=== PATIENT | male | born 1975 | race Caucasian/White ===

== ENCOUNTER 2022-04-08 10:03 | Outpatient (CLI) | payer MEDICARE, MEDICAID, SELFPAY ==
--- NOTE | 2022-04-08 10:15 | CRLHL7_ITS ---
For Patients: As a result of the Century Cures Act, medical imaging exams and procedure reports are released immediately into your electronic medical record. You may view this report before your referring provider. If you have questions, please contact your health care provider. INDICATION: Dysphagia TECHNIQUE: Modified barium swallow. Fluoroscopic time 1 minutes 5 seconds. COMPARISON: None FINDINGS/IMPRESSION: Anatomical structures are normal. Swallowing mechanism appears within normal limits. No episodes of penetration or aspiration. No significant findings. Prominent anterior osteophytes within the mid cervical spine noted without mass effect upon the oropharynx. Dictated by Mainor Fair MD @ 04/08/2022 11:12:41 AM (Electronically Signed)
--- OUTSIDE RECORDS SUMMARY | 2022-04-08 10:16 | XMS_ITS | Clinical Summary ---
:1975 Author Organization [facility] Address [address] [place] [address] Care Team Providers Name Role Phone Chris Fontenot [place] Primary Care Physician [phone] Encounter 04/16/20 - 04/16/20 [facility] [address] [place] [address] Encounter Diagnosis Neurogenic bladder (Discharge Diagnosis) - 04/16/20 Discharge Disposition: Home or Self Care Attending Physician: Hugo Pitts MD Admitting Physician: Hugo Pitts MD Referring Physician: Unknown Provider, MD Allergies, Adverse Reactions, Alerts No Known Allergies Discharge Medications bisacodyl (bisacodyl 10 mg rectal suppository) Status: Ordered Start Date: 12/30/18 1 Suppositories Per rectum every day as needed as need ed for constipation. carBAMazepine Status: Ordered Start Date: 12/30/18 Take 400mg orally in the am and 600mg orallly in the p m. diazePAM (diazePAM Intensol 5 mg/mL oral solution) Status: Ordered Start Date: 12/30/18 1 Milliliters Buccal Use Once as directe d to treat a specific condition as needed use as directed for increased seizure activity. divalproex sodium Status: Ordered Start Date: 12/30/18 1500mg orally in the am and 1,750 mg Orally in the pm. docosanol topical (Abreva 10% topical cream) Status: Ordered Start Date: 12/30/18 1 Application Topical 5 times per day as needed as nee ded for cold sores. lisinopril (lisinopril 20 mg oral tablet) Status: Ordered Start Date: 12/30/18 1 tabs Oral every day. metoprolol (metoprolol succinate 25 mg oral capsule, e xtended release) Status: Ordered Start Date: 12/30/18 1 Capsules Oral 2 times a day. multivitamin (multivitamin adult, oral tablet) Status: Ordered Start Date: 12/30/18 1 tabs Oral every day. sodium biphosphate-sodium phosphate (Fleet Enema (adul t)) Status: Ordered Start Date: 12/30/18 1 enema Per rectum once as needed as needed for consti pation. Problem List Condition Effective Dates Status Health Status Informant Neurogenic bladder(Confirmed) Active Hospital Discharge Diagnosis Neurogenic bladder (Discharge Diagnosis) - 04/16/20 (This Visit) Immunizations Given and Recorded Vaccine Date Status Refusal Reason influenza virus vaccine, inactivated 06/21/19 Recorded influenza virus vaccine, inactivated 06/06/18 Recorded influenza virus vaccine, inactivated 05/18/17 Recorded influenza virus vaccine, inactivated 06/10/16 Recorded influenza virus vaccine, inactivated 05/22/15 Recorded influenza virus vaccine, inactivated 05/16/14 Recorded influenza virus vaccine, inactivated 05/16/13 Recorded influenza virus vaccine, inactivated 05/26/12 Recorded influenza virus vaccine, inactivated 04/15/11 Recorded influenza virus vaccine, inactivated 04/23/10 Recorded influenza virus vaccine, inactivated 05/14/09 Recorded influenza virus vaccine, inactivated 05/31/04 Recorded hepatitis B adult vaccine 04/10/16 Recorded hepatitis B adult vaccine 11/18/15 Recorded hepatitis B adult vaccine 10/15/15 Recorded hepatitis B adult vaccine 10/11/15 Recorded tetanus/diphth/pertuss (Tdap) adult/adol 04/23/10 Recorde d pneumococcal 23-polyvalent vaccine 04/23/10 Recorded Vital Signs Most recent to oldest [Reference Range]: 1 Pain Present No actual or suspected pain (04/16/20 3:00 PM) Social History Social History Type Response Smoking Status Never smoker; Exposure to Se condhand Smoke: No entered on: 04/16/20 Sex
--- OUTSIDE RECORDS SUMMARY | 2022-04-08 10:16 | XMS_ITS | Clinical Summary ---
:1975 Author Organization [facility] Address [address] [place] [address] Care Team Providers Name Role Phone Chris Fontenot [place] Primary Care Physician [phone] Encounter 10/30/20 - 10/30/20 [facility] [address] [place] [id number] Encounter Diagnosis Neurogenic bladder (Discharge Diagnosis) - 10/30/20 Cerebral palsy, diplegic (Discharge Diagnosis) - 10/30/20 Urinary frequency (Discharge Diagnosis) - 10/30/20 Recurrent UTI (Discharge Diagnosis) - 10/30/20 Urinary urgency (Discharge Diagnosis) - 10/30/20 Constipation (Discharge Diagnosis) - 10/30/20 Discharge Disposition: Home or Self Care Attending Physician: Bashir Samuel MD Admitting Physician: Bashir Samuel MD Referring Physician: Hugo Pitts MD Allergies, Adverse Reactions, Alerts No Known [...] 1 Capsules Oral 2 times a day. mirabegron (mirabegron 25 mg oral tablet, extended rel ease) Status: Ordered Start Date: 10/30/20 1 tabs Oral every day. do not crush or chew. Refills: 1. Ordering provider: Eleni Rivas APRN CNP multivitamin (multivitamin adult, oral tablet) Status: Ordered Start Date: 12/30/18 1 tabs Oral every day. sodium biphosphate-sodium phosphate (Fleet Enema (adul t)) Status: Ordered Start Date: 12/30/18 1 enema Per rectum once as needed as needed for brenda gtz. sulfamethoxazole-trimethoprim (Bactrim DS 800 mg-160 m g oral tablet) Status: Ordered Start Date: 07/29/20 1 tabs Oral once. Take 1 tab 1-2 hours A [facility] Procedure.. Refills: 0. Ordering provider: Bea Zamora APRN CNP Problem List Condition Effective Dates Status Health Status Informant At high risk for falls(Confirmed)1 Active Cerebral palsy, diplegic(Confirmed) Active Hypertension(Confirmed) Active Urinary frequency(Confirmed) Active Neurogenic bladder(Confirmed) Active Recurrent UTI(Confirmed) Active Scoliosis(Confirmed) Active Seizure disorder(Confirmed) Active Urinary urgency(Confirmed) Active 1Added via Discern Expert [email or web address]_PROBLEM Rule. Hospital Discharge Diagnosis Cerebral palsy, diplegic (Discharge Diagnosis) - 10/30/20 Constipation (Discharge Diagnosis) - 10/30/20 Neurogenic bladder (Discharge Diagnosis) - 10/30/20 Recurrent UTI (Discharge Diagnosis) - 10/30/20 Urinary frequency (Discharge Diagnosis) - 10/30/20 Urinary urgency (Discharge Diagnosis) - 10/30/20 (This Visit) Immunizations Given and Recorded Vaccine Date Status Refusal Reason tetanus/diphth/pertuss (Tdap) adult/adol 06/06/20 Recorde d tetanus/diphth/pertuss (Tdap) adult/adol 04/23/10 Recorde d influenza virus vaccine, inactivated 05/29/20 Recorded influenza virus vaccine, inactivated 06/21/19 Recorded influenza [...] Recorded hepatitis B adult vaccine 10/11/15 Recorded pneumococcal 23-polyvalent vaccine 04/23/10 Recorded Vital Signs Most recent to oldest [Reference Range]: 1 Temperature Temporal Artery [36.5-38 Deg C] 36.8 Deg C (10/30/20 9:36 AM) Peripheral Pulse Rate [50-90 bpm] 105 bpm *HI* (10/30/20 9:36 AM) Blood Pressure [100-140/60-90 mmHg] 121/45 mmHg (10/30/20 9:36 AM) Pain Present No actual or suspected pain (10/30/20 9:54 AM) Social History Social History Type Response Smoking Status Never smoker; Exposure to Se condhand Smoke: No entered on: 10/30/20 Sex
--- OUTSIDE RECORDS SUMMARY | 2022-04-08 10:16 | XMS_ITS | Clinical Summary ---
:1975 Author Organization [facility] Address [address] [place] [address] Care Team Providers Name Role Phone Chris Fontenot Primary Care Physician [phone] Encounter 05/10/19 - 05/10/19 [facility] [address] [place] [address] Encounter Diagnosis Back pain (Discharge Diagnosis) - 05/10/19 Discharge Disposition: Home or Self Care Attending Physician: Unknown Provider, Admitting Physician: Unknown Provider, MD Allergies, Adverse Reactions, Alerts No Known Allergies Discharge Medications bisacodyl (bisacodyl 10 mg rectal suppository) 1 Suppositories Per rectum every day as needed as need ed for constipation. carBAMazepine Take 400mg orally in the am and 600mg orallly in the p m. diazePAM (diazePAM Intensol 5 mg/mL oral solution) 1 Milliliters Buccal Use Once as directe d to treat a specific condition as needed use as directed for increased seizure activity. divalproex sodium 1500mg orally in the am and 1,750 mg Orally in the pm. docosanol topical (Abreva 10% topical cream) 1 Application Topical 5 times per day as needed as nee ded for cold sores. lisinopril (lisinopril 20 mg oral tablet) 1 tabs Oral every day. metoprolol (metoprolol succinate 25 mg oral capsule, e xtended release) 1 Capsules Oral 2 times a day. mirabegron (Myrbetriq 50 mg oral tablet, extended rele ase) 1 tabs Oral every day. do not crush or chew. multivitamin (multivitamin adult, oral tablet) 1 tabs Oral every day. sodium biphosphate-sodium phosphate (Fleet Enema (adul t)) 1 enema Per rectum once as needed as needed for consti pation. Problem List Hospital Discharge Diagnosis Back pain (Discharge Diagnosis) - 05/10/19 (This Visit) Vital Signs Most recent to oldest [Reference Range]: 1 Pain Present Yes actual or suspected pain (05/10/19 9:36 AM) Social History Social History Type Response Smoking Status Never smoker; Exposure to Se condhand Smoke: No entered on: 12/30/18 Sex Functional Status 05/10/19 Home Equipment Rehab Manual wheelchair, Shower chair, Other: Shower chair is half-way's chair
--- OUTSIDE RECORDS SUMMARY | 2022-04-08 10:16 | XMS_ITS | Clinical Summary ---
:1975 Author Organization [facility] Address [address] [place] [id number] Care Team Providers Name Role Phone Chris Fontenot Primary Care Physician [phone] Encounter 09/17/20 - 09/17/[address] [address]- Discharge Disposition: Home or Self Care Attending Physician: Bea Zamora APRN CNP Admitting Physician: Bea Zamora APRN CNP Referring Physician: Bea Zamora APRN CNP Allergies, Adverse Reactions, Alerts No Known Allergies [...] Refills: 0. Ordering provider: Bea Zamora APRN TELE MARKETING EXECUTIVE Problem List Condition Effective Dates Status Health Status Informant Neurogenic bladder(Confirmed) Active Immunizations Given and Recorded Vaccine Date Status [...] 10/11/15 Recorded pneumococcal 23-polyvalent vaccine 04/23/10 Recorded Social History Social History Type Response Smoking Status Never smoker; Exposure to Se condhand Smoke: No entered on: 04/16/20 Sex Treatment Plan Future AppointmentsAppointment Date:10/30/2020 09:30:00 AM Scheduled Provider: Location:[facility] - Clinic Appointment Type:Urology - Cystoscopy Appointment Date:10/30/2020 10:00:00 AM Scheduled Provider: Location:[facility] - Clinic Appointment Type:Urology - Cystometrogram ([facility]) Appointment Date:10/30/2020 12:20:00 PM Scheduled Provider: Location:[facility] - Clinic Appointment Type:Height and Weight Appointment Date:10/30/2020 12:30:00 PM Scheduled Provider: Location:[facility] - OPS Appointment Type:Seating - Adjustment 3 (4 Hours)
--- OUTSIDE RECORDS SUMMARY | 2022-04-08 10:16 | XMS_ITS | Clinical Summary ---
:[address] [facility] Address [address] [place] [address] Care Team Providers Name Role Phone Chris Fontenot [place] Primary Care Physician [phone] Encounter 07/01/21 - 07/01/[address] [address] Encounter Diagnosis Cerebral palsy, diplegic (Discharge Diagnosis) - 07/01/21 Urinary frequency (Discharge Diagnosis) - 07/01/21 Neurogenic bladder (Discharge Diagnosis) - 07/01/21 Urinary urgency (Discharge Diagnosis) - 07/01/21 Discharge Disposition: Home or Self Care Attending Physician: Bea Zamora APRN DRILL PRESS TENDER Admitting Physician: Bea Zamora APRN DRILL PRESS TENDER Referring Physician: Bashir Samuel MD Allergies, Adverse Reactions, Alerts No Known [...] Oral 2 times a day. mirabegron (mirabegron 50 mg oral tablet, extended rel ease) [id number] Status: Ordered [address] [place] [phone] Start Date: 02/03/21 1 tabs Oral every day. do not crush or chew. Refills: 11. Ordering provider: Bea Zamora APRN CNP multivitamin (multivitamin adult, oral tablet) Status: Ordered Start Date: 12/30/18 1 tabs Oral every day. sodium biphosphate-sodium phosphate (Fleet Enema (adul t)) Status: Ordered Start Date: 12/30/18 1 enema Per rectum once as needed as needed for brenda gtz. sulfamethoxazole-trimethoprim (Bactrim DS 800 mg-160 m g oral tablet) [id number] Status: Ordered [address] [place] [address] [phone] Start Date: 07/29/20 1 tabs Oral once. [...] Diagnosis Cerebral palsy, diplegic (Discharge Diagnosis) - 07/01/21 Neurogenic bladder (Discharge Diagnosis) - 07/01/21 Urinary frequency (Discharge Diagnosis) - 07/01/21 Urinary urgency (Discharge Diagnosis) - 07/01/21 (This Visit) Immunizations Given and Recorded Vaccine [...]
--- OUTSIDE RECORDS SUMMARY | 2022-04-08 10:16 | XMS_ITS | Clinical Summary ---
:1975 Author Organization [facility] Address [address] [place] [address] Care Team Providers Name Role Phone Chris Fontenot Primary Care Physician [phone] Encounter 12/30/18 - 12/30/18 [facility] [address] [place] [address] Encounter Diagnosis Scoliosis (Discharge Diagnosis) - 12/30/18 Discharge Disposition: Home or Self Care Attending Physician: Maylin Medel MD Admitting Physician: Maylin Medel MD Referring Physician: Maylin Medel MD Allergies, Adverse Reactions, Alerts No Known [...] consti pation. Problem List Hospital Discharge Diagnosis Scoliosis (Discharge Diagnosis) - 12/30/18 (This Visit) Vital Signs Most recent to oldest [Reference Range]: 1 Temperature Temporal Artery [36.5-38 Deg C] 36.6 Deg C (12/30/18 10:33 AM) Peripheral Pulse Rate [50-90 bpm] 77 bpm (12/30/18 10:33 AM) Blood Pressure [100-140/60-90 mmHg] 115/73 mmHg (12/30/18 10:33 AM) Weight Dosing 66.2 kg (12/30/18 10:33 AM) Pain Present Yes actual or suspected pain (12/30/18 11:20 AM) Able to self report Yes (12/30/18 11:20 AM) able to use numeric rating scale No (12/30/18 11:20 AM) Social History Social History Type Response Smoking Status Never smoker; Exposure to Se condhand Smoke: No entered on: 12/30/18 Sex
--- OUTSIDE RECORDS SUMMARY | 2022-04-08 10:16 | XMS_ITS | Clinical Summary ---
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 Status: Ordered [address] [place] [phone] Start Date: 02/03/21 1 tabs Oral every [...] DS 800 mg-160 m g oral tablet) [facility] Status: Ordered [address] [place] [address] [phone] Start Date: 07/29/20 1 tabs Oral once. [...] Discern Expert ADD_HIGHRISKFALL_PROBLEM Rule. 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
--- OUTSIDE RECORDS SUMMARY | 2022-04-08 10:17 | XMS_ITS | Encounter Summary ---
:1975 Author Organization [facility] Address [address] [place] [address] Care Team Providers Name Role Phone Elsewhere, Pcp Primary Care Provider Unavailable Reason for Referral MRI/CAT/PET Scan (Routine) - Closed Specialty Diagnoses / Procedures Referred By Contact Refer red To Contact Radiology Diagnoses Epilepsy Seizure Not Intractable Without Status Epilepticus (HCC) Matteo Noe M.D. 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 [facility] Procedures MR Brain without IV Contrast HI MRI BRAIN WO CNTRST HC MRI BRAIN WO CNTRST [address] [place], [place] [id number] Referral ID Status Reason Start Date Expiration Date Visits Requ ested Visits Authorized [id number] Closed 12/04/2021 12/04/2022 1 1 Encounter Details Date Type Department Care Team Description 02/02/2022 Hospital Encounter Department of Matteo Noe, Epilepsy Seizure Not RadiologyGerald M.D. Intractable Without [place], in [place], [address] Status Epilepticus [place], [place] ([facility]) [address] [address] [place], [place] [phone] (Work) [phone] Social History Tobacco Use Types Packs/Day Years Used Date Smoking Tobacco: Never Smokeless Tobacco: Never Alcohol Habits Answer Date Recorded How often do you have a drink containing alcohol? Never 02/01/2022 How many drinks containing alcohol do you have on a typical Not asked day when you are drinking? How often do you have six or more drinks on one occasion? No t asked Comment: Not asked Social Isolation Answer Date Recorded In a typical week, how many times do you More than three kelsey es a week 02/01/2022 talk on the phone with family, friends, or neighbors? How often do you get together with friends More than three t imes a week 02/01/2022 or relatives? How often do you attend hoahaoism or 1 to 4 times per year 01/14 bahai services? Do you belong to any clubs or No 02/01/2022 organizations such as hoahaoism groups, unions, fraternal or athletic groups, or school groups? How often do you attend meetings of the Never 02/01/2022 clubs or organizations you belong to? Are you now , , , Never 02/01/2022 , never or living with a partner? Physical Activity Answer Date Recorded On average, how many days per week do you engage in moderate to 0 days 02/01/2022 strenuous exercise (like walking fast, running, jogging, dancing, swimming, biking, or other activities that cause a light or heavy sweat)? On average, how many minutes do you engage in exercise at th is 0 min 02/01/2022 level? Stress Answer Date Recorded Do you feel stress - tense, restless, nervous, or anxious, R ather much 02/01/2022 or unable to sleep at night because your mind is troubled all the time - these days? Financial Resource Strain Answer Date Recorded How hard is it for you to pay for the very basics like Not h deidra at all 02/01/2022 food, housing, medical care, and heating? Intimate Partner Violence Answer Date Recorded Within the last year, have you been afraid of your partner o r No 02/01/2022 ex-partner? Within the last year, have you been humiliated or emotionall y No 02/01/2022 abused in other ways by your partner or ex-partner? Within the last year, have you been kicked, hit, slapped, or No 02/01/2022 otherwise physically hurt by your partner or ex-partner? Within the last year, have you been raped or forced to have any No 02/01/2022 kind of sexual activity by your partner or ex-partner? Food Insecurity Answer Date Recorded Within the past 12 months, you worried that your food would Never true 02/01/2022 run out before you got money to buy more. Within the past 12 months, the food you bought just didn't N ever true 02/01/2022 last and you didn't have money to get more. Transportation Needs Answer Date Recorded In the past 12 months, has lack of transportation kept you f rom No 02/01/2022 medical appointments or from getting medications? In the past 12 months, has lack of transportation kept you f rom No 02/01/2022 meetings, work, or getting things needed for daily living? Housing Stability Answer Date Recorded In the last 12 months, was there a time when you were not ab le No 02/01/2022 to pay the mortgage or rent on time? In the last 12 months, how many places have you lived? 1 02/01/2022 In the last 12 months, was there a time when you did not hav e a No 02/01/[address] or slept in a retirement (including now)? Sex Assigned at Date Recorded Male 02/01/2022 6:47 PM CDT documented as of this encounter Medications at Time of Discharge Medication Sig Dispensed Refills Start Date End Date ascorbic acid, vitamin Take 1 tablet (1,000 180 tablet 3 02/02/2023 C, (Vitamin C) 1,000 mg mg total) by mouth 2 tablet (two) times a day. atenoloL (TENORMIN) 25 Take 25 mg by mouth 0 mg tablet daily. bisacodyL (DULCOLAX) 10 Insert into the 0 016 mg suppository rectum as needed. cholecalciferol, vitamin Take 5,000 Units by 0 D3, (VITAMIN D3 ORAL) mouth daily. diazePAM (VALIUM) 5 Give as directed for 0 2017 mg/mL concentrated prolonged seizure. solution divalproex (DEPAKOTE) 4 tablets p.o. each 0 02/14 500 mg EC tablet morning and 4 each evening. docosanoL (ABREVA) 10 % Apply topically as 0 09/17 cream needed. ibuprofen (ADVIL,MOTRIN) Take 400 mg by mouth 0 0 10/27/2018 200 mg tablet as needed. lisinopriL Take 1 tablet by 0 04/03/2021 (PRINIVIL,ZESTRIL) 20 mg mouth daily. tablet multivitamin with folic Take 1 tablet by 0 2020 acid (ONE DAILY mouth daily. ESSENTIAL) 400 mcg tablet nystatin (MYCOSTATIN) Apply topically as 0 2020 100,000 unit/gram cream needed. sodium Insert into the 0 phosphate,mono-dibasic rectum as needed. (FLEET ENEMA RECTAL) tiZANidine (ZANAFLEX) 2 Take 0.5-1 tablets 0 /0 11/2020 mg tablet by mouth as needed. triamcinolone (KENALOG) Apply topically to 0 03/16 0.1 % ointment affected area(s) 2 times daily. As needed. carBAMazepine Take 300 mg by mouth 0 03/11/2018 0 02/06/2022 (CARBATROL) 300 mg 12 hr 2 (two) times a day. capsule lacosamide (VIMPAT) 50 Take 1.5 tablets by 0 02/06/2022 mg tablet mouth 2 (two) times a day. After 1 week, increase to 2 tablets twice a day. documented as of this encounter Plan of Treatment Not on filedocumented as of this encounter Procedures Procedure Name Priority Date/Time Associated Comments Diagnosis MR BRAIN WITHOUT RAD - Routine 02/02/2022 4:23 Epilepsy Seizure Res ults for this IV CONTRAST (most inpatients PM CDT Not Intractable procedur e are in and all Without Status the results outpatients) Epilepticus (HCC) section. documented in this encounter Results MR Brain without IV Contrast (02/02/2022 4:23 PM CDT) Anatomical Region Laterality Modality Head, Brain, Neuroradiology RST LOS, Neuroradiology ARZ N/A Magnetic Resonance LOS, Neuroradiology FLA LOS Specimen (Source) Anatomical Collection Method Collection Time Re ceived Time Location / / Volume Laterality 02/03/2022 1:13 PM CDT Impressions 02/03/2022 1:36 PM CDT Patient motion degrades images. Due to technical difficulties NeuroQuant analysis could not be performed. Moderate-marked diffus e loss of cerebral white matter with patchy confluent areas of abnormal T2 signal and a few areas of encephalomalacia. Associated thinning corpus callosum and irregularity lateral gao both lateral ventricles. Findings probably due to an old remote global insult and subsequent periventricular le ukomalacia. Presumed ossification anterior falx. Mild polypoid mucosal thickening left maxilla ry sinus. Abnormal T2 signal left paramedian maxillary tooth region which may be due to inflammation- infection. Degenerative changes visualized cervical spine. Remainder negative. Narrative 02/03/2022 1:36 PM CDT EXAM: MR BRAIN WITHOUT IV CONTRAST COMPARISON: None. Procedure Note Wali Jaeger M.D. - 02/03/2022Fo rmatting of this note might be different from the original. EXAM: MR BRAIN WITHOUT IV CONTRAST COMPARISON: None. IMPRESSION: Patient motion degrades images. Due to t echnical difficulties NeuroQuant analysis could not be performed. Moderate-marked diffus e loss of cerebral white matter with patchy confluent areas of abnormal T2 signal and a few areas of encephalomalacia. Associated thinning corpus callosum and irregularity lateral gao both lateral ventricles. Findings probably due to an old remote global insult and subsequent periventricular le ukomalacia. Presumed ossification anterior falx. Mild polypoid mucosal thickening left maxilla ry sinus. Abnormal T2 signal left paramedian maxillary tooth region which may be due to inflammation- infection. Degenerative changes visualized cervical spine. Remainder negative. 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
--- OUTSIDE RECORDS SUMMARY | 2022-04-08 10:17 | XMS_ITS | Encounter Summary ---
:1975 Author Organization [facility] Address [address] [place] [address] Care Team Providers Name Role Phone Elsewhere, Pcp Primary Care Provider Unavailable Reason for Visit Reason Comments Local DDS calling with question So Encounter Details Date Type Department Care Team Description 04/01/2022 Clinical Communication Department of Matteo Noe Loca l DDS calling Neurology in M.D. with question (So) [place], [facility] [address] [place], [place] [address] [facility] [address] [place], [place] [phone] (Work) [phone] Social History Tobacco Use Types Packs/Day Years [...] or relatives? How often do you attend buddhist or 1 to 4 times per year 01/14 druze services? Do you belong to any clubs or No 02/01/2022 organizations such as buddhist groups, unions, fraternal or athletic groups, or [...] place to sleep or slept in a penitentiary (including now)? Sex Assigned at Date Recorded Male 02/01/2022 6:47 PM CDT documented as of this encounter Miscellaneous Notes Telephone Encounter - Scott Raygoza R.N. - 04/03/2022 1:52 PM CDT Attempted to call Dr. Mayen' office back. Unable to reach staff so message was left for them to callus back. I found recommendations from Dr. Noe regarding dental follow up for his note on 02/02/22 where he stated the following: I counseled Kirsty that the MRI of the brain showed changes associated with Andres's cerebral palsy,and no acute lesions to explain his increase in seizure frequency. However, there was an incidental finding to suggest tooth infection at the left upper maxillary region. She should bring Andres to see his dentist. This information can be relayed to Dr. Mayen or her staff when called back. Telephone Encounter - Velvet Gates Fantasma - 04/01/2022 2:27 PM CDT Chief Complaint Finding on MRI and follow up at dental off Reason for Call: Dr. Mayen is calling as she was told by patient that he needed following up his dental issue found on MRI. X-rays were not done at local dental office. Provider is wondering what she is to be looking at. Person calling / Relationship: Rossana Mayen DDS, from [facility] Valid [employer] - sending a release over to us. [employer] prior to releasing information. , extension 1 for dental. Caller was made aware of the two- to four-business day call turnaround time. 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
--- OUTSIDE RECORDS SUMMARY | 2022-04-08 10:17 | XMS_ITS | Clinical Summary ---
:1975 Author Organization [facility] Address [address] [place] [address] Care Team Providers Name Role Phone FontenotChris negrete Primary Care Physician [phone] Encounter 05/21/20 - 10/29/20 [facility] [address] [place] [id number] Encounter Diagnosis Spastic diplegia (Discharge Diagnosis) - 05/22/20 Unspecified lack of coordination (Final) - Muscle weakness (generalized) (Final) - Spastic diplegic cerebral palsy (Final) - Discharge Disposition: Home or Self Care Attending Physician: Maylin Medel MD Admitting Physician: Maylin Medel MD Allergies, Adverse Reactions, [...] as needed as needed for consti pation. sulfamethoxazole-trimethoprim (Bactrim DS 800 mg-160 m g oral tablet) Status: Ordered Start Date: 07/29/20 1 tabs Oral once. Take 1 tab 1-2 hours A [facility] Procedure.. Refills: 0. Ordering provider: Bea Zamora APRN AIR TRAFFIC CONTROLLER Problem List Condition Effective Dates Status Health Status Informant Neurogenic bladder(Confirmed) Active Hospital Discharge Diagnosis Spastic diplegia (Discharge Diagnosis) - 05/22/20 (This Visit) Immunizations Given and Recorded Vaccine [...] Recorded Vital Signs Most recent to oldest 1 2 3 [Reference Range]: Height/Length 163 cm Estimated (05/22/20 10:21 AM) Weight Estimated 68 kg (05/22/20 10:21 AM) Pain Present Patient was not seen No actual or suspected pain No actual or suspected pain (10/29/20 4:04 PM) (06/04/20 4:14 PM) (05/21/20 3: 36 PM) Primary Pain Other: Lack of movement, poo r positioning, decreased use of stander Aggravating Factors (05/21/20 3:36 PM) Primary Pain Exercise, Alleviating Factors Repositioning 1 (05/21/20 3:36 PM) Primary Pain Onset Gradual (05/21/20 3:36 PM) Primary Pain Quality Chronic (05/21/20 3:36 PM) 1Result Comment: use of stander Social History Social History Type Response Smoking Status Never smoker; Exposure to Se condhand Smoke: No entered on: 04/16/20 Sex Treatment Plan Future AppointmentsAppointment Date:10/30/2020 09:30:00 AM Scheduled Provider: Location:[facility] - Clinic Appointment Type:Urology - Cystoscopy Appointment Date:10/30/2020 10:00:00 AM Scheduled Provider: Location:[facility] Appointment Type:Urology - Cystometrogram ([facility]) Appointment Date:10/30/2020 12:20:00 PM Scheduled Provider: Location:[facility] - [facility] Appointment Type:Height and Weight Appointment Date:10/30/2020 12:30:00 PM Scheduled Provider: Location:[facility] Appointment Type:Seating - Adjustment 3 (4 Hours)
--- OUTSIDE RECORDS SUMMARY | 2022-04-08 10:17 | XMS_ITS | Clinical Summary ---
:1975 Author Organization [facility] Address [address] [place] [address] Care Team Providers Name Role Phone Chris Fontenot Primary Care Physician [phone] Encounter 10/29/20 - 10/29/20 [facility] [address] [place] [address] Discharge Disposition: Home or Self Care Attending [...] Refills: 0. Ordering provider: Bea Zamora APRN PRODUCTION ASSOCIATE Problem List Condition Effective Dates Status Health [...] Future AppointmentsAppointment Date:10/30/2020 09:30:00 AM Scheduled Provider: Location:[facility] - Clinic Appointment Type:Urology - Cystoscopy Appointment Date:10/30/2020 10:00:00 AM Scheduled Provider: Location:[facility] - [facility] Appointment Type:Urology - Cystometrogram ([facility]) Appointment Date:10/30/2020 12:20:00 PM Scheduled Provider: Location:[facility] - Clinic Appointment Type:Height and Weight Appointment Date:10/30/2020 12:30:00 PM Scheduled Provider: Location:[facility] - [facility] Appointment Type:Seating - Adjustment 3 (4 Hours)
--- OUTSIDE RECORDS SUMMARY | 2022-04-08 10:17 | XMS_ITS | Clinical Summary ---
:1975 Author Organization [facility] Address [address] [place] [address] Care Team Providers Name Role Phone Elsewhere, Pcp Primary Care Provider Unavailable Source Comments Patient records contain information from all sites at [facility]. For routine questions regarding patient records, call [phone] during business hours, M-F 8:00 AM - 5:00 PM Central Time. Record requests for emergency care only can be directed to [phone] at any time.[facility] Allergies Active Allergy Reactions Severity Noted Date Comments Gabapentin Other (see comments) 03/20/2021 Tolterodine Rash Low 05/22/2014 Medications Medication Sig Dispensed Refills Start Date End Date Status divalproex 4 tablets p.o. 0 02/14/2021 Act kandice (DEPAKOTE) 500 mg EC each morning and tablet 4 each evening. diazePAM (VALIUM) 5 Give as directed 0 07/05/2018 Active mg/mL concentrated for prolonged solution seizure. atenoloL (TENORMIN) Take 25 mg by 0 Active 25 mg tablet mouth daily. lisinopriL Take 1 tablet by 0 04/03/2021 A ctive (PRINIVIL,ZESTRIL) mouth daily. 20 mg tablet multivitamin with Take 1 tablet by 0 12/11/2020 Active folic acid (ONE mouth daily. DAILY ESSENTIAL) 400 mcg tablet cholecalciferol, Take 5,000 Units 0 Active vitamin D3, (VITAMIN by mouth daily. D3 ORAL) tiZANidine Take 0.5-1 0 03/19/2021 Active (ZANAFLEX) 2 mg tablets by mouth tablet as needed. triamcinolone Apply topically 0 04/03/2021 Active (KENALOG) 0.1 % to affected ointment area(s) 2 times daily. As needed. sodium Insert into the 0 Acti ve phosphate,mono-dibas rectum as ic (FLEET ENEMA needed. RECTAL) bisacodyL (DULCOLAX) Insert into the 0 02/23/2016 Active 10 mg suppository rectum as needed. docosanoL (ABREVA) Apply topically 0 10/11/2015 Active 10 % cream as needed. ibuprofen Take 400 mg by 0 10/27/2018 Acti ve (ADVIL,MOTRIN) 200 mouth as needed. mg tablet nystatin Apply topically 0 03/18/2021 Act kandice (MYCOSTATIN) 100,000 as needed. unit/gram cream ascorbic acid, Take 1 tablet 180 tablet 3 02/02/2022 3 Active vitamin C, (Vitamin (1,000 mg total) C) 1,000 mg tablet by mouth 2 (two) times a day. carBAMazepine Take 1 capsule 180 capsule 3 02/06/2022 Active (CARBATROL) 300 mg (300 mg total) 12 hr by mouth 2 (two) capsuleIndications: times a day. 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 Optimal management of neurogenic bladde r is essential to reducing frequency of UTI. Patient should be on scheduled voiding, and intermittent catheterization as prescribed by Urology to maximize bladder emptying and reduce risk of UTI. Infection Urinary Tract Recurrent 10/08/2020 Last Assessment & Plan: Formatting of is note might be different from the original. Patient appears to have different organ isms with each infection, with intervening periods with negative urine cultures. Fortunately, these organisms have been reasonably susceptible overall. Conservati ve measures we could attempt include kwasi dder acidification, and methenamine hippurate. Patient has good renal function, and most recent urine pH was 6.0. He would thus be in the group most likely to justine efit from urine acidification trial. Rec ommend 1 g vitamin C p.o. b.i.d., and rechecking UA with any breakthrough episodes. If breakthrough episodes continue at the current rate, and the patient's bladd er pH gets below 5.5, we could do a tria l of methenamine hippurate. We can also work to optimize neurogenic bladder management as described below. 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 We do a to be careful about our antimic robial selection in the setting of the patient's known seizure disorder. Specifically, when at all possible, we should be avoiding quinolone antibiotics. Quinolon es lower the seizure threshold, and may contribute to some of the worsening seen. Carbapenems may also do so, though given the organism seen today, there was only 1 case for that would of potentially been a serious option. 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 Seizure onset 1 yo. Severe DD with quadr iparesis. Severe agitation makes procedures challenging. VPA has helped but levels above 100 needed. Carbamazepine less helpful. Previous treatment with phenobarb ital, phenytoin and carbamazepine with l evetiracetam was less successful. Seizure free between 11/2012-07/2015 while on Carbatrol and Depakote. He had a seizure in 07/2015, another seizure in 11/2016 an d a third seizure on 12/25/2016 and came to our attention. Hypertension Essential Primary 09/27/2007 Encounters Date Type Specialty Care Team Description 04/01/2022 Clinical Communication Neurology Matteo Noe M.D. Lo cal DDS calling with question (So) 02/17/2022 Orders Only Neurology Matteo Noe M.D. Localization Related Focal Partial S ymptomatic Epilepsy And Ep ileptic Syndromes With Simple Partial Seizure s Intractable Wit hout Status Epilepti cus ([facility]) (Primary Dx) 02/03/2022 Clinical Communication Neurology Matteo Noe M.D. 02/03/2022 Orders Only Neurology Matteo Noe M.D. 02/02/2022 Hospital Encounter Radiology Matteo Noe M.D. Epilep sy Seizure Not Intractable Wit hout Status Epilepti cus ([facility]) 02/02/2022 Hospital Encounter Neurology Matteo Noe M.D. Epilep sy Seizure Not Intractable Wit hout Status Epilepti cus ([facility]) 02/02/2022 Office Visit Neurology Matteo Noe M.D. Localization Related Focal Partial S ymptomatic Epilepsy And Ep ileptic Syndromes With Simple Partial Seizure s Intractable Wit hout Status Epilepti cus ([facility]) from Last 3 Months Immunizations Name Administration Dates Next Due H1N1 All Forms 06/20/2009 HepB Adult 04/10/2016, 11/18/2015, 10/15/2015, 10/11/2015 Influenza (IM) Preservative Free 04/23/2010 Influenza TIV (IM) 05/22/2015, 04/15/2011, 04/23/2010, 05/14/2009, 05/16/2007, 05/31/2004 Influenza, Injectable, Mdck, 06/27/2021, 06/06/2018 Preservative Free, Quadrivalent Influenza, Injectable, Mdck, 06/06/2018 Quadrivalent Influenza, Injectable, Quadrivalent 05/29/2020, 05/18/2017, 05/22/2015 Influenza, Seasonal, Injectable 05/26/2012, 04/15/2011, 04/17, 05/31/2004 Influenza, Unspecified 06/10/2016, 05/16/2014, 05/16/2013, 05/26/2012, 05/14/2009, 05/31/2004 PPSV23 04/23/2010 SARS-COV-2 (COVID-19) - MODERNA 10/09/2020 Tdap 06/06/2020, 04/23/2010 influenza vaccine quad 06/21/2019 (FLUZONE/FLUARIX) (6 months and older)(PF) Social History Tobacco Use Types Packs/Day Years [...] or relatives? How often do you attend buddhism or 1 to 4 times per year 01/14 buddhism services? Do you belong to any clubs or No 02/01/2022 organizations such as buddhism groups, unions, fraternal or athletic groups, or [...] place to sleep or slept in a prison (including now)? Sex Assigned at Date Recorded Male 02/01/2022 6:47 PM CDT Last Filed Vital Signs Vital Sign Reading Time Taken Comments Blood Pressure - - Pulse - - Temperature 36.2 ??C (97.2 ??F) 11/17/2021 2:36 PM CDT Respiratory Rate - - Oxygen Saturation - - Inhaled Oxygen Concentration - - Weight - - Height - - Body Mass Index - - Plan of Treatment Health Maintenance Due Date Last Done Comments CT Colonography 1975 Cologuard 1975 Colonoscopy 1975 Colorectal Cancer Screening 1975 FIT 1975 HIV Screening 1975 Hepatitis C Screening 1975 Office Visit for Blood 1974 Pressure Check / Re-check Depression Screening 08/16/2021 (Annual PHQ-2) Influenza Vaccine (#1) 2022 06/27/2021, 05/29/2020, 05/29/2020, Additional history exists Creatinine Level 09/29/2022 09/29/2021, 03/27/2021, 03/15/2020 Potassium Level 09/29/2022 09/29/2021, 03/27/2021, 03/15/2020 Sodium Level 09/29/2022 09/29/2021, 03/27/2021, 03/15/2020 Fasting Glucose for 09/29/2024 09/29/2021, 03/27/2021, Diabetes Screening 03/15/2020 Fasting Lipid Panel 03/15/2025 03/15/2020, 10/27/2018 DTaP,Tdap,and Td Vaccines 06/06/2030 06/06/2020, 04/23/2010 (3 - Td or Tdap) Pneumococcal vaccine (0-64 Aged Out 04/23/2010 No lo nger eligible years) based on patient 's age to complete this topic Hepatitis B Vaccines Completed 04/10/2016, 11/18/2015, 10/15/2015, Additional history exists COVID-19 Vaccine Completed 08/28/2021, 10/09/2020, 09/16/2020 Procedures Procedure Name Priority Date/Time Associated Comments Diagnosis MR BRAIN WITHOUT RAD - Routine 02/02/2022 4:23 Epilepsy Seizure Res ults for this IV CONTRAST (most inpatients PM CDT Not Intractable procedur e are in and all Without Status the results outpatients) Epilepticus (HCC) section. EEG ROUTINE - Routine 02/02/2022 10:38 Epilepsy Seizure Result s for this AWAKE AND SLEEP AM CDT Not Intractable procedure are in Without Status the results Epilepticus (HCC) section. from Last 3 Months Results MR Brain without IV Contrast (02/02/2022 [...] changes visualized cervical spine. Remainder negative. Matteo Noe M.D. IMG MRI PROCEDURES EEG routine - awake and sleep (02/02/2022 10:38 AM CDT) Specimen (Source) Anatomical Location Collection Method / Collectio n Time Received Time / Laterality Volume Narrative MMODAL - 02/02/2022 1:16 PM CDT Clinical Interpretation: The short-term video EEG shows a moderate degree of diffuse nonspecific slow wave abnorma lities. ??No potentially epileptogenic activity was present durin g the awake recording. Sleep was not recorded. Classification: SPECIAL STUDY - Short-te video EEG. Dysrhythmia grade 2 generalized. Sleep - unsuccessful. . EKG channel. Report: The short-term video EEG recordi ng during wakefulness contains 8 Hz alpha activity over the posterior hea d regions.. ??There is generalized theta slowing in the 4-7 Hertz range, oc curring intermittently, somewhat more prominent at the central head regio n than other locations. No abnormal activity occurred during ??p hotic stimulation. Hyperventilation was omitted due to COVID-19 precautions. During the recording, the patient did n ot fall asleep. The EKG channel was unremarkable. Matteo Noe M.D. NEUROLOGY ORDERABLES Performing Organization Address City/State/ZIP Code Phon e Number MMODAL MMODAL NA from Last 3 Months Insurance Payer Benefit Plan Subscriber ID Effective Phone Address Typ e / Group Dates MEDICARE MEDICARE A [id number] 1995-Prese [address] [place] [address] [facility] MEDICAID [id number] 2005-Prese [phone] DEPT OF [place] d[place] MED[place] [id number] [employer] [address] [address] [place] [address] Care Teams Air Deodorizer Servicer Relationship Specialty Start Date End Date Elsewhere, Pcp PCP - General Internal Medicine 11/14/21
--- OUTSIDE RECORDS SUMMARY | 2022-04-08 10:17 | XMS_ITS | Clinical Summary ---
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 do not crush or chew. multivitamin (multivitamin adult, oral tablet) Status: Ordered Start Date: 12/30/18 1 tabs Oral every day. sodium biphosphate-sodium phosphate (Fleet Enema (adul t)) Status: Ordered Start Date: 12/30/18 1 enema Per rectum once as needed as needed for consti pation. 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
--- OUTSIDE RECORDS SUMMARY | 2022-04-08 10:17 | XMS_ITS | Clinical Summary ---
:1975 Author Organization [facility] [place] [address] Care Team Providers Name Role Phone Chris Fontenot MD Primary Care Provider [phone] Allergies Active Allergy Reactions Severity Noted Date Comments Ciprofloxacin Other - Describe In 11/28/2021 Avoid d ue to increased Comment Field risk of seizur e. Tolterodine Rash 05/22/2014 Gabapentin *Unknown 03/20/2021 Medications Medication Sig Dispensed Refills Start End Status Date Date miscellaneous As directed. 1 Units 2 09/14/19 Act [facility] [employer] KAM LIFT CROSS 14 misc OVER [id number] LARGE SMT. Lifetime use. Diagnosis: 343.9. miscellaneous As directed. 1 Units 0 10/08/19 Act [facility] Terrasil cream 14 misc to groin / gluteal rash as needed twice daily until clear. medication order Wheelchair 1 Each 0 10/17/19 Ac tive composerIndicatio seatbelt 14 ns: Cerebral palsy (HC) diazepam (VALIUM) Take 1 tablet by 0 11/08/19 Active 5 mg tablet mouth every 6 14 hours if needed. guaFENesin SR Take 1 tablet by 20 tablet 0 05/22/20 Active (MUCINEX 12 HOUR) mouth every 12 14 1,200 mg tp12 hours if needed for Expectoration (congestion). sodium phosphates One per rectum 5 Enema 5 10/10/19 Active (FLEETS) enema as needed if no 15 BM in 1 to 2 days, or at patient / family discretion, can be interchanged with Bisacodyl Suppository. docosanol 10 % Apply topically 2 g 3 10/11/19 Active (ABREVA) 10 % to affected 16 creamIndications: area(s) 5 times Recurrent cold daily. sores Wheel Wheelchair: 1 Device 0 06/19/20 Active ChairIndications: customized with 16 Cerebral palsy, leg and head unspecified type rests. Length of (HC) need: 99 months Shower For home use. 1 Device 0 01/20/20 Active ChairIndications: shower chair 17 Cerebral palsy, with legs and unspecified type feet that can (HC) swing out ibuprofen (ADVIL; Take 1 tablet by 270 tablet 3 10/28/19 Active MOTRIN) 200 mg mouth 3 times 19 tabletIndications daily with : Mechanical back meals. pain medication order Emergen-C 60 Tab 3 09/06/19 Act [facility] composerIndicatio Gummies Plus 20 ns: Upper with Vitamin D. respiratory tract As needed per infection, package unspecified type labelling. carBAMazepine Take 2 capsules 0 03/15/20 Active (CARBATROL) 300 by mouth 2 times 20 mg daily. Extended-Release capsuleIndication s: Seizure disorder (HC) miscellaneous As directed. 1 Units 0 05/28/20 Act [facility] [employer] Sling for kam 20 miscIndications: Wheelchair bound polyethylene Take 17 g by 1 jar 3 06/17/20 Acti ve glycoL (MIRALAX) mouth once 20 17 gram/dose daily. With 8 powderIndications ounces of : Chronic beverage of constipation choice. medication order Kam lift sling 1 unit 0 06/21/20 Active composerIndicatio 20 ns: Cerebral palsy, unspecified type (HC) divalproex 4 tablets p.o. 0 02/15/20 Acti ve (Depakote) 500 mg each morning and 21 Delayed-Release 4 each evening. tabletIndications : Seizure disorder (HC) nystatin To groin rash 60 g 0 03/18/20 Active (MYCOSTATIN) twice daily for 21 creamIndications: 14 days. Rash metoprolol TAKE ONE TABLET 62 Tablet 12 04/03/20 Act [facility] tartrate BY MOUTH TWICE A 21 (LOPRESSOR) 25 mg DAY tabletIndications : Essential hypertension lisinopriL TAKE ONE TABLET 31 Tablet 12 04/03/20 Act [facility] (PRINIVIL; BY MOUTH DAILY 21 ZESTRIL) 20 mg tabletIndications : HTN (hypertension) triamcinolone Apply topically 45 g 1 04/03/20 Active (ARISTOCORT) 0.1 to affected 21 % area(s) 2 times ointmentIndicatio daily. As ns: Rash needed. clotrimazole Apply topically 45 g 1 04/03/20 A ctive (LOTRIMIN) 1 % to affected 21 creamIndications: area(s) 2 times Rash daily. As needed. Per-Fit USE 3 TO 4 PER 288 Each 3 04/17/20 Activ e UnderwearIndicati DAY FOR 21 ons: Other INCONTIENCE urinary incontinence Pseudoephedrine-I TAKE 1 TO 2 30 Tablet 2 08/15/20 Active buprofen TABLETS BY MOUTH 21 (Ibuprofen THREE TIMES Cold-Sinus,with DAILY NEEDED PSE,) 30-200 mg FOR UPPER tabIndications: RESPIRATORY Upper respiratory INFECTION tract infection, RELATED NASAL unspecified type CONGESTION. bisacodyL INSERT 1 12 Suppository 2 08/30/19 Activ e (DULCOLAX) 10 mg SUPPOSITORY 22 suppositoryIndica RECTALLY IF NO tions: Other BM IN 1-2 DAYS constipation OR AT PATIENT/FAMILY DISCRETION CAN BE INTERCHANGED WITH ENEMAS tiZANidine 1/2 to one tab 30 Tablet 3 09/16/19 Acti ve (ZANAFLEX) 2 mg oral three times 22 tabletIndications daily as needed. : Muscle cramps lacosamide Take 1 Tablet 0 09/30/19 Activ e (Vimpat) 50 mg (50 mg) by mouth 22 tab 2 times daily. tabletIndications : Seizure (HC) medication order FOR HOME USE 400 NO_MATCH 2 10/16/19 Active composerIndicatio (LARGE) 22 ns: Cerebral palsy (HC) multivitamin with Take 1 Tablet by 90 Tablet 1 03/05/20 Active folic acid 0.4 mg mouth once 22 (Tab-A-Doroteo)Indic daily. ations: Nutrition disorder medication order Large disposable 600 NO_MATCH 12 03/17/20 Active composerIndicatio gloves for as 22 ns: Cerebral needed use at palsy (HC) home. medication order FOR HOME USE 200 NO_MATCH 4 01/17/20 Discontinued composerIndicatio (LARGE) 22 022 (R eorder ns: Cerebral (E-canc el not palsy (HC) sent)) Active Problems Problem Noted Date Chronic incomplete quadriplegia 09/30/2021 Neurogenic bladder 09/16/2021 Wheelchair bound 03/15/2020 Gross hematuria 07/15/2016 Cerebral palsy 10/16/2013 Seizure disorder 07/10/2009 Unspecified essential hypertension 09/27/2007 Resolved Problems Problem Noted Date Resolved Date Infantile cerebral palsy, unspecified 11/12/2006 Other forms of epilepsy and recurrent seizures with 11/13/19 07 03/15/2020 intractable epilepsy Encounters Date Type Specialty Care Team Description 03/30/2022 Orders Only [facility] 03/17/2022 Telephone Chris Fontenot Medication Management MD Ximena 03/13/2022 Medical Messaging Chris Fontenot referr adair Bueno MD 03/03/2022 Refill Chris Fontenot Refill Requ memo Bueno MD (Tab-a-doroteo) 02/23/2022 Orders Only [facility] 02/23/2022 Telephone Chris Fontenot MD 02/04/2022 Telephone Chris Fontenot Follow Up ( appointment MD Ximena summary) 01/29/2022 Orders Only [facility] 01/29/2022 Travel 01/14/2022 Refill Chris Fontenot Refill Requ memo Beuno MD 01/12/2022 Orders Only Scanner <No scans attac hed> 01/12/2022 Orders Only Scanner <No scans attac hed> 01/06/2022 Telephone Chris Fontenot MD from Last 3 Months Immunizations Name Administration Dates Next Due COVID-19 vaccine (Moderna 10/09/2020, 09/16/2020, 09/11/2020 100mcg/0.5mL) PF, MDV COVID-19 vaccine ([employer] 08/28/2021 30mcg/0.3mL) PF, MDV Hepatitis B (Adult) 04/10/2016, 11/18/2015, 10/11/2015 Influenza A (H1N1), Inactivated 06/20/2009 Influenza Virus, Unspecified 06/10/2016, 05/16/2014, 013, 05/26/2012 Influenza, IIV3 (Age >=3 years) 05/22/2015, 04/15/2011, 03/2010, 05/14/2009, 05/16/2007, 05/31/2004 Influenza, IIV4 06/21/2019 Influenza, IIV4 (=>6mos) MDV 05/29/2020, 05/18/2017 Influenza,CCIIV4 PRESERV FREE 06/27/2021, 06/06/2018 Pneumococcal Poly,23-Valent 04/23/2010 (Pneumovax) Tdap 06/06/2020, 04/23/2010 Family History Medical History Relation Name Comments Lung cancer Father Heart attack Mother Abnormal EKG No Family History Cancer-colon No Family History Cancer-prostate No Family History Diabetes No Family History Relation Name Status Comments Father Mother Social History Tobacco Use Types Packs/Day Years Used Date Never Smoker Smokeless Tobacco: Never Used Tobacco Cessation: Counseling Given: Yes Alcohol Use Standard Drinks/Week Comments No 0 (1 standard drink = 0.6 oz pure alcoho l) Sex Assigned at Date Recorded Not on file Obstetrics History Last Filed Vital Signs Vital Sign Reading Time Taken Comments Blood Pressure 116/73 09/30/2021 11:20 AM VOICE COACH Pulse 82 09/30/2021 11:20 AM VOICE COACH Temperature 36.6 ??C (97.9 ??F) 09/29/2021 3:38 PM VOICE COACH Respiratory Rate - - Oxygen Saturation 99% 09/30/2021 11:20 AM VOICE COACH Inhaled Oxygen Concentration - - Weight 49.9 kg (110 lb) 10/11/2015 4:28 PM VOICE COACH Height 157.5 cm (5' 2) 10/10/2014 2:43 PM VOICE COACH Body Mass Index 20.12 10/10/2014 2:43 PM VOICE COACH Plan of Treatment Health Maintenance Due Date Last Done Comments Hepatitis C screening for age 0209/24/1992 18-79 Colonoscopy through age 75 2019 Influenza for age 9-49 04/16/2022 06/27/2021, 05/29/2020, 06/21/2019, Additional history exists Lipids for age 45-75 03/15/2025 03/15/2020, 10/27/2018, 10/20/2017, Additional history exists Tetanus booster 06/06/2030 06/06/2020, 04/23/2010 Tdap Completed 06/06/2020, 04/23/2010 COVID-19 vaccine series Completed 08/28/2021, 10/09/2020, 09/16/2020, Additional history exists Procedures Procedure Name Priority Date/Time Associated Diagnosis Comme nts URINALYSIS MICROSCOPIC Routine 03/30/2022 6:45 Recurrent UTI R esults for this AM CDT procedure are i n the results section. URINE CULTURE Routine 03/30/2022 6:45 Recurrent UTI Results fo r this AM CDT procedure are i n the results section. UA W/ SEDIMENT EXAM Routine 03/30/2022 6:45 Recurrent UTI Resu lts for this REFLEXED PER CRITERIA AM CDT proced ure are in the results section. URINALYSIS MICROSCOPIC Routine 02/23/2022 9:30 Urinary tract R esults for this AM CDT infection symptoms procedure are in the results section. URINE CULTURE Routine 02/23/2022 9:30 Urinary tract Results fo r this AM CDT infection symptoms procedure are in the results section. UA W/ SEDIMENT EXAM Routine 02/23/2022 9:30 Urinary tract Resu lts for this REFLEXED PER CRITERIA AM CDT infection symptoms procedure are in the results section. URINALYSIS MICROSCOPIC Routine 01/29/2022 9:40 UTI (urinary tr act Results for this AM CDT infection), procedure are i n uncomplicated the results section. URINE CULTURE Routine 01/29/2022 9:40 Recurrent UTI Results fo r this AM CDT procedure are i n the results section. UA W/ SEDIMENT EXAM Routine 01/29/2022 9:40 Recurrent UTI Resu lts for this REFLEXED PER CRITERIA AM CDT proced ure are in the results section. SCAN-CT INTERPRETATION 01/12/2022 12:00 AM CDT SCAN-RADIOLOGY REPORT 01/12/2022 12:00 Re sults for this AM CDT procedure are i n the results section. from Last 3 Months Results URINALYSIS MICROSCOPIC (03/30/2022 6:45 AM CDT)Only the most recent of3 results within the time period is included. Analysis [facility]formed At [facility] Time Signature RBC 0-2 0-2, None 03/30/2022 [facility] Seen /HPF 10:22 AM CDT [facility] WBC 0-2 0-2, 3-5, 03/30/2022 [facility] None Seen 10:22 AM CDT [place] /HPF CLINIC BACTERIA Few None Seen, 03/30/2022 [facility] Rare, Few 10:22 AM CDT [place] Bacteria/H CLINIC PF EPITHELIAL Few None Seen, 03/30/2022 [facility] CELLS Few 10:22 AM CDT [place] Epi/HPF CLINIC Mucus Present 03/30/2022 [facility] 10:22 AM CDT [facility] Specimen Anatomical Collection Method Collection Time Receive d Time (Source) Location / / Volume Laterality Urine URINE SPECIMEN / Non-Blood / 03/30/2022 6:45 AM 03/30 9:54 Unknown Unknown CDT AM CDT Chris Fontenot MD URINE Performing Organization Address City/State/ZIP Code Phon e Number [facility] [address] [place] [address] URINE CULTURE (03/30/2022 6:45 AM CDT)Only the most recent of3 resultswithin the time period is included. [facility] Method Time Signature CULTURE <10,000 CFU/mL 03/31/2022 [facility] multiple 1:33 PM CDT [facility] Specimen Anatomical Collection Method Collection Time Receive d Time (Source) Location / / Volume Laterality Urine URINE SPECIMEN / Non-Blood / 03/30/2022 6:45 AM 03/30 9:54 Unknown Unknown CDT AM CDT Chris Fontenot MD MICROBIOLOGY Performing Organization Address City/State/ZIP Code Phon e Number [facility] [address] [place], [place] [address] [address] LABORATORY-CENTRAL 2000 LABORATORY (ABNORMAL) UA W/ SEDIMENT EXAM REFLEXED PER CRITERIA (03/30/2022 6:45 AM CDT) Only the most recent of3 resultswithin the time period is included. [facility] [employer] Method Time Signature COLOR Yellow Yellow Color 03/30/2022 [facility] 10:[address] [facility] CLINIC CLARITY Slightly Clear 03/30/2022 [facility] Cloudy (A) Clarity 10:[address] [facility] CLINIC SPECIFIC 1.025 1.010, 03/30/2022 [facility] GRAVITY,URINE 1.015, 10:22 AM [place] 1.020, 1.025 CDT CLINIC PH,URINE 6.0 6.0, 7.0, 03/30/2022 [facility] 8.0, 5.5, 10:22 AM [place] 6.5, 7.5, CDT CLINIC 8.5 UROBILINOGEN, Normal Normal EU/dl 03/30/2022 [facility] H QUALITATIVE 10:22 AM [facility] PROTEIN, Negative Negative 03/30/2022 [facility] URINE mg/dL 10:22 AM [facility] GLUCOSE, Negative Negative 03/30/2022 [facility] URINE mg/dL 10:22 AM [facility] KETONES,URINE Trace (A) Negative 03/30/2022 [facility] mg/dL 10:22 AM [facility] BILIRUBIN,URI Negative Negative 03/30/2022 [facility] NE 10:22 AM [facility] OCCULT Negative Negative 03/30/2022 [facility] BLOOD,URINE 10:22 AM [facility] NITRITE Negative Negative 03/30/2022 [facility] 10:22 AM [facility] LEUKOCYTE Negative Negative 03/30/2022 [facility] ESTERASE 10:22 AM [facility] Specimen Anatomical Collection Method Collection Time Receive d Time (Source) Location / / Volume Laterality Urine URINE SPECIMEN / Non-Blood / 03/30/2022 6:45 AM 03/30 9:54 Unknown Unknown CDT AM CDT Chris Fontenot MD URINE Performing Organization Address City/State/ZIP Code Phon e Number [facility] [address] [place] [address] SCAN-RADIOLOGY REPORT (01/12/2022 12:00 AM CDT) Narrative This result has an attachment that is no t available. Scanner OTHER SCAN-CT INTERPRETATION (01/12/2022 12:00 AM CDT) Narrative This result has an attachment that is no t available. Scanner OTHER from Last 3 Months Insurance Payer Benefit Plan / Subscriber ID Effective Dates Phone Addre ss Type Group MEDICARE - PB MEDICARE PB [id number] 2010-Presen ATT N: CLAIMS USE ONLY ONLY t [address] [facility] [place] [address] MEDICAID [place] MEDICAID [id number] 2005-Present [address] [address] [place] [address] Care Teams Miner Helper Relationship Specialty Start Date End Date Chris Fontenot MD PCP - General 12/15/05 [address] [place] [address]
--- OUTSIDE RECORDS SUMMARY | 2022-04-08 10:17 | XMS_ITS | Encounter Summary ---
:1975 Author Organization [facility] Address [address] [place] [address] Care Team Providers Name Role Phone Elsewhere, Pcp Primary Care Provider Unavailable Encounter Details Date Type Department Care Team Description 02/03/2022 Clinical Communication Department of Neurology Matteo Guy M.D. in [facility] [address] [facility] [address] [place] [id number] [phone] Social History Tobacco Use Types Packs/Day Years [...] or relatives? How often do you attend hinduism or 1 to 4 times per year 01/14 yazidi services? Do you belong to any clubs or No 02/01/2022 organizations such as hinduism groups, unions, fraternal or athletic groups, or [...] this encounter Miscellaneous Notes Telephone Encounter - Matteo Noe M.D. - 02/03/2022 4:09 PM CDT Andres Gayle Dr[address]s sister Kirsty today asked me why our med list indicates that you authorized ascorbic acid kevin 1000 mg twice a day, when she understood you to say 500 mg twice a day. I would appreciate it if you could kindly clarify to Kirsty. Matteo documented in this encounter Plan of Treatment Not on filedocumented as of this encounter Visit Diagnoses Not on filedocumented in this encounter Care Teams Sales Effectiveness Manager Relationship Specialty Start Date End Date Elsewhere, Pcp PCP - General Internal Medicine 11/14/21 documented as of this encounter
--- OUTSIDE RECORDS SUMMARY | 2022-04-08 10:17 | XMS_ITS | Clinical Summary ---
:1975 Author Organization [facility] Address [address] [place] [id number] Care Team Providers Name Role Phone FontenotChris negrete Primary Care Physician [phone] Encounter 02/03/22 - 02/03/[address] [address] Encounter Diagnosis Cerebral palsy, diplegic (Discharge Diagnosis) - 02/03/22 Discharge Disposition: Home or Self Care Attending Physician: Unknown ProviderMD Admitting Physician: Unknown Provider, Referring Physician: Unknown Provider, MD Allergies, Adverse [...] 50 mg oral tablet, extended rel ease) [facility] Status: Ordered [address] [place] [id number] Start Date: 02/03/21 1 tabs Oral every [...] DS 800 mg-160 m g oral tablet) [facility] Status: Ordered [address] [place] [id number] Start Date: 07/29/20 1 tabs Oral once. [...] Diagnosis Cerebral palsy, diplegic (Discharge Diagnosis) - 02/03/22 (This Visit) Immunizations Given and Recorded Vaccine [...] condhand Smoke: No entered on: 10/30/20 Sex Care Team PersonnelName: Chris Fontenot MD Address: [address] [address]
--- OUTSIDE RECORDS SUMMARY | 2022-04-08 10:17 | XMS_ITS | Encounter Summary ---
:1975 Author Organization [facility] Address [address] [place] [address] Care Team Providers Name Role Phone Elsewhere, Pcp Primary Care Provider Unavailable Encounter Details Date Type Department Care Team Description 02/03/2022 Orders Only Department of Neurology in Luz Noe M.D. [place], [place] [address] [facility] [address] [place] [phone] (Wo rk) Social History Tobacco Use Types Packs/Day Years [...] or relatives? How often do you attend mosque or 1 to 4 times per year 01/14 christian services? Do you belong to any clubs or No 02/01/2022 organizations such as mosque groups, unions, fraternal or athletic groups, or [...] place to sleep or slept in a usp (including now)? Sex Assigned at Date Recorded Male 02/01/2022 6:47 PM CDT documented as of this encounter Plan of Treatment Not on filedocumented as of this encounter Visit Diagnoses Not on filedocumented in this encounter Care Teams Generator Worker Relationship Specialty Start Date End Date Elsewhere, Pcp PCP - General Internal Medicine 11/14/21 documented as of this encounter
--- OUTSIDE RECORDS SUMMARY | 2022-04-08 10:17 | XMS_ITS | Encounter Summary ---
:1975 Author Organization [facility] Address [address] [place] [address] Care Team Providers Name Role Phone Elsewhere, Pcp Primary Care Provider Unavailable Reason for Referral Outpatient (Routine) - Closed Specialty Diagnoses / Procedures Referred By Contact Refer red To Contact Diagnoses Epilepsy Seizure Not Intractable Without Status Epilepticus (HCC) Matteo Noe M.D. [facility] Procedures EEG routine - awake and sleep [address] [place], [place] [address] Referral ID Status Reason Start Date Expiration Date Visits Requ ested Visits Authorized [id number] Closed 12/04/2021 12/04/2022 1 1 RI/CAT/PET Scan (Routine) - Closed Specialty Diagnoses / Procedures Referred By Contact Refer red To Contact Radiology Diagnoses Epilepsy Seizure Not Intractable Without Status Epilepticus (HCC) Matteo Noe M.D. [facility] Procedures MR Brain without IV Contrast [place] MRI BRAIN WO CNTRST HC MRI BRAIN WO CNTRST [address] [place], [place] [address] Referral ID Status Reason Start Date Expiration Date Visits Requ ested Visits Authorized [id number] Closed 12/04/2021 12/04/2022 1 1 Encounter Details Date Type Department Care Team Description 12/04/2021 Orders Only Department of Neurology Ismael Noe M.D. 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 How often do you attend evangelical or 1 to 4 times per year 01/14 baptism services? Do you belong to any clubs or No 02/01/2022 organizations such as evangelical groups, unions, fraternal or athletic groups, or [...] place to sleep or slept in a long-term (including now)? Sex Assigned at Date Recorded Male 02/01/2022 6:47 PM CDT documented as of this encounter Plan of Treatment Not on filedocumented as of this encounter Results MR Brain without IV Contrast (02/02/2022 4:23 PM CDT) Anatomical Region Laterality Modality Head, Brain, Neuroradiology RST LOS, Neuroradiology SANDRA N/A Magnetic Resonance LOS, Neuroradiology FLA [facility] Specimen (Source) Anatomical Collection Method Collection Time [...] cervical spine. Remainder negative. Matteo Noe M.D. [facility] PROCEDURES EEG routine - awake and [...] not recorded. Classification: SPECIAL STUDY - Short-te rm video EEG. Dysrhythmia grade 2 generalized. Sleep [...] Code Phon e Number MMODAL MMODAL NA documented in this encounter Visit Diagnoses Diagnosis Epilepsy Seizure Not Intractable Without Status Epilepticus (HCC) - Primary Epilepsy Seizure Not Intractable Without Status Epilepticus (HCC) Epilepsy Seizure Not Intractable Without Status Epilepticus (HCC) documented in this encounter Care Teams Lacquer Machine Feeder Relationship Specialty Start Date End Date Elsewhere, Pcp PCP - General Internal Medicine 11/14/21 documented as of this encounter
--- OUTSIDE RECORDS SUMMARY | 2022-04-08 10:17 | XMS_ITS | Encounter Summary ---
:1975 Author Organization [facility] Address [address] [place] [address] Care Team Providers Name Role Phone Elsewhere, Pcp Primary Care Provider Unavailable Reason for Referral Outpatient (Routine) - Closed Specialty Diagnoses / Procedures Referred By Contact Refer red To Contact Diagnoses Epilepsy Seizure Not Intractable Without Status Epilepticus (HCC) Matteo Noe M.D. [facility] Procedures EEG routine - awake and sleep [address] [place] [address] Referral ID Status Reason Start Date Expiration Date Visits Requ ested Visits Authorized [id number] Closed 12/04/2021 12/04/2022 1 1 Reason for Visit Outpatient (Routine) - Closed Specialty Diagnoses / Procedures Referred By Contact Refer red To Contact Diagnoses Epilepsy Seizure Not Intractable Without Status Epilepticus (HCC) Matteo Noe M.D. [facility] Procedures EEG routine - awake and sleep [address] [place] [address] Referral ID Status Reason Start Date Expiration Date Visits Requ ested Visits Authorized [id number] Closed 12/04/2021 12/04/2022 1 1 Encounter Details Date Type Department Care Team Description 02/02/2022 Hospital Encounter Department of Matteo Noe Epilepsy Seizure Not Neurology in M.D. Intractable Without [place], [place] [address] [facility] Status Epilepticus [address] [place], [place] (HCC) [place] [phone] Social History Tobacco Use Types Packs/Day Years [...] or relatives? How often do you attend jew or 1 to 4 times per year 01/14 buddhism services? Do you belong to any clubs or No 02/01/2022 organizations such as jew groups, unions, fraternal or athletic groups, or [...] place to sleep or slept in a fdc (including now)? Sex Assigned at Date Recorded [...] bisacodyL (DULCOLAX) 10 Insert into the 0 07/2 016 mg suppository rectum as needed. cholecalciferol, [...] encounter Procedures Procedure Name Priority Date/Time Associated Diagnosis Comme nts EEG ROUTINE - AWAKE Routine 02/02/2022 10:38 AM Epilepsy Seizu re Not Results for this AND SLEEP CDT Intractable Without procedur e are in Status Epilepticus the resul ts (HCC) section. documented in this encounter Results EEG routine - awake and sleep (02/02/2022 [...] (HCC) documented in this encounter Care Teams Churn Tender Relationship Specialty Start Date End Date Elsewhere, Pcp PCP - General Internal Medicine 11/14/21 documented as of this encounter
--- OUTSIDE RECORDS SUMMARY | 2022-04-08 10:17 | XMS_ITS | Encounter Summary ---
:1975 Author Organization [facility] Address [address] [place] [address] Care Team Providers Name Role Phone Chris Fontenot Primary Care Provider [facility], [facility] Unavailable [phone] Encounter Details Date Type Department Care Team Description 05/19/2021 Travel Social History Tobacco Use Types Packs/Day Years Used Date Smoking Tobacco: Never Cigarettes Smokeless Tobacco: Never Sex Assigned at Date Recorded Not on file COVID-19 Exposure Response Date Recorded In the last month, have you been in contact with No / Unsure 05/19/2021 8:59 AM CDT someone who was confirmed or suspected to have Coronavirus / COVID-19? documented as of this encounter Plan of Treatment Not on filedocumented as of this encounter Visit Diagnoses Not on filedocumented in this encounter Care Teams Pharmaceutical Development Technician Relationship Specialty Start Date End Date Chris Fontenot PCP - General Family Medicine 03/25/21 [address] [place] [address] [facility] PCP - Primary Care Clinic 1 [place] [address] [place] [address] documented as of this encounter
--- OUTSIDE RECORDS SUMMARY | 2022-04-08 10:17 | XMS_ITS | Encounter Summary ---
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 [facility] [address] [place] [phone] Referral ID Status Reason Start Date Expiration Date Visits Requ ested Visits Authorized [id number] Closed 12/04/2021 12/04/2022 1 1 Scheduling Instructions Please schedule the RVL on Nov, at 11:30 a.m.. The MRI and EEG that I just ordered should be done before the v isit. The MRI must be done before December 11, but the EEG can be done that m orning of December 11. Encounter Details Date Type Department Care Team Description 12/04/2021 Orders Only Department of Matteo Noe M.D. Localization Related Neurology in [address] [place] [address] Focal Partial [place], [place] Symptomatic Epilepsy And [address] [place] [phone] Epileptic Syndromes With [place], [place] [phone] Simple Partial Seizures [id number] (Work) Intractable Without [phone] Status Epilepti cus (HCC) (Fax) (Primary Dx) Social History Tobacco Use Types Packs/Day Years [...] or relatives? How often do you attend nondenominational or 1 to 4 times per year 01/14 samaritan services? Do you belong to any clubs or No 02/01/2022 organizations such as nondenominational groups, unions, fraternal or athletic groups, or [...] as of this encounter Plan of Treatment Scheduled Referrals Name Type Priority Associated Diagnoses [facility] Neurology office Outpatient Referral Routine Localization Rela brandan Expected: visit (clinic) Focal Partial 12/11/2021, Symptomatic Epilepsy Expires : And Epileptic 03/05/2023 Syndromes With Simple Partial Seizures Intractable Without Status Epilepticus (HCC) documented as of this encounter Visit Diagnoses Diagnosis Localization Related Focal Partial Sympt omatic Epilepsy And Epileptic Syndromes With Simple Partial Seizures Intractable With out Status Epilepticus (HCC) - Primary documented in this encounter Care Teams Solar Project Coordination Specialist Relationship Specialty Start Date End Date Elsewhere, Pcp PCP - General Internal Medicine 11/14/21 documented as of this encounter
--- OUTSIDE RECORDS SUMMARY | 2022-04-08 10:17 | XMS_ITS | Encounter Summary ---
:1975 Author Organization [facility] Address [address] [place] [address] Care Team Providers Name Role Phone Elsewhere, Pcp Primary Care Provider Unavailable Reason for Visit Reason Comments Vitamin C prescription discrepancy Encounter Details Date Type Department Care Team Description 12/24/2021 Clinical Communication Section of Ming Seals in Infectious Diseases Holly Coon, ines machuca in [facility].P.. discrepancy [place] [address] [facility] [address] [place] [phone] Social History Tobacco Use Types Packs/Day Years [...] 1 to 4 times per year 01/14 jainism services? Do you belong to any clubs [...] place to sleep or slept in a [place] [facility] (including now)? Sex Assigned at Date Recorded Male 02/01/2022 6:47 PM CDT documented as of this encounter Miscellaneous Notes Telephone Encounter - Ming Seals M.D., M.P.H. - 12/24/2021 10:46 AM CDT Geoffrey, Replied via portal. Telephone Encounter - Alexandra Martin - 12/24/2021 10:26 AM CDT Dorothy Teague, nurse from the [facility] the patient, is calling regarding the vitamin C prescription. The patient was prescribed 500 mg PO QD. However, the notes outline high dose vitamin C of 1 g PO BID. Please let Dorothy know which dose is correct and update the prescription if needed. Thanks, documented in this encounter Plan of Treatment Not on filedocumented as of this encounter Visit Diagnoses Not on filedocumented in this encounter Care Teams Green Feed Attendant Relationship Specialty Start Date End Date Elsewhere, Pcp PCP - General Internal Medicine 11/14/21 documented as of this encounter
--- OUTSIDE RECORDS SUMMARY | 2022-04-08 10:17 | XMS_ITS | Encounter Summary ---
:1975 Author Organization [facility] Address [address] [place] [address] Care Team Providers Name Role Phone Chris Fontenot Primary Care Provider [facility], [facility] Unavailable [phone] Encounter Details Date Type Department Care Team Description 01/06/2022 Travel Social History Tobacco Use Types Packs/Day Years Used Date Smoking Tobacco: Never Cigarettes Smokeless Tobacco: Never Sex Assigned at Date Recorded Not on file COVID-19 Exposure Response Date Recorded In the last 10 days, have you been in contact with No / Unsu re 01/06/2022 4:00 PM CDT someone who was confirmed or suspected to have Coronavirus/COVID-19? documented as of this encounter Plan of Treatment Not on filedocumented as of this encounter Visit Diagnoses Not on filedocumented in this encounter Care Teams Vegetable Vendor Relationship Specialty Start Date End Date Chris Fontenot PCP - General Family Medicine 03/25/21 [address] [place] [address] [facility] PCP - Primary Care Clinic 1 [place] [address] [place] [address] documented as of this encounter
--- OUTSIDE RECORDS SUMMARY | 2022-04-08 10:17 | XMS_ITS | Encounter Summary ---
:[address] [facility] Address [address] [place] [address] Care Team Providers Name Role Phone Chris Fontenot [place] Primary Care Provider [facility] Unavailable [phone] Reason for Visit Reason Comments Follow up Encounter Details Date Type Department Care Team Description 05/19/2021 Office Visit [facility] of Ramirez Oliveira Other generalized Neurology - Joshua Vega MD epilepsy, not [facility] [address] [facility] [address] table, without [address] status epilepticus [address] ([facility]) (Primary Dx) [address] [place], [place] [address] [address] [place], [place] [phone] (Work) [phone] Social History Tobacco Use Types Packs/Day Years Used Date Smoking Tobacco: Never Cigarettes Smokeless Tobacco: Never Tobacco Cessation: Counseling Given: No Sex Assigned at Date Recorded Not on file COVID-19 Exposure Response Date Recorded In the last month, have you been in contact with No / Unsure 05/19/2021 8:59 AM CDT someone who was confirmed or suspected to have Coronavirus / COVID-19? documented as of this encounter Last Filed Vital Signs Vital Sign Reading Time Taken Comments Blood Pressure - - Pulse - - Temperature - - Respiratory Rate 14 05/19/2021 2:49 PM CDT Oxygen Saturation - - Inhaled Oxygen Concentration - - Weight 49.9 kg (110 lb) 05/19/2021 2:49 PM CDT Height 157.5 cm (5' 2) 05/19/2021 2:49 PM CDT Body Mass Index 20.12 05/19/2021 2:49 PM CDT documented in this encounter Progress Notes Ramirez Oliveira MD - 05/19/2021 2:30 PM CDT Neurology Clinic Note [facility] [05/20/2021] HPI: Adnres Muniz is a 45 y.o. male who follow up today for his epilepsy, previously characterize as generalized, in the setting of cerebral palsy, developmental delay, and spastic quadriparesis. His baseline seizure frequency previously has been ~twice yearly, though more recently he has had irregular break-through seizures, often times occurring in the setting of an underlying UTI. I last saw Mr. Muniz in clinic February 12, 2021. He returns today with his guardian. His interval medical history is notable for two seizures on the night of March 25, 2021, shortly after discharge from the [facility] for UTI/sepsis. HE was taking oral antibiotics at the time of the seizure. His previous seizure was 01/22/2021, also in the evening. Two days prior to his admission to the hospital his U/A showed >100 WBC/hpf. His Depakote was increased after his last appointment to 500 mg iv p.o. q.a.m. and iv p.o. qHS. His Carbatrol dose has remained unchanged. He is slowly recovering from his recent sepsis, and reports difficulty with memory, likely multifactorial. Depakote level on admission to the hospital was adequate for him (114 ??g/ml) but his carbamazepine level was not drawn. He has a history of coronavirus infection in in July 2020, not requiring hospitalization, and without clear sequelae.Prior blood testing [August 2019] showed WBC 9,600, H/H 14/41, and platelets 266,000. Na+ was 139 mmol/L, K+ 4.5 mmol/L, with Cr 0.6 mg/dL, and BUN 14 mg/dL. Carbamazepine level was 8.0 ??g/mL. AST was 26, ALT 16, and bilirubin 0.2 mg/dL. Depakote level 06/28/2020 was 114, and carbamazepine level was11.3 ??g/mL. His interval medical history is otherwise unremarkable. Review of family and social history is unchanged. A complete review of symptoms was performed including vascular, infectious, cardiovascular, pulmonary, gastrointestinal, endocrinological, hematologic, dermatologic, musculoskeletal, and neurological. All were normal except as above. PAST MEDICAL HISTORY: ALLERGIES: Tolterodine Tobacco: Social History Tobacco Use Smoking Status Never Smoker Smokeless Tobacco Never Used Alcohol: Social History Substance and Sexual Activity Alcohol Use Not on file MEDICATIONS: Current Outpatient Medications: Medication Sig ??? atenolol (TENORMIN) 25 mg oral tablet Take 25 mg by mouth Daily. ??? bisacodyl (BISCOLAX) 10 mg Rectal Supp suppository Unwrap and insert rectally. ??? carBAMazepine (CARBATROL) 100 mg oral CM12 TAKE ONE CAPSULE BY MOUTH IN THE MORNING (ALONG WITH (300MG) CAPSULE) ??? cephalexin (KEFLEX) 500 mg oral capsule Take 500 mg by mouth. ??? ciprofloxacin HCl (CIPRO) 500 mg oral tablet TAKE 1 TABLET (500 MG) BY MOUTH 2 TIMES DAILY FOR 7DAYS. ??? clotrimazole 1% (LOTRIMIN) 1 % Top cream cream Apply to skin. ??? diazePAM INTENSOL 5 mg/mL oral solution (concentrate) Place 1 ml ( 5mg ) between cheek and gum for any GTC > 2 minutes or for 2 GTCs in 24 hours ??? divalproex (DEPAKOTE) 500 mg oral delayed released tablet 4 tablets p.o. each morning and 4 eachevening. ??? docosanol (ABREVA) 10 % Top cream cream Apply to skin. ??? Guaifenesin 1,200 mg oral Ta12 Take 1,200 mg by mouth. ??? ibuprofen (ADVIL;MOTRIN) 200 mg oral tablet Take 200 mg by mouth. ??? lisinopriL (PRINIVIL) 20 mg oral tablet Take 20 mg by mouth Daily. ??? metoprolol tartrate (LOPRESSOR) 25 mg oral tablet Take 1 tablet by mouth Twice a Day. ??? multivitamin (TAB-A-MICHEL) 400 mcg oral Tab Take 1 tablet by mouth once daily. ??? MYRBETRIQ 50 mg oral extended release tablet 24 HR TAKE ONE TABLET BY MOUTH DAILY. (DO NOT CRUSHOR CHEW) ??? nitrofurantoin mono-macro (MACROBID) 100 mg oral capsule TAKE ONE CAPSULE BY MOUTH 2 TIMES DAILYFOR 7 DAYS ??? nystatin (MYCOSTATIN) 100,000 unit/g Top cream topical cream To groin rash twice daily for 14 days. ??? polyethylene glycol (MIRALAX) 17 gram oral packet Take 17 g by mouth. ??? PROBIOTIC BLEND 2 billion cell-50 mg oral Cap TAKE ONE CAPSULE BY MOUTH THREE TIMES DAILY WITH MEALS ??? Sodium Phosphates (FLEET PEDIATRIC) 9.5-3.5 gram/59 mL Rectal enema One per rectum as needed if no BM in 1 to 2 days, or at patient / family discretion, can be interchanged with Bisacodyl Suppository. ??? tiZANidine (ZANAFLEX) 2 mg oral tablet Take 2 mg by mouth. ??? triamcinolone acetonide (KENALOG) 0.1 % Top ointment Apply to skin. ??? VIMPAT 50 mg oral tablet TAKE ONE TABLET BY MOUTH TWICE A DAY FOR 30 DAYS MEDICAL HISTORY: Past Medical History: Diagnosis Date ??? Cerebral palsy (HCC) ??? Cognitive developmental delay ??? Epilepsy (HCC) ??? Hypertension ??? Memory changes ??? Recurrent UTI ??? Scoliosis ??? Vision loss SURGICAL HISTORY: Past Surgical History: Procedure Laterality Date ??? RHIZOTOMY FAMILY HISTORY: Family History Problem Relation Name Age of Onset ??? Heart Disease Other ??? High Cholesterol Other ??? High Blood Pressure Other ??? Migraines Other ??? Breast Cancer Other ??? Lung Cancer Other ??? Brain/APPE[employer] REVIEW[employer]ET[employer]AN Cancer Other Both parents are . His father had cancer, and his mother had hypertension and breast cancer.The patient has six brothers and three sisters. He has no children. SOCIAL HISTORY: Social History Tobacco Use ??? Smoking status: Never Smoker ??? Smokeless tobacco: Never Used Substance Use Topics ??? Alcohol use: Not on file ??? Drug use: Never He is single, and lives in a retirement. GENERAL EXAMINATION: Andres Muniz is a middle-aged, well-developed, well-nourished man, 5' 2 and roughly 145 pounds, stable. He is in his wheel chair. His blood pressure is 128/78, and his peripheral pulses are intact at 90 and regular. His skin examination is unremarkable. His conjunctivae are normal. Nail examination shows no clubbing or cyanosis. His respiratory examination is unremarkable, with rate of 10-12, unlabored. He is afebrile. Neurological Examination Mental Status: He is awake, alert, and pleasantly interactive. His speech is spontaneous and largelyfluent, though he communicates with short, simple sentences. He has no clear aphasia. He occasionally loses his train of thought when asking a question. His short term memory is suspect. Mood is normal. He does not appear depressed today. Station and Gait: He is in his wheel chair. Skull and Spine: His head is atraumatic. His C-spine is non-tender to palpation. He has no cervical sensory level. Cranial Nerves: His visual ruiz appear reduced bilaterally, and with cover/uncover testing, he appears to have lower visual acuity in his left eye. HE has left esotropia. He has roving eye movements,suppressed with fixation, chronic and stable. His pupils are poorly reactive to light. His face is sy mmetric at rest and with movement. He has no ptosis. His tongue is midline. Shoulder shrug is symmetric. Hearing is intact. Motor: Muscle bulk is reduced generally. Tone is increased in his legs more than his arms. Electrical Estimator strength is intact bilaterally. He has no clear proximal arm weakness. Sensory: Sensation is intact and apparently symmetric in his arms and legs. Coordination: He has no resting tremor. TEST RESULTS 03/18/2021 RBC 0-2, None Seen /HPF 0-2 WBC 0-2, 3-5, None Seen /HPF >100??Abnormal?? BACTERIA ? None Seen, Rare, Few Bacteria/HPF Many??Abnormal?? EPITHELIAL CELLS ? None Seen, Few Epi/HPF Few Mucus ?? Present WHITE CELL CLUMPS (none) Present??Abnormal?? 03/20/2021 VALPROIC ACID,TOTAL 50.0 - 100.0 ug/mL 114.5??High?? 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 No [employer] imaging has been available for review, and it is likely that he has not undergone prior imaging. However, he would require sedation for the imaging, and I am reluctant to recommend sedation at this time. I continue to defer [employer] imaging. His most recent breakthrough seizure occurred in the setting of notable infection and treatment witha cephalosporin, both of which would reduce his seizure threshold. I am not inclined to alter his seizure medications at this time. Refill scripts were provided today. He does not require additional surveillance blood testing today. He does not require Depakote or Carbatrol levels, but given his recently increased fatigue, daytime drowsiness, and difficulties with attention/memory, I recommend he undergo repeat U/A with micro as soon as possible to make certain his UTI is not recurring. I recommend he continue monthly monitoring by U/A to make certain UTI's are identified before he develops sepsis. He will follow-up with me in three to four months, or as needed. Ramirez Oliveira M.D., Ph.D. [facility] 05/20/2021 documented in this encounter Plan of Treatment Not on filedocumented as of this encounter Visit Diagnoses Diagnosis Other generalized epilepsy, not intracta ble, without status epilepticus (HCC) - Primary documented in this encounter Care Teams Physical Therapy Nurse Relationship Specialty Start Date End Date Chris Fontenot PCP - General Family Medicine 03/25/21 [address] [place] [address] [facility] PCP - Primary Care Clinic 1 [place] [address] [place] [address] documented as of this encounter
--- OUTSIDE RECORDS SUMMARY | 2022-04-08 10:17 | XMS_ITS | Encounter Summary ---
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 [facility] [address] [place] [phone] Referral ID Status Reason Start Date Expiration Date Visits V isits Requested Authorized [id number] Authorized 02/23/2022 02/23/2023 1 1 Scheduling Instructions Please schedule either F2F visit on ay , at 3:30 pm. Thanks. Encounter Details Date Type Department Care Team Description 02/17/2022 Orders Only Department of Matteo Noe M.D. Localization Related Neurology in [address] [facility] Focal Partial [place], [place] Symptomatic Epilepsy And [address] [place] [phone] Epileptic Syndromes With [place], [place] [phone] Simple Partial Seizures [address] (Work) Intractable Without [phone] Status Epilepti cus (HCC) (Fax) (Primary Dx) [...] 1 to 4 times per year 01/14 taoism services? Do you belong to any clubs [...] place to sleep or slept in a skilled nursing (including now)? Sex Assigned at Date Recorded Male 02/01/2022 6:47 PM CDT documented as of this encounter Plan of Treatment Scheduled Referrals Name Type Priority Associated Diagnoses Order S [facility] Neurology office Outpatient Referral Routine Localization Rela brandan Expected: visit (clinic) Focal Partial 05/11/2022, Symptomatic Epilepsy Expires : And Epileptic 05/20/2023 Syndromes With Simple Partial Seizures Intractable Without Status Epilepticus (HCC) documented as of this encounter Visit Diagnoses Diagnosis Localization Related Focal Partial Sympt omatic Epilepsy And Epileptic Syndromes With Simple Partial Seizures Intractable With out Status Epilepticus (HCC) - Primary documented in this encounter Care Teams Oracle Brm Developer Relationship Specialty Start Date End Date Elsewhere, Pcp PCP - General Internal Medicine 11/14/21 documented as of this encounter
--- OUTSIDE RECORDS SUMMARY | 2022-04-08 10:17 | XMS_ITS | Clinical Summary ---
:1975 Author Organization [facility] Address [address] [place] [address] Care Team Providers Name Role Phone Chris Fontenot Primary Care Physician [phone] Encounter 12/30/18 - 05/10/19 [facility] [address] [place] [address] Encounter Diagnosis Cerebral palsy, quadriplegic (Discharge Diagnosis) - 01/03/19 Other cerebral palsy (Final) - Discharge Disposition: Other Non-PPS Fac Attending Physician: Maylin Medel MD Admitting Physician: [...] consti pation. Problem List Hospital Discharge Diagnosis Cerebral palsy, quadriplegic (Discharge Diagnosis) - 01/03/19 (This Visit) Vital Signs Most recent to oldest 1 2 3 [Reference Range]: Pain Present No actual or suspected pain No actual or suspect ed pain No actual or suspected pain (05/10/19 8:00 AM) (03/15/19 1:00 PM) (12/30/18 1:4 3 PM) Social History Social History Type Response Smoking Status Never smoker; Exposure to Se condhand Smoke: No entered on: 12/30/18 Sex
--- OUTSIDE RECORDS SUMMARY | 2022-04-08 10:17 | XMS_ITS | Encounter Summary ---
:1975 Author Organization [facility] Address [address] [place] [address] Care Team Providers Name Role Phone Chris Fontenot [place] Primary Care Provider [facility] Unavailable [phone] Reason for Visit Reason Comments Follow up Encounter Details Date Type Department Care Team Description 01/06/2022 Office Visit [facility] Oliveira Other generalized epilepsy, not intractable, without status epilepticus (HCC) (Primary Dx); Neurology - Joshua Vega MD Diplegic infantile cerebral palsy (HCC); [address] [place] [id number] [place], [place] [phone] (Work) [phone] Social History Tobacco Use Types Packs/Day Years Used Date Smoking Tobacco: Never Cigarettes Smokeless Tobacco: Never Sex Assigned at Date Recorded Not on file COVID-19 Exposure Response Date Recorded In the last 10 days, have you been in contact with No / Unsu re 01/06/2022 4:00 PM CDT someone who was confirmed or suspected to have Coronavirus/COVID-19? documented as of this encounter Last Filed Vital Signs Vital Sign Reading Time Taken Comments Blood Pressure - - Pulse - - Temperature - - Respiratory Rate 14 01/06/2022 4:03 PM CDT Oxygen Saturation - - Inhaled Oxygen Concentration - - Weight 65.8 kg (145 lb) 01/06/2022 4:03 PM CDT Height 157.5 cm (5' 2) 01/06/2022 4:03 PM CDT Body Mass Index 26.52 01/06/2022 4:03 PM CDT documented in this encounter Progress Notes Ramirez Oliveira MD - 01/06/2022 4:00 PM CDT Neurology Clinic Note [facility] [01/06/2022] HPI: Andres Muniz is a 45 y.o. gentleman who follow up today for his epilepsy, previously characterize as generalized, in the setting of cerebral palsy, developmental delay, and spastic quadriparesis. His baseline seizure frequency previously has been ~twice yearly, though more recently he has had irregular break-through seizures, often times occurring in the setting of a recurring UTI. I last saw in clinic May 20, 2021. He returns today with his guardian. His interval medical history isnotable for his last seizure occurring October 14, 2021. He is presently prescribed antibiotics for another UTI. Fortunately, he has not suffered a breakthrough seizure. He is also now taking Vitamin C kylee daily basis to see if that reduces his tendency for recurrent UTI's. He continues Depakote 500 mg iv p.o. q.a.m. and iv p.o. qHS. He also takes Carbatrol 300 mg ii po bid, and Vimpat 50 mg bid. He reports no side effects from the medications. He has a history of coronavirus infection in in July 2020, not requiring hospitalization, and without clear sequelae. Recent blood testing showed Na+ 138 mmol/L, K+ 4.6 mmol/L, with Cr 0.67 mg/dL, and BUN 10 mg/dL. He reports no chewing or swallowing difficulties, and denies shortness of breath. His interval medical history is otherwise unremarkable. Review of family and social history is unchanged. A complete review of symptoms was performed including vascular, infectious, cardiovascular, pulmonary, gastrointestinal, endocrinological, hematologic, dermatologic, musculoskeletal, and neurological. All were normal except as above. PAST MEDICAL HISTORY: ALLERGIES: Ciprofloxacin, Gabapentin, and Tolterodine Tobacco: Social History Tobacco Use Smoking Status Never Smoker Smokeless Tobacco Never Used Alcohol: Social History Substance and Sexual Activity Alcohol Use None MEDICATIONS: Current Outpatient Medications: Medication Sig ??? acetaminophen (TYLENOL) 500 mg oral tablet Every 6 Hours as needed ??? Ascorbic Acid 500 mg oral CpSR Take 500 mg by mouth Daily. ??? atenolol (TENORMIN) 25 mg oral tablet Take 25 mg by mouth Daily. ??? baclofen (LIORESAL) 5 mg oral Tab Three Times A Day ??? bisacodyl (BISCOLAX) 10 mg Rectal Supp suppository Unwrap and insert rectally. ??? bismuth subsalicylate (PEPTO-BISMOL) 262 mg/15 mL oral Susp (conc: 262mg/15mL) oral suspension As Needed ??? carBAMazepine (CARBATROL) 100 mg oral CM12 TAKE ONE CAPSULE BY MOUTH IN THE MORNING (ALONG WITH (300MG) CAPSULE) ??? carBAMazepine (CARBATROL) 300 mg oral CM12 Take 2 capsules (600 mg) by mouth twice a day for 90 days. ??? cephalexin (KEFLEX) 500 mg oral capsule Take 500 mg by mouth. ??? ciprofloxacin HCl (CIPRO) 500 mg oral tablet TAKE 1 TABLET (500 MG) BY MOUTH 2 TIMES DAILY FOR 7DAYS. ??? clotrimazole 1% (LOTRIMIN) 1 % Top cream cream Apply to skin. ? ? DIAZEPAM INTENSOL 5 mg/mL oral solution (concentrate) PLACE 1ML BETWEEN CHEEK AND GUM FOR GTC > 2 MINUTES OR FOR 2 GTC IN 24 HOURS. ??? divalproex (DEPAKOTE ER) 500 mg oral 24-hour extended-release tablet Take 4 tablets (2,000 mg) by mouth twice a day for 90 days. ??? divalproex (DEPAKOTE) 500 mg oral delayed [...] MOUTH THREE TIMES DAILY WITH MEALS ??? Pseudoephedrine-Ibuprofen 30-200 mg oral Tab TAKE 1 TO 2 TABLETS BY MOUTH THREE TIMES DAILY NEEDED FOR UPPER RESPIRATORY INFECTION RELATED NASAL CONGESTION. ??? Sodium Phosphates (FLEET PEDIATRIC) 9.5-3.5 gram/59 [...] skin. ??? VIMPAT 50 mg oral tablet Take 50 mg by mouth Twice a Day. ??? VITAMIN D3 125 mcg (5,000 unit) oral tablet TAKE ONE TABLET BY MOUTH EVERY DAY MEDICAL HISTORY: Past Medical History: Diagnosis Date [...] Cancer Other ??? Lung Cancer Other ??? Brain/SURVEYOR'S ASSISTANT Cancer Other Both parents are . His father had cancer, and his mother had hypertension and breast cancer.The patient has six brothers and three sisters. He has no children. SOCIAL HISTORY: Social History Socioeconomic History ??? Marital status: Single Spouse name: Not on file ??? Number of children: Not on file ??? Years of education: Not on file ??? Highest education level: Not on file Occupational History ??? Not on file Tobacco Use ??? Smoking status: Never Smoker ??? Smokeless tobacco: Never Used Substance and Sexual Activity ??? Alcohol use: Not on file ??? Drug use: Never ??? Sexual activity: Not on file Other Topics Concern ??? Not on file Social History Narrative ??? Not on file Social Determinants of Health Financial Resource Strain: Not on file Food Insecurity: Not on file Transportation Needs: Not on file Physical Activity: Not on file Stress: Not on file Social Connections: Not on file Intimate Partner Violence: Not on file Housing Stability: Not on file He is single, and lives in a prison. GENERAL EXAMINATION: Andres Muniz is a middle-aged, well-developed, well-nourished man, 5' 2 and 120 pounds. He is in hiswheel chair. His blood pressure is 116/73, and his peripheral pulses are intact at 82 and regular. His skin examination is unremarkable. [...] in his legs more than his arms. Engineering Design Supervisor strength is intact bilaterally. He has no clear proximal arm weakness. Sensory: Sensation is intact and apparently symmetric in his arms and legs. Coordination: He has no action or resting tremor. TEST RESULTS 01/05/2022 RBC 0-2, None Seen /HPF 6-10??Abnormal?? WBC 0-2, 3-5, None Seen /HPF 11-25??Abnormal?? BACTERIA ? None Seen, Rare, Few Bacteria/HPF Moderate??Abnormal?? EPITHELIAL CELLS ? None Seen, Few Epi/HPF Moderate??Abnormal?? Mucus Present WHITE CELL CLUMPS (none) Present??Abnormal?? 03/20/2021 VALPROIC ACID,TOTAL 50.0 - 100.0 ug/mL 114.5??High?? 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 No SURVEYOR'S ASSISTANT imaging has been available for review, and it is likely that he has not undergone prior imaging. However, he would require sedation for the imaging, and I remain reluctant to recommend sedation at this time. I continue to defer SURVEYOR'S ASSISTANT imaging. His most recent breakthrough seizure occurred in the setting of notable infection and treatment witha cephalosporin, both of which would reduce his seizure threshold. I am not inclined to alter his seizure medications at this time, as his epilepsy is well controlled on the present dose of medication. Preventing further UTI's is the principal means to eliminating his breakthrough seizures. He does not require additional surveillance blood testing today. I recommend he remain on his present seizure medications, dosing unchanged. I recommend he continue evaluation to eliminate his recurring UTI's. Vitamin C may provided some benefit. I encouraged him to follow up with his urologist for continued evaluation/recommendations. I recommend routine U/A testing to identify UTI's for treatment prior to the development of seizures. He will follow-up with me in three to four months, or as needed. Ramirez Oliveira M.D., Ph.D. [facility] 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
--- OUTSIDE RECORDS SUMMARY | 2022-04-08 10:17 | XMS_ITS | Clinical Summary ---
:1975 Author Organization [facility] Address [address] [place] [address] Care Team Providers Name Role Phone Chris Fontenot Primary Care Provider [facility] Unavailable [phone] Allergies Active Allergy Reactions Severity Noted Date Comments Ciprofloxacin Other 11/28/2021 Avoid due to i ncreased risk of seizure. Gabapentin Unknown 03/20/2021 Other reaction( s): Other (see comments) Tolterodine Rash Low 05/22/2014 Medications Medication Sig Dispensed Refills Start Date End Date Status atenolol (TENORMIN) Take 25 mg by 0 Active 25 mg oral tablet mouth Daily. bisacodyl (BISCOLAX) Unwrap and insert 0 02/23/2016 Active 10 mg Rectal Supp rectally. suppository carBAMazepine TAKE ONE CAPSULE 0 03/11/2018 Active (CARBATROL) 100 mg BY MOUTH IN THE oral CM12 MORNING (ALONG WITH (300MG) CAPSULE) cephalexin (KEFLEX) Take 500 mg by 0 03/27/2021 Active 500 mg oral capsule mouth. ciprofloxacin HCl TAKE 1 TABLET (500 0 04/18/2021 Active (CIPRO) 500 mg oral MG) BY MOUTH 2 tablet TIMES DAILY FOR 7 DAYS. clotrimazole 1% Apply to skin. 0 04/03/2021 Active (LOTRIMIN) 1 % Top cream cream docosanol (ABREVA) Apply to skin. 0 10/11/2015 Active 10 % Top cream cream Guaifenesin 1,200 mg Take 1,200 mg by 0 05/22/2014 Active oral Ta12 mouth. ibuprofen Take 200 mg by 0 10/27/2018 Acti ve (ADVIL;MOTRIN) 200 mouth. mg oral tablet PROBIOTIC BLEND 2 TAKE ONE CAPSULE 0 03/24/2021 Active billion cell-50 mg BY MOUTH THREE oral Cap TIMES DAILY WITH MEALS lisinopriL Take 20 mg by 0 Activ e (PRINIVIL) 20 mg mouth Daily. oral tablet metoprolol tartrate Take 1 tablet by 0 04/03/2021 Active (LOPRESSOR) 25 mg mouth Twice a Day. oral tablet multivitamin Take 1 tablet by 0 12/11/2020 Active (TAB-A-MICHEL) 400 mcg mouth once daily. oral Tab nitrofurantoin TAKE ONE CAPSULE 0 04/18/2021 Active mono-macro BY MOUTH 2 TIMES (MACROBID) 100 mg DAILY FOR 7 DAYS oral capsule nystatin To groin rash 0 03/18/2021 Activ e (MYCOSTATIN) 100,000 twice daily for 14 unit/g Top cream days. topical cream polyethylene glycol Take 17 g by 0 06/17/2020 Active (MIRALAX) 17 gram mouth. oral packet Sodium Phosphates One per rectum as 0 10/10/2014 Active (FLEET PEDIATRIC) needed if no BM in 9.5-3.5 gram/59 mL 1 to 2 days, or at Rectal enema patient / family discretion, can be interchanged with Bisacodyl Suppository. tiZANidine Take 2 mg by 0 03/19/2021 Activ e (ZANAFLEX) 2 mg oral mouth. tablet triamcinolone Apply to skin. 0 04/03/2021 Active acetonide (KENALOG) 0.1 % Top ointment VITAMIN D3 125 mcg TAKE ONE TABLET BY 100 tablet 2 10/28/2021 Active (5,000 unit) oral MOUTH EVERY DAY tablet DIAZEPAM INTENSOL [address] 1ML BETWEEN 30 mL 5 12/15/2021 Active mg/mL oral solution CHEEK AND GUM FOR (concentrate) GTC > 2 MINUTES OR FOR 2 GTC IN 24 HOURS. acetaminophen Every 6 Hours as 0 Active (TYLENOL) 500 mg needed oral tablet Ascorbic Acid 500 mg Take 500 mg by 0 12/04/2021 Active oral CpSR mouth Daily. 3 baclofen (LIORESAL) Three Times A Day 0 07/01/2021 Active 5 mg oral Tab bismuth As Needed 0 Active subsalicylate (PEPTO-BISMOL) 262 mg/15 mL oral Susp (conc: 262mg/15mL) oral suspension Pseudoephedrine-Ibup TAKE 1 TO 2 0 08/15/2021 Active rofen 30-200 mg oral TABLETS BY MOUTH Tab THREE TIMES DAILY NEEDED FOR UPPER RESPIRATORY INFECTION RELATED NASAL CONGESTION. VIMPAT 50 mg oral Take 50 mg by 0 12/24/2021 Active tablet mouth Twice a Day. divalproex (DEPAKOTE TAKE 8 TABLETS BY 496 tablet 3 03/02/2022 Active ER) 250 mg oral MOUTH TWICE A DAY 24-hour extended-release tablet carBAMazepine Take 2 capsules 360 capsule 1 12/30/2021 02 (CARBATROL) 300 mg (600 mg) by mouth 2 oral CM12 twice a day for 90 days. Active Problems Problem Noted Date Adverse reaction to drug 01/06/2022 At high risk for falls 01/06/2022 Overview: Added via Discern Expert ADD_HIGHRISKFAL L_PROBLEM Rule. Bladder spasm 01/06/2022 Cystitis 01/06/2022 Dehydration, mild 01/06/2022 Diplegic infantile cerebral palsy 01/06/2022 Increased frequency of urination 01/06/2022 Leukocytosis 01/06/2022 Mental status alteration 01/06/2022 Muscle spasm 01/06/2022 Chronic incomplete quadriplegia 01/06/2022 Somnolence 01/06/2022 Tinea 01/06/2022 Urinary urgency 01/06/2022 Weakness 01/06/2022 Neurogenic bladder 09/16/2021 Overview: Last Assessment & Plan: Formatting of this note might be differe nt from the original. Optimal management of neurogenic bladde r is essential to reducing frequency of UTI. Patient should be on scheduled voiding, and intermittent catheterization as prescribed by Urology to maximize bladder emptying and reduce risk of UTI. Urinary tract infection, site not specified 10/08/2020 Recurrent urinary tract infection 10/08/2020 Overview: Last Assessment & Plan: Formatting of this note might be differe nt from the original. Patient appears to have [...] optimize neurogenic bladder management as described below. Wheelchair bound 03/15/2020 Epilepsy, unspecified, not intractable, without status epilepticus 10/26/2018 Scoliosis, unspecified 10/26/2018 Developmental disorder of scholastic skills, unspecifi ed 10/26/2018 Cerebral palsy, unspecified 10/26/2018 Unspecified visual loss 10/26/2018 Reduced visual acuity 10/26/2018 Gross hematuria 07/15/2016 Idiopathic generalized epilepsy 04/27/2013 Overview: Formatting of this note might be differe nt from the original. Formatting of this note might be differe [...] on 12/25/2016 and came to our attention. Essential hypertension 09/27/2007 Encounters Date Type Specialty Care Team Description 01/06/2022 Office Visit Neurology Ramirez Oliveira MD Other generalized epilepsy, not intractable, without status epilepticus (HCC) (Primary Dx); Diplegic infant ile cerebral palsy (HCC); Wheelchair boun d 01/06/2022 Travel from Last 3 Months Immunizations Name Administration Dates Next Due H1N1 Influenza 06/20/2009 Hepatitis B, Adult 04/10/2016, 11/18/2015, 10/15/2015, 10/11/2015 Influenza 05/29/2020, 05/18/2017, 05/22/2015 Influenza PF 06/21/2019, 04/23/2010 MODERNA 12+YR (ENVIRONMENTAL MONITORING TECHNICIAN) SARS-COV-2 10/09/2020, 09/16/2020 VACCINATION PFIZER 12+ YRS SARS-COV-2 VACCINATION 08/28/2021 Pneumococcal 23-Belkis (Pneumovax) 04/23/2010 Tdap >7 yrs 06/06/2020, 04/23/2010 Family History Medical History Relation Comments Brain/CONTROL VALVE MECHANIC Cancer Other Breast Cancer Other Heart Disease Other High Blood Pressure Other High Cholesterol Other Lung Cancer Other Migraines Other Relation Status Comments Other Social History Tobacco Use Types Packs/Day Years Used Date Smoking Tobacco: Never Cigarettes Smokeless Tobacco: Never Tobacco Cessation: Counseling Given: No Sex Assigned at Date Recorded Not on file Last Filed Vital Signs Vital Sign Reading Time Taken Comments Blood Pressure - - Pulse - - Temperature - - Respiratory Rate 14 01/06/2022 4:03 PM CDT Oxygen Saturation - - Inhaled Oxygen Concentration - - Weight 65.8 kg (145 lb) 01/06/2022 4:03 PM CDT Height 157.5 cm (5' 2) 01/06/2022 4:03 PM CDT Body Mass Index 26.52 01/06/2022 4:03 PM CDT Plan of Treatment Health Maintenance Due Date Last Done Comments Colonoscopy 1975 Diabetes Screening 1975 Hepatitis C Screening 1975 Lipid Screening 1975 Medicare Wellness Visit 1975 Influenza Vaccine (#1) 2022 05/29/2020, 06/21/2019, 05/18/2017, Additional history exists Adult Tetanus Booster 06/06/2030 06/06/2020, 04/23/2010 Pneumococcal <65 Aged Out 04/23/2010 No longer eligi ble based on patient's age to complete this to pic COVID-19 Vaccine Completed 08/28/2021, 10/09/2020, 09/16/2020 Insurance Payer Benefit Plan / Subscriber ID Effective Dates Phone Addre ss Type Group MEDICARE MEDICARE PART A & [id number] 2021-Present [address] [place] [address] MEDICAID MEDICAID [id number] 2005-Present [address] [address] [place] [address] (Home) [place] [address] Care Teams Freight Conductor Relationship Specialty Start Date End Date Chris Fontenot PCP - General Family Medicine 03/25/21 [address] [place] [address] [facility] PCP - Primary Care Clinic [address] [place] [id number]
--- OUTSIDE RECORDS SUMMARY | 2022-04-08 10:17 | XMS_ITS | Encounter Summary ---
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 [place] [address] [place] [phone] Referral ID Status Reason Start Date Expiration Date Visits Requ ested Visits Authorized [id number] Closed 12/04/2021 12/04/2022 1 1 Encounter Details Date Type Department Care Team Description 02/02/2022 Office Visit Department of Matteo Noe M.D. Localization Related Neurology in [address] [place] [address] Focal Partial [place], [place] Symptomatic Epilepsy [address] [place] [phone] And Epileptic Syndromes [place], [place] [phone] With Simple Pa rtial [phone] (Work) Seizures Intractable [phone] Without Status (Fax) Epilepticus (HC C) Social History Tobacco Use Types Packs/Day Years [...] or relatives? How often do you attend baptist or 1 to 4 times per year 01/14 nondenominational services? Do you belong to any clubs or No 02/01/2022 organizations such as baptist groups, unions, fraternal or athletic groups, or [...] place to sleep or slept in a halfway (including now)? Sex Assigned at Date Recorded Male 02/01/2022 6:47 PM CDT documented as of this encounter Progress Notes Matteo Noe M.D. - 02/02/2022 8:30 AM CDT Purpose of visit: Follow-up for uncontrolled epilepsy History of the present illness: Andres came here today with his sister Kirsty and his brother Liss. Stefan had a seizure in December. That was his 1st seizure since August. The staff found him slumped in his wheelchair. By the time Kirsty arrived at the home, Andres still had not cognitively recovered from his postictal state. Apparently, there was no tongue biting. Generalized seizure was still suspected. That particular event was associated Again with urinary tract infection, and also pneumonia. He then received a 5 day course of antibiotics. My examination is limited, but Stefan's behavior and observation of his neurological status remained the same. He was in a wheelchair. He was initially quite cheerful and engaging. However, after mentionof the EEG and MRI of the brain scheduled for today, he became upset and shouted. His sister Kirsty and his brother Liss was able to help calm him down. Otherwise, Andres has been exceedingly pleasant,without any unpleasant behavior towards anyone. I noted Dystonic posturing of both hands, with flexion at the wrist still noted. He was in a wheelchair. No nystagmus. He has spastic apractic speech, but no ataxic type of dysarthria. Plan: I counseled Stefan that both EEG and MRI of the brain are not painful. He will try his best to undergothe procedure. We will await the results of the 2 tests, before deciding on further increasing the lacosamide and reducing the Carbatrol. Again, his seizures have been associated with bladder infection as a provokingfactor in half of the time. IMPRESSION: #1 Pharmacoresistant epilepsy, in association with cerebral palsy #2 Cerebral palsy with cognitive impairment and spastic quadriparesis #3 History of recurrent urinary tract infection #4 History of anxiety and depression Margin code 25 minutes Addendum: Telephone conversation with Kirsty, February 03, 2022 I counseled Kirsty that the MRI of the brain showed changes associated with Andres's cerebral palsy, and no acute lesions to explain his increase in seizure frequency. However, there was an incidental finding to suggest tooth infection at the left upper maxillary region. She should bring Andres to see his dentist. I counseled Carlos to increase the lacosamide (Vimpat), and reduce the Carbatrol. Please see the medication list below. Current Outpatient Medications: ??? ascorbic acid, vitamin C, (Vitamin C) 1,000 mg tablet, Take 1 tablet (1,000 mg total) by mouth 2(two) times a day., Disp: 180 tablet, Rfl: 3 ??? atenoloL (TENORMIN) 25 mg tablet, Take 25 mg by mouth daily., Disp: , Rfl: ??? bisacodyL (DULCOLAX) 10 mg suppository, Insert into the rectum as needed., Disp: , Rfl: ??? carBAMazepine (CARBATROL) 300 mg 12 hr capsule, Take 300 mg by mouth 2 (two) times a day. , Disp: , Rfl: ??? cholecalciferol, vitamin D3, (VITAMIN D3 ORAL), Take 5,000 Units by mouth daily., Disp: , Rfl: ??? diazePAM (VALIUM) 5 mg/mL concentrated solution, Give as directed for prolonged seizure., Disp: , Rfl: ??? divalproex (DEPAKOTE) 500 mg EC tablet, 4 tablets p.o. each morning and 4 each evening., Disp: ,Rfl: ??? docosanoL (ABREVA) 10 % cream, Apply topically as needed., Disp: , Rfl: ??? ibuprofen (ADVIL,MOTRIN) 200 mg tablet, Take 400 mg by mouth as needed., Disp: , Rfl: ??? lacosamide (VIMPAT) 50 mg tablet, Take 1.5 tablets by mouth 2 (two) times a day. After 1 week, increase to 2 tablets twice a day. , Disp: , Rfl: ??? lisinopriL (PRINIVIL,ZESTRIL) 20 mg tablet, Take 1 tablet by mouth daily., Disp: , Rfl: ??? multivitamin with folic acid (ONE DAILY ESSENTIAL) 400 mcg tablet, Take 1 tablet by mouth daily., Disp: , Rfl: ??? nystatin (MYCOSTATIN) 100,000 unit/gram cream, Apply topically as needed., Disp: , Rfl: ??? sodium phosphate,mono-dibasic (FLEET ENEMA RECTAL), Insert into the rectum as needed., Disp: , Rfl: ??? tiZANidine (ZANAFLEX) 2 mg tablet, Take 0.5-1 tablets by mouth as needed., Disp: , Rfl: ??? triamcinolone (KENALOG) 0.1 % ointment, Apply topically to affected area(s) 2 times daily. As needed., Disp: , Rfl: documented in this encounter Plan of Treatment Not on filedocumented as of this encounter Visit Diagnoses Diagnosis Localization Related Focal Partial Sympt omatic Epilepsy And Epileptic Syndromes With Simple Partial Seizures Intractable With out Status Epilepticus (HCC) documented in this encounter Care Teams Escrow Assistant Relationship Specialty Start Date End Date Elsewhere, Pcp PCP - General Internal Medicine 11/14/21 documented as of this encounter
--- OUTSIDE RECORDS SUMMARY | 2022-04-08 10:17 | XMS_ITS | Encounter Summary ---
:1975 Author Organization [facility] Address [address] [place] [address] Care Team Providers Name Role Phone Elsewhere, Pcp Primary Care Provider Unavailable Encounter Details Date Type Department Care Team Description 12/22/2021 Abstract [facility] Provider, Historical Social History Tobacco Use Types Packs/Day Years [...] or relatives? How often do you attend shinto or 1 to 4 times per year 01/14 moravian services? Do you belong to any clubs or No 02/01/2022 organizations such as shinto groups, unions, fraternal or athletic groups, or [...] place to sleep or slept in a group home (including now)? Sex Assigned at Date Recorded Male 02/01/2022 6:47 PM CDT documented as of this encounter Plan of Treatment Not on filedocumented as of this encounter Visit Diagnoses Not on filedocumented in this encounter Care Teams Medical Sociologist Relationship Specialty Start Date End Date Elsewhere, Pcp PCP - General Internal Medicine 11/14/21 documented as of this encounter
--- OUTSIDE RECORDS SUMMARY | 2022-04-08 10:18 | XMS_ITS | Clinical Summary ---
:1975 Author Organization [facility] Address [address] [place] [address] Care Team Providers Name Role Phone Chris Fontenot Primary Care Provider Allergies Active Allergy Reactions Severity Noted Date Comments Tolterodine Rash Low 05/22/2014 Medications Medication Sig Dispensed Refills Start Date End Date Status atenolol (TENORMIN) Take 25 mg by 0 Active 25 MG tablet mouth daily lisinopril Take 20 mg by 0 Activ e (PRINIVIL,ZESTRIL) 20 mouth daily MG tablet Cholecalciferol Take by mouth 0 Active (VITAMIN D PO) daily Multiple Take by mouth 0 Active Vitamins-Minerals daily (MULTIVITAMIN PO) Mirabegron (MYRBETRIQ Take 50 mg by 0 Active PO) mouth daily bisacodyl (DULCOLAX) Place 10 mg 0 Active 10 MG suppository rectally as needed for constipation Sodium Phosphates Place rectally as 0 Active (FLEET ENEMA RE) needed carBAMazepine TAKE ONE CAPSULE 93 capsule 03/11/2018 Active (CARBATROL) 300 MG 12 BY MOUTH EVERY hr MORNING AND TAKE capsuleIndications: TWO CAPSULES IN Generalized THE EVENING (3 convulsive epilepsy CARDS 1 CAP PER with intractable HOLE) epilepsy (H) carBAMazepine TAKE ONE CAPSULE 31 capsule 03/11/2018 Active (CARBATROL) 100 MG 12 BY MOUTH IN THE hr MORNING (ALONG capsuleIndications: WITH (300MG) Generalized CAPSULE) convulsive epilepsy with intractable epilepsy (H) divalproex sodium Take 3 tab po bid 186 tablet 03/11/2018 Active extended-release (DEPAKOTE ER) 500 MG 24 hr tabletIndications: 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) divalproex sodium TAKE ONE TABLET BY 31 tablet 11 03/11/2018 Active extended-release MOUTH AT BEDTIME (DEPAKOTE ER) 250 MG 24 hr tabletIndications: Seizure disorder (H), 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) diazepam (DIAZEPAM Place 1 ml ( 5mg ) 30 mL 2 07/05/2018 Active INTENSOL) 5 MG/ML between cheek and (HIGH CONC) gum for any GTC > solutionIndications: 2 minutes or for 2 Seizure disorder (H) GTCs in 24 hours Active Problems Problem Noted Date Gross hematuria 07/15/2016 Cerebral palsy 10/16/2013 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 Severe DD with [...] on 12/25/2016 and came to our attention. Seizure disorder 07/10/2009 Essential hypertension 09/27/2007 Other forms of epilepsy and recurrent seizures with in tractable epilepsy 11/12/2006 Social History Tobacco Use Types Packs/Day Years Used Date Never Smoker Smokeless Tobacco: Never Used Alcohol Use Standard Drinks/Week Comments No 0 (1 standard drink = 0.6 oz pure alcoho l) Sex Assigned at Date Recorded Not on file Last Filed Vital Signs Vital Sign Reading Time Taken Comments Blood Pressure 125/76 03/11/2018 1:54 PM CDT Pulse 89 03/11/2018 1:54 PM CDT Temperature 36.6 ??C (97.9 ??F) 03/11/2018 1:54 PM CDT Respiratory Rate 18 03/11/2018 1:54 PM CDT Oxygen Saturation 100% 03/11/2018 1:54 PM CDT Inhaled Oxygen - - Concentration Weight 92.9 kg (204 lb 11.2 03/11/2018 1:54 PM W/ WC- U NSURE ABOUT oz) CDT CHAIR WEIGHT, WI LL CHECK ON BRANDEN Height - - Body Mass Index - - Plan of Treatment Health Maintenance Due Date Last Done Comments ADVANCE CARE PLANNING 1975 ANNUAL REVIEW OF HM ORDERS 1974 CT COLONOGRAPHY 1974 FIT-DNA (Cologuard) 1975 FIT 1975 FLEX SIG 1975 COVID-19 Vaccine (#1) 03/24/1975 COLONOSCOPY 1984 COLORECTAL CANCER SCREENING 1984 HIV SCREENING 1989 HEPATITIS C SCREENING 1992 MEDICARE ANNUAL WELLNESS 1992 VISIT DTAP/TDAP/TD IMMUNIZATION 1999 (1 - Tdap) LIPID 2009 PHQ-2 (once per calendar 08/16/2021 year) INFLUENZA VACCINE (#1) 2022 06/10/2016, 05/22/2015, 05/16/2014, Additional history exists Pneumococcal Vaccine: Aged Out 04/23/2010 No longer eligible Pediatrics (0 to 5 Years) based on patient's age and At-Risk Patients (6 to to co mplete this topic 64 Years) HEPATITIS B IMMUNIZATION Aged Out 04/10/2016, 11/18/2015, No longer eligible 10/15/2015, Additional based on patient's age history exists to complete this topic IPV IMMUNIZATION Aged Out No longer eligi ble based on patient 's age to complete this topic MENINGITIS IMMUNIZATION Aged Out No longe r eligible based on patient 's age to complete this topic Insurance Payer Benefit Plan / Subscriber ID Effective Phone Address T ype Group Dates MEDICARE MEDICARE [id number] 1995-Prese [phone] ATTN [place] Medicare nt [address] [place] [address] [place] [id number] 2013-Prese [phone] [address] Medicaid nt 00 [place] [address] FlavioAndres Other Other 1975 [address] [place] [facility] (Home) [address] [place] [address] Care Teams Business Development Intern Relationship Specialty Start Date End Date Chris Fontenot PCP - General 03/09/13
--- OUTSIDE RECORDS SUMMARY | 2022-04-08 10:18 | XMS_ITS | Encounter Summary ---
:1975 Author Organization [facility] Address [address] [place] [address] Care Team Providers Name Role Phone Unavailable Primary Care Provider Unavailable Reason for Visit Reason Comments COVID Nurse Line Encounter Details Date Type Department Care Team Description 03/12/2020 Clinical Communication Department of Kavitha Ponce Nurse Line Urology in [facility], [facility][note 3] [address] [place], [place] [address] [place] [id number] [place], [place] [phone] (Work) [phone] Social History Tobacco Use Types Packs/Day Years Used Date Smoking Tobacco: Never Assessed Alcohol Habits Answer Date Recorded How often [...] or relatives? How often do you attend yazidi or 1 to 4 times per year 01/14 latter day services? Do you belong to any clubs or No 02/01/2022 organizations such as yazidi groups, unions, fraternal or athletic groups, or [...] this encounter Miscellaneous Notes Telephone Encounter - Summer Francois - 03/12/2020 12:40 PM CDT ([facility] and [facility] locations only: If the patient is not having symptoms and is requesting COVID-19 Nasal Swab testing only, use the process listed in the COVID-19 Patient Requesting COVID PCR Test OTG COVID-19 [place] Patient Requesting COVID PCR Test). In the past 30 days have you had a swab for COVID that tested positive? NO Route reply to: [facility] SCHEDULING Scheduling Contact Number: [phone] documented in this encounter Plan of Treatment Not on filedocumented as of this encounter Visit Diagnoses Not on filedocumented in this encounter
--- OUTSIDE RECORDS SUMMARY | 2022-04-08 10:18 | XMS_ITS | Encounter Summary ---
:1975 Author Organization [facility] Address [address] [place] [address] Care Team Providers Name Role Phone Chris Fontenot Primary Care Provider Jasiel Hester RN Unavailable Reason for Visit Reason Comments Seizures UMP RETURN, SEIZURES- RECENT SEIZURE Encounter Details Date Type Department Care Team Description 03/11/2018 Office Visit [facility] Neurology Boyd Alfaro Generalized convulsive epile psy with intractable epilepsy; [facility] [facility] MD Joshua Seizure disorder (H) [address] [place] [phone] [place], [place] [phone] (Wo rk) Social History Tobacco Use Types Packs/Day Years Used Date Never Smoker Smokeless Tobacco: Never Used Alcohol Use Standard Drinks/Week Comments No 0 (1 standard drink = 0.6 oz pure alcoho l) Sex Assigned at Date Recorded Not on file documented as of this encounter Last Filed [...] - - Body Mass Index - - documented in this encounter Progress Notes Boyd Alfaro MD - 03/11/2018 2:15 PM CDT UMP/MINCEP Epilepsy Care Progress Note Patient: Andres Muniz : 1975 Age: [age] year old Today's Office Visit: 03/11/2018 Epilepsy Data: Seizure Record Current Visit Date: 03/11/18 Previous Visit Date: 01/27/17 Months since last visit: 13.4 Seizure Type 1: Tonic-clonic seizures Description of Sz Type 1: conmvulsions # of Type 1 Seizure since last visit: 1 Freq. Type 1 / Month: 0.07 History of Present Illness: One convulsive seizure since last seen occurred in July. He received diazepam intensol and was sent to ER and then sent home. Denies obvious seizure precipitants. Taking medications as directed. No fevers, diarrhea, vomiting. No new medications. No significant sleep deprivation, alcohol use, street drug use. No new significant stressors Sister reports that usual seizure frequency is two times per year. Most seizures are convulsions. Current Outpatient Prescriptions Medication Sig Dispense Refill ??? atenolol (TENORMIN) 25 MG tablet Take 25 mg by mouth daily ??? carBAMazepine (CARBATROL) 100 MG 12 hr capsule TAKE ONE CAPSULE BY MOUTH IN THE MORNING (ALONG WITH (300MG) CAPSULE) 31 capsule 0 ??? carBAMazepine (CARBATROL) 300 MG 12 hr capsule TAKE ONE CAPSULE BY MOUTH EVERY MORNING AND TAKE TWO CAPSULES IN THE EVENING (3 CARDS 1 CAP PER HOLE) 93 capsule 0 ??? diazepam (DIAZEPAM INTENSOL) 5 MG/ML (HIGH CONC) solution Place 1 ml ( 5mg ) between cheek and gum for any GTC > 2 minutes or for 2 GTCs in 24 hours 30 mL 2 ??? divalproex sodium extended-release (DEPAKOTE ER) 250 MG 24 hr tablet TAKE ONE TABLET BY MOUTH ATBEDTIME 31 tablet 0 ??? divalproex sodium extended-release (DEPAKOTE ER) 500 MG 24 hr tablet Take 3 tab po bid 186 tablet 1 ??? lisinopril (PRINIVIL,ZESTRIL) 20 MG tablet Take 20 mg by mouth daily ??? Multiple Vitamins-Minerals (MULTIVITAMIN PO) Take by mouth daily ??? bisacodyl (DULCOLAX) [address] 10 mg rectally as needed for constipation ??? Cholecalciferol (VITAMIN D PO) Take by mouth daily ??? Mirabegron (MYRBETRIQ PO) Take 50 mg by mouth daily ??? Sodium Phosphates (FLEET ENEMA RE) Place rectally as needed Medication Notes: Carbamazepine (100,200) 300-0-400 VPA (250,500) [id number] AED Medication Compliance: compliant all of the time Using a pill box: .Medications are administered to patient. Review of Systems: Denies headaches. Denies loss of vision. Denies double vision. Denies dysphagia. Denies cough, wheezing, hemoptysis. Denies chest pain, leg swelling. Denies significant weight change, abdominal pain, nausea, vomiting, change in bowel habits, blood per rectum. Denies dysuria, hematuria, flank pain, or kidney stones. Have you experienced a traumatic fall since your last visit: NO Are these falls related to your seizures: Not Applicable Other Issues: No other health troubles. Behavior about the same. Is patient safe to drive: No Exam: BP 125/76 Pulse 89 Temp 97.9 ??F (36.6 ??C) (Oral) Resp 18 Wt 92.9 kg (204 lb 11.2 oz) SpO2 100% Wt Readings from Last 5 Encounters: 03/11/18 92.9 kg (204 lb 11.2 oz) Above weight with wheelchair. Usually runs 125 to 150 #. Legs appear shorter than appropriate for size of torso and arms. Short neck. He is alert and quite attentive. Will often interject and disagree with sister's statements. Fluent sentences with reasonably normal grammatical structure, but simple content. Follows simple commands. Repeats well. Identifiessome common objects, but not others. Repeatedly rolls eyes up. He has alternating esotropia. Visual acuity is probably reduced in the left eye. He can identify most common objects with his right eye, but cannot do so with his left eye. Smile is symmetrical. Facial sensation is equal. Jaw jerk is normal. Persistent apraxia of tongue movement; he cannot stick out his tongue to command and cannot move to ngue back and forth to command but there is no dysarthria. There is increased tone in upper extremities. Proximal strength is full. There may be some distal weakness. There is clumsiness to rapid fine movements bilaterally. Profound weakness in the legs. The patient does not move spontaneously. No reflexes can be obtained. Stimulation, however, does induce a little movement and complaints from the patient. [id number] is done well. Tone is actually relatively loose in the legs. ? IMPRESSION: 1. Generalized tonic-clonic seizures. 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 Refractory to levetiracetam. Refractory to both carbamazepine and divalproex. Divalproex has been maximized; however, this medication appears to have been helpful because discontinuation has worsened seizures. Had a single convulsion over the last year that was not provoked. Sister however believes that this is baseline; maybe even better than baseline. 2. Cerebral palsy with quadriparesis, much more profound in legs than in arms, probable spastic dysphagia and developmental delay. 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 We do not have imaging; not clear that he would cooperate for this and not clearthat it is medically necessary at this point. ? DISCUSSION: Again, extensive discussion with sister as to whether to change anticonvulsant medications or not. We discussed the various treatment options. We discussed other treatment options. Anticonvulsant medication tang, substituting zonisamide, oxcarbazepine or lacosamide for carbamazepine appears to be the best approach. Zonisamide may perhaps be the most effective intervention in this situation. We discussed risks and benefits. Sister did not feel that we should proceed at this point. We again briefly discussed risks of continuing seizures including small risk of SUDEP. ?? PLAN: 1. Continue current AEDs. 2. Call if worse seizures or if seizures occurring more than twice per year. 3. Future AED options include zonisamide, oxcarbazepine and lacosamide. 4. He has not had neurimaging. Would probably require conscious sedation for MRI and I do not think benefit exceeds risk at this point and sister agrees. CT scan could perhaps be done. 5. RTC 6 months. ? BOYD ALFARO MD documented in this encounter Nursing Notes Emiliano Teague LPN - 03/11/2018 2:15 PM CDT Chief Complaint Patient presents with ??? Seizures UMP RETURN, SEIZURES- RECENT SEIZURE Emiliano Teague EMT documented in this encounter Plan of Treatment Not on filedocumented as of this encounter Visit Diagnoses Diagnosis Generalized convulsive epilepsy with int ractable epilepsy Seizure disorder (H) Unspecified epilepsy without mention of intractable epilepsy documented in this encounter Care Teams Worm Picker Relationship Specialty Start Date End Date Chris Fontenot PCP - General 03/09/13 Jasiel Hester, RN Registered Nurse Neurology 12/23/17 08/26/18 documented as of this encounter
--- OUTSIDE RECORDS SUMMARY | 2022-04-08 10:18 | XMS_ITS | Encounter Summary ---
:1975 Author Organization [facility] Address [address] [place] [address] Care Team Providers Name Role Phone Chris Fontenot Primary Care Provider Encounter Details Date Type Department Care Team Description 11/12/2017 Orders Only [facility] Neurology Rodolfo Erickson, Generalized convulsive [facility] epilepsy with 3rd [place] [address] Social History Tobacco Use Types Packs/Day Years Used Date Never Smoker Sex Assigned at Date Recorded Not on file documented as of this encounter Plan of Treatment Not on filedocumented as of this encounter Visit Diagnoses Diagnosis Generalized convulsive epilepsy with int ractable epilepsy documented in this encounter Care Teams English As A Second Language Instructor Relationship Specialty Start Date End Date Chris Fontenot PCP - General 03/09/13 documented as of this encounter
--- OUTSIDE RECORDS SUMMARY | 2022-04-08 10:18 | XMS_ITS | Encounter Summary ---
:1975 Author Organization [facility] Address [address] [place] [address] Care Team Providers Name Role Phone Unavailable Primary Care Provider Unavailable Reason for Visit Reason Comments review records Encounter Details Date Type Department Care Team Description 09/22/2021 Clinical Communication Section of Providershelbie records Infectious Diseases Unknown in [place], [place] [address] [place] [address] Social History Tobacco Use Types Packs/Day Years [...] or relatives? How often do you attend congregation or 1 to 4 times per year 01/14 anabaptism services? Do you belong to any clubs or No 02/01/2022 organizations such as congregation groups, unions, fraternal or athletic groups, or [...] place to sleep or slept in a fpc (including now)? Sex Assigned at Date Recorded Male 02/01/2022 6:47 PM CDT documented as of this encounter Miscellaneous Notes Telephone Encounter - Tierra Goff - 2021 1:43 PM CST LVM for pt to call and manuel 2/9 crg LITY ATTENDANT Telephone Encounter - Kim Candelaria - 2021 7:53 AM CST Andres Muniz 1975 Who filled out form: Kirsty Lewis - sister/guardian Who requested evaluation: Other provider Reason evaluation was requested: Frequent UTIs, ER visits with elevated WBC, neurologist thinks UTIsare triggers to seizures Goals: 1) Seizure control 2) Decrease UTIs 3) Determine if connection between UTIs and Seizure 4) What is leading to recent episodes altered mental status, lethargy, dehydration and infections Symptoms/Concerns: 1) grand mal seizures every 2 months now 2) frequent UTIS 3) significant illnesses (sepsis requiring hospitalization in past year) and ER visits 4) 5) MOST IMPORTANT: Symptom/Concern #1: 1) grand mal seizures every 2 months now Duration: More than 6 months Previous Eval: Yes Outcome: neurologist believes may be related to infections, UTIS 2) frequent UTIS Duration: More than 6 months Previous Eval: Yes Outcome: normal bladder function, bladder spasms, no conclusion for UTIs 3) significant illnesses (sepsis requiring hospitalization in past year) and ER visits Duration: More than 6 months Previous Eval: Yes Outcome: unclear 4) Duration: Previous Eval: Outcome: 5) Duration: Previous Eval: Outcome: Antibiotics? Yes Penicillin Allergy? No Number of medications currently taking? 6 Requested specialists: Urology, Neurology Bothered by the following problems in last 2 weeks: (Scale: Not at all, Several Days, More than half the days, Nearly every day) Feeling nervous, anxious, or on edge: Nearly every day Not being able to stop or control worrying : Nearly every day Little interest or pleasure in doing things : More than half the days Feeling down, depressed, or hopeless: Several days OVERALL HEALTH: (Scale: Excellent, Very good, Good, Fair, Poor) Fair RADIOLOGY QUESTIONS: Iodine contrast reaction? Unsure Gadolinium contrast reaction? Unsure Dialysis? No Urine or no urine output past 48 hours? No Implanted medical devices or pumps? No Implanted device? Organ transplant? No Bone marrow/stem cell transplant? No HIV/AIDS? No Diabetic? No TB? No Bone/joint infection referral? No REFERRED FOR URINARY TRACT INFECTION: Yes Genitournary system surgery? No Types and dates: Passed air in urine? No Urinary system stones? No Diagnosis date/describe treatment: Urinary catheter? No Blood in urine? Yes Constipation? Yes Cystoscopy? Yes [facility] and [facility]? Yes Where and when: 11[facility]03 - [facility] SEX ASSIGNED AT : Male FEMALE: Current menstrual cycles? When did they stop: Sexual intercourse pain? Systemic hormone replacement therapy? Estrogen/estradiol use? How long: Chronic pelvis pain? MALE: Prostate cancer? No Treatment: Prostate enlargement/BPH? No Treatment: Prostate infection/prostatitis? No Treatment: REFERRED FOR UNEXPLAINED FEVERS: No First occurence? How often? Progressed since onset? Maximum temperature recorded? How temperature was taken: Treatments attempted? Specialists evaluated? SCHEDULING QUESTIONS: List dates NOT available below: Dates to avoid scheduling: Cannot get to [facility] earlier than 11:00 due to toileting needs PHONE: [phone] Kirsty AGREE? I have read the Medical Emergency directions as noted above., I have read the Infectious Diseases Consultation Model of Care as noted above and agree to the process outlined. LITY ATTENDANT documented in this encounter Plan of Treatment Not on filedocumented as of this encounter Visit Diagnoses Not on filedocumented in this encounter
--- OUTSIDE RECORDS SUMMARY | 2022-04-08 10:18 | XMS_ITS | Encounter Summary ---
:1975 Author Organization [facility] Address [address] [place] [address] Care Team Providers Name Role Phone Chris Fontenot Primary Care Provider Jasiel Hester RN Unavailable Reason for Visit Reason Comments Medication Refill Encounter Details Date Type Department Care Team Description 03/07/2018 Refill [facility] Neurology Boyd Green Medication Refill [facility] [facility] MD Joshua [address]rd Floor [address] [place] [phone] [facility] [address] [address] (Wo rk) Social History Tobacco Use Types Packs/Day Years Used Date Never Smoker Sex Assigned at Date Recorded Not on file documented as of this encounter Plan of Treatment Not on filedocumented as of this encounter Visit Diagnoses Diagnosis Generalized convulsive epilepsy with int ractable epilepsy Seizure disorder (H) Unspecified epilepsy without mention of intractable epilepsy documented in this encounter Care Teams Service Line Bus Cleaner Relationship Specialty Start Date End Date Chris Fontenot PCP - General 03/09/13 Jasiel Hester, RN Registered Nurse Neurology 12/23/17 08/26/18 documented as of this encounter
--- OUTSIDE RECORDS SUMMARY | 2022-04-08 10:18 | XMS_ITS | Encounter Summary ---
:1975 Author Organization [facility] Address [address] [place] [address] Care Team Providers Name Role Phone Elsewhere, Pcp Primary Care Provider Unavailable Reason for Visit Reason Comments So/W8 Encounter Details Date Type Department Care Team Description 12/04/2021 Clinical Communication Department of Neurology Matteo Guy M.D. So/W8 in [facility] [address] [place] [phone] Social History Tobacco Use Types Packs/Day Years [...] many times do you More than three eklsey es a week 02/01/2022 talk on the phone with family, friends, or neighbors? How often do you get together with friends More than three t imes a week 02/01/2022 or relatives? How often do you attend protestant or 1 to 4 times per year 01/14 oriental orthodox services? Do you belong to any clubs or No 02/01/2022 organizations such as protestant groups, unions, fraternal or athletic groups, or [...] place to sleep or slept in a correction (including now)? Sex Assigned at Date Recorded Male 02/01/2022 6:47 PM CDT documented as of this encounter Plan of Treatment Not on filedocumented as of this encounter Visit Diagnoses Not on filedocumented in this encounter Care Teams Sewer Pipe Sorter Relationship Specialty Start Date End Date Elsewhere, Pcp PCP - General Internal Medicine 11/14/21 documented as of this encounter
--- OUTSIDE RECORDS SUMMARY | 2022-04-08 10:18 | XMS_ITS | Encounter Summary ---
:1975 Author Organization [facility] Address [address] [place] [address] Care Team Providers Name Role Phone Chris Fontenot Primary Care Provider Jasiel Hester RN Unavailable Reason for Visit Reason Onset Date Comments Call Back 12/23/2017 Questions about medi cation and labs Encounter Details Date Type Department Care Team Description 12/23/2017 [facility] Neurology Boyd Green Call Back (Questions 909 [facility] MD Joshua about medication and 3rd Floor [address] labs) [facility] [address] [address] [place], [place] [phone] (Wo rk) Social History Tobacco Use Types Packs/Day Years Used Date Never Smoker Sex Assigned at Date Recorded Not on file documented as of this encounter Miscellaneous Notes Telephone Encounter - Jasiel Hester, RN - 12/23/2017 1:40 PM CDT Returned call to Patient's sister left voice message indicating refills would be sent up appointmenttime as rescheduled. Requested a call back. Telephone Encounter - Carlotta Booker - 12/23/2017 10:03 AM CDT [facility] Call Center Phone Message May a detailed message be left on voicemail: yes Reason for Call: Other: Pt's sister would like to speak to someone about pt's prescriptions for divalproex sodium extended-release (DEPAKOTE ER) and carBAMazepine (CARBATROL). She rescheduled pt's appointment to 03/11 but is concerned the pt will run out before his appointment. Also wanted to discuss sheldon joshi. Stated that usually Dr Green orders labs for the pt to complete before the appointment. Pleasecall back at [phone]. 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
--- OUTSIDE RECORDS SUMMARY | 2022-04-08 10:18 | XMS_ITS | Encounter Summary ---
:1975 Author Organization [place] Address [address] [place] [address]. [place] [address] Care Team Providers Name Role Phone Chris Fontenot Primary Care Provider Jasiel Hester RN Unavailable Reason for Visit Reason Onset Date Comments Pt. Information/instruction 03/25/2018 Info for Sammi Green and Dre Encounter Details Date Type Department Care Team Description 03/25/2018 [facility] Neurology Boyd Green Pt. 909 [facility] MD Joshua Information/instructio 3rd Floor [address] [facility] n (Info for [facility] [address]) [address] [place], [place] [phone] (Wo rk) Social History Tobacco Use Types Packs/Day Years Used Date Never Smoker Smokeless Tobacco: Never Used Alcohol Use Standard Drinks/Week Comments No 0 (1 standard drink = 0.6 oz pure alcoho l) Sex Assigned at Date Recorded Not on file documented as of this encounter Miscellaneous Notes Telephone Encounter - Margarita Carr - 03/25/2018 8:[address] [facility] Call Center Phone Message May a detailed message be left on voicemail: yes Reason for Call: Other: Pts caregiver Emili calling. Pt had back to back seizures last night but were pretty mild in comparison to those he had in the past. She administered diazepam and he came out OK and seems to be doing fine this morning. She is wondering if Drs. Green and/or Dre would like to get his med levels tested and, if so, those orders would need to go to [facility]. Emili was unable to provide fax. Please call back with any questions. Action Taken: Message routed to: [facility] NEUROLOGY documented in this encounter Plan of Treatment Not on filedocumented as of this encounter Visit Diagnoses Not on filedocumented in this encounter Care Teams Television Production Clerk Relationship Specialty Start Date End Date Chris Fontenot PCP - General 03/09/13 Jasiel Hester, RN Registered Nurse Neurology 12/23/17 08/26/18 documented as of this encounter
--- OUTSIDE RECORDS SUMMARY | 2022-04-08 10:18 | XMS_ITS | Encounter Summary ---
:1975 Author Organization [facility] Address [address] [place] [address] Care Team Providers Name Role Phone Unavailable Primary Care Provider Unavailable Reason for Visit Reason Comments Pre-visit Testing Orders Encounter Details Date Type Department Care Team Description 03/12/2020 Clinical Communication Department of Kavitha Ponce e-visit Testing Urology in [facility]. Orders [place], [facility] [address] [place], [place] [address] [facility] [address] [place], [place] [phone] (Work) [phone] Social History Tobacco Use Types Packs/Day Years [...] or relatives? How often do you attend pentecostalism or 1 to 4 times per year 01/14 shinto services? Do you belong to any clubs or No 02/01/2022 organizations such as pentecostalism groups, unions, fraternal or athletic groups, or [...] Notes Telephone Encounter - Summer Francois - 03/13/2020 2:04 PM CDT Attempted to call the sister in regards to scheduled appts. Vm was full. So if they call back pleaselet them know about appts. Thanks! documented in this encounter Plan of Treatment Not on filedocumented as of this encounter Visit Diagnoses Diagnosis Frequency Urinary - Primary documented in this encounter
--- OUTSIDE RECORDS SUMMARY | 2022-04-08 10:18 | XMS_ITS | Encounter Summary ---
:1975 Author Organization [place] Address [address] [place] [address]. [place] [address] Care Team Providers Name Role Phone Chris Fontenot Primary Care Provider Reason for Visit Reason Onset Date Comments Pt. Information/instruction 11/12/2017 Encounter Details Date Type Department Care Team Description 11/12/2017 Telephone [facility] Neurology M[place], Pt. [address] [facility] [address] [place] CLEMENCIA Abdi Information/instruction 3rd Floor [phone] [place], [place] (Work) [phone] Social History Tobacco Use Types Packs/Day Years Used Date Never Smoker Sex Assigned at Date Recorded Not on file documented as of this encounter Miscellaneous Notes Telephone Encounter - Trinidad Barker RN - 11/12/2017 12:38 PM CDT Pt's sister calling about her brother getting his prescription before it runs out. Dr. Erickson sent inrenewed prescription yesterday, it was sent to [facility] in [place] and was shown that itwas received at 3:24pm on 11/11/2017. Called pt's sister and left message that prescription had been sent. documented in this encounter Plan of Treatment Not on filedocumented as of this encounter Visit Diagnoses Not on filedocumented in this encounter Care Teams Return To Vendor Relationship Specialty Start Date End Date Chris Fontenot PCP - General 03/09/13 documented as of this encounter
--- OUTSIDE RECORDS SUMMARY | 2022-04-08 10:18 | XMS_ITS | Encounter Summary ---
:1975 Author Organization [facility] Address [address] [place] [address] Care Team Providers Name Role Phone Elsewhere, Pcp Primary Care Provider Unavailable Encounter Details Date Type Department Care Team Description 12/04/2021 Clinical Communication Section of Infectious Verenice Seals, Diseases in [place], [place], M.P .H. [place] [address] [facility] [address] [place] [address] [phone] Social History Tobacco Use Types Packs/Day Years [...] or relatives? How often do you attend pentecostal or 1 to 4 times per year 01/14 advent services? Do you belong to any clubs or No 02/01/2022 organizations such as pentecostal groups, unions, fraternal or athletic groups, or [...] Encounter - Ming Seals M.D., M.P.H. - 12/04/2021 3:16 PM CDT Done Telephone Encounter - Patti Swanson - 12/04/2021 2:58 PM CDT Kirsty, patient's sister, called this afternoon requesting that the vitamin C be prescribed and sentto the [facility] in [place], [place]. The patient's custodial will not provide the medication to Stefan without a prescription for the medication. Thanks. documented in this encounter Plan of Treatment Not on filedocumented as of this encounter Visit Diagnoses Not on filedocumented in this encounter Care Teams Seo Specialist Relationship Specialty Start Date End Date Elsewhere, Pcp PCP - General Internal Medicine 11/14/21 documented as of this encounter
--- OUTSIDE RECORDS SUMMARY | 2022-04-08 10:18 | XMS_ITS | Encounter Summary ---
:1975 Author Organization [facility] Address [address] [place] [address] Care Team Providers Name Role Phone Elsewhere, Pcp Primary Care Provider Unavailable Reason for Visit Appointment Request (Routine) - Closed Specialty Diagnoses / Procedures Referred By Contact Refer red To Contact Neurology Diagnoses Epilepsy Seizure Not Intractable Without Status Epilepticus (HCC) Chris Fontenot M.D. [address] [place] [address] Referral ID Status Reason Start Date Expiration Date Visits Requ ested Visits Authorized [id number] Closed 09/18/2021 09/18/2022 1 1 Encounter Details Date Type Department Care Team Description 11/17/2021 Comprehensive Visit Department of Matteo Noe Localiz ation Related Neurology in M.D. Focal Partial [place], [place] [address] [facility] Symptomatic Epilepsy [address] [place], [place] [address] Syndromes With Simple [id number] Partial Seizures Intractable Without [phone] Status Epilepti cus (Fax) (HCC) (Primary Dx) Social History Tobacco Use Types [...] or relatives? How often do you attend methodist or 1 to 4 times per year 01/14 scientologist services? Do you belong to any clubs or No 02/01/2022 organizations such as methodist groups, unions, fraternal or athletic groups, or [...] place to sleep or slept in a intermediate (including now)? Sex Assigned at Date Recorded Male 02/01/2022 6:47 PM CDT documented as of this encounter Last Filed Vital Signs Vital Sign Reading Time Taken Comments Blood Pressure - - Pulse - - Temperature 36.2 ??C (97.2 ??F) 11/17/2021 2:36 PM CDT Respiratory Rate - - Oxygen Saturation - - Inhaled Oxygen Concentration - - Weight - - Height - - Body Mass Index - - documented in this encounter Progress Notes Matteo Noe M.D. - 11/17/2021 3:00 PM CDT REFERRAL SOURCE: Self-referred. CHIEF COMPLAINT/REASON FOR VISIT Exacerbation of seizure control. ASSESSMENT / PLAN I personally reviewed Andres's very extensive history. Much of it is available in our electronic medical records, so I could review his previous epilepsy care that had been rendered in the [facility]. I also personally supervised his evaluation and neurological examination by Dr. Amy Cortés, whose note is dated today. After conducting the above, I counseled Andres and his sister, Kirsty, about the followin. Andres's seizure control used to be better. 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 Despite the pharmacoresistant epilepsy, his seizures were less frequent, and in fact he had a period of 1-1/2-year remission between 2012 and 2014. That had occurred onthe regimen of carbamazepine and valproate, which he is still taking. He used to have 1 or 2 seizures per year, or some years none at all. However, beginning in 2018 he had 4 in that year, and 5 seizures probably in 2019, 6 seizures in 2020, and so far he has had 1 in this year. His seizures could have some focal symptom onset, because Kirsty reports having observed some panic appearance, but otherwise, they appear to be generalized in terms of the shaking and stiffening. I explained that persons with symptomatic epilepsy, evidence of brain injury and abnormal neurological examination are more predisposed to have pharmacoresistant epilepsy, shorter remissions if they should occur, and also breakthrough seizures interrupting the remissions. Nonetheless, there is a chance for resumption of remission. Therefore, the fact that his seizures have become more frequent is notdefinitely due to aging. 2. It seems that urinary tract infections are a main cause of his seizure control exacerbation. It is true that urinary tract infections can increase seizure breakthroughs, especially if with fever or if antibiotics with epileptogenic potential are used. According to Kirsty, only half of Andres's seizure episodes are associated with urinary tract infections. 3. In order to investigate why his seizures have become more frequent, we need to do MRI under anesthesia, and also EEG. These were proposed to him in 2017 by his epileptologist at that time, Dr. Boyd Green, but Kirsty had deemed that Andres would not be able to tolerate the procedure, at that time. However, Kirsty and Andres will make a decision and let us know if they would like to proceed withthese 2 tests. 4. Depending on the MRI and EEG findings, we may suggest further increase in the lacosamide (Vimpat)dose, which was started in October of 2020. Because Andres is already experiencing some sedation, it will be necessary to gradually reduce the carbamazepine. We will see if his EEG shows a predominance ofgeneralized discharges to suggest a component of generalized epilepsy, which could benefit from a combination of valproate and lacosamide, or valproate and lamotrigine. In the past he had tried levetiracetam (Keppra), but it did not help with the seizure control. He has an appointment to see his urologist. IMPRESSION: #1 Pharmacoresistant epilepsy, in association with cerebral palsy #2 Cerebral palsy with cognitive impairment and spastic quadriparesis #3 History of recurrent urinary tract infection #4 History of anxiety and depression #5 Remote history of recurrent aspiration pneumonia documented in this encounter Consult Notes Amy Cortés M.D., Ph.D. - 11/17/2021 3:00 PM CDT SUBJECTIVE CHIEF COMPLAINT / REASON FOR VISIT Andres Muniz is a 46 y.o. male who presents for evaluation of generalized seizures in setting of cerebral palsy. Chief question is whether pyuria in the urine should be treated, as well as cause of increased seizure frequency. HISTORY OF PRESENT ILLNESS Mr. Andres Muniz is a pleasant 46yo male with medical co-morbidities significant for cerebral palsy (with subsequent cognitive deficits, developmental delay, neurogenic bladder, now wheelchair bound), HTN, recurrent UTIs, presenting for evaluation of worsening generalized seizures. His seizures were previously under adequate control with a regimen of Carbamezapine and valproic acid, with average 1 seizure a year. There was a prolonged remission of >1.5 years in 2012 and 2013 where he did not have any seizures. However, starting about 2018, his seizure frequencies increased to3 seizures in 2019, 5 in 2019, 6 in 2020, and one so far this year in Aug. In response to this increase in seizure frequency, their home neurologist have recommended screening for UTIs in attempt to treat the UTIs early to prevent seizures. He was previously screened q4mo in 2019, then screened monthly starting from 2019. The sister tells me that in 2020, he had seizures in Aug, Oct, November, January, Mar, and May. Looking back at the records, only 3 of those events (Aug, November, Mar) were possibly related to an UTI. In Mar, he was hospitalized for urosepsis for 4 days, but did not have a seizureduring hospitalization. He did then have a seizure 1-2 weeks after the hospitalization. He initiatedlacosamide 50mg BID in October 2020, but has not noticed reduction in seizure frequency. His medications are currently carbamezepine 600mg BID, valproic acid 2000mg BID, lacosamide 50mg BID(since October 2020). He was previously trialed on levetiracetam, which was not helpful. His seizures started from . There seemed to be a incident where the patient's mom required some transfusions but was not given it. There may also been reports of Rh incompatibility. Thisis mom's 10th with prior 9 healthy siblings without neurologic complications. Seizure semiology is described as follows: patient can feel a seizure coming on, although cannot describe what he feels. His sister notes an alarmed and panicked look on his face. He then goes into a generalized shaking and stiffening. At the 2 minute prisca, he is given rescue diazepam and his seizuresstop. He has required diazepam at every seizure and has never required a second dose of diazepam. The re is associated post-ictal confusion. The seizures always occur in the evenings, but never during sleep. Sister notes stress (as when their mom passed) as a trigger for seizures. He has previously had neuroimaging and EEG analysis, but these are not for about 7-10 yrs ago. We donot have either to review, and the sister does not remember results of either studies. Epilepsy Type: Generalized Epilepsy Syndrome: No defined syndrome Etiology: Structural Current Seizure Control: Seizures every 1-6 months Seizure Description: Generalized shaking and stiffening Risk factors: CP Prior medications: levetiracetam Current medications: Carbamazepine, Lacosamide and Valproic Acid Description of side effects: some sedation, drooling, agitated, Other treatments: none Co-morbidities: chronic constipation, recurrent UTIs, HTN, anxiety/depression Social history: - Tobacco: never - EtOH: never - Drugs: never - lives in retirement Family history: no hx of seizures/neuro disorders The following portions of the patient's history were reviewed and updated as appropriate: allergies,current medications, family history, medical history, social history, surgical history and problem list. REVIEW OF SYSTEMS: REVIEW OF SYSTEMS OBJECTIVE PHYSICAL EXAM Neurologic: Mental status: Alert and oriented to self, place ([place] [facility] with prompting), time (said Spring, did not know year or month). Speech: Clear. Cranial nerves: PERRL sluggishly, left esotropia, visual ruiz unable to test due to cooperation. facial movements full and symmetric, sensation intact to light touch in the V1-V3 distributions, hearing intact to voice, tongue protrudes in midline, there is equal elevation of the soft palate, shoulder shrug is appropriate in strength. Motor: Bilateral upper and lower extremity strength evaluated including: (R, L) deltoids (0,-2) (limited by left shoulder bursitis), biceps (-1,-1), triceps (-1,-1), iliopsoas (-3.5,-3.5), knee flexion(-3,-3), knee extension (-2,-2). Tone is spastic in bilateral upper and lower extremities. Lower worse than uppers Sensory: Sensation is intact to light touch Reflexes: biceps (+2,+2), triceps (+1, +1), brachioradialis (+2,+2), patellar (mute bilaterally) Coordination: deferred Gait: wheelchair bound ASSESSMENT / PLAN #1 cerebral palsy #generalized epilepsy due to #1 #neurogenic bladder due to #1 #developmental delay due to #1 Mr. Andres Muniz is a pleasant 46 year old male with cerebral palsy and lifelong epilepsy seen for increased seizure frequency in the last 3 years. He is evaluated with the help of his sister and guardian, Kirsty. His seizures were under good control previously with 1 to 2 seizures a year for a long time with carbamazepine and valproic acid. He even had a period of 1.5 years in 2012 and 2013 in which he was completely seizure-free. However, starting around 2019, the seizures increase in frequency. In 2020 he had 6 seizures total. His home neurologist have noted and associations between UTIs in seizure frequency, however, I see that only 3 of seizures in 202 have a possible connection with a UTI. One of the visit questions was how to treat this UTI a relation to the seizures. UTIs should not cause seizures brother possibly lowe ring seizure threshold. Additionally not all the seizures are associated with a UTI. We recommend treatment of UTIs as recommended by the Urology and Infectious Disease teams. Kristy also asks about the cause of the increase in seizure frequency. We counseled her that this isnot unexpected in cerebral palsy patients. In patient with known brain damage, with an abnormal neurologic exam, there is tendency for breakthrough seizures, shorter a remission from seizures, and sometimes no remission at all. There is not a clear association with aging. There is still a possibility that he could go into remission again. In the meantime, the diagnostics to look into the increase in seizure frequency would include a brain MRI and a routine EEG. Kirsty and the patient will discuss whether they would like to proceed with these diagnostics for further information. With EEG, which could also changes anti seizure medications in hopes of better seizure control. We would recommend uptitration of the lacosamide in hopes of weaning off the carbamazepine. However an EEG would be important information prior to changing antiseizure medications. Kirsty will contact Dr. Noe via the portal whenher and her brother have had a chance to discuss about what they wish to do. Plan: - Treatment of UTIs per infectious disease and urology teams - MRI brain to rule out other causes of seizures and to evaluate extend of brain damage. - EEG to better characterize seizures (generalized spikes vs more focal findings) - After the EEG, consideration of up titrating lacosamide and weaning off of carbamazepine - Possible video follow-up with Dr. 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
--- OUTSIDE RECORDS SUMMARY | 2022-04-08 10:18 | XMS_ITS | Encounter Summary ---
:1975 Author Organization [place] Address [address] [place] [address] Care Team Providers Name Role Phone Chris Fontenot Primary Care Provider Jasiel Hester RN Unavailable Reason for Visit Reason Onset Date Comments Refill Request 06/28/2018 diazepam (DIAZEPAM I NTENSOL) 5 MG/ML (HIGH CONC) solution Encounter Details Date Type Department Care Team Description 06/28/2018 [facility] Neurology Boyd Green Refill Request 909 [facility] MD Joshua (diazepam (DIAZEPAM 3rd Floor [address] [facility] INTENSOL) 5 MG/ML [place], [place] [address] (HIGH CONC) solution) [id number] [place], [place] [phone] [address] (Wo rk) Social History Tobacco Use Types Packs/Day Years Used Date Never Smoker Smokeless Tobacco: Never Used Alcohol Use Standard Drinks/Week Comments No 0 (1 standard drink = 0.6 oz pure alcoho l) Sex Assigned at Date Recorded Not on file documented as of this encounter Miscellaneous Notes Telephone Encounter - Carroll, Bashir Byers - 06/28/2018 12:09 PM CST [facility] Phone Message May a detailed message be left on voicemail: no Reason for Call: Medication Refill Request Has the patient contacted the pharmacy for the refill? Yes Name of medication being requested: diazepam (DIAZEPAM INTENSOL) 5 MG/ML (HIGH CONC) solution Provider who prescribed the medication: Dr. Green Pharmacy: [facility] Date medication is needed: Joey, Pt is out Action Taken: Message routed to: [facility] NEUROLOGY ADULT [facility] TBAND PERFORATOR documented in this encounter Plan of Treatment Not on filedocumented as of this encounter Visit Diagnoses Diagnosis Seizure disorder (H) Unspecified epilepsy without mention of intractable epilepsy documented in this encounter Care Teams Board Mill Supervisor Relationship Specialty Start Date End Date Chris Fontenot PCP - General 03/09/13 Jasiel Hester, RN Registered Nurse Neurology 12/23/17 08/26/18 documented as of this encounter
--- OUTSIDE RECORDS SUMMARY | 2022-04-08 10:18 | XMS_ITS | Encounter Summary ---
:1975 Author Organization [place] Address [address] [place] [address] Care Team Providers Name Role Phone Chris Fontenot Primary Care Provider Reason for Visit Reason Onset Date Comments Refill Request 11/23/2017 Encounter Details Date Type Department Care Team Description 11/23/2017 Telephone [facility] Epilepsy Care Erin Guerrero RN Refill Request [address], [address] [place], [place] [phone] Social History Tobacco Use Types Packs/Day Years Used Date Never Smoker Sex Assigned at Date Recorded Not on file documented as of this encounter Miscellaneous Notes Addendum Note - Erin Guerrero RN - 11/23/2017 10:39 AM CDT Addended by: ERIN GUERRERO on: 11/23/2017 10:39 AM Modules accepted: Orders documented in this encounter Plan of Treatment Not on filedocumented as of this encounter Visit Diagnoses Diagnosis 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
--- OUTSIDE RECORDS SUMMARY | 2022-04-08 10:18 | XMS_ITS | Encounter Summary ---
:1975 Author Organization [place] Address [address] [place] [address]. [place] [address] Care Team Providers Name Role Phone Chris Fontenot Primary Care Provider Reason for Visit Reason Onset Date Comments other 02/14/2019 Encounter Details Date Type Department Care Team Description 02/14/2019 Telephone [facility] Neurology Rodolfo Erickson MD other [address] [place] [address] [phone] Social History Tobacco Use Types Packs/Day Years Used Date Never Smoker Smokeless Tobacco: Never Used Alcohol Use Standard Drinks/Week Comments No 0 (1 standard drink = 0.6 oz pure alcoho l) Sex Assigned at Date Recorded Not on file documented as of this encounter Miscellaneous Notes Telephone Encounter - Edison Tavares CMA - 02/14/2019 1:02 PM CDT Received call from Emili. She would like to thank Dr. Erickson for all his care. Patient will be switching care to a new neurologist. documented in this encounter Plan of Treatment Not on filedocumented as of this encounter Visit Diagnoses Not on filedocumented in this encounter Care Teams Cashier Credit Relationship Specialty Start Date End Date Chris Fontenot PCP - General 03/09/13 documented as of this encounter
--- OUTSIDE RECORDS SUMMARY | 2022-04-08 10:18 | XMS_ITS | Encounter Summary ---
:1975 Author Organization [facility] Address [address] [place] [address] Care Team Providers Name Role Phone Elsewhere, Pcp Primary Care Provider Unavailable Reason for Visit Appointment Request (Routine) - Closed Specialty Diagnoses / Procedures Referred By Contact Refer red To Contact Infectious Diseases Diagnoses Infection Urinary Tract Recurrent Dysfunction Bladder Neck Chris Fontenot M.D. [address] [place] [address] Referral ID Status Reason Start Date Expiration Date Visits Requ ested Visits Authorized [id number] Closed 09/18/2021 09/18/2022 1 Encounter Details Date Type Department Care Team Description 11/18/2021 Virtual Visit Section of Infectious Ming Seals, In fection Urinary Tract Recurrent (Primary Dx); Diseases in Holly Castillo, M.P .H. Epilepsy Seizure Not Intractable Without Status Epilepticus (HCC); [place] [address] [facility] Neurogenic Bladder [address] [place] [phone] Social History Tobacco Use Types Packs/Day Years [...] 1 to 4 times per year 01/14 orthodox services? Do you belong to any [...] PM CDT documented as of this encounter Consult Notes Ming Seals M.D., M.P.H. - 11/18/2021 8:00 AM CDT Consult conducted via real-time audio technology by Kieran Seals M.D., M.P.H. in [facility] to the patient in Patient's Home I remotely evaluated the patient, participating in the mcpherson portions of the service. I reviewed the note of Segun Gonzalez, B.Ch. dated 11/18/21. I agree with the documented findings and plan. Kieran Seals M.D., M.P.H. Infectious Diseases Outpatient Consultation Service-Consult Note SUBJECTIVE REASON FOR CONSULT We are asked by Chris Fontenot M.D. to see Mr. Muniz to give further recommendations for evaluation and management of UTI. HISTORY OF PRESENT ILLNESS Mr. Muniz is a 46-year-old male with significant medical comorbidities including cerebral palsy withseizures was recently evaluated by Neurology for same. This has been occurring in the context of recurrent UTIs, and there was some concern that this may be related to the increasing seizure activity. Neurology reassured that UTIs should not cause seizure activity, though this would need to stone evaluation and treatment. Last summer, he underwent evaluation with local urology for recurrent UTIs. This included complex computerized CMG and EMG of the ureteral sphincter, as well as cystoscopy. All the studies were unremarkable. Patient does have bladder sensation, and voids regularly. Last recommendations by local urology or to treatments urinary specific symptoms develop if confirmed by positive urine culture, with consideration potential botulinum toxin injections into the bladder to assist with relaxation. REVIEW OF HISTORY: The following portions of the patient's history were reviewed: allergies, family history, social history, problem list, current medications, medical history and surgical history OBJECTIVE DIAGNOSTICS I have reviewed diagnostics. Studies of note include: Recent positive cultures in the past 18 months. Note several negative intervening 09-26-2021: Proteus mirabilis- nitrofurantoin resistant 09-15-2021: Proteus mirabilis- nitrofurantoin resistant 06-03-2021: Enterococcus faecalis, sales susceptible 04-17-2021: Pseudomonas aeruginosa, sales susceptible 03-18-2021: E. Coli, sales susceptible 01-09-2021: E faecalis, <100K, susceptibilities not performed 09-03-2020: Aerococcus spp, susceptibilities not performed Urine pH 6.0 in October. Most recent creatinine 0.67 mg/dL ASSESSMENT / PLAN #1 Infection Urinary Tract Recurrent #2 Epilepsy Seizure Not Intractable Without Status Epilepticus (HCC) #3 Neurogenic Bladder Neurogenic Bladder Optimal management of neurogenic bladder is essential to reducing frequency of UTI. Patient should be on scheduled voiding, and intermittent catheterization as prescribed by Urology to maximize bladder emptying and reduce risk of UTI. Infection Urinary Tract Recurrent Patient appears to have different organisms with each infection, with intervening periods with negative urine cultures. Fortunately, these organisms have been reasonably susceptible overall. Conservative measures we could attempt include bladder acidification, and methenamine hippurate. Patient has good renal function, and most recent urine pH was 6.0. He would thus be in the group most likely to benefit from urine acidification trial. Recommend 1 g vitamin C p.o. b.i.d., and rechecking UA with anybreakthrough episodes. If breakthrough episodes continue at the current rate, and the patient's bladder pH gets below 5.5, we could do a trial of methenamine hippurate. We can also work to optimize neurogenic bladder management as described below. Epilepsy Seizure Not Intractable Without Status Epilepticus (HCC) We do a to be careful about our antimicrobial selection in the setting of the patient's known seizure disorder. Specifically, when at all possible, we should be avoiding quinolone antibiotics. Quinolones lower the seizure threshold, and may contribute to some of the worsening seen. Carbapenems may also do so, though given the organism seen today, there was only 1 case for that would of potentially been a serious option. I personally spent 45 minutes in care of the patient today. Time includes both non face to face and face to face patient care. Thank you for the consult. Kieran Seals M.D., M.P.H. Miriam Monte M.B., B.. - 11/18/2021 8:00 AM CDT Images from the original note were not included. SUBJECTIVE Referring Provider: Chris Fontenot M.D. REASON FOR CONSULT Patient is a 46 y.o. male being seen by Infectious Diseases for recurrent UTIs. HISTORY OF PRESENT ILLNESS Stefan Muniz is a 46 year old male evaluated by phone today with th assistance of his guardian Kirsty. He has a history of UTIs going back year and years in the setting of Cerebral Palsy, Quadriplegia,and neurogenic bladder. His symptoms of UTI typically include either increased urinary frequency or anuria. He does not develop fevers during these episodes. He was hospitalized in March 2021 for urosepsis. He has had other hospitalizations for dehydration but the relation to UTI is unspecified. Upon review of his outside records, he has grown multiple organisms including E.Coli, E. Fecalis, Pseudomonas, and proteus mirabilis. He has has been experiencing seizures about every other month. His neurologist was concerned that recurrent urinary infections may be related to his seizures and recommended monthly UA/ urine culture to catch them early. The neurologist recommended starting antibiotics for any UA with a positive whiteblood cell count, and continuing if the culture was positive. Kirsty estimated in the last year he has completed 4-6 courses of antibiotics in the last year. Antibiotic therapy has not reduced the frequency of his seizures. In the past, he has tried cranberry supplements to reduce frequency of UTI. Improving hydration has seemed to help in the past. A urologist recommended bladder botox injections due to impaired relaxation of his bladder, but the patient deferred as he did not think he could tolerate the procedure. REVIEW OF SYSTEMS Pertinent items are noted in HPI; all other review of systems was negative. OBJECTIVE There were no vitals filed for this visit. PHYSICAL EXAMINATION Not completed as this was a phone visit. DIAGNOSTICS ASSESSMENT / PLAN 1. Infection Urinary Tract Recurrent 2. Epilepsy Seizure Not Intractable Without Status Epilepticus (HCC) 3. Neurogenic Bladder Stefan Muniz is a 46 year old male evaluated by phone today with th assistance of his guardian Kirsty.He has had recurrent UTIs, some requiring hospitalization, for many years in the setting of a neurogenic bladder. His neurologist suggested that Andres's seizure frequency may be related to his UTIs and has been checking his UA. Urine culture on a monthly basis to treat early on. Despite this, his seizure frequencyhas remained unchanged. UTIs themself do not typically cause seizures. Certain antibiotics used to treat them, such as the flouroquinolones, certainly do lower the seizure threshold. We recommend keeping this in mind when selecting an antimicrobial agent in the future. Additionally, we recommend only obtaining a UA/ culture when Mr. Muniz has new symptoms, and not doing them routinely in order to prevent unnecessary antibiotic exposure in likelihood of resistant organisms in the future. Urine cultures to date have grown several bacteria, which is more suggestive of infection and not colonization. In order to make the bladder a less suitable environment for bacteria, we recommend initiation of high dose vitamin C, 1g BID to reduce the pH in the urine to < 5.5. If he continues to have breakthrough infections, the next step would be to add Hiprex, keeping in mind it only works if the pH of the urine is already <5.5. We also recommend ensuring adequate hydration. Down the road, should recurrent UTIs continue to be a problem, he could reconsider bladder botox injections and if that is the case we will facilitate urology referral. This case was staffed with [employer] Dr. Seals who is in agreement with the above recommendations. Please see his note dated today for additional details. documented in this encounter Miscellaneous Notes Assessment & Plan Note - Ming Seals M.D., M.P.H. - 11/18/2021 7:30 AM CDT Associated Problem(s): Epilepsy Seizure Not Intractable Without Status Epilepticus (HCC) We do a to be careful about our antimicrobial selection in the setting of the patient's known seizure disorder. Specifically, when at all possible, we should be avoiding quinolone antibiotics. Quinolones lower the seizure threshold, and may contribute to some of the worsening seen. Carbapenems may also do so, though given the organism seen today, there was only 1 case for that would of potentially been a serious option. Assessment & Plan Note - Ming Seals M.D., M.P.H. - 11/18/2021 7:27 AM CDT Associated Problem(s): Infection Urinary Tract Recurrent Patient appears to have different organisms with each infection, with intervening periods with negative urine cultures. Fortunately, these organisms have been reasonably susceptible overall. Conservative measures we could attempt include bladder acidification, and methenamine hippurate. Patient has good renal function, and most recent urine pH was 6.0. He would thus be in the group most likely to benefit from urine acidification trial. Recommend 1 g vitamin C p.o. b.i.d., and rechecking UA with anybreakthrough episodes. If breakthrough episodes continue at the current rate, and the patient's bladder pH gets below 5.5, we could do a trial of methenamine hippurate. We can also work to optimize neurogenic bladder management as described below. Assessment & Plan Note - Ming Seals M.D., M.P.H. - 11/18/2021 7:27 AM CDT Associated Problem(s): Neurogenic Bladder Optimal management of neurogenic bladder is essential to reducing frequency of UTI. Patient should be on scheduled voiding, and intermittent catheterization as prescribed by Urology to maximize bladder emptying and reduce risk of UTI. documented in this encounter Plan of Treatment Not on filedocumented as of this encounter Visit Diagnoses Diagnosis Infection Urinary Tract Recurrent - Prim yolie Epilepsy Seizure Not Intractable Without Status Epilepticus (HCC) Neurogenic Bladder documented in this encounter Care Teams Engine Head Repairer Relationship Specialty Start Date End Date Elsewhere, Pcp PCP - General Internal Medicine 11/14/21 documented as of this encounter
--- OUTSIDE RECORDS SUMMARY | 2022-04-08 10:18 | XMS_ITS | Encounter Summary ---
:1975 Author Organization [place] Address [address] [place] [address]. [place] [address] Care Team Providers Name Role Phone Chris Fontenot Primary Care Provider Jasiel Hester RN Unavailable Reason for Visit Reason Onset Date Comments Refill Request 01/13/2018 correction DVP quant ity Encounter Details Date Type Department Care Team Description 01/13/2018 [facility] Neurology Jasiel Hester, RN Refill Request [address] [place] [address] (correction DVP 3rd Floor (Work) quantity) [place], [place] [phone] (Fax) [phone] Social History Tobacco Use Types Packs/Day Years Used Date Never Smoker Sex Assigned at Date Recorded Not on file documented as of this encounter Plan of Treatment Not on filedocumented as of this encounter Visit Diagnoses Diagnosis 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
--- OUTSIDE RECORDS SUMMARY | 2022-04-08 10:18 | XMS_ITS | Encounter Summary ---
:1975 Author Organization [place] Address [address] [place] [address] Care Team Providers Name Role Phone Chris Fontenot Primary Care Provider Reason for Visit Reason Comments Medication Refill Encounter Details Date Type Department Care Team Description 04/10/2019 Refill [facility] Neurology Boyd Green Medication Refill 909 [facility] MD Joshua 3rd Floor [address] [place] [phone] [facility] [phone] [facility] N [address] (Wo rk) Social History Tobacco Use Types Packs/Day Years Used Date Never Smoker Smokeless Tobacco: Never Used Alcohol Use Standard Drinks/Week Comments No 0 (1 standard drink = 0.6 oz pure alcoho l) Sex Assigned at Date Recorded Not on file documented as of this encounter Miscellaneous Notes Telephone Encounter - Mainor Smith RN - 04/12/2019 9:16 AM CDT Did not follow at 6 months ( recommended follow up), and cancelled most recent appointment. Has not been seen over one year. Should contact treating provider documented in this encounter Plan of Treatment Not on filedocumented as of this encounter Visit Diagnoses Diagnosis Seizure disorder (H) Unspecified epilepsy without mention of intractable epilepsy documented in this encounter Care Teams Event Sales Representative Relationship Specialty Start Date End Date Chris Fontenot PCP - General 03/09/13 documented as of this encounter
--- OUTSIDE RECORDS SUMMARY | 2022-04-08 10:18 | XMS_ITS | Encounter Summary ---
:1975 Author Organization [facility] Address [address] [place] [address] Care Team Providers Name Role Phone Elsewhere, Pcp Primary Care Provider Unavailable Reason for Visit Reason Comments Pre-visit Intake Encounter Details Date Type Department Care Team Description 11/14/2021 Clinical Communication Visit Review in Pr e-visit Intake [place], [place] [address] [place], [place] [phone] Social History Tobacco Use Types Packs/Day Years [...] place to sleep or slept in a snf (including now)? Sex Assigned at Date Recorded Male 02/01/2022 6:47 PM CDT documented as of this encounter Plan of Treatment Not on filedocumented as of this encounter Visit Diagnoses Not on filedocumented in this encounter Care Teams Silk Opener Relationship Specialty Start Date End Date Elsewhere, Pcp PCP - General Internal Medicine 11/14/21 documented as of this encounter
--- OUTSIDE RECORDS SUMMARY | 2022-04-08 10:19 | XMS_ITS | Encounter Summary ---
:1975 Author Organization [place] Address [address] [place] [address] Care Team Providers Name Role Phone Chris Fontenot Primary Care Provider Encounter Details Date Type Department Care Team Description 10/21/2017 Orders Only P NEUROSPECIALTIES Rodolfo Erickson, Seizure disorder (H) [address], MD [address] [place] [address] Social History Tobacco Use Types Packs/Day Years Used Date Never Smoker Sex Assigned at Date Recorded Not on file documented as of this encounter Plan of Treatment Not on filedocumented as of this encounter Visit Diagnoses Diagnosis Seizure disorder (H) Unspecified epilepsy without mention of intractable epilepsy documented in this encounter Care Teams Java User Interface Developer Relationship Specialty Start Date End Date Chris Fontenot PCP - General 03/09/13 documented as of this encounter
--- OUTSIDE RECORDS SUMMARY | 2022-04-08 10:19 | XMS_ITS | Encounter Summary ---
:1975 Author Organization [place] Address [address] [place] [address] Care Team Providers Name Role Phone Chris Fontenot Primary Care Provider Reason for Visit Reason Onset Date Comments Refill Request 04/12/2017 Encounter Details Date Type Department Care Team Description 04/12/2017 Refill [facility] Neurology Saba Moya, RN Refill Request [address] [place] [address] [place] [address] [place] [phone] Social History Tobacco Use Types Packs/Day Years Used Date Never Smoker Sex Assigned at Date Recorded Not on file documented as of this encounter Plan of Treatment Not on filedocumented as of this encounter Visit Diagnoses Diagnosis 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
--- OUTSIDE RECORDS SUMMARY | 2022-04-08 10:19 | XMS_ITS | Encounter Summary ---
:1975 Author Organization [place] Address [address] [place] [address] Care Team Providers Name Role Phone Chris Fontenot Primary Care Provider Reason for Visit Reason Onset Date Comments Refill Request 05/13/2017 Encounter Details Date Type Department Care Team Description 05/13/2017 Refill [facility] Neurology Kavitha Barton RN Refill Request [address] [place] [address] [place] [address] [place] [phone] Social History Tobacco Use Types Packs/Day Years Used Date Never Smoker Sex Assigned at Date Recorded Not on file documented as of this encounter Plan of Treatment Not on filedocumented as of this encounter Visit Diagnoses Diagnosis 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
--- OUTSIDE RECORDS SUMMARY | 2022-04-08 10:19 | XMS_ITS | Encounter Summary ---
:1975 Author Organization [place] Address [address] [place] [address] Care Team Providers Name Role Phone Chris Fontenot Primary Care Provider Encounter Details Date Type Department Care Team Description 02/12/2017 [facility] Boyd Green [phone] [facility] [address] [place], [place] [phone] [place] [address] (Wo rk) Social History Tobacco Use Types Packs/Day Years Used Date Never Smoker Sex Assigned at Date Recorded Not on file documented as of this encounter Plan of Treatment Not on filedocumented as of this encounter Visit Diagnoses Not on filedocumented in this encounter Care Teams Printed Circuit Boards Router Relationship Specialty Start Date End Date Chris Fontenot PCP - General 03/09/13 documented as of this encounter
--- OUTSIDE RECORDS SUMMARY | 2022-04-08 10:19 | XMS_ITS | Encounter Summary ---
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) Rodolfo Erickson MD Procedures Carbamazepine total [address] [address] Referral ID Status Reason Start Date Expiration Date Visits Requ ested Visits Authorized [id number] Closed 12/28/2016 12/28/2017 1 1 - Closed Specialty Diagnoses / Procedures Referred By Contact Refer red To Contact Diagnoses 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) Rodolfo Erickson MD Procedures Valproic acid [address] [address] Referral ID Status Reason Start Date Expiration Date Visits Requ ested Visits Authorized [id number] Closed 12/28/2016 12/28/2017 1 1 - Closed Specialty Diagnoses / Procedures Referred By Contact Refer red To Contact Diagnoses 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) Rodolfo Erickson MD Procedures Comprehensive metabolic panel [address] [address] Referral ID Status Reason Start Date Expiration Date Visits Requ ested Visits Authorized [id number] Closed 01/02/2017 01/02/2018 1 1 - Closed Specialty Diagnoses / Procedures Referred By Contact Refer red To Contact Diagnoses 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) Rodolfo Erickson MD Procedures CBC with platelets [address] [place] [address] Referral ID Status Reason Start Date Expiration Date Visits Requ ested Visits Authorized [id number] Closed 01/02/2017 01/02/2018 1 1 Encounter Details Date Type Department Care Team Description 12/28/2016 Orders Only [facility] Rodolfo Erickson Generaliz ed convulsive [facility] epile[facility] y with [facility] Neurology intractabl e epilepsy Clinic (H) (Primary Dx) [address] [place] [address], [address] [place] [address] Social History Tobacco Use Types Packs/Day Years Used Date Never Smoker Sex Assigned at Date Recorded Not on file documented as of this encounter Plan of Treatment Not on filedocumented as of this encounter Procedures Procedure Name Priority Date/Time Associated Diagnosis Comme nts VALPROIC ACID Routine 12/29/2016 Generalized convulsive Resu lts for this epilepsy with procedure are in the intractable epilepsy (H) res ults section. CARBAMAZEPINE TOTAL Routine 12/29/2016 Generalized convulsiv e Results for this epilepsy with procedure are in the intractable epilepsy (H) res ults section. documented in this encounter Results Carbamazepine total (12/29/2016) Analysis Performed At Patho logist Time Signature Carbamazepine 8.5 mg/L Total Specimen (Source) Anatomical Location Collection Method / Collectio n Time Received Time / Laterality Volume Blood specimen 12/29/2016 (specimen) Narrative This result has an attachment that is no t available. Rodolfo Erickson MD LAB - BLOOD ORDERABLES Valproic acid (12/29/2016) athologist Signature Valproic Acid 88.3 Total Specimen (Source) Anatomical Location Collection Method / Collectio n Time Received Time / Laterality Volume Blood specimen 12/29/2016 (specimen) Narrative This result has an attachment that is no t available. Rodolfo Erickson MD LAB - BLOOD ORDERABLES Comprehensive metabolic panel (12/29/2016) P athologist Signature Sodium 140 mmol/L Potassium 4.0 mmol/L Chloride 102 mmol/L Carbon Dioxide 28 mmol/L Anion Gap 10 mmol/L Glucose 86 70 - 99 mg/dL Urea Nitrogen 8 mg/dL Creatinine 0.64 mg/dL Calcium 9.5 mg/dL Protein Total 7.2 g/dL Albumin 4.3 g/dL Bilirubin Total 0.2 mg/dL Alkaline 45 U/L Phosphatase AST 15 U/L ALT 11 U/L GFR Estimate ml/min/1.7 3m2 GFR Estimate If ml/min/1.7 Black 3m2 Specimen (Source) Anatomical Location Collection Method / Collectio n Time Received Time / Laterality Volume Blood specimen 12/29/2016 (specimen) Narrative This result has an attachment that is no t available. Rodolfo Erickson MD LAB - BLOOD ORDERABLES CBC with platelets (12/29/2016) P athologist Signature WBC 4.6 10^9/L RBC Count 4.51 10^12/L Hemoglobin 13.8 13.3 - 17.7 g/dL Hematocrit 41.4 % MCV 92 fl MCH 30.6 pg MCHC 33.3 g/dL RDW 12.8 % Platelet Count 218 10^9/L Specimen (Source) Anatomical Location Collection Method / Collectio n Time Received Time / Laterality Volume Blood specimen 12/29/2016 (specimen) Narrative This result has an attachment that is no t available. Rodolfo Erickson MD LAB - BLOOD ORDERABLES documented in this encounter Visit Diagnoses Diagnosis Generalized convulsive epilepsy with int ractable epilepsy (H) - Primary Generalized convulsive epilepsy with int ractable epilepsy documented in this encounter Care Teams Branch Employment Coordinator Relationship Specialty Start Date End Date Chris Fontenot PCP - General 03/09/13 documented as of this encounter
--- OUTSIDE RECORDS SUMMARY | 2022-04-08 10:19 | XMS_ITS | Encounter Summary ---
:1975 Author Organization [place] Address [address] [place] [address]. [place] [address] Care Team Providers Name Role Phone Chris Fontenot Primary Care Provider Encounter Details Date Type Department Care Team Description 11/16/2016 Orders Only [facility] Rodolfo Erickson, Generalized convulsive [address] [facility] epilepsy with [place], [place] intractable epilepsy [address] (H) (Primary Dx) [phone] Social History Tobacco Use Types Packs/Day Years Used Date Never Smoker Sex Assigned at Date Recorded Not on file documented as of this encounter Plan of Treatment Not on filedocumented as of this encounter Visit Diagnoses Diagnosis Generalized convulsive epilepsy with int ractable epilepsy (H) - Primary Generalized convulsive epilepsy with int ractable epilepsy documented in this encounter Care Teams Ecosystem Ecology Professor Relationship Specialty Start Date End Date Chris Fontenot PCP - General 03/09/13 documented as of this encounter
--- OUTSIDE RECORDS SUMMARY | 2022-04-08 10:19 | XMS_ITS | Encounter Summary ---
:1975 Author Organization [place] Address [address] [place] [address] Care Team Providers Name Role Phone Chris Fontenot Primary Care Provider Reason for Visit Reason Onset Date Comments Refill Request 03/11/2017 Encounter Details Date Type Department Care Team Description 03/11/2017 Refill [facility] Neurology Kavitha Barton RN Refill Request [address] [place] [address] [place] [address] [place] [phone] Social History Tobacco Use Types Packs/Day Years Used Date Never Smoker Sex Assigned at Date Recorded Not on file documented as of this encounter Plan of Treatment Not on filedocumented as of this encounter Visit Diagnoses Diagnosis Generalized convulsive epilepsy with int ractable epilepsy documented in this encounter Care Teams Teasel Setter Relationship Specialty Start Date End Date Chris Fontenot PCP - General 03/09/13 documented as of this encounter
--- OUTSIDE RECORDS SUMMARY | 2022-04-08 10:19 | XMS_ITS | Encounter Summary ---
:1975 Author Organization [place] Address [address] [place] [address] Care Team Providers Name Role Phone Chris Fontenot Primary Care Provider Encounter Details Date Type Department Care Team Description 12/31/[address] [facility] Rodolfo Erickson MD Physicians [facility] Neurology Clinic [address] [place] [address], [address] [place] [address] Social History Tobacco Use Types Packs/Day Years Used Date Never Smoker Sex Assigned at Date Recorded Not on file documented as of this encounter Miscellaneous Notes Telephone Encounter - Rodolfo Erickson MD - 12/31/2016 11:57 AM CDT Discussed lab results with Emili. Carbamazepine 8.5, Valproic acid 88.3. CBC and CMP OK. Will continue current anticonvulsant Rx pending evaluation by Dr Russell documented in this encounter Plan of Treatment Not on filedocumented as of this encounter Visit Diagnoses Not on filedocumented in this encounter Care Teams Data Analysis Manager Relationship Specialty Start Date End Date Chris Fontenot PCP - General 03/09/13 documented as of this encounter
--- OUTSIDE RECORDS SUMMARY | 2022-04-08 10:19 | XMS_ITS | Encounter Summary ---
:1975 Author Organization [place] Address [address] [place] [address] Care Team Providers Name Role Phone Chris Fontenot Primary Care Provider Encounter Details Date Type Department Care Team Description 12/28/2016 Telephone [facility] Rodolfo Erickson MD Physicians [facility] Neurology Clinic [address] [place] [address], [address] [place] [address] 64 Social History Tobacco Use Types Packs/Day Years Used Date Never Smoker Sex Assigned at Date Recorded Not on file documented as of this encounter Miscellaneous Notes Telephone Encounter - Rodolfo Erickson MD - 12/28/2016 11:35 AM CDT Spoke to Emili. Andres had a GM seizure this weekend. He has been upset as his father on12/15. Will check drug levels, CBC, CMP. He has an appointment with Dr Aceves in January. documented in this encounter Plan of Treatment Not on filedocumented as of this encounter Visit Diagnoses Not on filedocumented in this encounter Care Teams Deburrer Relationship Specialty Start Date End Date Chris Fontenot PCP - General 03/09/13 documented as of this encounter
--- OUTSIDE RECORDS SUMMARY | 2022-04-08 10:19 | XMS_ITS | Encounter Summary ---
:1975 Author Organization [place] Address [address] [place] [address] Care Team Providers Name Role Phone Chris Fontenot Primary Care Provider Encounter Details Date Type Department Care Team Description 11/24/2016 Telephone [facility] Rodolfo Erickson MD Physicians [facility] Neurology Clinic [address] [facility], [address] [place] [address] 65 Social History Tobacco Use Types Packs/Day Years Used Date Never Smoker Sex Assigned at Date Recorded Not on file documented as of this encounter Miscellaneous Notes Telephone Encounter - Rodolfo Erickson MD - 11/24/2016 12:18 PM CDT Spoke to Emili. Andres had a 3 minute seizure yesterday. Will increase Depakote back to 1500 mg/1750mg. Dose recently had been lowered to 1500 bid due to level 131 but he seems to tolerate this level.Also urged Andres be reevaluated by an Epilepsy expert re his current Rx. Put in a referral to Dr Green documented in this encounter Plan of Treatment Not on filedocumented as of this encounter Visit Diagnoses Not on filedocumented in this encounter Care Teams Edge Grinder Machine Relationship Specialty Start Date End Date Chris Fontenot PCP - General 03/09/13 documented as of this encounter
--- OUTSIDE RECORDS SUMMARY | 2022-04-08 10:19 | XMS_ITS | Encounter Summary ---
:1975 Author Organization [place] Address [address] [place] [address] Care Team Providers Name Role Phone Chris Fontenot Primary Care Provider Reason for Referral Consultation - Closed Specialty Diagnoses / Procedures Referred By Contact Refer red To Contact Diagnoses Seizure disorder (H) Rodolfo Erickson MD [address] [place] [address] 60 [place] [address] Referral ID Status Reason Start Date Expiration Date Visits Requ ested Visits Authorized [id number] Closed 12/15/2016 12/15/2017 1 1 Encounter Details Date Type Department Care Team Description 11/24/2016 Orders Only [facility] Rodolfo Erickson, Seizure d isorder (H) [facility] (Primar y Dx) [facility] Neurology Clinic [address] [place] [address], [address] [place] [address] Social History Tobacco Use Types Packs/Day Years Used Date Never Smoker Sex Assigned at Date Recorded Not on file documented as of this encounter Plan of Treatment Scheduled Referrals Name Type Priority Associated Diagnoses Order S chedule Neurology Referral Referral Routine Seizure disorder (H) E xpected: 12/15/2016, Expires: 2017 documented as of this encounter Visit Diagnoses Diagnosis Seizure disorder (H) - Primary Unspecified epilepsy without mention of intractable epilepsy documented in this encounter Care Teams Noc Analyst Relationship Specialty Start Date End Date Chris Fontenot PCP - General 03/09/13 documented as of this encounter
--- OUTSIDE RECORDS SUMMARY | 2022-04-08 10:19 | XMS_ITS | Encounter Summary ---
:1975 Author Organization [place] Address [address] [place] [address]. [place] [address] Care Team Providers Name Role Phone Fontenot, Chris Gaviota Primary Care Provider Reason for Visit Reason Onset Date Comments Refill Request 08/19/2017 CARBATROL 300 MG 12 hr capsule Encounter Details Date Type Department Care Team Description 08/19/2017 Telephone [facility] Epilepsy [facility] Jasiel Hester, RN Refill Request [address], (CAR BATROL 300 MG 12 hr [address] (Work) capsule) [place], [place] [phone] [address] (Fax) [phone] Social History Tobacco Use Types Packs/Day Years Used Date Never Smoker Sex Assigned at Date Recorded Not on file documented as of this encounter Miscellaneous Notes Telephone Encounter - Jasiel Hester, RN - 08/19/2017 1:28 PM CST Nurse received In-Basket message as follows: Subject: Peter/Rx Authorization Needed ? Per call from Alek Lundyalliance director of [facility] re: a refill authorization for Rx carBAMazepine (CARBATROL) 300 MG 12 hr capsule PT is completely out and needs authorization sent to the pharmacy on record PETROS. ??Please call Bob status update at [phone] or [phone]. Patient has follow up appointment 09/17/[address] Green; will refill will enough to get to next appointment. MAN documented in this encounter Plan of Treatment Not on filedocumented as of this encounter Visit Diagnoses Diagnosis Generalized convulsive epilepsy with int ractable epilepsy (H) Generalized convulsive epilepsy with int ractable epilepsy documented in this encounter Care Teams Primer Assembler Relationship Specialty Start Date End Date Chris Fontenot PCP - General 03/09/13 documented as of this encounter
--- OUTSIDE RECORDS SUMMARY | 2022-04-08 10:19 | XMS_ITS | Encounter Summary ---
:1975 Author Organization [place] Address [address] [place] [address] Care Team Providers Name Role Phone Chris Fontenot Primary Care Provider Reason for Visit Reason Onset Date Comments Refill Request 10/21/2017 Encounter Details Date Type Department Care Team Description 10/21/2017 Telephone [facility] Janae Weinberg, [facility] Refill Request [address], [facility] [address] [place], [place] [address] [address] [place] [address] (Wo rk) Social History Tobacco Use Types Packs/Day Years Used Date Never Smoker Sex Assigned at Date Recorded Not on file documented as of this encounter Plan of Treatment Not on filedocumented as of this encounter Visit Diagnoses Diagnosis Seizure disorder (H) Unspecified epilepsy without mention of intractable epilepsy documented in this encounter Care Teams Cafeteria Clerk Relationship Specialty Start Date End Date Chris Fontenot PCP - General 03/09/13 documented as of this encounter
--- OUTSIDE RECORDS SUMMARY | 2022-04-08 10:19 | XMS_ITS | Encounter Summary ---
:1975 Author Organization [place] Address [address] [place] [address]. [place] [address] Care Team Providers Name Role Phone Chris Fontenot Gaviota Primary Care Provider Encounter Details Date Type Department Care Team Description 09/22/2017 Virtual Visit [facility] Boyd Green Generalized [address] Jose Lewis MD convulsive epilepsy [place], [address] [facility] with intractable [place], [place] [address] epilepsy (H) [address] [place], [place] [phone] [address] Social History Tobacco Use Types Packs/Day Years Used Date Never Smoker Sex Assigned at Date Recorded Not on file documented as of this encounter Progress Notes Boyd Green MD - 09/22/2017 4:45 PM CST Called twice between 430 PM and 5 PM. [phone]. No response. Left message both times. I called Andres's custodial to confirm that this number corresponded to the number they had for Emili. They confirmed number was correct. We had called last week and left message as well. Encouraged sister to call to set up another time if she would like us to connect. Boyd Green STED LIVING MANAGER documented in this encounter Plan of Treatment Not on filedocumented as of this encounter Visit Diagnoses Diagnosis Generalized convulsive epilepsy with int ractable epilepsy (H) Generalized convulsive epilepsy with int ractable epilepsy documented in this encounter Care Teams Clipper And Turner Relationship Specialty Start Date End Date Chris Fontenot PCP - General 03/09/13 documented as of this encounter
--- OUTSIDE RECORDS SUMMARY | 2022-04-08 10:19 | XMS_ITS | Encounter Summary ---
:1975 Author Organization [place] Address [address] [place] [address] Care Team Providers Name Role Phone Chris Fontenot Primary Care Provider Reason for Visit Reason Onset Date Comments Refill Request 09/11/2016 Encounter Details Date Type Department Care Team Description 09/11/2016 Refill [place] [facility] Rodolfo Erickson MD Refill Request Physicians [facility] Neurology Clinic [address] [place] [address], [address] [place] [address] Social History Tobacco Use Types Packs/Day Years Used Date Never Smoker Sex Assigned at Date Recorded Not on file documented as of this encounter Plan of Treatment Not on filedocumented as of this encounter Visit Diagnoses Diagnosis Seizure disorder (H) - Primary Unspecified epilepsy without mention of intractable epilepsy documented in this encounter Care Teams Shrimp Trawler Relationship Specialty Start Date End Date Chris Fontenot PCP - General 03/09/13 documented as of this encounter
--- OUTSIDE RECORDS SUMMARY | 2022-04-08 10:19 | XMS_ITS | Encounter Summary ---
:1975 Author Organization [place] Address [address] [place] [address] Care Team Providers Name Role Phone Chris Fontenot Primary Care Provider Reason for Visit Reason Comments Medication Refill Encounter Details Date Type Department Care Team Description 09/07/2017 Refill [facility] Neurology Boyd Green Medication Refill [facility] [facility] MD Joshua 3rd Floor [address] [place] [phone] [facility] [phone] [facility] [id number] (Wo rk) Social History Tobacco Use Types Packs/Day Years Used Date Never Smoker Sex Assigned at Date Recorded Not on file documented as of this encounter Plan of Treatment Not on filedocumented as of this encounter Visit Diagnoses Diagnosis Generalized convulsive epilepsy with int ractable epilepsy (H) Generalized convulsive epilepsy with int ractable epilepsy documented in this encounter Care Teams Belt Polisher Relationship Specialty Start Date End Date Chris Fontenot PCP - General 03/09/13 documented as of this encounter
--- OUTSIDE RECORDS SUMMARY | 2022-04-08 10:19 | XMS_ITS | Encounter Summary ---
:1975 Author Organization [facility] Address [address] [place] [address] Care Team Providers Name Role Phone Corie Chris Gaviota Primary Care Provider Reason for Referral - Closed Specialty Diagnoses / Procedures Referred By Contact Refer red To Contact Diagnoses Generalized convulsive seizures (H) Boyd Alfaro, Procedures AST [address] [address] Referral ID Status Reason Start Date Expiration Date Visits Requ ested Visits Authorized [id number] Closed 01/27/2017 01/27/2018 1 1 - Closed Specialty Diagnoses / Procedures Referred By Contact Refer red To Contact Diagnoses Generalized convulsive seizures (H) Boyd Alfaro, Procedures Sodium [address] [address] Referral ID Status Reason Start Date Expiration Date Visits Requ ested Visits Authorized [id number] Closed 01/27/2017 01/27/2018 1 1 - Closed Specialty Diagnoses / Procedures Referred By Contact Refer red To Contact Diagnoses Generalized convulsive seizures (H) Boyd Alfaro, Procedures Carbamazepine total [address] [address] Referral ID Status Reason Start Date Expiration Date Visits Requ ested Visits Authorized [id number] Closed 01/27/2017 01/27/2018 1 1 - Closed Specialty Diagnoses / Procedures Referred By Contact Refer red To Contact Diagnoses Generalized convulsive seizures (H) Boyd Alfaro, Procedures Valproic acid 5775 [facility] 200 [place], [place] [address] Referral ID Status Reason Start Date Expiration Date Visits Requ ested Visits Authorized [id number] Closed 01/27/2017 01/27/2018 1 1 Encounter Details Date Type Department Care Team Description 01/27/2017 Office Visit [facility] Boyd Alfaro General ed [place] [facility] MD Joshua convulsive seizures [facility] Neurology [address] [place] [address] (H) ( Primary Dx) Clinic [address] [address] [place], [place] [phone] (Wo rk) [address] [phone] Social History Tobacco Use Types Packs/Day Years Used Date Never Smoker Sex Assigned at Date Recorded Not on file documented as of this encounter Progress Notes Boyd Alfaro MD - 01/27/2017 4:52 PM CDT HISTORY: A 41 year old with cerebral palsy and recent increase in his seizures. He presents now for advice on further management. History provided by a sister, Emili, who accompanied the patient and the patient's guardian. Additional history available from [facility] records, including Dr. Erickson's notes. He is 41-year-old, ambidextrous male. Both physical and cognitive developmental delay was apparent since early , and a diagnosis of cerebral palsy was made. Sister does not know details regarding mother's with Pamella or the possibility of any complications. Seizures started at age 1-2. Seizures initially may have been associated with fevers; sister is not sure. Typically, he would experience convulsive several seizures per year. Sister is not aware of other seizure types, including tonic seizures, atonic seizures, myoclonic seizures or atypical absence or other seizure types. He had a good run of seizure control between 11/2012-07/2015 while on Carbatrol and Depakote. He had a seizure in 07/2015, another seizure in 11/2016 and a third seizure on 12/25/2016. The last seizure may have been related to a reduction in Depakote because the level was high. Following the seizure,the Depakote was increased back to previous dose. However, most recent Depakote level was lower thanusual. SEIZURE TYPE: generalized tonic-clonic seizures. Seizures are described as follows. There is no clear warning. He is described as being unresponsive and jerking violently. Duration more than 2 minutes.Postictally, he is tired for several hours. Sister is not sure about tongue bite or urinary incontinence. Seizures may occur in clusters of 2 or even 3 seizures, but this has not happened recently. Convulsive seizures are treated with Diastat. The last 2 seizures may have been related to father's terminal illness; father in 12/2016. RISK FACTORS FOR EPILEPSY: Cerebral palsy, etiology unclear, as above. Sister denies awareness of brain infection, significant head trauma, brain tumors, street drug or alcohol use. He reportedly had an EEG done at [facility] in 2011. We do not have those results. He apparently gets agitated when EEG electrodes are being placed, and so doing this procedure is challenging. CURRENT ANTICONVULSIVE MEDICATIONS: 1. Divalproex (500 mg, 250 mg) 1500 mg in the morning, 1750 mg in the evening for a total of 3250 mgper day. 2. Carbatrol (300 mg) 600 mg b.i.d. Most recent levels 12/2016: Valproic acid level 88.3, carbamazepine 8.5. Levels in 11/2016: Valproicacid 131, carbamazepine 9.1. On 07/15/2016, carbamazepine 9.7, valproic acid 103. SGOT and ALT have been normal. Sodium 140-141 over the last 2 years. Sister reports previous treatment with phenobarbital, phenytoin and carbamazepine with levetiracetam. With carbamazepine and levetiracetam, seizures clearly worsened, and valproic acid was reinitiated. He may have previously been treated with topiramate. Sister denies treatment with other anticonvulsive medications and specifically denied recollectionof treatment with gabapentin, pregabalin, lamotrigine, zonisamide, Felbatol, lacosamide, Fycompa, brivaracetam, oxcarbazepine. ALLERGIES: No known medical allergies. PAST MEDICAL HISTORY: 1. Spastic quadriparesis, since lab asst. 2. Multiple aspiration pneumonias, last 2003. 3. Frequent UTIs. 4. Recent spells of dizziness, vomiting and dehydration. 5. Mild hypertension treated with lisinopril and atenolol. 6. No known medical allergies. FAMILY HISTORY: No family history of seizures, developmental delay, neurological problems. PSYCHOSOCIAL HISTORY: Born and raised in [place]. He is the youngest of 9 siblings. Sister Eugenes his guardian. Sister is a clinical social work supervisor. He lives in a half-way. He is able to communicate basic needs, feed himself with fork and spoon. He needs help with showering. Intermittently incontinent, but can often use a urinal. Day work program. Family is very involved, and he is quite involved in different activities. Sister reports occasional episodes of significant irritability, oppositionality, yelling and tantrums. There is no directed physical violence. He has not had to work with a behavior therapist. REVIEW OF SYSTEMS: Occasional dysphagia, which has been associated with aspiration pneumonias. 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 Currently no dyspnea. No complaints of chest pain. Moderate constipation, infrequent diarrhea. No complaints of abdominal pain. No kidney stones. No falls or fractur es. He can bear weight, but cannot ambulate independently. PHYSICAL EXAMINATION: Heart rate 88, regular rate and rhythm. Legs appear shorter than appropriate for size of torso and arms. Short neck. He is alert and quite attentive. Will often interject and disagree with sister's statements. Fluent sentences with reasonably normal grammatical structure, but simple content. Follows simple commands. Repeats well. Identifies some common objects, but not others. Repeatedly rolls eyes up. He has alternating esotropia. Visual acuity is probably reduced in the left eye. He can identify most common objects with his right eye, but cannot do so with his left eye. He has difficulty counting fingers in either eye, but it is not clear that he can count normally. When I attempt to examine pupils, he forcibly closes eyes. Smile is symmetrical. Facial sensation is equal. Jaw jerk is normal. He probably has some apraxia of the tongue movement. He cannot stick out his tongue. There is increased tone in upper extremities. Proximal strength is full. There may be some distalweakness. There is clumsiness to rapid fine movements bilaterally. Profound weakness in the legs. The patient does not move spontaneously. No reflexes can be obtained. Stimulation, however, does inducea little movement and complaints from the patient. Qeynvr-spilyd-idoc is done well. Tone is actuallyrelatively loose in the legs. IMPRESSION: 1. Generalized tonic-clonic seizures. 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 Refractory to levetiracetam. Refractory to both carbamazepine and divalproex. Divalproex has been maximized; however, this medication appears to have been helpful because discontinuation has worsened seizures. 2. Cerebral palsy with quadriparesis, much more profound in legs than in arms, probable spastic dysphagia and developmental delay. DISCUSSION: Extensive discussion with sister as to whether to change anticonvulsant medications or not. His recent 2 seizures, while more frequent than in the previous 2 years, are not unusual for his previous epilepsy course. Furthermore, his father's terminal illness and may have been a precipi tant. It is possible that seizures will return to previous level of control and that further intervention is not needed. We discussed other treatment options. Anticonvulsant medication tang, substituting zonisamide, oxcarbazepine or lacosamide for carbamazepine appears to be the best approach. Zonisamide may perhaps be the most effective intervention in this situation. We discussed the risks and benefits of this medications in preliminary fashion. We spent some time trying to sort through whether toproceed with this at this point or not. We finally decided on the following plan. PLAN: 1. Repeat anticonvulsant levels today. Our goal should be to keep the valproic acid level above 100.If level continues at 80, would increase divalproex by another 250 mg and repeat anticonvulsant blood level in a week. We will have our nurses call in a week after the blood test to follow up and adjust according to this plan. 2. Sister has agreed that if there are any further convulsions, we should move to replace carbamazepine with one of the above medications. We would be happy to put this into effect as needed. 3. We discussed the risks of convulsions and the possibility of sudden frankly and supportively. 4. We will try to obtain results of EEG done in [facility] in 2011 to see if this gives us any clue as to the epilepsy syndrome. Sister believes that a brief EEG may be possible, but does not believe that video EEG monitoring will be tolerated by the patient. She is not certain that neuroimaging would be p ossible, certainly not MRI. Some discussion as two whether conscious sedation for MRI was worth the risks and we ultimately decided that it was not. 5. Nurses will follow up blood levels and adjust as needed. At this point, we do not have a followupappointment. However, if he has any seizures, we asked sister to call to make a followup appointmentwith myself or with Dr. Erickson to substitute another anticonvulsant medication for the oxcarbazepine. BOYD ALFARO MD MT: gemma Name: PAMELLA ANDERSON MRN: [id number] Account: [id number] : 1975 Service Date: 01/27/2017 Document: [id number] documented in this encounter Plan of Treatment Not on filedocumented as of this encounter Procedures Procedure Name Priority Date/Time Associated Diagnosis Comme nts VALPROIC ACID Routine 02/04/2017 8:40 AM Generalized Results for this CDT convulsive seizures procedur e are in (H) the results section. CARBAMAZEPINE TOTAL Routine 02/04/2017 8:40 AM Generalized Re sults for this CDT convulsive seizures procedur e are in (H) the results section. AST Routine 02/04/2017 8:40 AM Generalized Results f or this CDT convulsive seizures procedur e are in (H) the results section. SODIUM Routine 02/04/2017 8:40 AM Generalized Results f or this CDT convulsive seizures procedur e are in (H) the results section. documented in this encounter Results AST (02/04/2017 8:40 AM CDT) athologist Signature AST 15 2 - 40 IU/L Specimen (Source) Anatomical Collection Method Collection Time Re ceived Time Location / / Volume Laterality Blood specimen 02/04/2017 8:40 AM (specimen) CDT Charisse Colvin - 02/04/2017 1:42 P M CDT [facility] [address] [place] [address] Boyd Alfaro MD LAB - BLOOD ORDERABLES Sodium (02/04/2017 8:40 AM CDT) athologist Signature Sodium 141 135 - 145 mmol/L Specimen (Source) Anatomical Collection Method Collection Time Re ceived Time Location / / Volume Laterality Blood specimen 02/04/2017 8:40 AM (specimen) CDT Charisse Colvin M - 02/04/2017 1:42 P M CDT [facility] [address] [place] [address] Boyd Alfaro MD LAB - BLOOD ORDERABLES Carbamazepine total (02/04/2017 8:40 AM CDT) Analysis Performed At Patho logist Time Signature Carbamazepine 9.4 4.0 - 10.0 Total ug/mL Specimen (Source) Anatomical Collection Method Collection Time Re ceived Time Location / / Volume Laterality Blood specimen 02/04/2017 8:40 AM (specimen) CDT Charisse Colvin - 02/04/2017 1:42 P M CDT [facility] [address] [place] [address] Boyd Alfaro MD LAB - BLOOD ORDERABLES (ABNORMAL) Valproic acid (02/04/2017 8:40 AM CDT) Analysis Performed At Patho logist Time Signature Valproic Acid 117.0 (A) 50.0 - Total 100.0 ug/mL Specimen (Source) Anatomical Collection Method Collection Time Re ceived Time Location / / Volume Laterality Blood specimen 02/04/2017 8:40 AM (specimen) CDT Charisse Colvin - 02/04/2017 1:42 P M CDT [facility] [address] [place] [address] Boyd Alfaro MD LAB - BLOOD ORDERABLES documented in this encounter Visit Diagnoses Diagnosis Generalized convulsive seizures (H) - Pr imary Generalized convulsive epilepsy without mention of intractable epilepsy documented in this encounter Care Teams Educational Fundraising Director Relationship Specialty Start Date End Date Chris Fontenot PCP - General 03/09/13 documented as of this encounter
--- OUTSIDE RECORDS SUMMARY | 2022-04-08 10:19 | XMS_ITS | Encounter Summary ---
:1975 Author Organization [facility] Address [address] [place] [address] Care Team Providers Name Role Phone Chris Fontenot Primary Care Provider Reason for Visit Reason Onset Date Comments Refill Request 09/20/2017 Encounter Details Date Type Department Care Team Description 09/20/2017 Telephone [facility] Epilepsy Care Janae Weinberg, [facility] Refill Request [address], [facility] [address], [place] [phone] [address] [place], [place] [id number] (Wo rk) Social History Tobacco Use Types Packs/Day Years Used Date Never Smoker Sex Assigned at Date Recorded Not on file documented as of this encounter Miscellaneous Notes Telephone Encounter - Janae Weinberg [facility] - 09/20/2017 9:31 AM CST ----- Message from Rosalba Pederson MA sent at 09/20/2017 8:39 AM DOCTOR PODIATR[facility] MEDICINE ----- Regarding: Refill PETROS Contact: Patient needs a refill on carBAMazepine (CARBATROL) 300 MG 12 hr capsule, takingTake one capsule by mouth every morning and take two capsules by mouth at night . Needs 30 days supply with refills. Pharmacy: [id number] - [place], [place] - [address] [facility] date: 09/22/2017 Phone Encounter Camryn from Pharmacy states that the Pt is completely out and was supposed to have an appt. 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
--- OUTSIDE RECORDS SUMMARY | 2022-04-08 10:19 | XMS_ITS | Encounter Summary ---
:1975 Author Organization [facility] Address [address] [place] [address] Care Team Providers Name Role Phone Chris Fontenot Primary Care Provider Encounter Details Date Type Department Care Team Description 11/11/2017 Orders Only [facility] Rodolfo Erickson, Gener alized convulsive Neurology [facility] GREENE epile psy with [place] intractable epilepsy [address] [place] [address] N ([place]) [place] [address] Social History Tobacco Use Types Packs/Day Years Used Date Never Smoker Sex Assigned at Date Recorded Not on file documented as of this encounter Plan of Treatment Not on filedocumented as of this encounter Visit Diagnoses Diagnosis 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
--- OUTSIDE RECORDS SUMMARY | 2022-04-08 10:19 | XMS_ITS | Encounter Summary ---
:1975 Author Organization [facility] Address [address] [place] [address] Care Team Providers Name Role Phone Crhis Fontenot Primary Care Provider Encounter Details Date Type Department Care Team Description 11/24/2016 Telephone [facility] Rodolfo Erickson MD Physicians [facility] Neurology Clinic [address] [place] [address], [address] [place] [address] Social History Tobacco Use Types Packs/Day Years Used Date Never Smoker Sex Assigned at Date Recorded Not on file documented as of this encounter Miscellaneous Notes Telephone Encounter - Rodolfo Erickson MD - 11/24/2016 12:15 PM CDT Spoke to Emili. Andres had a seizure yesterday. Will resume the additional 250 mg Depakote at hs (recently stopped due to documented in this encounter Plan of Treatment Not on filedocumented as of this encounter Visit Diagnoses Not on filedocumented in this encounter Care Teams Mine Promotor Relationship Specialty Start Date End Date Chris Fontenot PCP - General 03/09/13 documented as of this encounter
--- OUTSIDE RECORDS SUMMARY | 2022-04-08 10:19 | XMS_ITS | Encounter Summary ---
:1975 Author Organization [facility] Address [address] [place] [address] Care Team Providers Name Role Phone Chris Fontenot Primary Care Provider Reason for Visit Reason Onset Date Comments Refill Request 04/12/2017 Encounter Details Date Type Department Care Team Description 04/12/2017 Refill [facility] Neurology Saba Moya, RN Refill Request [address] [place] [address] [place] [address] [place] [phone] Social History Tobacco Use Types Packs/Day Years Used Date Never Smoker Sex Assigned at Date Recorded Not on file documented as of this encounter Plan of Treatment Not on filedocumented as of this encounter Visit Diagnoses Diagnosis 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
--- OUTSIDE RECORDS SUMMARY | 2022-04-08 10:19 | XMS_ITS | Encounter Summary ---
:1975 Author Organization [facility] Address [address] [place] [address] Care Team Providers Name Role Phone Fontenot, Chris Gaviota Primary Care Provider Encounter Details Date Type Department Care Team Description 01/12/2017 Orders Only [facility] Quentin Soto convulsive Physicians [facility] SURESH Wolff epilepsy with Neurology Clinic intractable epilepsy [address] [facility], () [address] [place] [address] Social History Tobacco Use Types Packs/Day Years Used Date Never Smoker Sex Assigned at Date Recorded Not on file documented as of this encounter Plan of Treatment Not on filedocumented as of this encounter Procedures Procedure Name Priority Date/Time Associated Diagnosis Comme nts COMPREHENSIVE METABOLIC Routine 12/29/2016 Generalized convu lsive Results for this PANEL epilepsy with procedure are in intractable epilepsy the res ults (H) section. CBC WITH PLATELETS Routine 12/29/2016 Generalized convulsive Results for this epilepsy with procedure are in intractable epilepsy the res ults (H) section. documented in this encounter Results Comprehensive metabolic panel (12/29/2016) P athologist Signature [...] epilepsy documented in this encounter Care Teams Bingo Usher Relationship Specialty Start Date End Date Chris Fontenot PCP - General 03/09/13 documented as of this encounter
--- OUTSIDE RECORDS SUMMARY | 2022-04-08 10:19 | XMS_ITS | Encounter Summary ---
:1975 Author Organization [facility] Address [address] [place] [address]. [place] [address] Care Team Providers Name Role Phone Chris Fontenot Primary Care Provider Encounter Details Date Type Department Care Team Description 09/30/[address] [facility] Epilepsy Care Boyd Green Generalized [address] MD convulsive epilepsy [place], [address] [facility] with intractable [place], [place] [address] epilepsy (H) (Primary [id number] [place], [place] Dx) [phone] [address] Social History Tobacco Use Types Packs/Day Years Used Date Never Smoker Sex Assigned at Date Recorded Not on file documented as of this encounter Progress Notes Boyd Green MD - 09/30/2017 3:30 PM CST Mom reports a third convulsion sometime in July. Last seen in January. His levels at tht time were high therapeutic. Thus three seizures in span of about 8 months which is a definite increase. Otherwise seems to be doing OK. I think we should consider changing to a different AED. Asked mom to make appointment to see me so that we can discuss alternatives and perscribe change as appropriate. In the meantime will try to get [facility] paper chart and sort out what old EEG showed. 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
--- OUTSIDE RECORDS SUMMARY | 2022-04-08 10:19 | XMS_ITS | Encounter Summary ---
:1975 Author Organization [place] Address [address] [place] [address]. [place] [address] Care Team Providers Name Role Phone Chris Fontenot Gaviota Primary Care Provider Reason for Visit Reason Comments Medication Refill Carbamazepine 100 and 300 mg tabs Encounter Details Date Type Department Care Team Description 10/05/2017 Refill [facility] [place] Medication Refill 5775 Joshua Arvizu MD (Carbamazepine [address] [place] 300 mg tabs) [place], [place] [phone] [place], [place] [phone] (Wo rk) Social History Tobacco Use Types Packs/Day Years Used Date Never Smoker Sex Assigned at Date Recorded Not on file documented as of this encounter Miscellaneous Notes Telephone Encounter - Jasiel Hester, CLEMENCIA - 10/07/2017 12:39 PM CST Nurse received refill request for: Carbamazepine 100 mg and 300 mg ( In-basket ) Last re-ordered: 09/20/17 ( 300 mg ); 03/11/17 ( 100 mg ) Last refill: 09/07/17 ( 100 mg ) Last appointment: 09/30/17 - Virtual Visit Next appointment: N/A From last clinic notes: I think we should consider changing to a different AED. Asked mom to make appointment to see me so that we can discuss alternatives and perscribe change as appropriate. In the meantime will try to get [facility] paper chart and sort out what old EEG showed. ?? No appointment set. One month supplies sent with note that must have f-u appointment. 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
--- OUTSIDE RECORDS SUMMARY | 2022-04-08 10:20 | XMS_ITS | Encounter Summary ---
:1975 Author Organization [place] Address [address] [place] [address] Care Team Providers Name Role Phone Chris Fontenot Primary Care Provider Encounter Details Date Type Department Care Team Description 08/02/2014 Telephone [facility] Rodolfo Erickson MD Physicians [facility] Neurology Clinic [address] [place] [address], [address] [place] [address] Social History Tobacco Use Types Packs/Day Years Used Date Never Assessed Sex Assigned at Date Recorded Not on file documented as of this encounter Miscellaneous Notes Telephone Encounter - Rodolfo Erickson MD - 08/02/2014 9:07 AM CST Repeat CBC WNL now. Called and left message for Emili. 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
--- OUTSIDE RECORDS SUMMARY | 2022-04-08 10:20 | XMS_ITS | Encounter Summary ---
:1975 Author Organization [place] Address [address] [place] [address] Care Team Providers Name Role Phone Chris Fontenot Primary Care Provider Reason for Visit Reason Onset Date Comments Refill Request 12/10/2015 Encounter Details Date Type Department Care Team Description 12/10/2015 Refill [facility] Rodolfo Erickson MD Refill Request Physicians [facility] Neurology Clinic [address] [place] [address], [address] [place] [address] Social History Tobacco Use Types Packs/Day Years Used Date Never Assessed Sex Assigned at Date Recorded Not on file documented as of this encounter Miscellaneous Notes Telephone Encounter - Devin Saldaña LPN - 12/10/2015 6:52 AM CDT Refill request received from pharmacy. Guest Services Coordinator entered into [place] and routed to MD to sign. Last visit08/06/15. Next visit note scheduled at this time. 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
--- OUTSIDE RECORDS SUMMARY | 2022-04-08 10:20 | XMS_ITS | Encounter Summary ---
:1975 Author Organization [place] Address [address] [place] [address] Care Team Providers Name Role Phone Chris Fontenot Primary Care Provider Encounter Details Date Type Department Care Team Description 07/19/2014 Telephone [facility] Rodolfo Erickson MD Physicians [facility] Neurology Clinic [address] [facility], [address] [place] [address] 65 Social History Tobacco Use Types Packs/Day Years Used Date Never Assessed Sex Assigned at Date Recorded Not on file documented as of this encounter Miscellaneous Notes Telephone Encounter - Rodolfo Erickson MD - 07/19/2014 11:11 AM CST Received labs from [place]. Low WBC (3900) with relative lymphocytosis, Plats 108K. LFTS OK. Valproic acid level 102.8. Carbam 10. Spoke to Emili. Recent URI. Suspect heme abnl related to viral syndrome. Will recheck CBC in 2 weeks. 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
--- OUTSIDE RECORDS SUMMARY | 2022-04-08 10:20 | XMS_ITS | Encounter Summary ---
:1975 Author Organization [place] Address [address] [place] [address] Care Team Providers Name Role Phone Chris Fontenot Gaviota Primary Care Provider Reason for Referral - Closed Specialty Diagnoses / Procedures Referred By Contact Refer red To Contact Diagnoses 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) Rodolfo Erickson MD Procedures Carbamazepine total [address] [address] Referral ID Status Reason Start Date Expiration Date Visits Requ ested Visits Authorized [id number] Closed 07/14/2016 07/14/2017 1 1 RVISOR FINAL - Closed Specialty Diagnoses / Procedures Referred By Contact Refer red To Contact Diagnoses 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) Rodolfo Erickson MD Procedures Valproic acid [address] [address] Referral ID Status Reason Start Date Expiration Date Visits Requ ested Visits Authorized [id number] Closed 07/14/2016 07/14/2017 1 1 RVISOR FINAL - Closed Specialty Diagnoses / Procedures Referred By Contact Refer red To Contact Diagnoses 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) Rodolfo Erickson MD Procedures Comprehensive metabolic panel [address] [address] Referral ID Status Reason Start Date Expiration Date Visits Requ ested Visits Authorized [id number] Closed 07/19/2016 07/19/2017 1 1 RVISOR FINAL - Closed Specialty Diagnoses / Procedures Referred By Contact Refer red To Contact Diagnoses 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) Rodolfo Erickson MD Procedures CBC with platelets [address] [place] [address] Referral ID Status Reason Start Date Expiration Date Visits Requ ested Visits Authorized [id number] Closed 07/19/2016 07/19/2017 1 1 RVISOR FINAL Encounter Details Date Type Department Care Team Description 07/14/2016 Orders Only [facility] Rodolfo Erickson Generaliz ed convulsive [place] [facility] with [facility] Neurology intractabl e epilepsy Clinic (H) (Primary Dx) [address] [place] [address], [address] [place] [address] Social History Tobacco Use Types Packs/Day Years Used Date Never Smoker Sex Assigned at Date Recorded Not on file documented as of this encounter Plan of Treatment Not on filedocumented as of this encounter Procedures Procedure Name Priority Date/Time Associated Diagnosis Comme nts VALPROIC ACID Routine 07/15/2016 Generalized convulsive Resu lts for this epilepsy with procedure are in the intractable epilepsy (H) res ults section. CARBAMAZEPINE TOTAL Routine 07/15/2016 Generalized convulsiv e Results for this epilepsy with procedure are in the intractable epilepsy (H) res ults section. documented in this encounter Results Carbamazepine total (07/15/2016) Analysis Performed At [facility] Signature Carbamazepine 9.7 4 - 10 Total mg/L Specimen (Source) Anatomical Location Collection Method / Collectio n Time Received Time / Laterality Volume Blood specimen 07/15/2016 (specimen) Narrative This result has an attachment that is no t available. Rodolfo Erickson MD LAB - BLOOD ORDERABLES (ABNORMAL) Valproic acid (07/15/2016) Analysis Performed At [facility] Signature Valproic Acid 103.7 (A) 50 - 100 Total Specimen (Source) Anatomical Location Collection Method / Collectio n Time Received Time / Laterality Volume Blood specimen 07/15/2016 (specimen) Narrative This result has an attachment that is no t available. Rodolfo Erickson MD LAB - BLOOD ORDERABLES (ABNORMAL) Comprehensive metabolic panel (07/15/2016) [facility] Method Time Signature Sodium 141 135 - 145 mmol/L Potassium 4 3.5 - 5 mmol/L Chloride 103 98 - 110 mmol/L CO2, TOTAL 27 21 - 31 mmol/L Anion Gap 11 5 - 18 mmol/L Glucose 105 (A) 65 - 100 mg/dL Urea Nitrogen 10 8 - 25 mg/dL Creatinine 0.62 (A) 0.72 - 1.25 mg/dL Calcium 9.6 8.5 - 10.5 mg/dL Protein Total 6.8 6 - 8 g/dL Albumin 4.3 3.5 - 5.2 g/dL Bilirubin Total 0.2 0.2 - 1.2 mg/dL Alkaline 42 (A) 50 - 136 Phosphatase U/L AST 14 2 - 40 U/L ALT U/L Specimen (Source) Anatomical Location Collection Method / Collectio n Time Received Time / Laterality Volume Blood specimen 07/15/2016 (specimen) Narrative This result has an attachment that is no t available. Rodolfo Erickson MD LAB - BLOOD ORDERABLES (ABNORMAL) CBC with platelets (07/15/2016) P athologist Signature WBC 4.1 (A) 4.5 - 11 10^9/L RBC Count 4.52 4.3 - 5.9 10^12/L Hemoglobin 14 13.5 - 17.5 g/dL Hematocrit 41.2 37 - 53 % MCV 91 80 - 100 fl MCH 31 26 - 34 pg MCHC 34 32 - 36 g/dL RDW 12.5 11.5 - 15.5 % Platelet Count 200 140 - 440 10^9/L Specimen (Source) Anatomical Location Collection Method / Collectio n Time Received Time / Laterality Volume Blood specimen 07/15/2016 (specimen) Narrative This result has an attachment that is no t available. 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
--- OUTSIDE RECORDS SUMMARY | 2022-04-08 10:20 | XMS_ITS | Encounter Summary ---
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) Rodolfo Erickson MD Procedures Valproic acid [address] [place] [address] Referral ID Status Reason Start Date Expiration Date Visits Requ ested Visits Authorized [id number] Closed 09/27/2014 03/26/2015 1 1 PRODUCTION SUPERVISOR Encounter Details Date Type Department Care Team Description 09/27/2014 Orders Only [facility] Rodolfo Erickson Generaliz ed convulsive [place] [facility] epile[facility] y with [facility] Neurology intractabl e epilepsy Clinic (H) (Primary Dx) [address] [place] [address] [address] [place] [address] Social History Tobacco Use Types Packs/Day Years Used Date Never Assessed Sex Assigned at Date Recorded Not on file documented as of this encounter Plan of Treatment Scheduled Orders Name Type Priority Associated Diagnoses Order S chedule CARBAMAZEPINE, TOTAL Lab Routine Generalized Convulsi ve Ordered: 09/27/2014 Epilepsy With Intractable Epilepsy (H) documented as of this encounter Visit Diagnoses Diagnosis 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
--- OUTSIDE RECORDS SUMMARY | 2022-04-08 10:20 | XMS_ITS | Encounter Summary ---
:1975 Author Organization [place] Address [address] [place] [address] Care Team Providers Name Role Phone Chris Fontenot Primary Care Provider Reason for Visit Reason Onset Date Comments Refill Request 12/18/2014 Diazepam Encounter Details Date Type Department Care Team Description 12/18/2014 Refill [facility] Rodolfo Erickson, Refill Request Physicians [facility] (D[facility]am ) Neurology Clinic [address] [place] [address], [address] [address] Social History Tobacco Use Types Packs/Day Years Used Date Never Assessed Sex Assigned at Date Recorded Not on file documented as of this encounter Plan of Treatment Not on filedocumented as of this encounter Visit Diagnoses Diagnosis Unspecified epilepsy without mention of intractable epilepsy - Primary documented in this encounter Care Teams Stock Speculator Relationship Specialty Start Date End Date Chris Fontenot PCP - General 03/09/13 documented as of this encounter
--- OUTSIDE RECORDS SUMMARY | 2022-04-08 10:20 | XMS_ITS | Encounter Summary ---
:1975 Author Organization [place] Address [address] [place] [address] Care Team Providers Name Role Phone Chris Fontenot Primary Care Provider Encounter Details Date Type Department Care Team Description 10/16/2014 Telephone [facility] Rodolfo Erickson MD Physicians [facility] Neurology Clinic [address] [place] [address], [address] [place] [address] Social History Tobacco Use Types Packs/Day Years Used Date Never Assessed Sex Assigned at Date Recorded Not on file documented as of this encounter Miscellaneous Notes Telephone Encounter - Rodolfo Erickson MD - 10/16/2014 7:28 AM CST Called and left message for Emili Campos's recent labs. CBC and CMP OK. Tegretol level 9.5. Valproic acid level 110. He has follow up on 11/23/14 documented in this encounter Plan of Treatment Not on filedocumented as of this encounter Visit Diagnoses Not on filedocumented in this encounter Care Teams Turf Keeper Relationship Specialty Start Date End Date Chris Fontenot PCP - General 03/09/13 documented as of this encounter
--- OUTSIDE RECORDS SUMMARY | 2022-04-08 10:20 | XMS_ITS | Encounter Summary ---
:1975 Author Organization [place] Address [address] [place] [address] Care Team Providers Name Role Phone Chris Fontenot Primary Care Provider Encounter Details Date Type Department Care Team Description 08/01/2015 [facility]phone [facility] Rod[facility]fo Erickson MD Physicians [facility] [address] [facility], [address] [place] [address] 65 Social History Tobacco Use Types Packs/Day Years Used Date Never Assessed Sex Assigned at Date Recorded Not on file documented as of this encounter Miscellaneous Notes Telephone Encounter - Rodolfo Erickson MD - 08/01/2015 4:38 PM CST Labs OK. Not toxic on anticonvulsants: Valproic 93.8, Carbamazepine 7.5. Epoxide 2.8 (0.4-4). WBC 4200. LFTs OK. Relayed results to Nikkie at [facility] and left message for sister Emili. AVEMENT COUNSELOR documented in this encounter Plan of Treatment Not on filedocumented as of this encounter Visit Diagnoses Not on filedocumented in this encounter Care Teams Weaver Needle Loom Relationship Specialty Start Date End Date Chris Fontenot PCP - General 03/09/13 documented as of this encounter
--- OUTSIDE RECORDS SUMMARY | 2022-04-08 10:20 | XMS_ITS | Encounter Summary ---
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) (Primary Dx); Outreach MD Generalized convulsive epile psy with intractable epilepsy [address] [place] [phone] Social History Tobacco Use Types Packs/Day Years Used Date Never Smoker Sex Assigned at Date Recorded Not on file documented as of this encounter Last Filed Vital Signs Vital Sign Reading Time Taken Comments Blood Pressure 104/70 03/03/2016 11:44 AM CDT Pulse 80 03/03/2016 11:44 AM CDT Temperature - - Respiratory Rate - - Oxygen Saturation - - Inhaled Oxygen Concentration - - Weight - - Height - - Body Mass Index - - documented in this encounter Progress Notes Rodolfo Erickson MD - 03/03/2016 12:08 PM CDT March 03, 2016 Chris Fontenot MD [facility] [place] [facility] [address] [place] [address] RE: Pamella Anderson : 1975 Dear Wiley: I saw Pamella Anderson back. He is accompanied by his sister, Emili Pride. Pamella did have a breakthrough seizure in 07/2015. This was the first seizure he had had in 2 years. Emili did contact me. At that time I increased his Carbatrol dose by 100 mg and kept him on the sameDepakote dose. He has had no further seizures and has tolerated the dosage increase well. He did have a valproic acid level checked yesterday and it was 121. I again note that Pamella has tended to run high valproic acid levels and attempts to reduce his Depakote dose in the past resulted in breakthrough seizures. Currently, he is taking Depakote ER 1500 mg in the morning and 1750 mg at night. His Carbatrol dose is 400 mg in the morning and 600 mg at night. He also has diazepam intensol 5 mg per mL to be used for any breakthrough seizures. Examination reveals he is alert and cooperative. He has the chronic ocular motility disorder. His speech is slightly indistinct. He has some athetosis in his arms but moves his arms well. He has severebilateral lower extremity weakness. IMPRESSION: Seizure disorder. PLAN: I am continuing him on his current anticonvulsants. I have given Emili an order to have a carbamazepine level checked as well as a CBC and hepatic profile. I will communicate those results to Emili when I receive them. We will continue to see Pamella at least once a year. ADDENDUM 03/10/16 : Carbamazepine level 7.9. CBC and Hepatic profile not done. Will reorder. Discussed with Emili 03/12/16: CBC and LFTs OK. Repeat carbamazepine level 9.6. Left message for Emili 11/16/16; Labs reviewed with Emili. Depakote level 131.5. Will reduce dose to 1500 mg bid ([id number] mg at hs). Carbamazepine level 9.1 Continue current dose 400 am, 600 pm. 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
--- OUTSIDE RECORDS SUMMARY | 2022-04-08 10:20 | XMS_ITS | Encounter Summary ---
:1975 Author Organization [place] Address [address] [place] [address] Care Team Providers Name Role Phone Chris Fontenot Primary Care Provider Reason for Referral - Closed Specialty Diagnoses / Procedures Referred By Contact Refer red To Contact Diagnoses 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) Rodolfo Erickson MD Procedures Hepatic panel [address] [address] Referral ID Status Reason Start Date Expiration Date Visits Requ ested Visits Authorized [id number] Closed 03/15/2016 03/15/2017 1 1 - Closed Specialty Diagnoses / Procedures Referred By Contact Refer red To Contact Diagnoses 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) Rodolfo Erickson MD Procedures CBC with platelets differential [address] [place] [address] Referral ID Status Reason Start Date Expiration Date Visits Requ ested Visits Authorized [id number] Closed 03/15/2016 03/15/2017 1 1 Encounter Details Date Type Department Care Team Description 03/10/2016 [facility] Only [facility] Rodolfo Erickson Generaliz ed convulsive [place] [facility] with [facility] Neurology intractabl e epilepsy Clinic (H) (Primary Dx) [address] [place] [address], [address] [place] [address] Social History Tobacco Use Types Packs/Day Years Used Date Never Smoker Sex Assigned at Date Recorded Not on file documented as of this encounter Plan of Treatment Not on filedocumented as of this encounter Results Hepatic panel (03/10/2016) P athologist Signature Protein Total 6.9 g/dL Albumin 4.3 g/dL Bilirubin Total 0.1 mg/dL Alkaline 47 U/L Phosphatase AST 16 U/L ALT 11 U/L Bilirubin Direct <0.1 mg/dL Specimen (Source) Anatomical Location Collection Method / Collectio n Time Received Time / Laterality Volume Blood specimen 03/10/2016 (specimen) Narrative This result has an attachment that is no t available. Rodolfo Erickson MD LAB - BLOOD ORDERABLES CBC with platelets differential (03/10/2016) P athologist Signature WBC 5.3 10^9/L RBC Count 4.39 10^12/L Hemoglobin 13.7 13.3 - 17.7 g/dL Hematocrit 39.8 % MCV 91 fl MCH 31.2 pg MCHC 34.4 g/dL RDW 12.3 % Platelet Count 186 150 - 450 10^9/L % Neutrophils % % Lymphocytes % % Monocytes % % Eosinophils % % Basophils % Specimen (Source) Anatomical Location Collection Method / Collectio n Time Received Time / Laterality Volume Blood specimen 03/10/2016 (specimen) Narrative This result has an attachment that is no t available. 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
--- OUTSIDE RECORDS SUMMARY | 2022-04-08 10:20 | XMS_ITS | Encounter Summary ---
:1975 Author Organization [place] Address [address] [place] [address] Care Team Providers Name Role Phone Chris Fontenot Gaviota Primary Care Provider Reason for Referral - Closed Specialty Diagnoses / Procedures Referred By Contact Refer red To Contact Diagnoses 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) Rodolfo Erickson MD Procedures Carbamazepine total [address] [address] Referral ID Status Reason Start Date Expiration Date Visits Requ ested Visits Authorized [id number] Closed 07/18/2015 07/17/2016 1 1 FALLER - Closed Specialty Diagnoses / Procedures Referred By Contact Refer red To Contact Diagnoses 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) Rodolfo Erickson MD Procedures Valproic acid [address] [address] Referral ID Status Reason Start Date Expiration Date Visits Requ ested Visits Authorized [id number] Closed 07/18/2015 07/17/2016 1 1 FALLER Reason for Visit Reason Onset Date Comments Clinic Care Coordination - Initial 07/18/2015 Encounter Details Date Type Department Care Team Description 07/18/2015 Telephone [facility] Kezia Argueta RN Clinic Care Coordination Physicians [facility] [phone] - Initial Neurology Clinic (Work) [address] [facility], [facility] [address] [place] [address] Social History Tobacco Use Types Packs/Day Years Used Date Never Assessed Sex Assigned at Date Recorded Not on file documented as of this encounter Miscellaneous Notes Telephone Encounter - Kezia Argueta RN - 07/18/2015 4:32 PM CST Spoke with Nikkie (Music Pastor) at [facility] regarding patients behavior. Nikkie stated that patient is experiencing an increase in agitation and mood swings; she would like to have carbamazepine and valproic blood levels checked, but needs lab order. Call routed to Dr. Erickson. Discussed with Nikkie. Not confused or tremulous. Will Check CBC, Hepatic panel and drug levels. 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
--- OUTSIDE RECORDS SUMMARY | 2022-04-08 10:20 | XMS_ITS | Encounter Summary ---
:1975 Author Organization [place] Address [address] [place] [address] Care Team Providers Name Role Phone Chris Fontenot Primary Care Provider Encounter Details Date Type Department Care Team Description 08/06/2015 Telephone [facility] Rodolfo Erickson MD Physicians [facility] Neurology Clinic [address] [facility], [address] [place] [address] 65 Social History Tobacco Use Types Packs/Day Years Used Date Never Assessed Sex Assigned at Date Recorded Not on file documented as of this encounter Miscellaneous Notes Telephone Encounter - Rodolfo Erickson MD - 08/06/2015 3:22 PM CST Emili called. Andres had single seizure yesterday. First seizure in 2 years. Given Diazepam Intensol. Reviewed recent drug levels: Valproate 93.8, Carbamazepine 7.5. Will increase Carbatrol by 100 mg. Emili will alert the fdc. OF SCHOOL HOURS CARE WORKER documented in this encounter Plan of Treatment Not on filedocumented as of this encounter Visit Diagnoses Not on filedocumented in this encounter Care Teams Home Lighting Adviser Relationship Specialty Start Date End Date Chris Fontenot PCP - General 03/09/13 documented as of this encounter
--- OUTSIDE RECORDS SUMMARY | 2022-04-08 10:20 | XMS_ITS | Encounter Summary ---
:1975 Author Organization [place] Address [address] [facility] [place] [address] Care Team Providers Name Role Phone Chris Fontenot Primary Care Provider Encounter Details Date Type Department Care Team Description 01/08/2015 Medical Correspondence [facility] [place], FREDERICK HARR[place], Health Info Mgmt Non-Provider SE[facility]URE [place] [facility], 01/08/[address] [place] [phone] Social History Tobacco Use Types Packs/Day Years Used Date Never Assessed Sex Assigned at Date Recorded Not on file documented as of this encounter Plan of Treatment Not on filedocumented as of this encounter Visit Diagnoses Not on filedocumented in this encounter Care Teams Brewery Worker Relationship Specialty Start Date End Date Chris Fontenot PCP - General 03/09/13 documented as of this encounter
--- OUTSIDE RECORDS SUMMARY | 2022-04-08 10:20 | XMS_ITS | Encounter Summary ---
:1975 Author Organization [place] Address [address] [place] [address] Care Team Providers Name Role Phone Fontenot, Hcris Gaviota Primary Care Provider Encounter Details Date Type Department Care Team Description 04/07/2016 Orders Only [facility] Katya Levi neralized convulsive Physicians [facility] epilepsy with Neurology Clinic intractable epilepsy (H) [address] [facility], [address] [place] [address] Social History Tobacco Use Types Packs/Day Years Used Date Never Smoker Sex Assigned at Date Recorded Not on file documented as of this encounter Plan of Treatment Not on filedocumented as of this encounter Procedures Procedure Name Priority Date/Time Associated Diagnosis Comme nts CBC WITH PLATELETS & Routine 03/10/2016 Generalized convulsi ve Results for this DIFFERENTIAL epilepsy with procedure are in the intractable epilepsy results section. (H) HEPATIC FUNCTION PANEL Routine 03/10/2016 Generalized convul sive Results for this epilepsy with procedure are in the intractable epilepsy results section. (H) documented in this encounter Results Hepatic panel (03/10/2016) P [...] BLOOD ORDERABLES CBC with platelets differential (03/10/2016) athologist Signature WBC 5.3 10^9/L RBC Count [...] epilepsy documented in this encounter Care Teams Permit Specialist Relationship Specialty Start Date End Date Chris Fontenot PCP - General 03/09/13 documented as of this encounter
--- OUTSIDE RECORDS SUMMARY | 2022-04-08 10:20 | XMS_ITS | Encounter Summary ---
:1975 Author Organization [place] Address [address] [place] [address] Care Team Providers Name Role Phone Fontenot, Chris Gaviota Primary Care Provider Reason for Visit Reason Onset Date Comments Prior Auth - Medication 08/20/2015 diazepam 5mg/ml - APPROVED Encounter Details Date Type Department Care Team Description 08/20/2015 Telephone Neurology Clinic Jay Arce LPN Prior Auth - Medication Lauryn (diazep am 5mg/ml - Building APPROVED) 1st Floor, Clinic [address] [place] [phone] Social History Tobacco Use Types Packs/Day Years Used Date Never Assessed Sex Assigned at Date Recorded Not on file documented as of this encounter Miscellaneous Notes Telephone Encounter - Mary Saavedra - 08/26/2015 2:17 PM CST Images from the original note were not included. Prior Authorization Approval Authorization Effective Date: 05/25/2015 Authorization Expiration Date: 08/22/2018 Medication: diazepam 5mg/ml - APPROVED Approved Dose/Quantity: DAILY Reference #: Insurance Company: [email or web address] Expected CoPay: UNAVAILABLE CoPay Card Available: Foundation Assistance Needed: Which Pharmacy is filling the prescription (Not needed for infusion/clinic administered): [id number] - [place], [place] - [address] [place] [address] PHARMACY AND PATIENT NOTIFIED ECTIONS COUNSELOR Telephone Encounter - Emiliano Hightower - 08/23/2015 9:59 AM CST The patient's insurance company called asking for additional information, specifically a clarification of the patient's diagnosis and the patient's age. This was relayed to the insurance company. ECTIONS COUNSELOR Telephone Encounter - Mary Saavedra - 08/23/2015 9:26 AM CST Images from the original note were not included. PA Initiation Medication: diazepam 5mg/ml Insurance Company: [id number] [facility] Filling the Rx: [id number] - [place], [place] - [address] [facility] Filling Pharmacy Filling Pharmacy Fax: Start Date: 08/23/2015 ECTIONS COUNSELOR Telephone Encounter - Jay Arce LPN - 08/20/2015 10:28 AM CST Prior Authorization Retail Medication Request Medication/Dose: diazepam 5mg/ml Diagnosis and ICD code: seizure disorder G40.909 New/Renewal/Insurance Change PA: renewal Previously Tried and Failed Therapies: NA Insurance ID (if provided): [id number] Insurance Phone (if provided): [phone] Any additional info from fax request: Annual renewal, fyi If you received a fax notification from an outside Pharmacy: Pharmacy Name: [facility] [place], [place] Pharmacy #: [phone] Pharmacy ECTIONS COUNSELOR documented in this encounter Plan of Treatment Not on filedocumented as of this encounter Visit Diagnoses Not on filedocumented in this encounter Care Teams Weight Loss Sales Consultant Relationship Specialty Start Date End Date Chris Fontenot PCP - General 03/09/13 documented as of this encounter
--- OUTSIDE RECORDS SUMMARY | 2022-04-08 10:20 | XMS_ITS | Encounter Summary ---
:1975 Author Organization [place] Address [address] [place] [address] Care Team Providers Name Role Phone Chris Fontenot Primary Care Provider Encounter Details Date Type Department Care Team Description 08/06/2015 [facility] convulsive [place] [facility] epileps y with [facility] Neurology intractabl e epilepsy Clinic (Primary Dx) [address] [facility], [address] [place] [address] Social History Tobacco Use Types Packs/Day Years Used Date Never Assessed Sex Assigned at Date Recorded Not on file documented as of this encounter Plan of Treatment Not on filedocumented as of this encounter Visit Diagnoses Diagnosis 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
--- OUTSIDE RECORDS SUMMARY | 2022-04-08 10:20 | XMS_ITS | Encounter Summary ---
:1975 Author Organization [place] Address [address] [place] [address] Care Team Providers Name Role Phone FontenotChris negrete Primary Care Provider Encounter Details Date Type Department Care Team Description 07/21/2016 Orders Only [facility] EarlyDevin Gen eralized convulsive Physicians [facility] epilepsy with Neurology Clinic intractable epilepsy [address] [facility], () [address] [place] [address] Social History Tobacco Use Types Packs/Day Years Used Date Never Smoker Sex Assigned at Date Recorded Not on file documented as of this encounter Plan of Treatment Not on filedocumented as of this encounter Procedures Procedure Name Priority Date/Time Associated Diagnosis Comme nts COMPREHENSIVE METABOLIC Routine 07/15/2016 Generalized convu lsive Results for this PANEL epilepsy with procedure are in intractable epilepsy the res ults (H) section. CBC WITH PLATELETS Routine 07/15/2016 Generalized convulsive Results for this epilepsy with procedure are in intractable epilepsy the res ults (H) section. documented in this encounter Results (ABNORMAL) CBC with platelets (07/15/2016) P athologist [...] BLOOD ORDERABLES (ABNORMAL) Comprehensive metabolic panel (07/15/2016) [facility] gist Method Time Signature Sodium 141 135 - [...] epilepsy documented in this encounter Care Teams Cook Vacuum Kettle Relationship Specialty Start Date End Date Chris Fontenot PCP - General 03/09/13 documented as of this encounter
--- OUTSIDE RECORDS SUMMARY | 2022-04-08 10:20 | XMS_ITS | Encounter Summary ---
:1975 Author Organization [place] Address [address] [place] [address] Care Team Providers Name Role Phone Chris Fontenot Primary Care Provider Reason for Visit Reason Comments RECHECK Routine follow up Encounter Details Date Type Department Care Team Description 12/06/2014 Office Visit Rodolfo Jasso, Unspecifi ed epilepsy without mention of intractable epilepsy (Primary Dx); [facility] Unspeci fied epilepsy with intractable epilepsy; [facility] Neurology Generalize d convulsive epilepsy with intractable epilepsy (H) Clinic [address] [facility], [address] [place] [address] Social History Tobacco Use Types Packs/Day Years Used Date Never Assessed Sex Assigned at Date Recorded Not on file documented as of this encounter Last Filed Vital Signs Vital Sign Reading Time Taken Comments Blood Pressure 124/80 12/06/2014 11:26 AM CDT Pulse 88 12/06/2014 11:26 AM CDT Temperature - - Respiratory Rate - - Oxygen Saturation - - Inhaled Oxygen Concentration - - Weight - - Height - - Body Mass Index - - documented in this encounter Progress Notes Rodolfo Erickson MD - 12/06/2014 12:00 PM CDT December 06, 2014 Chris Fontenot M.D. [address] [address] RE:Pamella Anderson :1975 Dear Wiley: I saw Pamella Anderson back. This is his yearly followup for his seizure disorder. He is accompanied by Emili Joshua, who is his guardian and sister. Pamella has had an excellent year. He has had no seizures. He is a bit upset today because his roommate, Royal, . He did have laboratory work prior to this admission. His comprehensive metabolic profile was essentially normal with normal liver functions. CBC and platelet count were normal. His valproic acid level was 110. This is outside the therapeutic range, but I should note that Ani tended to run slightly high valproic acid levels and attempts to lower his dose have resulted inbreakthrough seizures. His carbamazepine level was 9.5 which is therapeutic. Examination reveals his heart rate is 88. Blood pressure is 124/80. He is alert and cooperative. He is in good spirits. 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 He has bilateral lower extremity weakness and is in a wheelchair. IMPRESSION: Stable seizure disorder. PLAN: He will continue with his current anticonvulsant treatment which was reviewed today. Specifically, he takes Depakote ER 1500 mg twice a day plus an additional 250 mg with his second dose, Carbatrol 300 mg in the morning and 600 mg at night. I also refilled Diazepam Intensol 5 mg per mL. The directions are for 1 mL to be placed between his cheek and gum for any generalized tonic-clonic seizure lasting 2 minutes or for 2 seizures in 24 hours. I did fill out his seizure plan form today. I am going to continue to see him yearly. 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
--- OUTSIDE RECORDS SUMMARY | 2022-04-08 10:20 | XMS_ITS | Encounter Summary ---
:1975 Author Organization [place] Address [address] [place] [address] Care Team Providers Name Role Phone Chris Fontenot Primary Care Provider Encounter Details Date Type Department Care Team Description 08/13/2015 [facility] d isolenora (H) [place] [facility] (Primar y Dx) [facility] Neurology Clinic [address] [place] [address], [address] [place] [address] Social History Tobacco Use Types Packs/Day Years Used Date Never Assessed Sex Assigned at Date Recorded Not on file documented as of this encounter Plan of Treatment Not on filedocumented as of this encounter Visit Diagnoses Diagnosis Seizure disorder (H) - Primary Unspecified epilepsy without mention of intractable epilepsy documented in this encounter Care Teams Automatic Drilling Machine Operator Relationship Specialty Start Date End Date Chris Fontenot PCP - General 03/09/13 documented as of this encounter
--- OUTSIDE RECORDS SUMMARY | 2022-04-08 10:20 | XMS_ITS | Encounter Summary ---
:1975 Author Organization [place] Address [address] [place] [address] Care Team Providers Name Role Phone Chris Fontenot Primary Care Provider Encounter Details Date Type Department Care Team Description 07/16/2016 Telephone [facility] Rodolfo Erickson MD Physicians [facility] Neurology Clinic [address] [facility], [address] [place] [address] 65 Social History Tobacco Use Types Packs/Day Years Used Date Never Smoker Sex Assigned at Date Recorded Not on file documented as of this encounter Miscellaneous Notes Telephone Encounter - Rodolfo Erickson MD - 07/16/2016 2:18 PM CST Spoke to Emili. Patient has been having behavioral outbursts. Not lethargic. Checked labs. CMP is essentially normal. CBC with mild leukopenia (4100) - similar in past. Carbamazepine (9.6) and Valproicacid (103) levels OK. [place] MEDIA JOB TITLES documented in this encounter Plan of Treatment Not on filedocumented as of this encounter Visit Diagnoses Not on filedocumented in this encounter Care Teams Dry Cell Battery Assembler Relationship Specialty Start Date End Date Chris Fontenot PCP - General 03/09/13 documented as of this encounter
--- OUTSIDE RECORDS SUMMARY | 2022-04-08 10:21 | XMS_ITS | Encounter Summary ---
:1975 Author Organization [place] Address [address] [place] [address] Care Team Providers Name Role Phone Chris Fontenot Primary Care Provider Reason for Visit Reason Onset Date Comments Clinic Care Coordination - Follow-up 09/28/2013 Encounter Details Date Type Department Care Team Description 09/28/2013 Telephone [facility] Karly Tavares RN Clinic Care Coordination Physicians [facility] [phone] - Follow- up Neurology Clinic ([facility]) [address] [place] [address], [address] [place] [address] Social History Tobacco Use Types Packs/Day Years Used Date Never Assessed Sex Assigned at Date Recorded Not on file documented as of this encounter Miscellaneous Notes Telephone Encounter - Marietta Tavares RN - 09/28/2013 10:19 AM CST Emili, sister, called stating pt will be moving to a care center next month. She has received the seizure care plan/protocol but she is requesting an order for rescue medication for his file when he has a seizure. Order for diazepam 5mg/ml solution, place 1 ml between cheek and gum for any GTC >5 minutes or for 2 GTCs in 24 hours, faxed to Emili at [phone]. Marietta Tavares RN TAIN VENDING MECHANIC documented in this encounter Plan of Treatment Not on filedocumented as of this encounter Visit Diagnoses Not on filedocumented in this encounter Care Teams Animal Trainer Relationship Specialty Start Date End Date Chris Fontenot PCP - General 03/09/13 documented as of this encounter
--- OUTSIDE RECORDS SUMMARY | 2022-04-08 10:21 | XMS_ITS | Encounter Summary ---
:1975 Author Organization [place] Address [address] [place] [address] Care Team Providers Name Role Phone Chris Fontenot Primary Care Provider Reason for Visit Reason Onset Date Comments Refill Request 07/04/2013 carbatrol Encounter Details Date Type Department Care Team Description 07/04/2013 Refill [facility] Rodolfo Erickson, Refill Request Physicians [facility] ([facility]io [facility]ul) Neurology Clinic [address] [place] [address], [address] [place] [address] Social History Tobacco Use Types Packs/Day Years Used Date Never Assessed Sex Assigned at Date Recorded Not on file documented as of this encounter Plan of Treatment Not on filedocumented as of this encounter Visit Diagnoses Diagnosis 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
--- OUTSIDE RECORDS SUMMARY | 2022-04-08 10:21 | XMS_ITS | Encounter Summary ---
:1975 Author Organization [place] Address [address] [place] [address] Care Team Providers Name Role Phone Chris Fontenot Primary Care Provider Reason for Visit Reason Onset Date Comments Refill Request 05/03/2014 diazepam Encounter Details Date Type Department Care Team Description 05/03/2014 Refill [facility] Rodolfo Erickson, Refill Request Physicians [facility] (diazepam ) Neurology Clinic [address] [place] [phone] Social History Tobacco Use Types Packs/Day Years Used Date Never Assessed Sex Assigned at Date Recorded Not on file documented as of this encounter Miscellaneous Notes Telephone Encounter - Jay Arce LPN - 05/04/2014 11:58 AM CDT Nematology Teacher called this Rx refill in to appropriate pharmacy upon approval from Dr. Erickson. Jay Arce LPN documented in this encounter Plan of Treatment Not on filedocumented as of this encounter Visit Diagnoses Diagnosis Seizures (H) - Primary Other convulsions documented in this encounter Care Teams Internet Merchant Relationship Specialty Start Date End Date Chris Fontenot PCP - General 03/09/13 documented as of this encounter
--- OUTSIDE RECORDS SUMMARY | 2022-04-08 10:21 | XMS_ITS | Encounter Summary ---
:1975 Author Organization [place] Address [address] [place] [address] Care Team Providers Name Role Phone Chris Fontenot Primary Care Provider Reason for Visit Reason Onset Date Comments Refill Request 07/10/2014 Divalproex Encounter Details Date Type Department Care Team Description 07/10/2014 Refill [facility] 1st Floor, Clinic [address] [place] [phone] Social History Tobacco Use Types Packs/Day Years Used Date Never Assessed Sex Assigned at Date Recorded Not on file documented as of this encounter Miscellaneous Notes Telephone Encounter - Bob Sy RN - 07/10/2014 1:54 PM CST Last seen 10/26/13 ETING AUTOMATION MANAGER documented in this encounter Plan of Treatment Not on filedocumented as of this encounter Visit Diagnoses Diagnosis Unspecified epilepsy with intractable ep ilepsy documented in this encounter Care Teams Corporate Travel Coordinator Relationship Specialty Start Date End Date Chris Fontenot PCP - General 03/09/13 documented as of this encounter
--- OUTSIDE RECORDS SUMMARY | 2022-04-08 10:21 | XMS_ITS | Encounter Summary ---
:1975 Author Organization [place] Address [address] [place] [address] Care Team Providers Name Role Phone Chris Fontenot Primary Care Provider Reason for Visit Reason Onset Date Comments Refill Request 09/11/2013 divalproex Encounter Details Date Type Department Care Team Description 09/11/2013 Refill [facility] Rodolfo Erickson, Refill Request Physicians [facility] ([facility] ex[facility] [address] [place] [address], [address] [place] [address] Social History Tobacco Use Types Packs/Day Years Used Date Never Assessed Sex Assigned at Date Recorded Not on file documented as of this encounter Plan of Treatment Not on filedocumented as of this encounter Visit Diagnoses Diagnosis Unspecified epilepsy with intractable ep ilepsy - Primary Seizures (H) Other convulsions documented in this encounter Care Teams Repairer Welding Systems And Equipment Relationship Specialty Start Date End Date Chris Fontenot PCP - General 03/09/13 documented as of this encounter
--- OUTSIDE RECORDS SUMMARY | 2022-04-08 10:21 | XMS_ITS | Encounter Summary ---
:1975 Author Organization [place] Address [address] [place] [address]. [place] [address] Care Team Providers Name Role Phone Chris Fontenot Primary Care Provider Encounter Details Date Type Department Care Team Description 07/19/2013 Telephone [facility] Rodolfo Erickson MD [place] [phone] Social History Tobacco Use Types Packs/Day Years Used Date Never Assessed Sex Assigned at Date Recorded Not on file documented as of this encounter Miscellaneous Notes Telephone Encounter - Rodolfo Erickson MD - 07/19/2013 5:07 PM CST Spoke to Emili. Patient somewhat lethargic today. New Rx of carbamazepine since yesterday. She willobserve a day or so but if no better he will need anticonvulsant levels checked as well as CBC, CMP. LETTERER documented in this encounter Plan of Treatment Not on filedocumented as of this encounter Visit Diagnoses Not on filedocumented in this encounter Care Teams Manager Credit Risk Relationship Specialty Start Date End Date Chris Fontenot PCP - General 03/09/13 documented as of this encounter
--- OUTSIDE RECORDS SUMMARY | 2022-04-08 10:21 | XMS_ITS | Encounter Summary ---
:1975 Author Organization [place] Address [address] [place] [address] Care Team Providers Name Role Phone Chris Fontenot Primary Care Provider Encounter Details Date Type Department Care Team Description 08/10/2013 Telephone [facility] Janae Wienberg, [facility] [address] [place], [facility] [address] [place], [place] [phone] [place], [place] [phone] (Wo rk) Social History Tobacco Use Types Packs/Day Years Used Date Never Assessed Sex Assigned at Date Recorded Not on file documented as of this encounter Plan of Treatment Not on filedocumented as of this encounter Visit Diagnoses Diagnosis Unspecified epilepsy with intractable ep ilepsy - Primary documented in this encounter Care Teams Lap Cutter Truer Operator Relationship Specialty Start Date End Date Chris Fontenot PCP - General 03/09/13 documented as of this encounter
--- OUTSIDE RECORDS SUMMARY | 2022-04-08 10:21 | XMS_ITS | Encounter Summary ---
:1975 Author Organization [place] Address [address] [place] [address] Care Team Providers Name Role Phone Chris Fontenot Primary Care Provider Encounter Details Date Type Department Care Team Description 05/16/2013 Abstract [facility] Sis Chan, [address] [place] [address] [place], [place] [phone] [place], [place] [address] (Wo rk) Social History Tobacco Use Types Packs/Day Years Used Date Never Assessed Sex Assigned at Date Recorded Not on file documented as of this encounter Plan of Treatment Not on filedocumented as of this encounter Visit Diagnoses Not on filedocumented in this encounter Care Teams Furnace Converter Relationship Specialty Start Date End Date Chris Fontenot PCP - General 03/09/13 documented as of this encounter
--- OUTSIDE RECORDS SUMMARY | 2022-04-08 10:21 | XMS_ITS | Encounter Summary ---
:1975 Author Organization [place] Address [address] [place] [address] Care Team Providers Name Role Phone Unavailable Primary Care Provider Unavailable Reason for Visit Reason Onset Date Comments Refill Request 12/14/2012 Encounter Details Date Type Department Care Team Description 12/14/2012 Refill [facility] Janae Weinberg, [facility] Refill Request [address], [facility] [address] [facility] [address] [place], [place] [phone] [place], [place] [address] (Wo rk) Social History Tobacco Use Types Packs/Day Years Used Date Never Assessed Sex Assigned at Date Recorded Not on file documented as of this encounter Plan of Treatment Not on filedocumented as of this encounter Visit Diagnoses Diagnosis Unspecified epilepsy without mention of intractable epilepsy - Primary documented in this encounter
--- OUTSIDE RECORDS SUMMARY | 2022-04-08 10:21 | XMS_ITS | Encounter Summary ---
:1975 Author Organization [place] Address [address] [place] [address]. [place] [address] Care Team Providers Name Role Phone Unavailable Primary Care Provider Unavailable Reason for Visit Reason Onset Date Comments Results 12/15/2012 Encounter Details Date Type Department Care Team Description 12/15/2012 Telephone [facility] Sis Chan, Results [address] MD [address] [place], [place] [address] [place] [address] [phone] (Wo rk) Social History Tobacco Use Types Packs/Day Years Used Date Never Assessed Sex Assigned at Date Recorded Not on file documented as of this encounter Miscellaneous Notes Telephone Encounter - Oriana Hameed RN - 12/19/2012 2:53 PM CDT No return call received from caller. Oriana Hameed RN Telephone Encounter - Oriana Hameed RN - 12/15/2012 10:22 AM CDT Attempted to reach caller. Left message to return call. Telephone Encounter - Oriana Hameed RN - 12/15/2012 7:48 AM CDT Message left on nurse follow up line on 12/14/12 at 4:39pm: Would like results of levels. documented in this encounter Plan of Treatment Not on filedocumented as of this encounter Visit Diagnoses Not on filedocumented in this encounter
--- OUTSIDE RECORDS SUMMARY | 2022-04-08 10:21 | XMS_ITS | Encounter Summary ---
:1975 Author Organization [place] Address [address] [place] [address]. [place] [address] Care Team Providers Name Role Phone Chris Fontenot Primary Care Provider Encounter Details Date Type Department Care Team Description 04/27/2013 Office Visit [facility] Rodolfo Ford Generali zed convulsive Neurology Outreach epilepsy with [address] [facility] intractable epilepsy [place], [place] (H) (Primary Dx) [phone] Social History Tobacco Use Types Packs/Day Years Used Date Never Assessed Sex Assigned at Date Recorded Not on file documented as of this encounter Progress Notes Rodolfo Ford MD - 04/27/2013 4:12 PM CDT April 27, 2013 Chris Fontenot MD [address] [address] RE: PAMELLA ANDERSON : 1975 Dear Wiley: I saw Pamella Anderson back. He is accompanied by his sister Sidra, I also spoke to his sister, Emili, over the phone. He is transferring his care back to tx. [facility]. Some adjustments in his medications were made. He was taken off Keppra as it was not controlling his seizures and placed back on Depakote. He continues on extended release carbamazepine (Carbatrol) and the dose is unchanged. Emili tells me he still has a couple seizures a year. His last seizure was on 11/26 and at that point his Depakote dose was increased. He has not had any seizures since that time. [facility]2012. Mention was made of blood work being done, but I cannot find any record of that. His last Depakote level was 68.4 but that was on 11/14 before the dosageadjustment was made. His current medications are Carbatrol (extended release carbamazepine) 300 mg 1 in the morning and 2at night (900 mg a day), Depakote ER 500 mg 3 in the morning and 3 at night plus an additional 250 mg Depakote at night for a total dose of 3250 a day. Other medications are atenolol, lisinopril and vitamin D. In addition, he has a rescue medication ordered that I refilled today. This is Diazepam Intensol 5 mg/mL solution. One mL (5 mg) is put between the cheek and gum for any generalized tonic-clonic seizure lasting more than 5 minutes or for 2 generalized tonic-clonic seizures in 24 hours. An additional prescriptions was provided so they will have it at hand at his work shop ([employer]). Pamella pretty much looks the same as he has always looked. He is alert. He, at times, got a bit frustrated with his sister, but was cooperative with me. He has ocular motility deficit. He moves his armswell. He has bilateral lower extremity weakness and is in a wheelchair. IMPRESSION: Chronic seizure disorder. PLAN: I am not making any changes in his medications today. I am going to be checking a baseline CBC, liver profile, carbamazepine level and valproic acid level. I will communicate the results of those to Emili when available. I have asked that he follow up with me in 6 months. Sincerely, Rodolfo Ford MD ADDENDUM: CBC and LFTs OK. Carbamazepine level 11.9. Valproic acid level 123.5. Will not reduce dose. Discussed with Emili on 05/01/13. 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
--- OUTSIDE RECORDS SUMMARY | 2022-04-08 10:21 | XMS_ITS | Encounter Summary ---
:1975 Author Organization [place] Address [address] [place] [address] Care Team Providers Name Role Phone Chris Fontenot Primary Care Provider Encounter Details Date Type Department Care Team Description 10/25/[address] [facility] Rodolfo Erickson, Mica alized convulsive Neurology [facility] epile psy with [place] intractable epilepsy [id number] [place] [address] N (H) (Primary Dx) [place] [address] Social History Tobacco Use Types Packs/Day Years Used Date Never Assessed Sex Assigned at Date Recorded Not on file documented as of this encounter Miscellaneous Notes Addendum Note - Sarah Russell - 10/25/2013 5:57 PM CDT Addended by: SARAH RUSSELL on: 10/25/2013 05:57 PM Modules accepted: Orders documented in this encounter Plan of Treatment Not on filedocumented as of this encounter Visit Diagnoses Diagnosis 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
--- OUTSIDE RECORDS SUMMARY | 2022-04-08 10:21 | XMS_ITS | Encounter Summary ---
:1975 Author Organization [place] Address [address] [place] [address] Care Team Providers Name Role Phone Chris Fontenot Primary Care Provider Reason for Visit Reason Onset Date Comments Refill Request 10/30/2013 jud Encounter Details Date Type Department Care Team Description 10/30/2013 Refill [facility] Rodolfo Erickson, Refill Request Physicians [facility] (jud [facility] [address] [place] [address], [address] [place] [address] Social History Tobacco Use Types Packs/Day Years Used Date Never Assessed Sex Assigned at Date Recorded Not on file documented as of this encounter Plan of Treatment Not on filedocumented as of this encounter Visit Diagnoses Diagnosis Unspecified epilepsy with intractable ep ilepsy - Primary documented in this encounter Care Teams Adult Basic Education Instructor Relationship Specialty Start Date End Date Chris Fontenot PCP - General 03/09/13 documented as of this encounter
--- OUTSIDE RECORDS SUMMARY | 2022-04-08 10:21 | XMS_ITS | Encounter Summary ---
:1975 Author Organization [place] Address [address] [place] [address] Care Team Providers Name Role Phone Chris Fontenot Primary Care Provider Reason for Visit Reason Onset Date Comments Refill Request 04/09/2014 carbamazepine Encounter Details Date Type Department Care Team Description 04/09/2014 Refill [facility] Rodolfo Erickson, Refill Request Physicians [facility] ([facility] Neurology Clinic [address] [place] [address], [address] [place] [address] Social History Tobacco Use Types Packs/Day Years Used Date Never Assessed Sex Assigned at Date Recorded Not on file documented as of this encounter Plan of Treatment Not on filedocumented as of this encounter Visit Diagnoses Diagnosis 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
--- OUTSIDE RECORDS SUMMARY | 2022-04-08 10:21 | XMS_ITS | Encounter Summary ---
:1975 Author Organization [place] Address [address] [place] [address] Care Team Providers Name Role Phone Chris Fontenot Primary Care Provider Encounter Details Date Type Department Care Team Description 10/26/[address] 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
--- OUTSIDE RECORDS SUMMARY | 2022-04-08 10:21 | XMS_ITS | Encounter Summary ---
:1975 Author Organization [place] Address [address] [place] [address] Care Team Providers Name Role Phone Chris Fontenot Primary Care Provider Encounter Details Date Type Department Care Team Description 09/12/2013 Orders Only [facility] Rodolfo Erickson, Unspecified epilepsy [facility] with intractable [place], [place] epilepsy (Pr imary Dx) [phone] Social History Tobacco Use Types Packs/Day Years Used Date Never Assessed Sex Assigned at Date Recorded Not on file documented as of this encounter Plan of Treatment Not on filedocumented as of this encounter Visit Diagnoses Diagnosis Unspecified epilepsy with intractable ep ilepsy - Primary documented in this encounter Care Teams Manager Product Support Relationship Specialty Start Date End Date Chris Fontenot PCP - General 03/09/13 documented as of this encounter
--- OUTSIDE RECORDS SUMMARY | 2022-04-08 10:21 | XMS_ITS | Encounter Summary ---
:1975 Author Organization [place] Address [address] [place] [address] Care Team Providers Name Role Phone Chris Fontenot Primary Care Provider Reason for Visit Reason Onset Date Comments Refill Request 08/10/2013 divalproex Encounter Details Date Type Department Care Team Description 08/10/2013 Refill [facility] Rodolfo Erickson, Refill Request Physicians [facility] (divalpro ex[facility] [address] [place] [address], [address] [place] [address] Social History Tobacco Use Types Packs/Day Years Used Date Never Assessed Sex Assigned at Date Recorded Not on file documented as of this encounter Plan of Treatment Not on filedocumented as of this encounter Visit Diagnoses Diagnosis Seizures (H) - Primary Other convulsions documented in this encounter Care Teams Professional Model Relationship Specialty Start Date End Date Chris Fontenot PCP - General 03/09/13 documented as of this encounter
--- OUTSIDE RECORDS SUMMARY | 2022-04-08 10:21 | XMS_ITS | Encounter Summary ---
:1975 Author Organization [place] Address [address] [place] [address] Care Team Providers Name Role Phone Chris Fontenot Primary Care Provider Encounter Details Date Type Department Care Team Description 07/28/2013 Telephone [facility] Rodolfo Erickson MD Physicians [facility] [address] [facility], [address] [place] [address] 65 Social History Tobacco Use Types Packs/Day Years Used Date Never Assessed Sex Assigned at Date Recorded Not on file documented as of this encounter Miscellaneous Notes Telephone Encounter - Rodolfo Erickson MD - 07/28/2013 1:05 PM CST Spoke to Emili. Stefan had another episode of weakness, pallor and dizzy. When BP checked was OK. Notlike his typical sz. Sounds more like hypotension. She took Andres to clinic and had blood work done. Asked Emili to get results sent to me. RUMENT MAINTENANCE SUPERVISOR documented in this encounter Plan of Treatment Not on filedocumented as of this encounter Visit Diagnoses Not on filedocumented in this encounter Care Teams Balance Recesser Relationship Specialty Start Date End Date Chris Fontenot PCP - General 03/09/13 documented as of this encounter
--- OUTSIDE RECORDS SUMMARY | 2022-04-08 10:21 | XMS_ITS | Encounter Summary ---
:1975 Author Organization [place] Address [address] [place] [address] Care Team Providers Name Role Phone Chris Fontenot Primary Care Provider Encounter Details Date Type Department Care Team Description 10/27/2013 Orders Only [facility] Rodolfo Erickson, Gener alized convulsive Neurology Clinic [facility] epile psy with [place] intractable epilepsy [address] [place] [address] N (H) [place] [address] Social History Tobacco Use Types Packs/Day Years Used Date Never Assessed Sex Assigned at Date Recorded Not on file documented as of this encounter Plan of Treatment Not on filedocumented as of this encounter Visit Diagnoses Diagnosis 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
--- OUTSIDE RECORDS SUMMARY | 2022-04-08 10:21 | XMS_ITS | Encounter Summary ---
:1975 Author Organization [place] Address [address] [place] [address]. [place] [address] Care Team Providers Name Role Phone Chris Fontenot Primary Care Provider Encounter Details Date Type Department Care Team Description 10/26/2013 Office Visit [facility] Rodolfo Erickson Generali zed convulsive Neurology Outreach epilepsy with [address] [facility] intractable epilepsy [place], [place] (H) (Primary Dx) [phone] Social History Tobacco Use Types Packs/Day Years Used Date Never Assessed Sex Assigned at Date Recorded Not on file documented as of this encounter Progress Notes Rodolfo Erickson MD - 10/26/2013 3:47 PM CDT October 26, 2013 Chris Fontenot MD [facility] [address] [place] [address] RE: Pamella Anderson : [address] Fontenot: I saw Pamella Anderson back. He is accompanied by his sister and guardian, Emili. He is also accompaniedtoday by Ming from the [employer]. Several things have happened since I last saw him. In 07/2013 he was hospitalized with dehydration. He probably also had an infectious illness at that time. He was lethargic and had an elevated white count. He was treated with antibiotics. Emili tells me his ammonia level was 39. He recovered from that. In August he also developed a fever related to aspiration pneumonia. He choked on a potato chip. He has recovered from both of these incidents. He is now residing in the [facility] and this seems very comfortable in his new living situation. There has been no reported seizures. He continues on a combination of carbamazepine and valproic acid. Laboratory work done yesterday included a normal CBC and platelet count. A comprehensive metabolic profile was essentially normal. He had a marginally elevated AST of 44 (2-40). Other liver functions were normal. Valproic acid level was 98.7. Carbamazepine level 7.9. CURRENT MEDICATIONS: 1. Depakote ER 1500 mg twice a day plus an additional 250 mg at night. 2. Carbamazepine (Carbatrol) 300 mg in the morning and 600 mg at night. 3. Atenolol. 4. Prinivil. 5. Vitamin D. Emili is concern that his memory is not as sharp as it once was. She has noted this over the last couple of months. Examination today reveals he is alert and cooperative. Heart rate 88. Blood pressure 140/80. [facility]. He remembered my name. He recalled 3/3 objects after some distraction. He is aware of his current living situation. His neurologic examination otherwise appears stable. He has an ocular motility deficit. He moves hisupper extremities well. He does have some athetosis. There is no tremor or asterixis appreciated. Hehas bilateral lower extremity weakness which is chronic. IMPRESSION 1. Stable seizure disorder. PLAN: No change in his anticonvulsants will be made. At this juncture I would recommend just to continue to monitor the memory issues Emili was concerned about and she was comfortable with this. I would like to see Pamella back at least once a year. I did advise them that I will no longer becoming to [place], but at this juncture Emili is comfortable having Pamella come to [place] for followup visits. Emili knows she can contact me if he has any concerns prior to his followup. 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
--- OUTSIDE RECORDS SUMMARY | 2022-04-08 10:21 | XMS_ITS | Encounter Summary ---
:1975 Author Organization [facility] Address [address] [place] [address]. [place] [address] Care Team Providers Name Role Phone Chris Fontenot Primary Care Provider Encounter Details Date Type Department Care Team Description 08/07/2013 Telephone Neurology Clinic Rodolfo Erickson MD [facility] 1st Floor, Clinic [address] [place] [address] [phone] Social History Tobacco Use Types Packs/Day Years Used Date Never Assessed Sex Assigned at Date Recorded Not on file documented as of this encounter Miscellaneous Notes Telephone Encounter - Rodolfo Erickson MD - 08/07/2013 12:32 PM CST Spoke to Noreen. Campos now in [facility]. Spoke to Dr Simmons who is caring for him. Initialconcern is sepsis but not clear. Intermittant N/V hypothermia and confusion. He is dehydrated. Getting fluids Carbamazepine level 15 (was 10 on 07/27) To be recheked. Valproic acid level pending. Ammonia to be done. Ultimately he may need to be reseen by Dr Kim regarding anticonvulsant regimen. TH TEACHER documented in this encounter Plan of Treatment Not on filedocumented as of this encounter Visit Diagnoses Not on filedocumented in this encounter Care Teams Ferry Engineer Relationship Specialty Start Date End Date Chris Fontenot PCP - General 03/09/13 documented as of this encounter
== END 2022-04-08 10:04 | disposition home or self-care (01) ==
LOC: RAD 10:15
PROVIDERS: PCP Family Medicine; Visit Provider Family Medicine
DX: R13.10 Dysphagia, unspecified (principal)
CPT/HCPCS: 74230; 92611

== ENCOUNTER 2024-09-10 18:55 | Emergency (ER) | payer MEDICARE, MEDICAID, SELFPAY ==
--- OUTSIDE RECORDS SUMMARY | 2024-09-10 18:57 | XMS_ITS ---
Author Organization [facility] Address [address] [place] [address] Care Team Providers Care Manufacture Specialist Name Role Phone Unavailable Unavailable Unavailable Surgery Details Not on file Complications Check Surgery Details section. Procedure Estimated Blood Loss Check Surgery Details section. Procedure Findings Check Surgery Details section. Procedure Specimens Taken Check Surgery Details section.
--- OUTSIDE RECORDS SUMMARY | 2024-09-10 18:57 | XMS_ITS | Clinical Summary ---
Author Organization [facility] Address [address] [place] [address] Care Team Providers Care Ex Chef Name Role Phone Elsewhere, Pcp Primary Care Provider Unavailabl e Source Comments Patient records contain information from all sites at [facility]. For routine questions regarding patient records, call [phone] during business hours, M-F 8:00 AM - 5:00 PM Central Time. Record requests for emergency care only can be directed to [phone] at any time.[facility] Allergies Active Allergy Reactions Criticality Noted Date Comments Gabapentin Other (see comments) 03/20/2021 Tolterodine Rash Low 05/22/2014 Medications * This document contains information received from the source organization and may not represent a complete record from that organization. atenoloL (TENORMIN) 25 mg tablet Take 25 mg by mouth daily. Active lisinopriL (PRINIVIL,ZESTRI L) 20 mg tablet Take 1 tablet by mouth daily. Active multivitamin with folic acid (ONE DAILY ESSENTIAL) 400 mcg tablet Take 1 tablet by mouth daily. Active cholecalciferol, vitamin D3, (VITAMIN D3 ORAL) Take 5,000 Units by mouth daily. Active tiZANidine (ZANAFLEX) 2 mg tablet Take 0.5-1 tablets by mouth as needed. Active triamcinolone (KENALOG) 0.1 % ointment Apply topically to affected area(s) 2 times daily. As needed. Active sodium phosphate,mono-d ibasic (FLEET ENEMA RECTAL) Insert into the rectum as needed. Active bisacodyL (DULCOLAX) 10 mg suppository Insert into the rectum as needed. Active docosanoL (ABREVA) 10 % cream Apply topically as needed. Active ibuprofen (ADVIL,MOTRIN) 200 mg tablet Take 400 mg by mouth as needed. Active nystatin (MYCOSTATIN) 100,000 unit/gram cream Apply topically as needed. Active acetaminophen (TYLENOL) 500 mg tablet Take 500 mg by mouth every 6 (six) hours as needed for pain. Active clotrimazole (LOTRIMIN) 1 % cream Apply 1 application topically 2 (two) times a day. Active bismuth subsalicylate (PEPTO BISMOL) 262 mg/15 mL suspension as needed. Active baclofen (LIORESAL) 5 mg tablet tablet 3 (three) times a day. Active metoprolol tartrate (LOPRESSOR) 25 mg tablet Take 25 mg by mouth 2 (two) times a day. 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 Take 4 pills twice a day. 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 Then, increase by 0.5 pill every two weeks, until 2 pills twice a day, and continue. 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 Then, increase by 0.5 pill every two weeks, until three pills twice a day, and continue.. 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 Then, increase by 0.5 pill every two weeks, until three pills twice a day, and continue.. 540 tablet 3 024 2023 Discontinued Active Problems Problem Noted Date Diagnosed Date Quadriplegia 09/30/2021 Neurogenic Bladder 09/16/2021 Assessment & Plan (11/18/2021 7:27 AM CDT): Optimal management of neurogenic bladder is essential to reducing frequency of UTI. Patient should be on scheduled voiding, and intermittent catheterization as prescribed by Urology to maximize bladder emptying and reduce risk of UTI. Urinary Tract Infection (UTI)/Bacteriuria NOS Overview (09/14/2022): Diagnosis Maintenance Updates Assessment & Plan (11/18/2021 7:30 AM CDT): Patient appears to have different organisms with [...] 10/26/2018 Epilepsy Seizure Not Intractable Without Status Epilepticus 10/26/2018 Assessment & Plan (11/18/2021 7:32 AM CDT): We do a to be careful about [...] serious option. 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 Severe DD with quadriparesis. Severe agitation makes procedures challenging. VPA has helped but levels above 100 needed. Carbamazepine less helpful. Previous treatment with phenobarbital, phenytoin and carbamazepine with levetiracetam was less successful. Seizure free between 11/2012-07/2015 while on Carbatrol and Depakote. He had a seizure in 07/2015, another seizure in 11/2016 and a third seizure on 12/25/2016 and came to our attention. Hypertension Essential Primary 09/27/2007 Encounters Date Type Department Care Team Description 09/01/2024 Clinical Communication Department of Neurology in [place], [place] [address] [place] [address] Matteo Noe M.D. 08/14/2024 10:00 AM CERTIFIED APPLIANCE SERVICE TECHNICIAN Office Visit Department of Neurology in [place], [place] [address] [place] [address] Matteo Noe M.D. 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) Discharge Disposition: Home or Self Care from Last 3 Months Immunizations Immunization Administration Dates Next Due H1N1 All Forms 06/20/2009 HepB Adult 04/10/2016, 6,10/15/2015,2015 Influenza TIV (IM) 05/22/2015, 1,04/23/2010,2008,05/16/2007,05/31/2004 Influenza, Injectable, Mdck, Preservative Free, Quadrivalent 06/27/2021,06/06/2018 Influenza, Injectable, Mdck, Quadrivalent 06/06/2018 Influenza, Injectable, Quadrivalent 05/29/2020,1 ,05/22/2015 Influenza, Seasonal, Injectable 05/26/20 12,04/15/2011,05/14/2009,2003 Influenza, Unspecified 06/27/2021,2019,06/21/2019,2017,06/06/2018,05/18/2017,06/10/2016,1 ,05/16/2014,05/16/2013, 012,04/15/2011,04/23/2010,04/23/2010,,05/31/2004 PPSV23 04/23/2010 SARS-COV-2 (COVID-19) - MODERNA(Discontinued) 10/09/2020 Tdap 06/06/2020,04/23/2010 influenza trivalent vaccine (6 months and older)(PF) 04/23/2010 influenza vaccine quad (FLUZONE/FLUARIX) (6 months and older)(PF) 06/16/2022,06/21/2019 Social History Tobacco Use Types Packs/Day Years Used Date Smoking Tobacco: Never Smokeless Tobacco: Never [employer] Utilities Answer Date Recorded In the past 12 months has e [employer], gas, oil, or water [employer] threatened to shut off services in your home? No 10/18/2023 Humiliation, Afraid, Rape, and Kick questionnair e Answer Date Recorded Within the last year, have y ou been afraid of your partner or ex-partner? No 02/01/2022 Within the last year, have y ou been humiliated or emotionally abused in other ways by your partner or ex-partner? No Within the last year, have y ou been kicked, hit, slapped, or otherwise physically hurt by your partner or ex-partner? No 02/01/2022 Within the last year, have y ou been raped or forced to have any kind of sexual activity by your partner or ex-partner? No 02/01/2022 Social Connection and Isolat ion Panel [NHANES] Answer Date Recorded In a typical week, how many times do you talk on the phone with family, friends, or neighbors? More than three times a week 02/01/2022 How often do you get togethe r with friends or relatives? More than three times a week 02/01/2022 How often do you attend chur ch or adventist services? 1 to 4 times per year 02/01/2022 Do you belong to any clubs o r organizations such as tenriism groups, unions, fraternal or athletic groups, or school groups? No 02/01/2022 How often do you attend meet ings of the clubs or organizations you belong to? Never 02/01/2022 Are you , , di vorced, , never , or living with a partner? Never 02/01/2022 AUDIT-C Answer Date Recorded Q1: How often do you have a drink containing alc ohol? Never 02/01/2022 Average Number of Drinks Not on file 022 Frequency of Binge Drinking Not on file 01/14 Overall Financial Resource Strain (CARDIA) Answe r Date Recorded How hard is it for you to pa y for the very basics like food, housing, medical care, and heating? Not hard at all 02/01/2022 [facility] - Occupational Stress Questionnaire Answer Date Recorded Do you feel stress - tense, restless, nervous, or anxious, or unable to sleep at night because your mind is troubled all the time - these days? Rather much 02/01/2022 Exercise Vital Sign Answer Date Recorde d On average, how many days pe r week do you engage in moderate to strenuous exercise (like a brisk walk)? 0 days 10/18/2023 On average, how many minutes do you engage in exercise at this level? 0 min 10/18/2023 Hunger Vital Sign Answer Date Recorded Within the past 12 months, y ou worried that your food would run out before you got the money to buy more. Never true 10/18/19 24 Within the past 12 months, t he food you bought just didn't last and you didn't have money to get more. Never true 10/18/2023 PRAPARE - Transportation Answer Date Re corded In the past 12 months, has l ack of transportation kept you from medical appointments or from getting medications? No 11/2023 In the past 12 months, has l ack of transportation kept you from meetings, work, or from getting things needed for daily living? No 10/18/2023 Nutrition Answer Date Recorded Nutrition: EVOO Fat Source No 10/17 On average, how many serving s of fruits and vegetables do you eat per day (serving size is equal to 1 cup or approximately the size of a tennis ball)? 0-2 10/18/2023 Dental Answer Date Recorded Dental: Regular Dentist Yes 02/02/20 Employment Answer Date Recorded Employment status Permanently disabled Housing Stability Answer Date Recorded What is your living situation today? I have a [facility] place to live 10/18/2023 Sex and Gender Information Value Date Recorded Sex Assigned at Male 02/01/2022 6:47 PM CDT Legal Sex Male 9:23 AM CERTIFIED APPLIANCE SERVICE TECHNICIAN Gender Identity Male 02/01/2022 6:47 PM CDT Sexual Orientation Straight 02/01/2022 6: 47 PM CDT Last Filed Vital Signs Vital Sign Reading Time Taken Comments Blood Pressure - - Pulse - - Temperature 36.2 C (97.2 F) 11/17/2021 2:36 PM CDT Respiratory Rate - - Oxygen Saturation - - Inhaled Oxygen Concentration - - Weight 59 kg (130 lb) 08/14/2024 9:53 AM CERTIFIED APPLIANCE SERVICE TECHNICIAN Iftikhar bal Height 157.5 cm (5' 2) 08/14/2024 9:53 AM CERTIFIED APPLIANCE SERVICE TECHNICIAN V erbal Body Mass Index 23.78 08/14/2024 9:53 AM CERTIFIED APPLIANCE SERVICE TECHNICIAN Plan of Treatment Upcoming Encounters Date Type Department Care Team (Latest Contact Info) Description 09/13/2024 10:30 AM CERTIFIED APPLIANCE SERVICE TECHNICIAN Diagnostic Division of Pulmonary Medicine in [place], [place] [address] [place] [phone] Matteo Noe M.D. [address] [place] [phone] 11/07/2024 9:30 AM CDT Appointment Department of Laboratory Medicine in [place], [place] [address] [place] [address] Matteo Noe M.D. [address] [place] [phone] 11/24/2024 11:00 AM CDT Clinical Communication Virtual Review in [place], [place] [address] [place] [address] 11/28/2024 11:00 AM CDT Office Visit Department of Neurology in [place], [place] [address] [place] [phone] Matteo Noe M.D. [address] [place] [phone] Health Maintenance Due Date Last Done Comments CT Colonography 1974 Cologuard 1975 Colonoscopy 1975 Colorectal Cancer Screening 1975 FIT 1975 HIV Screening 1975 Hepatitis C Screening 1975 Office Visit for Blood Pressure Check / Re-check 1974 Depression Screening (Annual PHQ-2) 08/16/2024 Creatinine Level (Kidney Function Test) 03/11/2025 03/11/2024, 03/10/2024, 03/09/2024, Additional history exists Sodium Level 03/11/2025 03/11/2024, 02/14, 03/09/2024, Additional history exists Potassium Level 03/12/2025 03/12/2024, 02/14, 03/10/2024, Additional history exists Fasting Glucose for Diabetes Screening 03/07/2027 03/07/2024, 08/04/2023, 07/27/2022, Additional history exists Lipid (Cholesterol) Screening 08/04/2028 08/04/2023, 07/27/2022, 03/15/2020, Additional history exists DTaP,Tdap,and Td Vaccines (3 - Td or Tdap) 06/06/2030 06/06/2020, 04/23/2010 Hepatitis B Vaccines Completed 04/10/2016, 11/18/2015, 10/15/2015, Additional history exists Pneumococcal vaccine (0-49 years) Aged Out 04/13/2024, 04/23/2010 No longer eligibl e based on patient's age to complete this topic COVID-19 Vaccine Completed 06/26/2024, , 07/27/2022, Additional history exists Influenza Vaccine Completed 07/02/2024, , 06/16/2022, Additional history exists IPV Vaccines Aged Out No longer eligi ble based on patient's age to complete this topic Procedures Procedure Name Priority Date/Time Associated Diagnosis Comments LACOSAMIDE, S Routine 08/11/2024 8:11 AM CERTIFIED APPLIANCE SERVICE TECHNICIAN 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 in a manner consistent with CLIA requirements. This test has not been cleared or approved by the U.S. Food and Drug Administration. Blood (Blood, Venous) 08/11/2024 8:11 AM CERTIFIED APPLIANCE SERVICE TECHNICIAN 08/12/2024 2:17 PM CERTIFIED APPLIANCE SERVICE TECHNICIAN us Matteo Noe M.D. LAB BLOOD NON ADD-ON Final Resul t [facility] [place] [address] [place] [phone] [facility] [address] [place] [address] [place] [id number] from Last 3 Months Insurance MEDICARE [place] MEDICAID Care Teams Ex Chef Relationship Specialty Start Date End Date Elsewhere, Pcp PCP - General Internal Medicine 11/14/21
--- OUTSIDE RECORDS SUMMARY | 2024-09-10 18:57 | XMS_ITS | Continuity of Care Document ---
Author Organization [facility] Address [address] [address] [place] [address] Phone Care Team Providers Care Rn Pediatric Name Role Phone Arnav Larson MD Unavailable Unavailabl e Medications Medication Instructions Dosage Effective Dates (start - stop) Status Comments simethicone 80 mg chewable tablet take by oral route as directed per COL prep instructions received from [facility] - Active Procedure rk e: 01/07/24 please keep on file Dulcolax (bisacodyl) 5 mg tablet,delayed release take 2 tablet by oral route as directed in colonoscopy l prep instructions - Active Procedure date: 01/07/24 please keep on file magnesium citrate oral solution Drink a 10 ounce bottle (NO RED) per colonoscopy prep instructions - Active Procedure date: 01/07/24 please dispense 1-10oz bottle Miralax 17 gram/dose oral powder take by oral route as directed per COL prep instructions received from [facility] - Active Procedure rk e: 01/07/24 please dispense TWO -8.3ml bottles Advance Directives Directive Yes / No Effective Date File Name Other Directive Guardianship N/A N/A WARNING:The information contained in this section is historical and is provided for information only and does not constitute a legal document or any assurance that the information is still accurate. Please verify the information with the tran of the legal document before using it for clinical purposes. Encounters Encounter Description Practice Location Reason(s) For Visit Diagnoses Date Provider Providers Copied on Encounter [facility], [address] [address], [place], [place], [id number], tel:[phone] [facility] No Information Kyle José. [address] [facility], [address], [place], [place], [id number], [place]. tel:[phone] [facility], [address] [address], [place], [place], [id number], [place] tel:[phone] [facility] No Information Kyle José. [address] [facility], [facility] [address], [place], [place], [id number], [place]. tel:[phone] [facility], [address] [address], [place], [place], [id number], tel:[phone] [facility] No Information Kyle José. [address] [facility], [facility] [address], [place], [place], [id number], [place]. tel:[phone] Family History Family Member Type Diagnosis Age At Onset No Information Immunizations Vaccine Date Status Comments SARS-COV-2 (COVID-19) vaccin e, mRNA, spike protein, LNP, preservative free, 50 mcg/0.5 mL dose administered Note: [facility] bi-direct ional interface ; Source: Other Registry Afluria Qd administered Note: M [facility] bi-directional interface ; Source: Other Registry SARS-COV-2 (COVID-19) vaccin e, mRNA, spike protein, LNP, bivalent, preservative free, 30 mcg/0.3 mL dose, ysabel-sucrose formulation administered Note: [facility] bi-direct ional interface ; Source: Other Registry Afluria Qd administered Note: M [facility] bi-directional interface ; Source: Other Registry SARS-COV-2 (COVID-19) vaccin e, mRNA, spike protein, LNP, preservative free, 30 mcg/0.3mL dose administered Note: [facility] bi-direct ional interface ; Source: Other Registry Influenza, Madin [place] Canin e Kidney, subunit, quadrivalent, injectable, preservative free administered Note: [facility] bi-directional interface ; Source: Other Registry Influenza, injectable, Madin [place] Canine Kidney, preservative free, quadrivalent administered Note: [place] IC bi- directional interface ; Source: Other Registry SARS-COV-2 (COVID-19) vaccin e, mRNA, spike protein, LNP, preservative free, 100 mcg/0.5mL dose or 50 mcg/0.25mL dose administered Note: [facility] bi -directional interface ; Source: Other Registry SARS-COV-2 (COVID-19) vaccin e, mRNA, spike protein, LNP, preservative free, 100 mcg/0.5mL dose or 50 mcg/0.25mL dose administered Note: [facility] bi -directional interface ; Source: Other Registry tetanus toxoid, reduced diphtheria toxoid, and acellular pertussis vaccine, adsorbed administered Note: [facility] b i-directional interface ; Source: Other Registry Influenza administered Note: [facility] bi-d irectional interface ; Source: Other Registry Afluria Qd administered Note: M [facility] bi-directional interface ; Source: Other Registry Influenza administered Note: [facility] bi-d irectional interface ; Source: Other Registry influenza virus vaccine, unspecified formulation administered Note: [facility] bi-di rectional interface ; Source: Other Registry Engerix-B administered Note: [facility] bi-d irectional interface ; Source: Other Registry Engerix-B administered Note: [facility] bi-d irectional interface ; Source: Other Registry Engerix-B administered Note: [facility] bi-d irectional interface ; Source: Other Registry Engerix-B administered Note: [facility] bi-d irectional interface ; Source: Other Registry Influenza administered Note: [facility] bi-d irectional interface ; Source: Other Registry influenza virus vaccine, unspecified formulation administered Note: [facility] bi-di rectional interface ; Source: Other Registry influenza virus vaccine, unspecified formulation administered Note: [facility] bi-di rectional interface ; Source: Other Registry Influenza, split virus, trivalent, injectable, contains preservative administered Note: [facility] bi-direct ional interface ; Source: Other Registry Influenza, seasonal, injectable administe red Note: [facility] bi- directional interface ; Source: Other Registry Influenza, split virus, trivalent, injectable, contains preservative administered Note: [facility] bi-direct ional interface ; Source: Other Registry Influenza, seasonal, injectable administe red Note: [facility] bi- directional interface ; Source: Other Registry Influenza, split virus, trivalent, injectable, preservative free administered Note: [facility] bi-direct ional interface ; Source: Other Registry tetanus toxoid, reduced diphtheria toxoid, and acellular pertussis vaccine, adsorbed administered Note: [facility] b i-directional interface ; Source: Other Registry Pneumovax 23 administered Note: [facility] bi-d irectional interface ; Source: Other Registry Influenza, seasonal, injecta ble, preservative free administered Note: [facility] bi-direct ional interface ; Source: Other Registry Novel [id number], all formulations administered Note: [facility] bi-direct ional interface ; Source: Other Registry Influenza, split virus, trivalent, injectable, contains preservative administered Note: [facility] bi-direct ional interface ; Source: Other Registry Influenza, seasonal, injectable administe red Note: [facility] bi- directional interface ; Source: Other Registry Influenza, split virus, trivalent, injectable, contains preservative administered Note: [facility] bi-direct ional interface ; Source: Other Registry Influenza, seasonal, injectable administe red Note: [facility] bi- directional interface ; Source: Other Registry Payers Payer name Insurance type Covered alliance party ID Authoriza tion(s) No Information Social History Type Description Quantity Date Captured Comments Sex Male Smoking Status No Information Chief Complaint And Reason For Visit No Information Reason For Referral Reason For Referral No Information History Of Present Illness Encounter Date Complaint History Of Prese nt Illness No Information Functional Status Date Functional Assessmen t No Information Instructions Date Instruction Additional Infor mation No Information Assessments Type Assessment Date No Information Patient Care Teams Name Effective Dates (start - stop) Status Members No Information
--- OUTSIDE RECORDS SUMMARY | 2024-09-10 18:58 | XMS_ITS | Encounter Summary ---
Author Organization [facility] Address [address] [place] [address] Care Team Providers Care Director It Project Name Role Phone Elsewhere, Pcp Primary Care Provider Unavailabl e Encounter Details Date Type Department Care Team ([facility] st Contact Info) Description 09/01/2024 Clinical Communication Department of Neurology in [place], [place] [address] [place] [phone] Matteo Noe M.D. [address] [place] [phone] Social History Tobacco Use Types Packs/Day Years Used Date Smoking Tobacco: Never Smokeless Tobacco: Never [place] Utilities Answer Date Recorded In the past 12 months has [facility] electric, gas, oil, or water [employer] threatened to shut off services in your [...] often do you attend chur ch or restoration services? 1 to 4 times per year 02/01/2022 Do you belong to any clubs o r organizations such as protestant groups, unions, fraternal [...] and heating? Not hard at all 02/01/2022 [facility] of Occupat ional Health - Occupational Stress [...] your living situation today? I have a [facility] place to live 10/18/2023 Sex and Gender Information Value Date Recorded Sex Assigned at Male 02/01/2022 6:47 PM CDT Legal Sex Male 9:23 AM ELECTRONIC WARFARE TECHNICAL Gender Identity Male 02/01/2022 6:47 PM CDT Sexual Orientation Straight 02/01/2022 6: 47 PM CDT documented as of this encounter Plan of Treatment Upcoming Encounters Date Type Department Care Team (Latest Contact Info) Description 09/13/2024 10:30 AM ELECTRONIC WARFARE TECHNICAL Diagnostic Division of Pulmonary Medicine in [place], [place] [address] [place] [phone] Matteo Noe M.D. [address] [place] [phone] 11/07/2024 9:30 AM CDT Appointment Department of Laboratory Medicine in [address] [phone] Matteo Noe M.D. [address] [place] [phone] 11/24/2024 11:00 AM CDT Clinical Communication Virtual Review in [place], [place] 200 [place] [phone] 11/28/2024 11:00 AM CDT Office Visit Department of Neurology in [place], [place] [address] [place] [phone] Matteo Noe M.D. [address] [place] [phone] documented as of this encounter Visit Diagnoses Not on filedocumented in this encounter Care Teams Director It Project Relationship Specialty Start Date End Date Elsewhere, Pcp PCP - General Internal Medicine 11/14/21 documented as of this encounter
--- OUTSIDE RECORDS SUMMARY | 2024-09-10 18:58 | XMS_ITS | Encounter Summary ---
Author Organization [facility] Address [address] [place] [address] Care Team Providers Care Science Teacher Name Role Phone Chris Fontenot Primary Care Provider [phone] Jasiel Hester RN Unavailable Reason for Visit * Reason Onset Date Comments Refill Request 06/28/2018 diazepam (DIAZEP AM INTENSOL) 5 MG/ML (HIGH CONC) solution Encounter Details Date Type Department Care Team (Late st Contact Info) Description 06/28/2018 [facility] Neurology [address] [facility] [address] [place] [address] Boyd Green MD [address] [facility] 200 [place], [place] [phone] Refill Request (diazepam (DIAZEPAM INTENSOL) 5 MG/ML (HIGH CONC) solution) Social History Tobacco Use Types Packs/Day Years Used Date Smoking Tobacco: Never Smokeless Tobacco: Never Alcohol Use Standard Drinks/Week Comments No 0 (1 standard drink = 0.6 oz pur e alcohol) Sex and Gender Information Value Date Recorded Sex Assigned at Not on file Legal Sex Male 3:58 AM PANEL WIRER Gender Identity Not on file Sexual Orientation Not on file documented as of this encounter Miscellaneous Notes * Telephone Encounter - Bashir Hodges Zeeshan - 06/28/2018 12:09 PM CST [facility] Call Center Phone Message May a detailed message be left on voicemail: no Reason for Call: Medication Refill Request Has the patient contacted the pharmacy for the refill? Yes Name of medication being requested: diazepam (DIAZEPAM INTENSOL) 5 MG/ML (HIGH CONC) solution Provider who prescribed the medication: Dr. Green Pharmacy: [facility] Date medication is needed: Joey, Pt is out Action Taken: Message routed to: [facility] NEUR[facility] ADULT [facility] L WIRER documented in this encounter Plan of Treatment Not on file documented as of this encounter Visit Diagnoses Diagnosis Seizure disorder (H) Unspecified epilepsy without mention of intractable epilepsy documented in this encounter Care Teams Science Teacher Relationship Specialty Start Date End Date Chris Fontenot PCP - General 03/09/13 Jasiel Hester, RN Registered Nurse Neurology 12/23/17 08/26/18 documented as of this encounter
--- OUTSIDE RECORDS SUMMARY | 2024-09-10 18:58 | XMS_ITS | Referral Summary ---
Author Organization [facility] Address [address] [place] [address] Care Team Providers Care Barrel Reamer Name Role Phone Chris Fontenot Primary Care Provider Allergies Active Allergy Reactions Criticality Noted Date Comments Tolterodine Rash Low 05/22/2014 Medications atenolol (TENORMIN) 25 MG tablet Take 25 mg by mouth daily Active lisinopril (PRINIVIL,ZESTR IL) 20 MG tablet Take 20 mg by mouth daily Active Cholecalciferol (VITAMIN D PO) Take by mouth daily Active Multiple Vitamins-Minera ls (MULTIVITAMIN PO) Take by mouth daily Active Mirabegron (MYRBETRIQ PO) Take 50 mg by mouth daily Active bisacodyl (DULCOLAX) [address] 10 mg rectally as needed for constipation Active Sodium Phosphates (FLEET ENEMA RE) Place rectally as needed Active carBAMazepine (CARBATROL) 300 MG 12 hr capsuleIndicati ons: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) TAKE ONE CAPSULE BY MOUTH EVERY MORNING AND TAKE TWO CAPSULES IN THE EVENING (3 CARDS 1 CAP PER HOLE) 93 capsule 8 Active carBAMazepine (CARBATROL) 100 MG 12 hr capsuleIndicati ons: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) TAKE ONE CAPSULE BY MOUTH IN THE MORNING (ALONG WITH (300MG) CAPSULE) 31 capsule 8 Active divalproex sodium extended-releas e (DEPAKOTE ER) 500 MG 24 hr tabletIndicatio ns: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) Take 3 tab po bid 186 tablet 11 8 Active divalproex sodium extended-releas e (DEPAKOTE ER) 250 MG 24 hr tabletIndicatio ns:Seizure disorder (H),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) TAKE ONE TABLET BY MOUTH AT BEDTIME 31 tablet 11 8 Active diazepam (DIAZEPAM INTENSOL) 5 MG/ML (HIGH CONC) solutionIndicat ions:Seizure disorder (H) Place 1 ml ( 5mg ) between cheek and gum for any GTC > 2 minutes or for 2 GTCs in 24 hours 30 mL 2 8 Active Active Problems Problem Noted Date Diagnosed Date Gross hematuria 07/15/2016 Cerebral palsy 10/16/2013 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 Gender Identity Not on file Sexual Orientation Not on file Last Filed Vital Signs Vital Sign Reading Time Taken Comments Blood Pressure 125/76 03/11/2018 1:54 PM CDT Pulse 89 03/11/2018 1:54 PM CDT Temperature 36.6 C (97.9 F) 03/11/2018 1:54 PM CDT Respiratory Rate 18 03/11/2018 1:54 PM CDT Oxygen Saturation 100% 03/11/2018 1:5 4 PM CDT Inhaled Oxygen Concentration - - Weight 92.9 kg (204 lb 11.2 oz) 03/11/2018 1:54 PM CDT W/ WC- UNSURE ABOUT CHAIR WEIGHT, WILL CHECK ON BRANDEN Height - - Body Mass Index - - Plan of Treatment Not on file Insurance [place] MED[place]ARE MEDICARE [place] Care Teams Barrel Reamer Relationship Specialty Start Date End Date Chris Fontenot PCP - General 03/09/13
--- OUTSIDE RECORDS SUMMARY | 2024-09-10 18:58 | XMS_ITS | Clinical Summary ---
Author Organization [facility] Address [address] [place] [address] Care Team Providers Care Band Master Name Role Phone Chris Fontenot Primary Care Provider [phone] Ramirez Oliveira MD Unavailable [phone] Allergies Active Allergy Reactions Criticality Noted Date Comments Ciprofloxacin Other 11/28/2021 Avoid due to increased risk of seizure. Gabapentin Unknown 03/20/2021 Other reaction(s): Other (see comments) Tolterodine Rash Low 05/22/2014 Medications atenolol (TENORMIN) 25 mg oral tablet Take 25 mg by mouth Daily. Active bisacodyl (BISCOLAX) 10 mg Rectal Supp suppository Unwrap and insert rectally. 02/23/20 16 Active carBAMazepine (CARBATROL) 100 mg oral CM12 TAKE ONE CAPSULE BY MOUTH IN THE MORNING (ALONG WITH (300MG) CAPSULE) 03/11/20 18 Active cephalexin (KEFLEX) 500 mg oral capsule Take 500 mg by mouth. 03/27/20 21 Active ciprofloxacin HCl (CIPRO) 500 mg oral tablet TAKE 1 TABLET (500 MG) BY MOUTH 2 TIMES DAILY FOR 7 DAYS. 04/18/20 21 Active clotrimazole 1% (LOTRIMIN) 1 % Top cream cream Apply to skin. 04/03/20 21 Active docosanol (ABREVA) 10 % Top cream cream Apply to skin. 10/11/19 16 Active Guaifenesin 1,200 mg oral Ta12 Take 1,200 mg by mouth. 05/22/20 14 Active ibuprofen (ADVIL;MOTRIN) 200 mg oral tablet Take 200 mg by mouth. 10/28/19 19 Active PROBIOTIC BLEND 2 billion cell-50 mg oral Cap TAKE ONE CAPSULE BY MOUTH THREE TIMES DAILY WITH MEALS 03/24/20 Active lisinopriL (PRINIVIL) 20 mg oral tablet Take 20 mg by mouth Daily. Active metoprolol tartrate (LOPRESSOR) 25 mg oral tablet Take 1 tablet by mouth Twice a Day. 04/03/20 21 Active multivitamin (TAB-A-MICHEL) 400 mcg oral Tab Take 1 tablet by mouth once daily. 12/12/19 21 Active nitrofurantoin mono-macro (MACROBID) 100 mg oral capsule TAKE ONE CAPSULE BY MOUTH 2 TIMES DAILY FOR 7 DAYS 04/18/20 21 Active nystatin (MYCOSTATIN) 100,000 unit/g Top cream topical cream To groin rash twice daily for 14 days. 03/18/20 21 Active polyethylene glycol (MIRALAX) 17 gram oral packet Take 17 g by mouth. 06/17/20 20 Active Sodium Phosphates (FLEET PEDIATRIC) 9.5-3.5 gram/59 mL Rectal enema One per rectum as needed if no BM in 1 to 2 days, or at patient / family discretion, can be interchanged with Bisacodyl Suppository. 10/10/19 15 Active tiZANidine (ZANAFLEX) 2 mg oral tablet Take 2 mg by mouth. 03/19/20 21 Active triamcinolone acetonide (KENALOG) 0.1 % Top ointment Apply to skin. 04/03/20 21 Active VITAMIN D3 125 mcg (5,000 unit) oral tablet TAKE ONE TABLET BY MOUTH EVERY DAY 100 tablet 2 10/29/19 22 Active acetaminophen (TYLENOL) 500 mg oral tablet Every 6 Hours as needed Active baclofen (LIORESAL) 5 mg oral Tab Three Times A Day 07/01/20 21 Active bismuth subsalicylate (PEPTO-BISMOL) 262 mg/15 mL oral Susp (conc: 262mg/15mL) oral suspension As Needed Active Pseudoephedrine-I buprofen 30-200 mg oral Tab TAKE 1 TO 2 TABLETS BY MOUTH THREE TIMES DAILY NEEDED FOR UPPER RESPIRATORY INFECTION RELATED NASAL CONGESTION. 08/15/20 21 Active VIMPAT 50 mg oral tablet Take 50 mg by mouth Twice a Day. 12/25/19 22 Active diazePAM IntensoL 5 mg/mL oral solution (concentrate) PLACE 1ML BETWEEN CHEEK AND GUM FOR GTC > 2 MINUTES OR FOR 2 GTC IN 24 HOURS. 30 mL 5 06/30/20 22 Active lacosamide (VIMPAT) 200 mg oral tablet TAKE 1/2 TABLET(100MG) BY MOUTH AT BEDTIME 06/11/20 22 Active lacosamide (VIMPAT) 100 mg oral tablet Take 1 tablet (100 mg) by mouth at bedtime. Take one and a half in the morning and one at night by mouth. 75 tablet 11 11/25/19 23 Active divalproex (DEPAKOTE ER) 250 mg oral 24-hour extended-release tablet TAKE 8 TABLETS BY MOUTH TWO TIMES A DAY 480 tablet 11/12/19 24 Active Active Problems Problem Noted Date Diagnosed Date Adverse reaction to drug 01/06/2022 At high risk for falls 01/06/2022 Overview (01/06/2022): Added via Discern Expert ADD_HIGHRISKFALL_PROBLEM Rule. 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 Patient should be on scheduled voiding, and intermittent catheterization as prescribed by Urology to maximize bladder emptying and reduce risk of UTI. Urinary tract infection, site not specified 09/17 Recurrent urinary tract infection 10/08/2020 Overview (01/06/2022): Last Assessment & Plan: Patient appears to have different organisms with [...] management as described below. 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 Severe DD with [...] came to our attention. Essential hypertension 09/27/2007 Immunizations Name Administration Dates Next Due H1N1 Influenza 06/20/2009 Hep B Adult 04/10/2016, 6,10/15/2015,2015 Influenza recombinant (FluBl ok Quadrivalent PF) 06/27/2021,06/21/2019,06/06/2018,2009 Influenza split virus quadrivalent 05/29/2020,,05/22/2015 Pfizer 12+ Yrs Monovalent CO VID Vaccine (purple cap) 08/28/2021 Pneumococcal PPSV23 04/23/2010 SPIKEVAX (Moderna) 12+ Yrs M onovalent COVID Vaccine (credit risk modeler) 10/09/2020,09/16/2020 Tdap 06/06/2020,04/23/2010 Family History Medical History Relation Comments Brain/RN DOCUMENT IMPROVEMENT SPECIALIST Cancer Other Breast Cancer Other Heart Disease Other High Blood Pressure Other High Cholesterol Other Lung Cancer Other Migraines Other Relation Status Comments Other Social History Tobacco Use Types Packs/Day Years Used Date Smoking Tobacco: Never Cigarettes Smokeless Tobacco: Never Tobacco Cessation:Counseling Given: No Sex and Gender Information Value Date Recorded Sex Assigned at Not on file Legal Sex Male 7:19 PM CDT Gender Identity Not on file Sexual Orientation Not on file Last Filed Vital Signs Vital Sign Reading Time Taken Comments Blood Pressure - - Pulse - - Temperature - - Respiratory Rate 14 07/06/2022 11:20 AM DEPUTY COMMISSIONER Oxygen Saturation - - Inhaled Oxygen Concentration - - Weight 54.4 kg (120 lb) 07/06/2022 11:20 AM DEPUTY COMMISSIONER Height 157.5 cm (5' 2) 07/06/2022 11:20 AM DEPUTY COMMISSIONER Body Mass Index 21.95 07/06/2022 11:20 AM DEPUTY COMMISSIONER Plan of Treatment Health Maintenance Due Date Last Done Comments Colonoscopy 1974 Hepatitis C Screening 1974 Lipid Screening 1974 Anxiety Screening (MARIANO-2) 1975 Depression Assessment (PHQ-2) 1975 Medicare Wellness Visit 07/27/2023 07/27/2022 COVID-19 Vaccine ( season) 2024 07/27/2022, 08/28/2021, 10/09/2020, Additional history exists Influenza Vaccine (#1) 2024 , 06/27/2021, 05/29/2020, Additional history exists Adult Tetanus Booster 06/06/2030 06/06/2020, 010 RSV Vaccines (1 - 1-dose 75+ series) 2049 Pneumococcal Vaccine Aged Out 04/23/2010 No long er eligible based on patient's age to complete this topic Insurance MEDICARE PART A & B MEDICAID [place] Care Teams Band Master Relationship Specialty Start Date End Date Chris Fontenot [address] [place] [address] PCP - General Family Medicine 03/25/21 Ramirez Oliveira MD [address] [facility] [address] [place] [address] Neurology 05/06/22
--- OUTSIDE RECORDS SUMMARY | 2024-09-10 18:58 | XMS_ITS | Encounter Summary ---
Author Organization [facility] Address [address] [place] [address] Care Team Providers Care Computed Tomography Technician Name Role Phone Elsewhere, Pcp Primary Care Provider Unavailabl e Reason for Referral * Outpatient (Routine) - Authorized Specialty Diagnoses / Procedures Referred By Bhupendra johnson Referred To Contact Neurology Matteo Noe M.D. [address] [place] [phone] Phone: tel: fax: [facility] Referral ID Status Reason Start Date Expiration Date V isits Requested Visits Authorized [id number] Authorized 08/14/2024 02/13/2026 1 1 Scheduling Instructions Blood collection on the morning of the visit. OGY TECHNICAL OFFICER Reason for Visit * Outpatient (Routine) - Closed Specialty Diagnoses / Procedures Referred By Bhupendra johnson Referred To Contact Neurology Matteo Noe M.D. [address] [place] [phone] Phone: tel: fax: [facility] Referral ID Status Reason Start Date Expiration Date Visits Re quested Visits Authorized [id number] Closed 05/12/2024 11/11/2025 1 1 Encounter Details Date Type Department Care Team ([facility] st Contact Info) Description 08/14/2024 10:00 AM ZOOLOGY TECHNICAL OFFICER Office Visit Department of Neurology in [place], [place] [address] [place] [phone] Matteo Noe M.D. 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 1 to 4 times per year 02/01/2022 Do you belong to any clubs o r organizations such as sabianism groups, unions, fraternal or athletic groups, or [...] and heating? Not hard at all 02/01/2022 [facility] [place] of Occupat ional Health - Occupational Stress [...] your living situation today? I have a [facility] place to live 10/18/2023 Sex and Gender Information Value Date Recorded Sex Assigned at Male 02/01/2022 6:47 PM CDT Legal Sex Male 9:23 AM ZOOLOGY TECHNICAL OFFICER Gender Identity Male 02/01/2022 6:47 PM CDT Sexual Orientation Straight 02/01/2022 6: 47 PM CDT documented as of this encounter Last Filed Vital Signs Vital Sign Reading Time Taken Comments Blood Pressure - - Pulse - - Temperature - - Respiratory Rate - - Oxygen Saturation - - Inhaled Oxygen Concentration - - Weight 59 kg (130 lb) 08/14/2024 9:53 AM ZOOLOGY TECHNICAL OFFICER Iftikhar bal Height 157.5 cm (5' 2) 08/14/2024 9:53 AM ZOOLOGY TECHNICAL OFFICER V erbal Body Mass Index 23.78 08/14/2024 9:53 AM ZOOLOGY TECHNICAL OFFICER documented in this encounter Patient Instructions * Patient Instructions* Claudia Garcia R.N. - 08/14/2024 10:00 AM ZOOLOGY TECHNICAL OFFICER Images from the original note were not included. OGY TECHNICAL OFFICER OGY TECHNICAL OFFICER OGY TECHNICAL OFFICER documented in this encounter Progress Notes * Matteo Noe M.D. - 08/14/2024 10:00 AM CST CHIEF COMPLAINT/REASON FOR VISIT Specially arranged visit, because of increased seizure frequency. HISTORY OF PRESENT ILLNESS Andres is here today with his sister Kirsty, and his group burner machine, Samira. Andres has increased seizure frequency, according to the sister. The reason is because in the past 4years or so, he would go a few months without seizures. This year alone, he has had 9 seizures. These were all generalized convulsions. On May 11, we were informed that at the end of February, he became very ill because he had a bad reaction during colonoscopy. He vomited and aspirated and had pneumonia and sepsis. At that time he was said to stop breathing when sleeping. OBJECTIVE PHYSICAL EXAMINATION Neuro: I attempted to examine Andres. He was very nice and cooperative as usual. He was in a wheelchair. Within the limits of his disability, I found no evidence of cerebellar dysfunction. No nystagmus. ASSESSMENT / PLAN ASSESSMENT AND COUNSELING: I counseled Andres and Kirsty and Samira that it would be good to try nocturnal oximetry measurement, but Andres became anxious and upset about the idea. I told him to let me know if he finally decidesto have it done. We then discussed the need to try another seizure medicine. His lacosamide concentration is now maximized, 10.2 mcg/mL. Also, I do not think that increase in the Depakote dose will be helpful. In thepast, reduction in the Depakote dose had apparently resulted in a cluster of 3 convulsions. We reviewed the remaining antiseizure medications he could try, which are lamotrigine, zonisamide, felbamate, perampanel, brivaracetam, and cenobamate. We discussed the potential complications of cenobamate (Xcopri), and the need for very closely following the schedule of incrementing the dosage. One potential limitation could be that Medicaid will not pay for Xcopri. We also discussed using zonisamide, but Kirsty and Samira did not think that Andres is drinking enough fluids to reduce the risk of urinary calculi formation.. I explained that in the past, we had entertained the combination of Depakote and lamotrigine, whichcan be very successful in controlling seizures, especially when his seizures are suspected to be also primary generalized. I explained that there is a need for gradually increasing the dose, to avoidthe occurrence of a rash, and the increase of lamotrigine would be even slower than usual because he is currently taking Depakote. Current Outpatient Medications: lamoTRIgine (LaMICtaL) 25 mg tablet, Start with 0.5 pill each day. Then, increase by 0.5 pill everytwo weeks, until 2 pills twice a day, and continue., Disp: 540 tablet, Rfl: 3 acetaminophen (TYLENOL) 500 mg tablet, Take 500 mg by mouth every 6 (six) hours as needed for pain., Disp: , Rfl: atenoloL (TENORMIN) 25 mg tablet, Take 25 mg by mouth daily., Disp: , Rfl: baclofen (LIORESAL) 5 mg tablet tablet, 3 (three) times a day., Disp: , Rfl: bisacodyL (DULCOLAX) 10 mg suppository, Insert into the rectum as needed., Disp: , Rfl: bismuth subsalicylate (PEPTO BISMOL) 262 mg/15 mL suspension, as needed., Disp: , Rfl: cholecalciferol, vitamin D3, (VITAMIN D3 ORAL), Take 5,000 Units by mouth daily., Disp: , Rfl: clotrimazole (LOTRIMIN) 1 % cream, Apply 1 application topically 2 (two) times a day., Disp: , Rfl: diazePAM (diazePAM IntensoL) 5 mg/mL concentrated solution, PLACE 1ML BETWEEN CHEEK AND GUM FOR A GENERALIZER TONIC-CLONICSEIZURE -MAY REPEAT 1 DOSE IF A 2ND SEIZURE SHOULD OCCUR WITHIN 24HRS - DO NOT EXCEED 2 TREATMENT EPISODE WITHIN 1 WEEK, Disp: 30 mL, Rfl: 3 divalproex (DEPAKOTE) 250 mg EC tablet, Take 4 tablets (1,000 mg total) by mouth 2 (two) times a day. Take 4 pills twice a day., Disp: 240 tablet, Rfl: 11 docosanoL (ABREVA) 10 % cream, Apply topically as needed., Disp: , Rfl: ibuprofen (ADVIL,MOTRIN) 200 mg tablet, Take 400 mg by mouth as needed., Disp: , Rfl: lacosamide (VIMPAT) 200 mg tablet, Take 1 tablet (200 mg total) by mouth 2 (two) times a day., Disp: 180 tablet, Rfl: 3 lisinopriL (PRINIVIL,ZESTRIL) 20 mg tablet, Take 1 tablet by mouth daily., Disp: , Rfl: metoprolol tartrate (LOPRESSOR) 25 mg tablet, Take 25 mg by mouth 2 (two) times a day., Disp: , Rfl: multivitamin with folic acid (ONE DAILY ESSENTIAL) 400 mcg tablet, Take 1 tablet by mouth daily., Disp: , Rfl: nystatin (MYCOSTATIN) 100,000 unit/gram cream, Apply topically as needed., Disp: , Rfl: sodium phosphate,mono-dibasic (FLEET ENEMA RECTAL), Insert into the rectum as needed., Disp: , Rfl: tiZANidine (ZANAFLEX) 2 mg tablet, Take 0.5-1 tablets by mouth as needed., Disp: , Rfl: triamcinolone (KENALOG) 0.1 % ointment, Apply topically to affected area(s) 2 times daily. As needed., Disp: , Rfl: He will continue with lacosamide at the current dose in the meantime. I will arrange for a return visit in 3-4 months. OGY TECHNICAL OFFICER documented in this encounter Plan of Treatment Upcoming Encounters Date Type Department Care Team (Latest Contact Info) Description 09/13/2024 10:30 AM ZOOLOGY TECHNICAL OFFICER Diagnostic Division of Pulmonary Medicine in [address] [phone] Matteo Noe M.D. [address] [place] [phone] 11/07/2024 9:30 AM CDT Appointment Department of Laboratory Medicine in [address] [phone] Matteo Noe M.D. [address] [place] [phone] 11/24/2024 11:00 AM CDT Clinical Communication Virtual Review in [place], [place] 200 [place] [address] 11/28/2024 11:00 AM CDT Office Visit Department of Neurology in [address] [phone] Matteo Noe M.D. 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
--- OUTSIDE RECORDS SUMMARY | 2024-09-10 18:58 | XMS_ITS | Encounter Summary ---
Author Organization [facility] Address [address] [place] [address] Care Team Providers Care Dairy Equipment Repairer Name Role Phone Elsewhere, Pcp Primary Care Provider Unavailabl e Encounter Details Date Type Department Care Team (Latest Contact Info) Description 08/11/2024 8:03 AM FISHER TRAWL NET - 08/11/2024 11:59 PM FISHER TRAWL NET Hospital Encounter Department of Laboratory Medicine in [address] [phone] Matteo Noe M.D. 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 1 to 4 times per year 02/01/2022 Do you belong to any clubs o r organizations such as methodist groups, unions, fraternal [...] and heating? Not hard at all 02/01/2022 [facility] of Occupat ional Health - Occupational Stress [...] your living situation today? [facility] 10/18/2023 Sex and Gender Information Value Date Recorded Sex Assigned at Male 02/01/2022 6:47 PM CDT Legal Sex Male 9:23 AM FISHER TRAWL NET Gender Identity Male 02/01/2022 6:47 PM CDT Sexual Orientation Straight 02/01/2022 6: 47 PM CDT documented as of this encounter Medications at Time of Discharge acetaminophen (TYLENOL) 500 mg tablet Take 500 mg by mouth every 6 (six) hours as needed for pain. atenoloL (TENORMIN) 25 mg tablet Take 25 mg by mouth daily. baclofen (LIORESAL) 5 mg tablet tablet 3 (three) times a day. 07/01/2021 bisacodyL (DULCOLAX) 10 mg suppository Insert into the rectum as needed. 02/23/2016 bismuth subsalicylate (PEPTO BISMOL) 262 mg/15 mL suspension as needed. cholecalciferol, vitamin D3, (VITAMIN D3 ORAL) Take 5,000 Units by mouth daily. clotrimazole (LOTRIMIN) 1 % cream Apply 1 application topically 2 (two) times a day. 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 Take 4 pills twice a day. 240 tablet 11 11/23/2023 5 docosanoL (ABREVA) 10 % cream Apply topically as needed. 10/11/2015 ibuprofen (ADVIL,MOTRIN) 200 mg tablet Take 400 mg by mouth as needed. 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 180 tablet 3 11/23/2023 lisinopriL (PRINIVIL,ZESTRIL) 20 mg tablet Take 1 tablet by mouth daily. 04/03/2021 metoprolol tartrate (LOPRESSOR) 25 mg tablet Take 25 mg by mouth 2 (two) times a day. multivitamin with folic acid (ONE DAILY ESSENTIAL) 400 mcg tablet Take 1 tablet by mouth daily. 12/11/2020 nystatin (MYCOSTATIN) 100,000 unit/gram cream Apply topically as needed. 03/18/2021 sodium phosphate,mono-audie asic (FLEET ENEMA RECTAL) Insert into the rectum as needed. tiZANidine (ZANAFLEX) 2 mg tablet Take 0.5-1 tablets by mouth as needed. 03/19/2021 triamcinolone (KENALOG) 0.1 % ointment Apply topically to affected area(s) 2 times daily. As needed. 04/03/2021 documented as of this encounter Plan of Treatment Upcoming Encounters Date Type Department Care Team (Latest Contact Info) Description 09/13/2024 10:30 AM [facility] Diagnostic Division of Pulmonary Medicine in [place], [place] 200 [place] [phone] Matteo Noe M.D. 200 [place] [phone] 11/07/2024 9:30 AM CDT Appointment Department of Laboratory Medicine in [place], [place] [address] [place] [phone] Matteo Noe M.D. [address] [place] [phone] 11/24/2024 11:00 AM CDT Clinical Communication Virtual Review in [place], [place] 200 [place] [phone] 11/28/2024 11:00 AM CDT Office Visit Department of Neurology in [place], [place] [address] [place] [phone] Matteo Noe M.D. 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 This test has not been cleared or approved by the U.S. Food and Drug Administration. Blood (Blood, Venous) 08/11/2024 8:11 AM [facility] TRAWL NET 08/12/2024 2:17 PM FISHER TRAWL NET us Matteo Noe M.D. LAB BLOOD NON ADD-ON Final Resul t [facility] [address] [place] [address] [facility] [address] [place] [address] 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
--- OUTSIDE RECORDS SUMMARY | 2024-09-10 18:58 | XMS_ITS | Referral Summary ---
Author Organization [facility] Address [address] [place] [address] Care Team Providers Care Street Car Inspector Name Role Phone Chris Fontenot Primary Care Provider [phone] Ramirez Oliveira MD Unavailable [phone] Allergies Active Allergy Reactions Criticality Noted Date [...] (Moderna) 12+ Yrs M onovalent COVID Vaccine (civil preparedness coordinator) 10/09/2020,09/16/2020 Tdap 06/06/2020,04/23/2010 Social History Tobacco Use Types Packs/Day Years [...] - Respiratory Rate 14 07/06/2022 11:20 AM MAINTENANCE TECHNICIAN 2ND SHIFT Oxygen Saturation - - Inhaled Oxygen Concentration - - Weight 54.4 kg (120 lb) 07/06/2022 11:20 AM MAINTENANCE TECHNICIAN 2ND SHIFT Height 157.5 cm (5' 2) 07/06/2022 11:20 AM MAINTENANCE TECHNICIAN 2ND SHIFT Body Mass Index 21.95 07/06/2022 11:20 AM MAINTENANCE TECHNICIAN 2ND SHIFT Plan of Treatment Not on file [place] [id number] MEDICAID [place] Care Teams Street Car Inspector Relationship Specialty Start Date End Date Chris Fontenot [address] [place] [address] PCP - General Family Medicine 03/25/21 Ramirez Oliveira MD [address] [facility] [address] [place] [address] Neurology 05/06/22
--- OUTSIDE RECORDS SUMMARY | 2024-09-10 18:58 | XMS_ITS | Encounter Summary ---
Author Organization [facility] Address [address] [place] [address]. [place] [address] Care Team Providers Care Stem Processing Machine Operator Name Role Phone Chris Fontenot Primary Care Provider [phone] Jasiel Hester RN Unavailable Reason for Visit * Reason Onset Date Comments Pt. Information/instruction 03/25/2018 [address] Drs. Green and Dre Encounter Details Date Type Department Care Team (Late st Contact Info) Description 03/25/2018 [facility] Neurology [address] [facility] 3rd [place] [address] Boyd Green MD [address] [address] Pt. Information/instructio n (Info for Drs. You) Social History Tobacco Use Types Packs/Day Years Used Date Smoking Tobacco: Never Smokeless Tobacco: Never Alcohol Use Standard Drinks/Week Comments No 0 (1 standard drink = 0.6 oz pur e alcohol) Sex and Gender Information Value Date Recorded Sex Assigned at Not on file Legal Sex Male 3:58 AM CEMETERY COUNSELOR Gender Identity Not on file Sexual Orientation Not on file documented as of this encounter Miscellaneous Notes * Telephone Encounter - Margarita Carr - 03/25/2018 8:51 AM CDT Health Call Center Phone Message May a detailed message be left on voicemail: yes Reason for Call: Other: Pts caregiver Emili calling. Pt had back to back seizures last night but were pretty mild in comparison to those he had in the past. She administered diazepam and he came outOK and seems to be doing fine this morning. She is wondering if Drs. Green and/or Dre would like to get his med levels tested and, if so, those orders would need to go to [facility]. Emili was unable to provide fax. Please call back with any questions. Action Taken: Message routed to: [facility] ([facility] NEUROLOGY documented in this encounter Plan of Treatment Not on file documented as of this encounter Visit Diagnoses Not on filedocumented in this encounter Care Teams Stem Processing Machine Operator Relationship Specialty Start Date End Date Chris Fontenot PCP - General 03/09/13 Jasiel Hester, RN Registered Nurse Neurology 12/23/17 08/26/18 documented as of this encounter
--- OUTSIDE RECORDS SUMMARY | 2024-09-10 18:58 | XMS_ITS | Clinical Summary ---
Author Organization [facility] Address [address] [place] [address] Care Team Providers Care Mica Builder Name Role Phone Chris Fontenot Primary Care Provider [phone] Allergies Active Allergy Reactions Criticality Noted Date [...] on file Legal Sex Male 3:58 AM PLANT HR MANAGER Gender Identity Not on file Sexual Orientation [...] Treatment Not on [place] [address] MEDICARE MEDICARE MEDICAID [place] Care Teams Mica Builder Relationship Specialty Start Date End Date Chris Fontenot PCP - General 03/09/13
--- OUTSIDE RECORDS SUMMARY | 2024-09-10 18:58 | XMS_ITS | Encounter Summary ---
Author Organization [facility] Address [address] [place] [address]. [place] [address] Care Team Providers Care Pulmonary Function Technician Name Role Phone Chris Fontenot Primary Care Provider [phone] Jasiel Hester RN Unavailable Reason for Visit * Reason Onset Date Comments Call Back 12/23/2017 Questions about medication and labs Encounter Details Date Type Department Care Team (Late st Contact Info) Description 12/23/2017 Telephone [facility] Neurology [address] [facility] 3rd [place] [address] Boyd Green MD [address] [address] Call Back (Questions about medication and labs) Social History Tobacco Use Types Packs/Day Years Used Date Smoking Tobacco: Never Sex and Gender Information Value Date Recorded Sex Assigned at Not on file Legal Sex Male 3:58 AM ACADEMIC INTERVENTIONIST Gender Identity Not on file Sexual Orientation Not on file documented as of this encounter Miscellaneous Notes * Telephone Encounter - Jasiel Hester, RN - 12/23/2017 1:40 PM CDT Returned call to Patient's sister left voice message indicating refills would be sent up appointment time as rescheduled. Requested a call back. * Telephone Encounter - Carlotta Booker - 12/23/2017 10:03 AM CDT [facility] Call Center Phone Message May a detailed message be left on voicemail: yes Reason for Call: Other: Pt's sister would like to speak to someone about pt's prescriptions for divalproex sodium extended-release (DEPAKOTE ER) and carBAMazepine (CARBATROL). She rescheduled pt's appointment to 03/11 but is concerned the pt will run out before his appointment. Also wanted to discuss labs. Stated that usually Dr Green orders labs for the pt to complete before the appointment. Please call back at [phone]. Action Taken: Message routed to: [facility] ([facility]): Neurology documented in this encounter Plan of Treatment Not on file documented as of this encounter Visit Diagnoses Diagnosis Generalized convulsive epilepsy with intractable epilepsy Seizure disorder (H) Unspecified epilepsy without mention of intractable epilepsy documented in this encounter Care Teams Pulmonary Function Technician Relationship Specialty Start Date End Date Chris Fontenot PCP - General 03/09/13 Jasiel Hester, RN Registered Nurse Neurology 12/23/17 08/26/18 documented as of this encounter
--- OUTSIDE RECORDS SUMMARY | 2024-09-10 18:58 | XMS_ITS | Referral Summary ---
Author Organization [facility] Address [address] [place] [id number] Care Team Providers Care Traffic Control Specialist Name Role Phone Elsewhere, Pcp Primary Care Provider Unavailabl e Source Comments Patient records contain information from all sites at [facility]. For routine questions regarding patient records, call [phone] during business hours, M-F 8:00 AM - 5:00 PM Central Time. Record requests for emergency care only can be directed to [phone] at any time.[facility] Encounters Date Type Department Care Team Description 09/01/2024 Clinical Communication Department of Neurology in [place], [place] [address] [place] [address] Matteo Noe M.D. 08/14/2024 10:00 AM WATER SERVICE SUPERVISOR Office Visit Department of Neurology in [place], [place] [address] [place] [phone] Matteo Noe M.D. 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 180 tablet 3 024 2024 Active diazePAM (diazePAM IntensoL) 5 mg/mL [...] a day, and continue. 540 tablet 3 Active lamoTRIgine (LaMICtaL) 25 mg tabletIndication [...] to our attention. Hypertension Essential Primary 09/27/2007 Immunizations Immunization Administration Dates Next Due H1N1 [...] Date Smoking Tobacco: Never Smokeless Tobacco: Never [employer] Utilities Answer Date Recorded In the past 12 months has e [employer], gas, oil, or water [employer] threatened to shut off services in your [...] often do you attend chur ch or adventism services? 1 to 4 times per year 02/01/2022 Do you belong to any clubs o r organizations such as jain groups, unions, fraternal or athletic groups, or [...] and heating? Not hard at all 02/01/2022 [facility] - Occupational Stress [...] your living situation today? I have a [facility] place to live 10/18/2023 Sex and Gender Information Value Date Recorded Sex Assigned at Male 02/01/2022 6:47 PM CDT Legal Sex Male 9:23 AM WATER SERVICE SUPERVISOR Gender Identity Male 02/01/2022 6:47 PM CDT Sexual Orientation Straight 02/01/2022 6: 47 PM CDT Last Filed Vital Signs Vital Sign Reading Time Taken Comments Blood Pressure - - Pulse - - Temperature 36.2 C (97.2 F) 11/17/2021 2:36 PM CDT Respiratory Rate - - Oxygen Saturation - - Inhaled Oxygen Concentration - - Weight 59 kg (130 lb) 08/14/2024 9:53 AM WATER SERVICE SUPERVISOR Iftikhar bal Height 157.5 cm (5' 2) 08/14/2024 9:53 AM WATER SERVICE SUPERVISOR V erbal Body Mass Index 23.78 08/14/2024 9:53 AM WATER SERVICE SUPERVISOR Plan of Treatment Upcoming Encounters Date Type Department Care Team (Latest Contact Info) Description 09/13/2024 10:30 AM WATER SERVICE SUPERVISOR Diagnostic Division of Pulmonary Medicine in [place], [place] [address] [place] [phone] Matteo Noe M.D. [address] [place] [phone] 11/07/2024 9:30 AM CDT Appointment Department of Laboratory Medicine in [place], [place] [address] [place] [phone] Matteo Noe M.D. [address] [place] [phone] 11/24/2024 11:00 AM CDT Clinical Communication Virtual Review in [place], [place] [address] [place] [phone] 11/28/2024 11:00 AM CDT Office Visit Department of Neurology in [place], [place] [address] [place] [phone] Matteo Noe M.D. 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 This test has not been cleared or approved by the U.S. Food and Drug Administration. Blood (Blood, Venous) 08/11/2024 8:11 AM WATER SERVICE SUPERVISOR 08/12/2024 2:17 PM WATER SERVICE SUPERVISOR Matteo Noe M.D. LAB BLOOD NON ADD-ON Final Resul t [facility] [address] [place] [address] [facility] [address] [place] [address] [place] [phone] from Last 3 Months Insurance [place] Care Teams Traffic Control Specialist Relationship Specialty Start Date End Date Elsewhere, Pcp PCP - General Internal Medicine 11/14/21
--- OUTSIDE RECORDS SUMMARY | 2024-09-10 18:58 | XMS_ITS | Clinical Summary ---
Author Organization [facility] Address [place], [place] [address] Care Team Providers Care Survival Specialist Name Role Phone Chris Fontenot MD Primary Care Provider Allergies Active Allergy Reactions Criticality Noted Date Comments Cephalosporins Other - Describe In Comment Field 07/28/2022 Avoid due to increased risk of seizure Ciprofloxacin Other - Describe In Comment Field 11/28/2021 Avoid due to increased risk of seizure. Tolterodine Rash 05/22/2014 Gabapentin *Unknown 03/20/2021 Medications miscellaneous medical supply misc As directed. KAM LIFT CROSS OVER SLING-DL201 LARGE SMT. Lifetime use. Diagnosis: 343.9. 1 Units 2 014 Active miscellaneous medical supply misc As directed. Terrasil cream to groin / gluteal rash as needed twice daily until clear. 1 Units prn 014 Active medication order composerIndicati ons:Cerebral palsy (HC) Wheelchair seatbelt 1 Each 0 014 Active Wheel ChairIndications :Cerebral palsy, unspecified type (HC) Wheelchair: customized with leg and head rests. Length of need: 99 months 1 Device 016 Active Shower ChairIndications :Cerebral palsy, unspecified type (HC) For home use. shower chair with legs and feet that can swing out 1 Device 017 Active miscellaneous medical supply miscIndications: Wheelchair bound As directed. Sling for kam 1 Units Active medication order composerIndicati ons:Cerebral palsy, unspecified type (HC) Kam lift sling 1 unit Active medication order composerIndicati ons:Cerebral palsy (HC) FOR HOME USE (LARGE) 400 NO_MATCH 2 Active Per-Fit UnderwearIndicat ions:Other urinary incontinence USE 3 TO 4 PER DAY FOR INCONTIENCE 360 Each Active medication order composerIndicati ons:Cerebral palsy (HC) Large disposable gloves for as needed use at home. 600 Each 023 Active Diaper,Brief, Adult,Disposable Indications:Othe r urinary incontinence For home use. 96 Each 023 Active durable medical equipment (DME)Indications :Other urinary incontinence Disposable Under Pads. 30 Each Active bisacodyL (DULCOLAX) 10 mg suppositoryIndic ations:Other constipation INSERT 1 SUPPOSITORY RECTALLY IF NO BM IN 1-2 DAYS OR AT PATIENT/FAMILY DISCRETION CAN BE INTERCHANGED WITH ENEMAS Strength: 10 mg 12 Suppository Active triamcinolone 0.1 % ointmentIndicati ons:Rash Apply topically to affected area(s) two times daily. As needed. 45 g Active diazePAM IntensoL 5 mg/mL solution Place 1 mL between cheek and gum for a generalized tonic-clonic seizure. May repeat 1 dose if 2nd generalized tonic-clonic seizure should occur within 24 hours. Do not exceed 1 treatment episode within 1 week Active divalproex (DEPAKOTE) 250 mg Delayed-Release tablet Take 1,000 mg by mouth two times daily. Active lacosamide (VIMPAT) 200 mg tablet Take 200 mg by mouth two times daily. Active nebulizer and compressorIndica tions:Aspiration pneumonia of left lower lobe, unspecified aspiration pneumonia type (HC) For home use. Length of need: 99 1 Each Active oxygen-air delivery systems (HOME OXYGEN)Indicatio ns:Nocturnal hypoxia Oxygen for home use. Liters per minute: 1 per nasal cannula. Frequency of use: Nocturnal;. Length of need: 99 Months. 1 Each Active ferrous sulfate, 65 mg elemental, tabletIndication s:Iron deficiency anemia, unspecified iron deficiency anemia type One tablet daily every morning before breakfast. 90 Tablet 3 024 Active Starch, Thickening, (Thick-It) powdIndications: Recurrent aspiration pneumonia (HC) Use as directed to achieve [place]-Thick liquids. 850 g 11 024 Active Cranberry 500 mg capIndications:R ecurrent UTI Take 1 Capsule (500 mg) by mouth two times daily. 180 Capsule 3 024 Active clotrimazole (LOTRIMIN) 1 % creamIndications :Rash Apply topically to affected area(s) two times daily. As needed. 45 g 3 024 Active tiZANidine (ZANAFLEX) 2 mg tabletIndication s:Muscle cramps 1/2 to one tab oral three times daily as needed. 30 Tablet 3 024 Active lamoTRIgine 25 mg tablet Take 12.5 mg by mouth once daily. Start with 0.5 pill each day. Then, increase by 0.5 pill every two weeks, until 2 pills twice a day, and continue. 024 Active cholecalciferol, Vitamin D3, 2,000 unit tabletIndication s:Vitamin D deficiency Take 1 Tablet (2,000 units) by mouth once daily. 90 Tablet 3 025 Active lisinopriL (PRINIVIL; ZESTRIL) 10 mg tabletIndication s:HTN (hypertension) Take 1 Tablet (10 mg) by mouth once daily. 90 Tablet 3 025 Active metoprolol tartrate (LOPRESSOR) 25 mg tabletIndication s:Essential hypertension Take 1 Tablet (25 mg) by mouth two times daily. 180 Tablet 3 025 Active polyethylene glycoL (MIRALAX) 17 gram/scoop powderIndication s:Chronic constipation Mix 1 scoop (17 g) in liquid then take by mouth once daily. With 8 ounces of beverage of choice. 1700 g 4 025 Active sennosides (SENNA) 8.6 mg tabletIndication s:Chronic constipation Take 2 Tablets (17.2 mg) by mouth once daily. 180 Tablet 3 025 Active multivitamin with folic acid 0.4 mg (Tab-A-Doroteo)Bell cations:Nutritio n disorder Take 1 Tablet by mouth once daily. 90 Tablet 3 025 Active melatonin 3 mg tabletIndication s:Insomnia, idiopathic Take 2 Tablets (6 mg) by mouth at bedtime. 180 Tablet 3 025 Active metoprolol tartrate (LOPRESSOR) 25 mg tabletIndication s:Essential hypertension Take 1 Tablet (25 mg) by mouth two times daily. 60 Tablet 12 023 2024 Discontin ued(Reord er (E-cancel not sent)) multivitamin with folic acid 0.4 mg (Tab-A-Doroteo)Bell cations:Nutritio n disorder Take 1 Tablet by mouth once daily. 90 Tablet 3 024 2024 Discontin ued(Reord er (E-cancel not sent)) polyethylene glycoL (MIRALAX) 17 gram/scoop powderIndication s:Chronic constipation Mix 1 scoop (17 g) in liquid then take by mouth once daily. With 8 ounces of beverage of choice. 1700 g 4 024 2024 Discontin ued(Reord er (E-cancel not sent)) sennosides (SENNA) 8.6 mg tabletIndication s:Chronic constipation Take 2 Tablets (17.2 mg) by mouth once daily. 180 Tablet 3 024 2024 Discontin ued(Reord er (E-cancel not sent)) melatonin 3 mg tabletIndication s:Insomnia, idiopathic Take 1 Tablet (3 mg) by mouth once daily. Approximately 3 hours before bedtime. 90 Tablet 1 024 2024 Discontin ued(*Med complete/ Regimen complete/ Level of care change) lisinopriL (PRINIVIL; ZESTRIL) 10 mg tabletIndication s:HTN (hypertension) Take 1 Tablet (10 mg) by mouth once daily. 90 Tablet 3 024 2024 Discontin ued(Reord er (E-cancel not sent)) cholecalciferol, Vitamin D3, 2,000 unit tabletIndication s:Vitamin D deficiency Take 1 Tablet (2,000 units) by mouth once daily. 90 Tablet 1 024 2024 Discontin ued(Reord er (E-cancel not sent)) amoxicillin 500 mg tabletIndication s:UTI (urinary tract infection), uncomplicated Take 1 Tablet (500 mg) by mouth two times daily for 7 days. 14 Tablet 025 2024 Hospital, Clinic, or Other Facility Administered Medication Ordered Dose Route Frequency Start Date End Date Status ferumoxytoL (FERAHEME) 510 mg/17 mL (30 mg/mL) injection 510 mgIndications:Iron deficiency anemia, unspecified iron deficiency anemia type 510 mg IV ONE TIME 09/13/2024 09/13/2024 Active ferumoxytoL (FERAHEME) 510 mg/17 mL (30 mg/mL) injection 510 mgIndications:Iron deficiency anemia, unspecified iron deficiency anemia type 510 mg IV ONE TIME 09/20/2024 09/20/2024 Active Active Problems Problem Noted Date Diagnosed Date Urinary incontinence 03/16/2024 Intermittent low back pain 07/27/2022 Chronic incomplete quadriplegia 09/30/2021 Neurogenic bladder 09/16/2021 Wheelchair bound 03/15/2020 Gross hematuria 07/15/2016 Cerebral palsy 10/16/2013 Seizure disorder 07/10/2009 Unspecified essential hypertension 09/27/2007 Resolved Problems Problem Noted Date Diagnosed Date Resolved Date Severe sepsis with acute organ dysfunction 03/07/2024 08/23/2024 Left lower lobe pneumonia 03/07/2024 OLIVIA (acute kidney injury) 03/07/2024 Infantile cerebral palsy, unspecified 11/12/2006 10/16/2013 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 11/12/200603/15 Encounters Date Type Department Care Team Description 09/07/2024 Telephone [facility] [address] [place] [address] Chris Fontenot MD Medication Management (Melatonin ) 09/06/2024 Refill [facility] [address] [place] [address] Chris Fontenot MD Refill Request (Tab-A-Doroteo/Beta Carotene) 08/30/2024 11:30 AM AQUACULTURE FARMER Orders Only [facility] [address] [facility] [place] [address] [place], [place] [facility] 08/30/2024 Telephone [facility] [address] [facility] [place] [address] Chris Fontenot MD Results 08/30/2024 Travel 08/29/[address] [place] [address] Chris Fontenot MD Refill Request (Tab-a-doroteo/Beta carotene tabs) 08/23/2024 2:05 PM AQUACULTURE FARMER Office Visit [address] [place] [address] Chris Fontenot MD Medicare ANNUAL (subsequent) Visit (48 year old) 08/23/2024 Travel 08/03/[address] [place] [address] Chris Fontenot MD Refill Request (Tizanidine) 07/27/2024 4:00 PM AQUACULTURE FARMER Orders Only [address] [place] [address] [place] [facility] 07/27/2024 Travel 07/10/[address] [place] [address] Chris Fontenot MD Refill Request (Vitamin D3/) 06/30/[address] [place] [address] Chris Fontenot MD Results 06/28/2024 11:00 AM AQUACULTURE FARMER Orders Only [address] [place] [address] [place] [place] [facility] 06/28/2024 Travel from Last 3 Months Immunizations Name Administration Dates Next Due COVID-19 VACCINE SPIKEVAX (M ODERNA 50MCG/0.5ML) 12YO+ PFS 08/04/2023 COVID-19 vaccine (Moderna 100mcg/0.5mL) PF, MDV 10/09/2020,09/16/2020,09/11/2020 COVID-19 vaccine (Matchbin-Bio NTech 30mcg/0.3mL) 12YO+ BIVALENT PF, MDV 07/27/2022 COVID-19 vaccine (Pfizer-Bio NTech 30mcg/0.3mL) PF, MDV 08/28/2021 Hepatitis B (Adult) 04/10/2016,11/18/2015,2015 INFLUENZA, IIV3 PF (AGE >= 6 MO) 07/02/2024 Influenza A (H1N1), Inactivated 06/20/2009 Influenza Virus, Unspecified 06/16/2022, 06/27/2021,05/29/2020,2018,06/06/2018,05/18/2017,06/10/2016,1 ,05/16/2014,05/16/2013, 012,04/15/2011,04/23/2010,05/14/2009, Influenza, IIV3 (Age >=3 years) 05/22/20 15,04/15/2011,04/23/2010,2008,05/16/2007,05/31/2004 Influenza, IIV4 06/29/2023,06/16/2022,06/21/2019 Influenza, IIV4 (=>6mos) MDV 05/29/2020,05/18/20 17 Influenza, Injectable, Mdck, Quadrivalent, W/preservative 06/06/2018 Influenza,CCIIV4 PRESERV FREE 06/27/2021, 018 Pneumococcal Conj 20-valent (Prevnar 20) 04/13/2024 Pneumococcal Poly,23-Valent (Pneumovax) 04/23/2010 Tdap 06/06/2020,04/23/2010 Family History Medical History Relation Name Comments Lung cancer Father Heart attack Mother Abnormal EKG No Family History Anesthesia Problem No Family History Cancer-colon No Family History Cancer-prostate No Family History Diabetes No Family History Relation Name Status Comments Father Mother Social History Tobacco Use Types Packs/Day Years Used Date Smoking Tobacco: Never Smokeless Tobacco: Never Tobacco Cessation:Counseling Given: No Alcohol Use Standard Drinks/Week Comments No 0 (1 standard drink = 0.6 oz pur e alcohol) PHQ-2 Answer Date Recorded PHQ-2 TOTAL SCORE 1 03/15/2020 Social Connections Answer Date Recorded Do you often feel lonely or isolated from those around you? 0 03/07/2024 Financial Resource Strain Answer Date R ecorded Difficulty of Paying Living Expenses 3 08/02/2023 Difficulty of Paying Living Expenses Not on file 08/02/2023 Food Insecurity Answer Date Recorded Do you worry your food will run out before you are able to buy more? 1 03/07/2024 Transportation Needs Answer Date Record ed Does lack of transportation keep you from medica l appointments? 1 03/07/2024 Does lack of transportation keep you from work, meetings or getting things that you need? 1 03/07/2024 Housing Stability Answer Date Recorded What is your housing situation today? 1 03/07/2024 Interpersonal Safety Answer Date Record ed Are you being hit, kicked, p ushed or yelled at (see row info)? No 03/07/2024 Interpersonal Safety Abuse 12 - 18 Not on file 03/07/2024 Interpersonal Safety Ambulatory Vulnerability No t on file 03/07/2024 Utilities Answer Date Recorded Do you have trouble paying f or utilities (for example, heat, electricity, water, phone)? 1 03/07/2024 Sex and Gender Information Value Date Recorded Sex Assigned at Not on file Legal Sex Male 5:31 AM AQUACULTURE F[employer]ER Gender Identity Not on file Sexual Orientation Not on file Obstetrics History Last Filed Vital Signs Vital Sign Reading Time Taken Comments Blood Pressure 100/64 08/23/2024 2:04 PM AQUACULTURE FARMER Pulse 94 08/23/2024 2:04 PM AQUACULTURE FARMER Temperature 36.3 C (97.4 F) 04/17/2024 12:19 PM CDT Respiratory Rate 16 04/17/2024 12:19 PM CDT Oxygen Saturation 97% 08/23/2024 2:04 PM AQUACULTURE FARMER Inhaled Oxygen Concentration - - Weight 56.5 kg (124 lb 9 oz) 03/10/2024 8:00 AM CDT Height 157.5 cm (5' 2) 03/07/2024 11:14 AM CDT Body Mass Index 22.78 03/07/2024 11:14 AM CDT Plan of Treatment Health Maintenance Due Date Last Done Comments Colonoscopy through age 75 2019 Lipids for age 45-75 08/23/2029 08/23/2024, 08/04/2023, 07/27/2022, Additional history exists Tetanus booster 06/06/2030 06/06/2020, 04/23/2010 Tdap Completed 06/06/2020, 04/23/2010 HIV for age 15-65 Completed 07/27/2022 Hepatitis C screening for ag e 18-79 Completed 07/27/2022 Pneumococcal series for age 6-49 Completed 04/13/20 24, 04/23/2010 COVID-19 vaccine series Completed 06/26/20 24, 08/04/2023, 07/27/2022, Additional history exists Influenza for age 9-49 Completed 4, 06/29/2023, 06/16/2022, Additional history exists Procedures Procedure Name Priority Date/Time Associated Diagnosis Comments URINALYSIS MICROSCOPIC Routine 08/30/2024 8:30 AM AQUACULTURE FARMER Recurrent UTI URINE CULTURE Routine 08/30/2024 8:30 AM AQUACULTURE FARMER Recurrent UTI UA W/ SEDIMENT EXAM REFLEXED PER CRITERIA Routine 08/30/2024 8:30 AM AQUACULTURE FARMER Recurrent UTI VALPROIC ACID TOTAL Routine 08/23/2024 2 :51 PM AQUACULTURE FARMER 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) VITAMIN D 25 (DEFICIENCY) Routine 08/23/2024 2:51 PM AQUACULTURE FARMER Vitamin D deficiency FERRITIN Routine 08/23/2024 2:51 PM AQUACULTURE FARMER Iron deficiency anemia, unspecified iron deficiency anemia type IRON PLUS IRON BINDING CAP Routine 08/23/2024 2:51 PM AQUACULTURE FARMER Iron deficiency anemia, unspecified iron deficiency anemia type HEMOGLOBIN Routine 08/23/2024 2:51 PM AQUACULTURE FARMER Iron deficiency anemia, unspecified iron deficiency anemia type BASIC METABOLIC PANEL Routine 08/23/2024 2:51 PM AQUACULTURE FARMER Essential hypertension LIPID PANEL W REFLEX MEASURED LDL Routine 08/23/2024 2:51 PM AQUACULTURE FARMER Dyslipidemia URINALYSIS MICROSCOPIC Routine 07/27/2024 9:12 AM AQUACULTURE FARMER Recurrent UTI URINE CULTURE Routine 07/27/2024 9:12 AM AQUACULTURE FARMER Recurrent UTI UA W/ SEDIMENT EXAM REFLEXED PER CRITERIA Routine 07/27/2024 9:12 AM AQUACULTURE FARMER Recurrent UTI URINALYSIS REFLEX NOTE (QUEST REFLEX ONLY) Routine 06/28/2024 6:25 AM AQUACULTURE FARMER UA W/ SEDIMENT EXAM REFLEXED PER CRITERIA Routine 06/28/2024 6:25 AM AQUACULTURE FARMER Recurrent UTI URINE CULTURE Routine 06/28/2024 6:25 AM AQUACULTURE FARMER Recurrent UTI ANTI HIV 1/2 Routine 07/27/2022 4:55 PM AQUACULTURE FARMER Encounter for screening for HIV ANTI HCV Routine 07/27/2022 4:55 PM AQUACULTURE FARMER Need for hepatitis C screening test from Last 3 Months or Most Recently Relevant to Health Maintenance Results * (ABNORMAL) URINALYSIS MICROSCOPIC (08/30/2024 8:30 AM AQUACULTURE FARMER) Only the most recent of2 resultswithin the time period is included. RBC 0-2 0-2, None Seen /HPF 08/30/2024 3:[address] [facility] WBC 51-100(A) 0-2, 3-5, None Seen /HPF 08/30/2024 3:[address] [facility] BACTERIA None Seen None Seen, Rare, Few Bacteria/ HPF 08/30/2024 3:[address] [facility] EPITHELIAL CELLS Many(A) None Seen, Few Epi/HPF 08/30/2024 3:[address] [facility] HYALINE CASTS 0-2 0-2, 3-5 /LPF 08/30/2024 3:[address] [facility] CALCIUM OXALATE CRYSTALS Present(A) (none) 08/30/2024 3:[address] [facility] Urine URINE SPECIMEN / Unknown Non-Blood / Unknown 08/30/2024 8:30 AM AQUACULTURE FARMER 08/30/2024 11:34 AM AQUACULTURE FARMER Chris Fontenot MD URINE Final Result Performing Organization Address [facility] Co de Phone Number [facility] [address] [place] [address], [place] * (ABNORMAL) URINE CULTURE (08/30/2024 8:30 AM AQUACULTURE FARMER) Only the most recent of3 resultswithin the time period is included. CULTURE RESULT(A) 09/02/2024 6:58 AM AQUACULTURE FARMER [facility] CULTURE >100,000 CFU/mL Enterococcus faecalis 09/02/2024 6:58 AM AQUACULTURE FARMER [facility] Comment: Levofloxacin susceptibilities for Enterococcus available upon request for urine isolates ONLY. Levofloxacin is not routinely recommended for Enterococcus and can ONLY be used for infections isolated in the urinary tract. In the setting of polymicrobial urine cultures, Enterococcus often represents colonization and may not necessitate treatment. CULTURE <10,000 CFU/mL Multiple organisms probable contaminants 09/02/2024 6:58 AM AQUACULTURE FARMER [facility] Urine URINE SPECIMEN / Unknown Non-Blood / Unknown 08/30/2024 8:30 AM AQUACULTURE FARMER 08/30/2024 11:34 AM AQUACULTURE FARMER Narrative Organism Antibiotic Method Susceptibility Enterococcus faecalis AMPICILLIN <=2: S Enterococcus faecalis NITROFURANTOIN <=16: S us Chris Fontenot MD MICROBIOLOGY Final Result Performing Organization Address [facility] Co de Phone Number [facility] [address] [place] [address], [place] * (ABNORMAL) UA W/ SEDIMENT EXAM REFLEXED PER CRITERIA (08/30/2024 8:30 AM AQUACULTURE FARMER) Only the most recent of3 resultswithin the time period is included. COLOR Yellow Yellow Color 08/30/2024 3:59 PM AQUACULTURE FARMER [facility] CLARITY Clear Clear Clarity 08/30/2024 3:59 PM AQUACULTURE FARMER [facility] SPECIFIC GRAVITY,URINE >=1.030(A) 1.010, 1.015, 1.020, 1.025 08/30/2024 3:59 PM AQUACULTURE FARMER [facility] PH,URINE 5.5 6.0, 7.0, 8.0, 5.5, 6.5, 7.5, 8.5 08/30/2024 3:59 PM AQUACULTURE FARMER [facility] UROBILINOGEN, QUALITATIVE Normal Normal EU/dl 08/30/2024 3:59 PM AQUACULTURE FARMER [facility] PROTEIN, URINE Negative Negative mg/dL 08/30/2024 3:59 PM AQUACULTURE FARMER [facility] GLUCOSE, URINE 250(A) Negative mg/dL 08/30/2024 3:59 PM AQUACULTURE FARMER [facility] KETONES,URINE 15(A) Negative mg/dL 08/30/2024 3:59 PM AQUACULTURE FARMER [facility] BILIRUBIN,URI NE Negative Negative 08/30/2024 3:59 PM AQUACULTURE FARMER [facility] OCCULT BLOOD,URINE Negative Negative 08/30/2024 3:59 PM AQUACULTURE FARMER [facility] NITRITE Negative Negative 08/30/2024 3:59 PM AQUACULTURE FARMER [facility] LEUKOCYTE ESTERASE Small(A) Negative 08/30/2024 3:59 PM AQUACULTURE FARMER [facility] Urine URINE SPECIMEN / Unknown Non-Blood / Unknown 08/30/2024 8:30 AM AQUACULTURE FARMER 08/30/2024 11:34 AM AQUACULTURE FARMER us Chris Fontenot MD URINE Final Result [facility] [address] [place] [address], * LIPID PANEL W REFLEX MEASURED LDL (08/23/2024 2:51 PM AQUACULTURE FARMER) CHOLESTEROL, TOTAL 149 <200 mg/dL [facility] HDL CHOLESTEROL 51 > OR = 40 mg/dL [facility] TRIGLYCERIDES 101 <150 mg/dL [facility] LDL-CHOLESTEROL 80 mg/dL (calc) [facility] Comment: Reference range: <100 Desirable range <100 mg/dL for primary prevention; <70 mg/dL for patients with CHD or diabetic patients with > or = 2 CHD risk factors. LDL-C is now calculated using the Yeny calculation, which is a validated novel method providing better accuracy than the Friedewald equation in the estimation of LDL-C. Perfecto SS et al. RANULFO. 2013;310(19): 3847-3175 (http://education.[employer].com/faq/SGS640) CHOL/HDLC RATIO 2.9 <5.0 (calc) [facility] NON HDL CHOLESTEROL 98 <130 mg/dL (calc) [facility] Comment: For patients with diabetes plus 1 major ASCVD risk factor, treating to a non-HDL-C goal of <100 mg/dL (LDL-C of <70 mg/dL) is considered a therapeutic option. Blood BLOOD SPECIMEN / Unknown 08/23/2024 2:51 PM AQUACULTURE FARMER 08/23/2024 2:51 PM AQUACULTURE FARMER Chris Fontenot MD CHEMISTRY Final Result [facility] [address] [place] [address], [facility] [address] [place] [address] * VITAMIN D 25 (DEFICIENCY) (08/23/2024 2:51 PM AQUACULTURE FARMER) VITAMIN D,25-OH,TOTAL,IA 83 30 - 100 ng/mL [facility] Comment: Vitamin D Status 25-OH Vitamin D: Deficiency: <20 ng/mL Insufficiency: 20 - 29 ng/mL Optimal: > or = 30 ng/mL For 25-OH Vitamin D testing on patients on D2-supplementation and patients for whom quantitation of D2 and D3 fractions is required, the QuestAssureD(TM) 25-OH VIT D, (D2,D3), LC/MS/MS is recommended: order code 61131 (patients >2yrs). See Note 1 Note 1 For additional information, please refer to http://education.[employer].com/faq/BMQ256 (This link is being provided for informational/ educational purposes only.) Blood BLOOD SPECIMEN / Unknown 08/23/2024 2:51 PM AQUACULTURE FARMER 08/23/2024 2:51 PM AQUACULTURE FARMER us Chris Fontenot MD SEND OUTS Final Result Performing Organization Address [facility]/ZIP Co de Phone Number [facility] [id number] [place] [address], [facility] [address] [place] [address] * (ABNORMAL) IRON PLUS IRON BINDING CAP (08/23/2024 2:51 PM AQUACULTURE FARMER) [facility] IRON, TOTAL 44(L) 50 - 180 mcg/dL [facility] IRON BINDING CAPACITY 328 250 - 425 mcg/dL (calc) [facility] % SATURATION 13(L) 20 - 48 % (calc) [facility] Blood BLOOD SPECIMEN / Unknown 08/23/2024 2:51 PM AQUACULTURE FARMER 08/23/2024 2:51 PM AQUACULTURE FARMER us Chris Fontenot MD CHEMISTRY Final Result Performing Organization Address [facility]/ZIP Co de Phone Number Green [facility] [address] [employer] [employer] [place] [address], [place] [phone] [place] [facility] [address] [place] [address] * (ABNORMAL) HEMOGLOBIN (08/23/2024 2:51 PM AQUACULTURE FARMER) HEMOGLOBIN 13.0(L) 13.2 - 17.1 g/dL [facility] Blood BLOOD SPECIMEN / Unknown 08/23/2024 2:51 PM AQUACULTURE FARMER 08/23/2024 2:51 PM AQUACULTURE FARMER us Chris Fontenot MD HEMATOLOGY Final Result Performing Organization Address [facility] Co de Phone Number [facility] [address] [facility] [place] [address], [place] [phone] [facility] [address] [facility] [place] [address] * (ABNORMAL) VALPROIC ACID TOTAL (08/23/2024 2:51 PM AQUACULTURE FARMER) [facility] VALPROIC ACID 118.1(H) 50.0 - 100.0 mg/L [facility] Blood BLOOD SPECIMEN / Unknown 08/23/2024 2:51 PM AQUACULTURE FARMER 08/23/2024 2:51 PM AQUACULTURE FARMER us Chris Fontenot MD CHEMISTRY Final Result Performing Organization Address [facility] Co de Phone Number [facility] [address] [place] [address], [place] [phone] [facility] [address] [place] [address] * FERRITIN (08/23/2024 2:51 PM AQUACULTURE FARMER) Pathologist [facility] [place] FERRITIN 49 38 - 380 ng/mL [facility] Blood BLOOD SPECIMEN / Unknown 08/23/2024 2:51 PM AQUACULTURE FARMER 08/23/2024 2:51 PM AQUACULTURE FARMER us Chris Fontenot MD CHEMISTRY Final Result Performing Organization Address [facility]/ZIP Co de Phone Number [facility] [address] [place] [address], [facility] [address] [place] [address] * BASIC METABOLIC PANEL (08/23/2024 2:51 PM AQUACULTURE FARMER) GLUCOSE 88 65 - 99 mg/dL [facility] Comment: Fasting reference interval UREA NITROGEN (BUN) 11 7 - 25 mg/dL [facility] CREATININE 0.65 0.60 - 1.29 mg/dL [facility] EGFR 116 > OR = 60 mL/min/1. 73m2 [facility] BUN/CREATININE RATIO SEE NOTE: 6 - 22 (calc) [facility] Comment: Not Reported: BUN and Creatinine are within reference range. SODIUM 136 135 - 146 mmol/L [facility] POTASSIUM 4.0 3.5 - 5.3 mmol/L [facility] CHLORIDE 100 98 - 110 mmol/L [facility] CARBON DIOXIDE 24 20 - 32 mmol/L [facility] ELECTROLYTE BALANCE 12 7 - 17 mmol/L (calc) [facility] CALCIUM 9.4 8.6 - 10.3 mg/dL [facility] Blood BLOOD SPECIMEN / Unknown 08/23/2024 2:51 PM AQUACULTURE FARMER 08/23/2024 2:51 PM AQUACULTURE FARMER Chris Fontenot MD CHEMISTRY Final Result [facility] [address] [facility] [place] [address], [place] [phone] [facility] [address] [place] [address] * URINALYSIS REFLEX NOTE ([facility] REFLEX ONLY) (06/28/2024 6:25 AM AQUACULTURE FARMER) NOTE UA [facility] Comment: This urine was analyzed for the presence of WBC, RBC, bacteria, casts, and other formed elements. Only those elements seen were reported. 06/28/2024 6:25 AM AQUACULTURE FARMER 06/28/2024 10:37 AM AQUACULTURE FARMER Chris Fontenot MD SEND OUTS Final Result Performing Organization Address City/[facility]/ZIP Co de Phone Number [facility] [address] [place] [address], [facility] [address] [place] [address] * ANTI HCV (07/27/2022 4:55 PM AQUACULTURE FARMER) Pathologist [facility] [place] HEPATITIS C ANTIBODY Non-React kandice Non-React kandice 07/29/2022 6:[address] [facility] Comment:Antibodies to HCV no t detected; does not exclude the possibility of exposure to HCV. Blood BLOOD SPECIMEN / Unknown Venipuncture / Unknown 07/27/2022 4:55 PM AQUACULTURE FARMER 07/27/2022 4:57 PM AQUACULTURE FARMER us Chris Fontenot MD SEND OUTS Final Result Performing Organization Address [facility] Co de Phone Number [facility] [address] [place] [address], [place] * ANTI HIV 1/2 (07/27/2022 4:55 PM AQUACULTURE FARMER) Pathologist [facility] [place] HIV-1/HIV-2 ANTIBODY Non-Reacti ve Non-Reacti ve 07/29/2022 11:[address] [facility] Comment:HIV-1 p24 and HIV-1/ HIV-2 Ab not detected. Blood BLOOD SPECIMEN / Unknown Venipuncture / Unknown 07/27/2022 4:55 PM AQUACULTURE FARMER 07/27/2022 4:57 PM AQUACULTURE FARMER Chris Fontenot MD SEND OUTS Final Result Performing Organization Address City/[facility]/ZIP Co de Phone Number [facility] [address] [place] [address], [place] from Last 3 Months or Most Recently Relevant to Health Maintenance Insurance MEDICARE [place] ONLY MEDICAID MEDICARE PART B HB ONLY MEDICARE PART A HB ONLY Advance Directives * Full Code (Latest Code Status on File) Date Activated Date Inactivated Comments 03/07/2024 2:30 PM 03/12/2024 2:05 PM Question Answer Comments Code Status Discussion: Reviewed Preferences Care Teams Survival Specialist Relationship Specialty Start Date End Date Chris Fontenot MD [address] [place] [address] PCP - General 12/15/05
[2024-09-10 19:03] VITALS: BP 134/85; PULSE 113; RESP 16; TEMP 38.4; O2SAT 98; BMI 21.5
--- NOTE | 2024-09-10 19:25 | CRLHL7_ITS ---
For Patients: As a result of the Century Cures Act, medical imaging exams and procedure reports are released immediately into your electronic medical record. You may view this report before your referring provider. If you have questions, please contact your health care provider. INDICATION: Cough. TECHNIQUE: Chest 1 views. COMPARISON: None. FINDINGS: Cardiovascular and mediastinum: Heart size and vasculature are normal in caliber and appearance. Lungs and pleural spaces: Lungs are clear. No sign of infiltrate or mass. No sign of pleural effusion. No pneumothorax. Bones and soft tissues: No significant findings. IMPRESSION: No acute or significant findings. Dictated by Hugo Ball MD @ 09/10/2024 7:55:53 PM (Electronically Signed)
--- NOTE | 2024-09-10 19:26 | ED_ITS ---
HPI - General Adult General Chief complaint: Fever Stated complaint: fever, sob, high heart rate, dehydrated, Time Seen by Provider: 09/10/24 18:56 Source: patient and family Mode of arrival: wheelchair Limitations: no limitations History of Present Illness HPI narrative: Patient is a 48-year-old male with a history of hypertension, cerebral palsy, wheelchair dependent, history of seizure disorder presenting today with fever, cough, decreased appetite and concerns about dehydration. Patient started feeling unwell last evening. He has had a dry cough for a couple of days. Fever started today. He feels more lethargic than usual. Had increased urinary frequency well the night. Patient was treated for UTI and just finished his antibiotics last week. Denies any rashes. No headache or significant body aches. Related Data Previous Rx's ?Medication ?Instructions ?Recorded oseltamivir 75 mg capsule (Tamiflu) 75 mg PO BID 5 days #10 caps 09/10/24 Allergies Allergy/AdvReac Type Severity Reaction Status Date / Time No Known Drug Allergies Allergy Verified 09/10/24 19:10 Review of Systems Status of ROS: Reports: 10 or more systems reviewed and unremarkable except as noted in History and below [facility] Social History Smoking Status: Never smoker How often do you have a drink containing alcohol: never AUDIT-C Alcohol total score: 0 Non-prescribed substance use: denies use Exam Narrative: Exam Narrative: Well-nourished patient in no acute distress. Clear developmental delay present. Answers questions appropriately and is cooperative. Patient is not appear to be in any respiratory distress. HEENT: Normocephalic atraumatic. Pupils are equally round reactive to light. Conjunctivae are moist without any icterus noted. Moist mucous membranes. Posterior pharynx is normal. Neck is soft without any lymphadenopathy or thyrom egaly. No masses are appreciated. Cardiovascular: Heart is tachycardic with regular rhythm S1 and S2 are present without any murmurs. Lungs: Clear to auscultation bilaterally no wheezes rhonchi or rales are appreciated. Patient takes deep breaths without any discomfort. Abdomen: Soft and nontender nondistended with normal bowel sounds. Extremities: Bilateral lower extremities are without edema. Atrophy of the lower extremities. Skin: Well perfused without any obvious rashes. Const: Vital Signs, click to edit/add: Vital Signs - 24 hr 09/10/24 19:03 09/10/24 20:30 Temperature 101.1 F H Pulse Rate [Left P ulse Oximeter] 113 H 109 H Respiratory Rate 16 Blood Pressure [Ri ght Upper Arm] 134/85 Pulse Oximetry 98 99 Oxygen Delivery Me thod Room Air Room Air Course Course ED Course: IV is established and a L of normal saline is ordered along with acetaminophen for fever. Differential diagnoses for fevers very broad at this time but includes influenza count COVID-19, pneumonia, UTI. CBC does not have an elevated WBC. He does have mild anemia and mild thrombocytopenia. Triple swab is positive for influenza A. Chest x-ray, read by me, does not show any acute infiltrates. UA is unremarkable. Vital Signs Vital signs: Initial Vital Signs Temperature 101.1 F H 09/10/24 19:03 Temperature Source Temporal Artery Scan 09/10/24 19:03 Pulse Rate 113 H 09/10/24 19:03 Respiratory Rate 16 09/10/24 19:03 Blood Pressure 134/85 09/10/24 19:03 Blood Pressure Mean 101 09/10/24 19:03 Blood Pressure Position Sitting 09/10/24 19:03 Pulse Oximetry 98 09/10/24 19:03 Oxygen Delivery Method Room Air 09/10/24 19:03 Vital Signs Temperature 101.1 F H 09/10/24 19:03 Pulse Rate 113 H 09/10/24 19:03 Respiratory Rate 16 09/10/24 19:03 Blood Pressure 134/85 09/10/24 19:03 Pulse Oximetry 98 09/10/24 19:03 Oxygen Delivery Method Room Air 09/10/24 19:03 Temperature 101.1 F H 09/10/24 19:03 Pulse Rate 109 H 09/10/24 20:30 Respiratory Rate 16 09/10/24 19:03 Blood Pressure 134/85 09/10/24 19:03 Pulse Oximetry 99 09/10/24 20:30 Oxygen Delivery Method Room Air 09/10/24 20:30 Medications Administered Medications: Generic Name Dose Route Start Last Admin Trade Name Freq PRN Reason Stop Dose Admin Acetaminophen 1,000 mg 09/10/24 19:18 09/10/24 19:54 Acetaminophen 500 Mg Tablet PO 09/10/24 19:19 1,000 mg ONCE ONE Administration Sodium Chloride 1,000 mls @ 1,000 mls/hr 09/10/24 19:30 09/10/24 19:54 0.9 % Sodium Chloride 1000 Ml IV 09/10/24 20:29 1,000 mls/hr .Q1H CRISTI Administration Medical Decision Making MDM Narrative Medical decision making narrative: 48-year-old male with influenza a. Will treat with Tamiflu. Discussed symptomatic treatment. Lab Data Lab results reviewed: Yes I reviewed the patient's lab results Labs: Lab Results 09/10/24 09/10/24 09/10/24 Range/Units 19:10 19:30 20:22 WBC 8.87 (4.50-11.00) K/uL RBC 4.04 L (4.30-5.90) m/uL Hgb 12.4 L (13.5-17.5) gm/dL Hct 37.1 (37.0-53.0) % MCV 92 (80-100) fL MCH 31 (26-34) pg MCHC 33 (32-36) gm/dL RDW Coeff of Jamie 13.5 (11.5-15.5) % Plt Count 138 L (140-440) K/uL Neut % (Auto) 64.1 (42.0-72.0) % Lymph % (Auto) 9.6 L (20-44) % [place] % (Auto) 25.0 H (0.0-11.0) % Eos % (Auto) 0.0 (0.0-7.0) % Baso % (Auto) 0.2 (0.0-3.0) % Neut # (Auto) 5.68 (1.7-7.0) K/uL Lymph # (Auto) 0.90 (0.90-2.90) K/uL [place] # (Auto) 2.20 H (0.00-0.90) K/UL Eos # (Auto) 0.00 (0.00-0.50) K/uL Baso # (Auto) 0.02 (0.00-0.30) K/uL Abs Immat Gran (auto) 0.10 (0.00-0.30) K/uL Imm/Tot Granulo (auto) 1.1 % Urine Color Yellow (Yellow) Urine Appearance Clear (Clear) Urine pH 7.0 (5.0-8.5) Ur Specific [place] 1.025 (1.000-1.030) Urine Protein Negative (Negative) Urine Glucose (UA) Negative (Negative) Urine Ketones Trace A (Negative) Urine Blood Negative (Negative) Urine Nitrite Negative (Negative) Urine Bilirubin Negative (Negative) Urine Urobilinogen 1.0 (0.2-1.0) Ur Leukocyte Esterase Negative (Negative) SARS-CoV-2 (PCR) Negative SARS-CoV-2 (Negative) Influenza Type A (PCR) POSITIVE PCR FLU A A (Negative) Influenza Type B (PCR) Negative PCR FLU B (Negative) RSV (PCR) Negative PCR RSV (Negative) Imaging Data Chest x-ray: Attestation: I have reviewed the pertinent imaging results. Radiologist's impression: Chest 1 views. COMPARISON: None. FINDINGS: Cardiovascular and mediastinum: Heart size and vasculature are normal in caliber and appearance. Lungs and pleural spaces: Lungs are clear. No sign of infiltrate or mass. No sign of pleural effusion. No pneumothorax. Bones and soft tissues: No significant findings. IMPRESSION: No acute or significant findings. Discharge Plan Discharge Clinical Impression: Influenza Patient Disposition: Home w/ Parent or Adult Condition: Stable Additional Instructions: Okay to take Tamiflu. Tamiflu is been shown to decrease the length of illness. Common side effect is vomiting, if this occurs stop taking the medication. You are contagious. Wear a mask when around other people. Okay to use ibuprofen or acetaminophen as needed/as directed for fevers and aches. Prescriptions: New oseltamivir [Tamiflu] 75 mg capsule 75 mg PO BID 5 Days Qty: 10 0RF Follow Up/Referrals: Chris Fontenot MD [Primary Care Provider] - Stand Alone Forms: [employer] Info Instructions
[2024-09-10 19:43] LABS: Basophils Absolute Auto 0.02 K/uL (0.00-0.30); Basophils Percent Auto 0.2 % (0.0-3.0); Hematocrit 37.1 % (37.0-53.0); Hemoglobin* 12.4 gm/dL (13.5-17.5); Immature Granulocytes Pct Auto 1.1 %; Lymphocytes Percent Auto 9.6 % (20-44); Mean Corpuscular HGB Conc 33 gm/dL (32-36); Mean Corpuscular Hemoglobin 31 pg (26-34); Mean Corpuscular Volume 92 fL (80-100); Neutrophils Absolute Auto 5.68 K/uL (1.7-7.0); Neutrophils Percent Auto 64.1 % (42.0-72.0); Platelet Count* 138 K/uL (140-440); RDW Coefficient of Variation % 13.5 % (11.5-15.5); Red Blood Count 4.04 m/uL (4.30-5.90); White Blood Count* 8.87 K/uL (4.50-11.00)
[2024-09-10 19:44] LABS: Slide Review Reflex No
--- OUTSIDE RECORDS SUMMARY | 2024-09-10 19:52 | XMS_ITS | Encounter Summary ---
Author Organization [facility] Address [address] [place] [address] Care Team Providers Care Front End Manager Name Role Phone Elsewhere, Pcp Primary Care Provider Unavailabl e Encounter Details Date Type Department Care Team (Latest Contact Info) Description 08/11/2024 8:03 AM METAL PATTERNMAKER APPRENTICE - 08/11/2024 11:59 PM METAL PATTERNMAKER APPRENTICE Hospital Encounter Department of Laboratory Medicine in [address] [phone] Matteo Noe M.D. 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 1 to 4 times per year 02/01/2022 Do you belong to any clubs o r organizations such as zoroastrianism groups, unions, fraternal or athletic groups, or [...] and heating? Not hard at all 02/01/2022 [facility] of Occupat ional Health - Occupational Stress [...] your living situation today? I have a [facility] place to live 10/18/2023 Sex and Gender Information Value Date Recorded Sex Assigned at Male 02/01/2022 6:47 PM CDT Legal Sex Male 9:23 AM METAL PATTERNMAKER APPRENTICE Gender Identity Male 02/01/2022 6:47 PM CDT [...] (Latest Contact Info) Description 09/13/2024 10:30 AM [facility] Diagnostic Division of Pulmonary Medicine in [place], [place] 200 [place] [address] Matteo Noe M.D. 200 [place] [address] 11/07/2024 9:30 AM CDT Appointment Department of Laboratory Medicine in [place], [place] [address] [place] [phone] Matteo Noe M.D. [address] [place] [phone] 11/24/2024 11:00 AM CDT Clinical Communication Virtual Review in [place], [place] [address] [place] [address] 11/28/2024 11:00 AM CDT Office Visit Department of Neurology in [place], [place] [address] [place] [phone] Matteo Noe M.D. 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 This test has not been cleared or approved by the U.S. Food and Drug Administration. Blood (Blood, Venous) 08/11/2024 8:11 AM METAL PATTERNMAKER APPRENTICE 08/12/2024 2:17 PM METAL PATTERNMAKER APPRENTICE us Matteo Noe M.D. LAB BLOOD NON ADD-ON Final Resul t [facility] [address] [place] [address] [facility] [address] [place] [address] 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
--- OUTSIDE RECORDS SUMMARY | 2024-09-10 19:52 | XMS_ITS | Encounter Summary ---
Author Organization [facility] Address [address] [place] [address] Care Team Providers Care Tube Drawing Supervisor Name Role Phone Elsewhere, Pcp Primary Care Provider Unavailabl e Reason for Referral * Outpatient (Routine) - Authorized Specialty Diagnoses / Procedures Referred By Bhupendra johnson Referred To Contact Neurology Matteo Noe M.D. [address] [place] [phone] Phone: tel: fax: [facility] Referral ID Status Reason Start Date Expiration Date V isits Requested Visits Authorized [id number] Authorized 08/14/2024 02/13/2026 1 1 Scheduling Instructions Blood collection on the morning of the visit. EF MASTER Reason for Visit * Outpatient (Routine) - Closed Specialty Diagnoses / Procedures Referred By Bhupendra johnson Referred To Contact Neurology Matteo Noe M.D. [address] [place] [phone] Phone: tel: fax: [facility] Referral ID Status Reason Start Date Expiration Date Visits Re quested Visits Authorized [id number] Closed 05/12/2024 11/11/2025 1 1 Encounter Details Date Type Department Care Team ([facility] st Contact Info) Description 08/14/2024 10:00 AM RELIEF MASTER Office Visit Department of Neurology in [place], [place] [address] [place] [phone] Matteo Noe M.D. 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 1 to 4 times per year 02/01/2022 Do you belong to any clubs o r organizations such as jehovah's witness groups, unions, fraternal or athletic groups, or [...] and heating? Not hard at all 02/01/2022 [facility] [place] of Occupat ional Health - Occupational Stress [...] your living situation today? I have a [facility] place to live 10/18/2023 Sex and Gender Information Value Date Recorded Sex Assigned at Male 02/01/2022 6:47 PM CDT Legal Sex Male 9:23 AM RELIEF MASTER Gender Identity Male 02/01/2022 6:47 PM CDT Sexual Orientation Straight 02/01/2022 6: 47 PM CDT documented as of this encounter Last Filed Vital Signs Vital Sign Reading Time Taken Comments Blood Pressure - - Pulse - - Temperature - - Respiratory Rate - - Oxygen Saturation - - Inhaled Oxygen Concentration - - Weight 59 kg (130 lb) 08/14/2024 9:53 AM RELIEF MASTER Iftikhar bal Height 157.5 cm (5' 2) 08/14/2024 9:53 AM RELIEF MASTER V erbal Body Mass Index 23.78 08/14/2024 9:53 AM RELIEF MASTER documented in this encounter Patient Instructions * Patient Instructions* Claudia Garcia R.N. - 08/14/2024 10:00 AM RELIEF MASTER Images from the original note were not included. EF MASTER EF MASTER EF MASTER documented in this encounter Progress Notes * Matteo Noe M.D. - 08/14/2024 10:00 AM CST CHIEF COMPLAINT/REASON FOR VISIT Specially arranged visit, because of increased seizure frequency. HISTORY OF PRESENT ILLNESS Andres is here today with his sister Kirsty, and his property management supervisor, Samira. Andres has increased seizure frequency, according [...] for a return visit in 3-4 months. EF MASTER documented in this encounter Plan of Treatment Upcoming Encounters Date Type Department Care Team (Latest Contact Info) Description 09/13/2024 10:30 AM RELIEF MASTER Diagnostic Division of Pulmonary Medicine in [address] [phone] Matteo Noe M.D. [address] [place] [phone] 11/07/2024 9:30 AM CDT Appointment Department of Laboratory Medicine in [address] [phone] Matteo Noe M.D. [address] [place] [phone] 11/24/2024 11:00 AM CDT Clinical Communication Virtual Review in [place], [place] 200 [place] [address] 11/28/2024 11:00 AM CDT Office Visit Department of Neurology in [address] [phone] Matteo Noe M.D. [address] [place] [phone] Scheduled Orders Name Type Priority Associated Diagnoses [...] Primary documented in this encounter Care Teams Tube Drawing Supervisor Relationship Specialty Start Date End Date Elsewhere, Pcp PCP - General Internal Medicine 11/14/21 documented as of this encounter
--- OUTSIDE RECORDS SUMMARY | 2024-09-10 19:52 | XMS_ITS | Referral Summary ---
Author Organization [place] Address [address] [place] [address] Care Team Providers Care Clinic Lead Name Role Phone Chris Fontenot Primary Care Provider [phone] Allergies Active Allergy Reactions Criticality Noted Date [...] on file Legal Sex Male 3:58 AM ROUGHENER Gender Identity Not on file Sexual Orientation [...] [place] Care Teams Clinic Lead Relationship Specialty Start Date End Date Chris Fontenot PCP - General 03/09/13
--- OUTSIDE RECORDS SUMMARY | 2024-09-10 19:52 | XMS_ITS | Encounter Summary ---
Author Organization [facility] Address [address] [place] [address] Care Team Providers Care Theatrical Trouper Name Role Phone Elsewhere, Pcp Primary Care Provider Unavailabl e Encounter Details Date Type Department Care Team ([facility] st Contact Info) Description 09/01/2024 Clinical Communication Department of Neurology in [place], [place] [address] [place] [phone] Matteo Noe M.D. [address] [place] [phone] Social History Tobacco Use Types Packs/Day Years Used Date Smoking Tobacco: Never Smokeless Tobacco: Never [facility] Utilities Answer Date Recorded In the past 12 months has [facility] electric, gas, oil, or water [employer] threatened to shut off services in your [...] often do you attend chur ch or jew services? 1 to 4 times per year [...] and heating? Not hard at all 02/01/2022 [facility] of Occupat ional Health - Occupational Stress [...] your living situation today? I have a [facility] place to live 10/18/2023 Sex and Gender Information Value Date Recorded Sex Assigned at Male 02/01/2022 6:47 PM CDT Legal Sex Male 9:23 AM STATION INSPECTOR Gender Identity Male 02/01/2022 6:47 PM CDT Sexual Orientation Straight 02/01/2022 6: 47 PM CDT documented as of this encounter Plan of Treatment Upcoming Encounters Date Type Department Care Team (Latest Contact Info) Description 09/13/2024 10:30 AM STATION INSPECTOR Diagnostic Division of Pulmonary Medicine in [place], [place] [address] [place] [phone] Matteo Noe M.D. [address] [place] [phone] 11/07/2024 9:30 AM CDT Appointment Department of Laboratory Medicine in [address] [phone] Matteo Noe M.D. [address] [place] [phone] 11/24/2024 11:00 AM CDT Clinical Communication Virtual Review in [place], [place] 200 [place] [address] 11/28/2024 11:00 AM CDT Office Visit Department of Neurology in [place], [place] [address] [place] [phone] Matteo Noe M.D. [address] [place] [address] documented as of this encounter Visit Diagnoses Not on filedocumented in this encounter Care Teams Theatrical Trouper Relationship Specialty Start Date End Date Elsewhere, Pcp PCP - General Internal Medicine 11/14/21 documented as of this encounter
--- OUTSIDE RECORDS SUMMARY | 2024-09-10 19:52 | XMS_ITS | Clinical Summary ---
Author Organization [facility] Address [address] [place] [address] Care Team Providers Care Fabrication Technician Name Role Phone Chris Fontenot Primary Care Provider [phone] Ramirez Oliveira MD Unavailable [phone] Allergies Active Allergy Reactions Criticality Noted Date [...] (Moderna) 12+ Yrs M onovalent COVID Vaccine (dredge mate) 10/09/2020,09/16/2020 Tdap 06/06/2020,04/23/2010 Family History Medical History Relation Comments Brain/FUEL TRUCK DRIVER Cancer Other Breast Cancer Other Heart Disease [...] - Respiratory Rate 14 07/06/2022 11:20 AM INTAKE MANAGER Oxygen Saturation - - Inhaled Oxygen Concentration - - Weight 54.4 kg (120 lb) 07/06/2022 11:20 AM INTAKE MANAGER Height 157.5 cm (5' 2) 07/06/2022 11:20 AM INTAKE MANAGER Body Mass Index 21.95 07/06/2022 11:20 AM INTAKE MANAGER Plan of Treatment Health Maintenance Due Date [...] A & B [place] Care Teams Fabrication Technician Relationship Specialty Start Date End Date Chris Fontenot [address] [place] [address] PCP - General Family Medicine 03/25/21 Ramirez Oliveira MD [address] [facility] [address] [place] [address] Neurology 05/06/22
--- OUTSIDE RECORDS SUMMARY | 2024-09-10 19:52 | XMS_ITS ---
Author Organization [facility] Address [address] [place] [address] Care Team Providers Care Diversity Intern Name Role Phone Unavailable Unavailable Unavailable Surgery Details Not on file Complications Check Surgery Details section. Procedure Estimated Blood Loss Check Surgery Details section. Procedure Findings Check Surgery Details section. Procedure Specimens Taken Check Surgery Details section.
--- OUTSIDE RECORDS SUMMARY | 2024-09-10 19:52 | XMS_ITS | Clinical Summary ---
Author Organization [facility] Address [address] [place] [address] Care Team Providers Care Hoister Name Role Phone Elsewhere, Pcp Primary Care Provider Unavailabl e Source Comments Patient records contain information from all sites at [facility]. For routine questions regarding patient records, call [phone] during business hours, M-F 8:00 AM - 5:00 PM Central Time. Record requests for emergency care only can be directed to [phone] at any time.[facility] Allergies Active Allergy Reactions Criticality Noted Date [...] 09/01/2024 Clinical Communication Department of Neurology in [place], [place] [address] [place] [address] Matteo Noe M.D. 08/14/2024 10:00 AM SEAT MAKER Office Visit Department of Neurology in [place], [place] [address] [place] [address] Matteo Noe M.D. 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 Idiopathic Generalized Epilepsy Intractable [...] Date Smoking Tobacco: Never Smokeless Tobacco: Never [employer] Utilities Answer Date Recorded In the past 12 months has e [facility], gas, oil, or water [employer] threatened to shut off services in your [...] often do you attend chur ch or restorationism services? 1 to 4 times per year 02/01/2022 Do you belong to any clubs o r organizations such as episcopal groups, unions, fraternal or athletic groups, or [...] and heating? Not hard at all 02/01/2022 [facility] of Occupat ional Health - [...] your living situation today? I have a [facility] place to live 10/18/2023 Sex and Gender Information Value Date Recorded Sex Assigned at Male 02/01/2022 6:47 PM CDT Legal Sex Male 9:23 AM SEAT MAKER Gender Identity Male 02/01/2022 6:47 PM CDT Sexual Orientation Straight 02/01/2022 6: 47 PM CDT Last Filed Vital Signs Vital Sign Reading Time Taken Comments Blood Pressure - - Pulse - - Temperature 36.2 C (97.2 F) 11/17/2021 2:36 PM CDT Respiratory Rate - - Oxygen Saturation - - Inhaled Oxygen Concentration - - Weight 59 kg (130 lb) 08/14/2024 9:53 AM SEAT MAKER Iftikhar bal Height 157.5 cm (5' 2) 08/14/2024 9:53 AM SEAT MAKER V erbal Body Mass Index 23.78 08/14/2024 9:53 AM SEAT MAKER Plan of Treatment Upcoming Encounters Date Type Department Care Team (Latest Contact Info) Description 09/13/2024 10:30 AM SEAT MAKER Diagnostic Division of Pulmonary Medicine in [place], [place] [address] [place] [phone] Matteo Noe M.D. [address] [place] [phone] 11/07/2024 9:30 AM CDT Appointment Department of Laboratory Medicine in [place], [place] 300 [place] [address] Matteo Noe M.D. [address] [place] [phone] 11/24/2024 11:00 AM CDT Clinical Communication Virtual Review in [place], [place] 200 [place] [address] 11/28/2024 11:00 AM CDT Office Visit Department of Neurology in [place], [place] [address] [place] [phone] Matteo Noe M.D. 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 Comment: ----ADDITIONAL INFORMATION---- This test was developed and its performance characteristics determined by [facility] in a manner consistent with CLIA requirements. This test has not been cleared or approved by the U.S. Food and Drug Administration. Blood (Blood, Venous) 08/11/2024 8:11 AM SEAT MAKER 08/12/2024 2:17 PM SEAT MAKER us Matteo Noe M.D. LAB BLOOD NON ADD-ON Final Resul t [facility] [address] [id number] [facility] [address] [id number] from Last 3 Months Insurance MEDICARE [place] Care Teams Hoister Relationship Specialty Start Date End Date Elsewhere, Pcp PCP - General Internal Medicine 11/14/21
--- OUTSIDE RECORDS SUMMARY | 2024-09-10 19:52 | XMS_ITS | Continuity of Care Document ---
Author Organization [facility] Address [address] [address] [place] [address] Phone Care Team Providers Care Aerial Advertiser Name Role Phone Arnav Larson MD Unavailable Unavailabl e Medications Medication Instructions Dosage Effective Dates (start - stop) Status Comments simethicone 80 mg chewable tablet take by oral route as directed per COL prep instructions received from [facility] - Active Procedure rk e: 01/07/24 please [...] directed per COL prep instructions received from [facility] - Active Procedure rk e: 01/07/24 please [...] Diagnoses Date Provider Providers Copied on Encounter [facility], [address] [address], [place], [place], [id number], tel:[phone] [facility] No Information Kyle José. [address] [facility], [place], [place], [id number], [place]. tel:[phone] [facility], [address] [address], [place], [place], [id number], [place] tel:[phone] [facility] No Information Kyle José. [address] [facility], [facility] [address], [place], [place], [id number], [place]. tel:[phone] [facility], [address] [address], [place], [place], [id number], tel:[phone] [facility] No Information Kyle José. [address] [facility], [facility] [address], [place], [place], [id number], [place]. tel:[phone] Family History Family Member Type Diagnosis Age [...] interface ; Source: Other Registry Influenza, [place] Canin e Kidney, subunit, quadrivalent, injectable, preservative free administered Note: [facility] bi-directional interface ; Source: Other Registry Influenza, injectable, [place] Canine Kidney, preservative free, quadrivalent administered Note: [place] [facility] bi- directional interface ; Source: Other [...] ional interface ; Source: Other Registry Novel [id number], all formulations administered Note: [facility] bi-direct ional [...] Registry Payers Payer name Insurance type Covered republican ID Authoriza tion(s) No Information Social History [...]
--- OUTSIDE RECORDS SUMMARY | 2024-09-10 19:52 | XMS_ITS | Referral Summary ---
Author Organization [facility] Address [address] [place] [address] Care Team Providers Care National Park Ranger Name Role Phone Elsewhere, Pcp Primary Care Provider Unavailabl e Source Comments Patient records contain information from all sites at [facility]. For routine questions regarding patient records, call [phone] during business hours, M-F 8:00 AM - 5:00 PM Central Time. Record requests for emergency care only can be directed to [phone] at any time.[facility] Encounters Date Type Department Care Team Description 09/01/2024 Clinical Communication Department of Neurology in [place], [place] [address] [place] [address] Matteo Noe M.D. 08/14/2024 10:00 AM FLIGHT DISPATCHER Office Visit Department of Neurology in [place], [place] [address] [place] [phone] Matteo Noe M.D. 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 Idiopathic Generalized Epilepsy Intractable [...] Date Smoking Tobacco: Never Smokeless Tobacco: Never [employer] Utilities Answer Date Recorded In the past 12 months has e [employer], gas, oil, or water [employer] threatened to shut off services in your [...] often do you attend chur ch or advent services? 1 to 4 times per year [...] and heating? Not hard at all 02/01/2022 [facility] [place] of Occupat ional Health - Occupational Stress [...] your living situation today? I have a [facility] place to live 10/18/2023 Sex and Gender Information Value Date Recorded Sex Assigned at Male 02/01/2022 6:47 PM CDT Legal Sex Male 9:23 AM FLIGHT DISPATCHER Gender Identity Male 02/01/2022 6:47 PM CDT Sexual Orientation Straight 02/01/2022 6: 47 PM CDT Last Filed Vital Signs Vital Sign Reading Time Taken Comments Blood Pressure - - Pulse - - Temperature 36.2 C (97.2 F) 11/17/2021 2:36 PM CDT Respiratory Rate - - Oxygen Saturation - - Inhaled Oxygen Concentration - - Weight 59 kg (130 lb) 08/14/2024 9:53 AM FLIGHT DISPATCHER Iftikhar bal Height 157.5 cm (5' 2) 08/14/2024 9:53 AM FLIGHT DISPATCHER V erbal Body Mass Index 23.78 08/14/2024 9:53 AM FLIGHT DISPATCHER Plan of Treatment Upcoming Encounters Date Type Department Care Team (Latest Contact Info) Description 09/13/2024 10:30 AM FLIGHT DISPATCHER Diagnostic Division of Pulmonary Medicine in [place], [place] [address] [place] [phone] Matteo Noe M.D. [address] [place] [phone] 11/07/2024 9:30 AM CDT Appointment Department of Laboratory Medicine in [place], [place] 300 [place] [phone] Matteo Noe M.D. [address] [place] [phone] 11/24/2024 11:00 AM CDT Clinical Communication Virtual Review in [place], [place] 200 [place] [phone] 11/28/2024 11:00 AM CDT Office Visit Department of Neurology in [place], [place] [address] [place] [phone] Matteo Noe M.D. 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 This test has not been cleared or approved by the U.S. Food and Drug Administration. Blood (Blood, Venous) 08/11/2024 8:11 AM FLIGHT DISPATCHER 08/12/2024 2:17 PM FLIGHT DISPATCHER Matteo Noe M.D. LAB BLOOD NON ADD-ON Final Resul t [facility] [address] [place] [address] [facility] [address] [place] [phone] from Last 3 Months Insurance MEDICARE [place] MEDICAID Care Teams National Park Ranger Relationship Specialty Start Date End Date Elsewhere, Pcp PCP - General Internal Medicine 11/14/21
--- OUTSIDE RECORDS SUMMARY | 2024-09-10 19:53 | XMS_ITS | Encounter Summary ---
Author Organization [facility] Address [address] [place] [address] Care Team Providers Care Improvement Engineer Name Role Phone Chris Fontenot Primary Care Provider [phone] Jasiel Hester RN Unavailable Reason for Visit * Reason Onset Date Comments Refill Request 06/28/2018 diazepam (DIAZEP AM INTENSOL) 5 MG/ML (HIGH CONC) solution Encounter Details Date Type Department Care Team (Late st Contact Info) Description 06/28/2018 [facility] Neurology [address] [facility] [address] [place] [address] Boyd Green MD [address] [facility] 200 [place], [place] [phone] Refill Request (diazepam (DIAZEPAM INTENSOL) 5 MG/ML (HIGH CONC) solution) Social History Tobacco Use Types Packs/Day Years Used Date Smoking Tobacco: Never Smokeless Tobacco: Never Alcohol Use Standard Drinks/Week Comments No 0 (1 standard drink = 0.6 oz pur e alcohol) Sex and Gender Information Value Date Recorded Sex Assigned at Not on file Legal Sex Male 3:58 AM GAS ENGINEER Gender Identity Not on file Sexual Orientation Not on file documented as of this encounter Miscellaneous Notes * Telephone Encounter - Bashir Hodges Zeeshan - 06/28/2018 12:09 PM CST [facility] Call Center Phone Message May a detailed message be left on voicemail: no Reason for Call: Medication Refill Request Has the patient contacted the pharmacy for the refill? Yes Name of medication being requested: diazepam (DIAZEPAM INTENSOL) 5 MG/ML (HIGH CONC) solution Provider who prescribed the medication: Dr. Green Pharmacy: [facility] Date medication is needed: Joey, Pt is out Action Taken: Message routed to: [facility] NEUROLOGY [facility] ENGINEER documented in this encounter Plan of Treatment Not on file documented as of this encounter Visit Diagnoses Diagnosis Seizure disorder (H) Unspecified epilepsy without mention of intractable epilepsy documented in this encounter Care Teams Improvement Engineer Relationship Specialty Start Date End Date Chris Fontenot PCP - General 03/09/13 Jasiel Hester, RN Registered Nurse Neurology 12/23/17 08/26/18 documented as of this encounter
--- OUTSIDE RECORDS SUMMARY | 2024-09-10 19:53 | XMS_ITS | Clinical Summary ---
Author Organization [facility] Address [address] [place] [address] Care Team Providers Care Sanitation Tank Washer Name Role Phone Chris Fontenot Primary Care Provider [phone] Allergies Active Allergy Reactions Criticality Noted Date [...] on file Legal Sex Male 3:58 AM INDUSTRIAL MANAGEMENT TEACHER Gender Identity Not on file Sexual Orientation [...] [place] Care Teams Sanitation Tank Washer Relationship Specialty Start Date End Date Chris Fontenot PCP - General 03/09/13
--- OUTSIDE RECORDS SUMMARY | 2024-09-10 19:53 | XMS_ITS | Referral Summary ---
Author Organization [facility] Address [address] [place] [address] Care Team Providers Care Dye Can Operator Name Role Phone Chris Fontenot Primary Care Provider [phone] Ramirez Oliveira MD Unavailable [phone] Allergies Active Allergy Reactions Criticality Noted Date [...] (Moderna) 12+ Yrs M onovalent COVID Vaccine (poured pipe maker) 10/09/2020,09/16/2020 Tdap 06/06/2020,04/23/2010 Social History Tobacco Use [...] - Respiratory Rate 14 07/06/2022 11:20 AM TERMINAL CLERK Oxygen Saturation - - Inhaled Oxygen Concentration - - Weight 54.4 kg (120 lb) 07/06/2022 11:20 AM TERMINAL CLERK Height 157.5 cm (5' 2) 07/06/2022 11:20 AM TERMINAL CLERK Body Mass Index 21.95 07/06/2022 11:20 AM TERMINAL CLERK Plan of Treatment Not on file [place] [id number] MEDICAID [place] Care Teams Dye Can Operator Relationship Specialty Start Date End Date Crhis Fontenot [address] [place] [address] PCP - General Family Medicine 03/25/21 Ramirez Oliveira MD [address] [facility] [address] [place] [address] Neurology 05/06/22
--- OUTSIDE RECORDS SUMMARY | 2024-09-10 19:53 | XMS_ITS | Encounter Summary ---
Author Organization [facility] Address [address] [place] [address]. [place] [address] Care Team Providers Care Brick Layer Name Role Phone Chris Fontenot Primary Care Provider [phone] Jasiel Hester RN Unavailable Reason for Visit * Reason Onset Date Comments Call Back 12/23/2017 Questions about medication and labs Encounter Details Date Type Department Care Team (Late st Contact Info) Description 12/23/2017 Telephone [facility] Neurology [address] [facility] 3[address] [place] [address] Boyd Green MD [address] [address] Call Back (Questions about medication and labs) Social History Tobacco Use Types Packs/Day Years Used Date Smoking Tobacco: Never Sex and Gender Information Value Date Recorded Sex Assigned at Not on file Legal Sex Male 3:58 AM URBAN PLANNING TEACHER Gender Identity Not on file Sexual Orientation Not on file documented as of this encounter Miscellaneous Notes * Telephone Encounter - Jasiel Hester, RN - 12/23/2017 1:40 PM CDT Returned call to Patient's sister left voice message indicating refills would be sent up appointment time as rescheduled. Requested a call back. * Telephone Encounter - Carlotta Booker - 12/23/2017 10:03 AM CDT [facility] Call Center Phone Message May [...] before the appointment. Please call back at [phone]. Action Taken: Message routed to: [facility] ([facility]): Neurology documented in this encounter Plan of Treatment Not on file documented as of this encounter Visit Diagnoses Diagnosis Generalized convulsive epilepsy with intractable epilepsy Seizure disorder (H) Unspecified epilepsy without mention of intractable epilepsy documented in this encounter Care Teams Brick Layer Relationship Specialty Start Date End Date Chris Fontenot PCP - General 03/09/13 Jasiel Hester, RN Registered Nurse Neurology 12/23/17 08/26/18 documented as of this encounter
--- OUTSIDE RECORDS SUMMARY | 2024-09-10 19:53 | XMS_ITS | Encounter Summary ---
Author Organization [facility] Address [address] [place] [address]. [place] [address] Care Team Providers Care Site Physician Name Role Phone Chris Fontenot Primary Care Provider [phone] Jasiel Hester RN Unavailable Reason for Visit * Reason Onset Date Comments Pt. Information/instruction 03/25/2018 [address] Drs[address] Green and Dre Encounter Details Date Type Department Care Team (Late st Contact Info) Description 03/25/2018 [facility] Neurology [address] [facility] 3rd [place] [address] Boyd Green MD [address] [address] Pt. Information/instructio n (Info for Drs. You) Social History Tobacco Use Types Packs/Day Years Used Date Smoking Tobacco: Never Smokeless Tobacco: Never Alcohol Use Standard Drinks/Week Comments No 0 (1 standard drink = 0.6 oz pur e alcohol) Sex and Gender Information Value Date Recorded Sex Assigned at Not on file Legal Sex Male 3:58 AM I O PSYCHOLOGIST Gender Identity Not on file Sexual Orientation [...] any questions. Action Taken: Message routed to: [facility] ([facility]): NEUROLOGY documented in this encounter Plan of Treatment Not on file documented as of this encounter Visit Diagnoses Not on filedocumented in this encounter Care Teams Site Physician Relationship Specialty Start Date End Date Chris Fontenot PCP - General 03/09/13 Jasiel Hester, RN Registered Nurse Neurology 12/23/17 08/26/18 documented as of this encounter
[2024-09-10] MEDS: ACETAMINOPHEN 500 MG TABLET 1000 MG PO (19:54)
[2024-09-10] MEDS: 0.9 % SODIUM CHLORIDE 1000 ml 1,000 ML IV (19:54)
[2024-09-10 20:16] LABS: PCR FLU A POSITIVE PCR FLU A (Negative); PCR FLU B Negative PCR FLU B (Negative); PCR RSV Negative PCR RSV (Negative); SARS PCR* Negative SARS-CoV-2 (Negative)
[2024-09-10 20:30] VITALS: PULSE 109; O2SAT 99
[2024-09-10 20:32] LABS: Appearance Urine Clear (Clear); Bilirubin Urine Negative (Negative); Blood Urine Negative (Negative); Color Urine Yellow (Yellow); Glucose Urine Negative (Negative); Ketones Urine Trace (Negative); Leukocyte Esterase Urine Negative (Negative); Nitrite Urine Negative (Negative); Protein Urine Negative (Negative); Specific Gravity Urine 1.025 (1.000-1.030)
[2024-09-10 20:42] LABS: RBC Urine 0-2 (0-2); WBC Urine 0-2 (0-5)
== END 2024-09-10 21:05 | disposition home or self-care (01) ==
PROVIDERS: Emergency Provider Family Medicine; PCP Family Medicine
DX: J10.1 Influenza due to other identified influenza virus with other respiratory manifestations (principal)
CPT/HCPCS: 36415; 71045; 81001; 85025; 87086; 87631; 96360; 99284; A9270; J7030

== ENCOUNTER 2024-09-13 18:37 | Inpatient (IN) | payer MEDICARE, MEDICAID, SELFPAY ==
[2024-09-13] VITALS (17 sets, daily range): BP systolic 91–116; BP diastolic 36–66; PULSE 86–128; RESP 16–24; TEMP 37.5–40.2; O2SAT 90–94; BMI 22.5; BMI 23.0
--- OUTSIDE RECORDS SUMMARY | 2024-09-13 18:40 | XMS_ITS | Encounter Summary ---
Author Organization [facility] Address [address] [place] [address] Care Team Providers Care Matrix Bath Attendant Name Role Phone Elsewhere, Pcp Primary Care Provider Unavailabl e Encounter Details Date Type Department Care Team (Latest Contact Info) Description 08/11/2024 8:03 AM INSIDE SALES ADVISOR - 08/11/2024 11:59 PM INSIDE SALES ADVISOR Hospital Encounter Department of Laboratory Medicine in [address] [address] Matteo Noe M.D. 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 1 to 4 times per year 02/01/2022 Do you belong to any clubs o r organizations such as faith groups, unions, fraternal or athletic groups, or [...] and heating? Not hard at all 02/01/2022 [facility] - Occupational [...] your living situation today? I have a [facility] place to live 10/18/2023 Sex and Gender Information Value Date Recorded Sex Assigned at Male 02/01/2022 6:47 PM CDT Legal Sex Male 9:23 AM INSIDE SALES ADVISOR Gender Identity Male 02/01/2022 6:47 PM CDT [...] Department Care Team (Latest Contact Info) Description 11/07/2024 9:30 AM CDT Appointment Department of Laboratory Medicine in [address] [address] Matteo Noe M.D. [address] [place] [address] 11/24/2024 11:00 AM CDT Clinical Communication Virtual Review in [place], [place] [address] [place] [phone] 11/28/2024 11:00 AM CDT Office Visit Department of Neurology in [place], [place] [address] [place] [phone] Matteo Noe M.D. 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 Comment: ----ADDITIONAL INFORMATION---- This test was developed and its performance characteristics determined by [facility] in a manner consistent with CLIA requirements. This test has not been cleared or approved by the U.S. Food and Drug Administration. Blood (Blood, Venous) 08/11/2024 8:11 AM INSIDE SALES ADVISOR 08/12/2024 2:17 PM INSIDE SALES ADVISOR Matteo Noe M.D. LAB BLOOD NON ADD-ON Final Resul t [facility] SUPPORT [place] [address] [address] [address] [facility] [address] 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
--- OUTSIDE RECORDS SUMMARY | 2024-09-13 18:40 | XMS_ITS | Clinical Summary ---
Author Organization [facility] Address [address] [place] [address] Care Team Providers Care Computer System Validation Specialist Name Role Phone Chris Fontenot Primary Care Provider [phone] Ramirez Oliveira MD Unavailable [phone] Allergies Active Allergy Reactions Criticality Noted Date [...] (Moderna) 12+ Yrs M onovalent COVID Vaccine (registered veterinary technician) 10/09/2020,09/16/2020 Tdap 06/06/2020,04/23/2010 Family History Medical History Relation Comments Brain/PERSONAL FITNESS MANAGER Cancer Other Breast Cancer Other Heart Disease [...] - Respiratory Rate 14 07/06/2022 11:20 AM SCROLL SAW OPERATOR Oxygen Saturation - - Inhaled Oxygen Concentration - - Weight 54.4 kg (120 lb) 07/06/2022 11:20 AM SCROLL SAW OPERATOR Height 157.5 cm (5' 2) 07/06/2022 11:20 AM SCROLL SAW OPERATOR Body Mass Index 21.95 07/06/2022 11:20 AM SCROLL SAW OPERATOR Plan of Treatment Health Maintenance Due Date [...] A & B [place]ICA[place] Care Teams Computer System Validation Specialist Relationship Specialty Start Date End Date Chris Fontenot [address] [place] [address] PCP - General Family Medicine 03/25/21 Ramirez Oliveira MD [address] [place] [address] Neurology 05/06/22
--- OUTSIDE RECORDS SUMMARY | 2024-09-13 18:40 | XMS_ITS | Clinical Summary ---
Author Organization [employer] [facility] [employer] [facility] Address [place], [place] [address] Care Team Providers Care Principal Scientist Name Role Phone Chris Fontenot MD Primary [...] pneumonia (HC) Use as directed to achieve [place]-[facility] liquids. 850 g 11 024 Active Cranberry [...] mg IV ONE TIME 09/20/2024 09/20/2024 Active ferumoxytoL (FERAHEME) 510 mg/17 mL (30 mg/mL) injection 510 mgIndications:Iron deficiency anemia, unspecified iron deficiency anemia type 510 mg IV ONE TIME 09/13/2024 09/13/2024 Ended Active Problems Problem Noted Date Diagnosed Date [...] Encounters Date Type Department Care Team Description 09/10/2024 Orders Only [facility] Scanner 1 scan: (1-Ord) [facility], XR CHEST 1V PORTABLE, 09/10/2024 09/07/2024 Telephone [facility] [address] [place] [address] Chris Fontenot MD Medication Management (Melatonin ) 09/06/2024 Refill [facility] [address] [facility] [place] [address] Chris Fontenot MD Refill Request (Tab-A-Doroteo/Beta Carotene) 08/30/2024 11:30 AM HAND PAINTER Orders Only [facility] [address] [facility] [place] [address] [facility], [facility] 08/30/[address] [address] Chris Fontenot MD Results 08/30/2024 Travel 08/29/[address] [address] Chris Fontenot MD Refill Request (Tab-a-doroteo/Beta carotene tabs) 08/23/2024 2:05 PM HAND PAINTER Office Visit [address] [address] Chris Fontenot MD Medicare ANNUAL (subsequent) Visit (48 year old) 08/23/2024 Travel 08/03/[address] [address] Chris Fontenot MD Refill Request (Tizanidine) 07/27/2024 4:00 PM HAND PAINTER Orders Only [facility] [address] [place] [address] [facility] 07/27/2024 Travel 07/10/[address] [address] Chris Fontenot MD Refill Request (Vitamin D3/) 06/30/[address] [address] Chris Fontenot MD Results 06/28/2024 11:00 AM HAND PAINTER Orders Only [address] [address] [facility] 06/28/2024 Travel from Last 3 Months Immunizations Name Administration Dates Next Due COVID-19 VACCINE SPIKEVAX (M ODERNA 50MCG/0.5ML) 12YO+ PFS 08/04/2023 COVID-19 vaccine (Moderna 100mcg/0.5mL) PF, MDV 10/09/2020,09/16/2020,09/11/2020 COVID-19 vaccine (Pfizer-Bio NTech 30mcg/0.3mL) 12YO+ BIVALENT PF, MDV 07/27/2022 [...] on file Legal Sex Male 5:31 AM HAND PAINTER Gender Identity Not on file Sexual Orientation Not on file Obstetrics History Last Filed Vital Signs Vital Sign Reading Time Taken Comments Blood Pressure 100/64 08/23/2024 2:04 PM HAND PAINTER Pulse 94 08/23/2024 2:04 PM HAND PAINTER Temperature 36.3 C (97.4 F) 04/17/2024 12:19 PM CDT Respiratory Rate 16 04/17/2024 12:19 PM CDT Oxygen Saturation 97% 08/23/2024 2:04 PM HAND PAINTER Inhaled Oxygen Concentration - - Weight 56.5 [...] Procedure Name Priority Date/Time Associated Diagnosis Comments SCAN-RADIOLOGY REPORT 09/10/2024 12:00 AM HAND PAINTER URINALYSIS MICROSCOPIC Routine 08/30/2024 8:30 AM HAND PAINTER Recurrent UTI URINE CULTURE Routine 08/30/2024 8:30 AM HAND PAINTER Recurrent UTI UA W/ SEDIMENT EXAM REFLEXED PER CRITERIA Routine 08/30/2024 8:30 AM HAND PAINTER Recurrent UTI VALPROIC ACID TOTAL Routine 08/23/2024 2 :51 PM HAND PAINTER 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) VITAMIN D 25 (DEFICIENCY) Routine 08/23/2024 2:51 PM HAND PAINTER Vitamin D deficiency FERRITIN Routine 08/23/2024 2:51 PM HAND PAINTER Iron deficiency anemia, unspecified iron deficiency anemia type IRON PLUS IRON BINDING CAP Routine 08/23/2024 2:51 PM HAND PAINTER Iron deficiency anemia, unspecified iron deficiency anemia type HEMOGLOBIN Routine 08/23/2024 2:51 PM HAND PAINTER Iron deficiency anemia, unspecified iron deficiency anemia type BASIC METABOLIC PANEL Routine 08/23/2024 2:51 PM HAND PAINTER Essential hypertension LIPID PANEL W REFLEX MEASURED LDL Routine 08/23/2024 2:51 PM HAND PAINTER Dyslipidemia URINALYSIS MICROSCOPIC Routine 07/27/2024 9:12 AM HAND PAINTER Recurrent UTI URINE CULTURE Routine 07/27/2024 9:12 AM HAND PAINTER Recurrent UTI UA W/ SEDIMENT EXAM REFLEXED PER CRITERIA Routine 07/27/2024 9:12 AM HAND PAINTER Recurrent UTI URINALYSIS REFLEX NOTE ([facility] REFLEX ONLY) Routine 06/28/2024 6:25 AM HAND PAINTER UA W/ SEDIMENT EXAM REFLEXED PER CRITERIA Routine 06/28/2024 6:25 AM HAND PAINTER Recurrent UTI URINE CULTURE Routine 06/28/2024 6:25 AM HAND PAINTER Recurrent UTI ANTI HIV 1/2 Routine 07/27/2022 4:55 PM HAND PAINTER Encounter for screening for HIV ANTI HCV Routine 07/27/2022 4:55 PM HAND PAINTER Need for hepatitis C screening test from Last 3 Months or Most Recently Relevant to Health Maintenance Results * SCAN-RADIOLOGY REPORT (09/10/2024 12:00 AM HAND PAINTER) Anatomical Region Laterality Modality Other us Scanner OTHER Final Result * (ABNORMAL) URINALYSIS MICROSCOPIC (08/30/2024 8:30 AM HAND PAINTER) Only the most recent of2 resultswithin the time period is included. RBC 0-2 0-2, None Seen /HPF 08/30/2024 3:59 PM HAND [facility]INTER [facility] WBC 51-100(A) 0-2, 3-5, None Seen /HPF 08/30/2024 3:59 PM HAND PAINTER [facility] BACTERIA None Seen None Seen, Rare, Few Bacteria/ HPF 08/30/2024 3:59 PM HAND PAINTER [facility] EPITHELIAL CELLS Many(A) None Seen, Few Epi/HPF 08/30/2024 3:59 PM HAND PAINTER [facility] HYALINE CASTS 0-2 0-2, 3-5 /LPF 08/30/2024 3:59 PM HAND PAINTER [facility] CALCIUM OXALATE CRYSTALS Present(A) (none) 08/30/2024 3:59 PM HAND PAINTER [facility] Urine URINE SPECIMEN / Unknown Non-Blood / Unknown 08/30/2024 8:30 AM HAND PAINTER 08/30/2024 11:34 AM HAND PAINTER Chris Fontenot MD URINE Final Result [facility] [address] [place] [address], * (ABNORMAL) URINE CULTURE (08/30/2024 8:30 AM HAND PAINTER) Only the most recent of3 resultswithin the time period is included. CULTURE RESULT(A) 09/02/2024 6:58 AM HAND PAINTER [facility] CULTURE >100,000 CFU/mL Enterococcus faecalis 09/02/2024 6:58 AM HAND PAINTER [facility] Comment: Levofloxacin susceptibilities for Enterococcus available upon request for urine isolates ONLY. Levofloxacin is not routinely recommended for Enterococcus and can ONLY be used for infections isolated in the urinary tract. In the setting of polymicrobial urine cultures, Enterococcus often represents colonization and may not necessitate treatment. CULTURE <10,000 CFU/mL Multiple organisms probable contaminants 09/02/2024 6:58 AM HAND PAINTER [facility] Urine URINE SPECIMEN / Unknown Non-Blood / Unknown 08/30/2024 8:30 AM HAND PAINTER 08/30/2024 11:34 AM HAND PAINTER Narrative Organism Antibiotic Method Susceptibility Enterococcus faecalis AMPICILLIN <=2: S Enterococcus faecalis NITROFURANTOIN <=16: S Chris Fontenot MD MICROBIOLOGY Final Result [facility] [address] [place] [address], [place] * (ABNORMAL) UA W/ SEDIMENT EXAM REFLEXED PER CRITERIA (08/30/2024 8:30 AM HAND PAINTER) Only the most recent of3 resultswithin the time period is included. COLOR Yellow Yellow Color 08/30/2024 3:59 PM HAND PAINTER [facility] CLARITY Clear Clear Clarity 08/30/2024 3:59 PM HAND PAINTER [facility] SPECIFIC GRAVITY,URINE >=1.030(A) 1.010, 1.015, 1.020, 1.025 08/30/2024 3:59 PM HAND PAINTER [facility] PH,URINE 5.5 6.0, 7.0, 8.0, 5.5, 6.5, 7.5, 8.5 08/30/2024 3:59 PM HAND PAINTER [facility] UROBILINOGEN, QUALITATIVE Normal Normal EU/dl 08/30/2024 3:59 PM HAND PAINTER [facility] PROTEIN, URINE Negative Negative mg/dL 08/30/2024 3:59 PM HAND PAINTER [facility] GLUCOSE, URINE 250(A) Negative mg/dL 08/30/2024 3:59 PM HAND PAINTER [facility] KETONES,URINE 15(A) Negative mg/dL 08/30/2024 3:59 PM HAND PAINTER [facility] BILIRUBIN,URI NE Negative Negative 08/30/2024 3:59 PM HAND PAINTER [facility] OCCULT BLOOD,URINE Negative Negative 08/30/2024 3:59 PM HAND PAINTER [facility] NITRITE Negative Negative 08/30/2024 3:59 PM HAND PAINTER [facility] LEUKOCYTE ESTERASE Small(A) Negative 08/30/2024 3:59 PM HAND PAINTER [facility] Urine URINE SPECIMEN / Unknown Non-Blood / Unknown 08/30/2024 8:30 AM HAND PAINTER 08/30/2024 11:34 AM HAND PAINTER us Chris Fontenot MD URINE Final Result [facility] [address] [place] [address], * LIPID PANEL W REFLEX MEASURED LDL (08/23/2024 2:51 PM HAND PAINTER) CHOLESTEROL, TOTAL 149 <200 mg/dL [facility] HDL CHOLESTEROL 51 > OR = 40 mg/dL [facility] TRIGLYCERIDES 101 <150 mg/dL [facility] LDL-CHOLESTEROL 80 mg/dL (calc) [facility] Comment: Reference range: <100 Desirable range <100 mg/dL for primary prevention; <70 mg/dL for patients with CHD or diabetic patients with > or = 2 CHD risk factors. LDL-C is now calculated using the Perfecto-Starks calculation, which is a validated novel method providing better accuracy than the Friedewald equation in the estimation of LDL-C. Perfecto SS et al. RANULFO. 2013;310(19): 4310-8712 (http://education.[employer]/faq/SNR771) CHOL/HDLC RATIO 2.9 <5.0 (calc) [facility] NON HDL CHOLESTEROL 98 <130 mg/dL (calc) [facility] Comment: For patients with diabetes plus 1 major ASCVD risk factor, treating to a non-HDL-C goal of <100 mg/dL (LDL-C of <70 mg/dL) is considered a therapeutic option. Blood BLOOD SPECIMEN / Unknown 08/23/2024 2:51 PM HAND PAINTER 08/23/2024 2:51 PM HAND PAINTER us Chris Fontenot MD CHEMISTRY Final Result [employer] [facility] [address] [place] [address], [facility] [address] [place] [address] * VITAMIN D 25 (DEFICIENCY) (08/23/2024 2:51 PM HAND PAINTER) VITAMIN D,25-OH,TOTAL,IA 83 30 - 100 ng/mL [facility] Comment: Vitamin D Status 25-OH Vitamin D: Deficiency: <20 ng/mL Insufficiency: 20 - 29 ng/mL Optimal: > or = 30 ng/mL For 25-OH Vitamin D testing on patients on D2-supplementation and patients for whom quantitation of D2 and D3 fractions is required, the QuestAssureD(TM) 25-OH VIT D, (D2,D3), LC/MS/MS is recommended: order code 57741 (patients >2yrs). See Note 1 Note 1 For additional information, please refer to http://education.[employer]/faq/UFE615 (This link is being provided for informational/ educational purposes only.) Blood BLOOD SPECIMEN / Unknown 08/23/2024 2:51 PM HAND PAINTER 08/23/2024 2:51 PM HAND PAINTER Chris Fontenot MD SEND OUTS Final Result [employer] [facility] [address] [place] [address], [facility] [address] [place] [address] * (ABNORMAL) IRON PLUS IRON BINDING CAP (08/23/2024 2:51 PM HAND PAINTER) IRON, TOTAL 44(L) 50 - 180 mcg/dL [facility] IRON BINDING CAPACITY 328 250 - 425 mcg/dL (calc) [facility] % SATURATION 13(L) 20 - 48 % (calc) [facility] Blood BLOOD SPECIMEN / Unknown 08/23/2024 2:51 PM HAND PAINTER 08/23/2024 2:51 PM HAND PAINTER us Chris Fontenot MD CHEMISTRY Final Result [facility] [address] [place] [address], [place] [phone] [facility] [address] [place] [address] * (ABNORMAL) HEMOGLOBIN (08/23/2024 2:51 PM HAND PAINTER) HEMOGLOBIN 13.0(L) 13.2 - 17.1 g/dL [facility] Blood BLOOD SPECIMEN / Unknown 08/23/2024 2:51 PM HAND PAINTER 08/23/2024 2:51 PM HAND PAINTER us Chris Fontenot MD HEMATOLOGY Final Result Performing Organization Address City/[facility]/ZIP Co de Phone Number [facility] [address] [place] [address], [place] [phone] [facility] [address] [place] [address] * (ABNORMAL) VALPROIC ACID TOTAL (08/23/2024 2:51 PM HAND PAINTER) VALPROIC ACID 118.1(H) 50.0 - 100.0 mg/L [facility] Blood BLOOD SPECIMEN / Unknown 08/23/2024 2:51 PM HAND PAINTER 08/23/2024 2:51 PM HAND PAINTER us Chris Fontenot MD CHEMISTRY Final Result [facility] [address] [place] [address], [place] [phone] [facility] [address] [place] [address] * FERRITIN (08/23/2024 2:51 PM HAND PAINTER) Pathologist [facility] FERRITIN 49 38 - 380 ng/mL [facility] Blood BLOOD SPECIMEN / Unknown 08/23/2024 2:51 PM HAND PAINTER 08/23/2024 2:51 PM HAND PAINTER us Chris Fontenot MD CHEMISTRY Final Result Performing Organization Address City/[facility]/ZIP Co de Phone Number [facility] [address] [place] [address], [facility] [address] [place] [address] * BASIC METABOLIC PANEL (08/23/2024 2:51 PM HAND PAINTER) [facility] GLUCOSE 88 65 - 99 mg/dL [facility] [...] BLOOD SPECIMEN / Unknown 08/23/2024 2:51 PM HAND PAINTER 08/23/2024 2:51 PM HAND PAINTER us Chris Fontenot MD CHEMISTRY Final Result [facility] [address] [address], [facility] [address] [place] [address] * URINALYSIS REFLEX NOTE ([facility] REFLEX ONLY) (06/28/2024 6:25 AM HAND PAINTER) Pathologist [facility] NOTE UA [facility] [place] Comment: This urine was analyzed for the presence of WBC, RBC, bacteria, casts, and other formed elements. Only those elements seen were reported. 06/28/2024 6:25 AM HAND PAINTER 06/28/2024 10:37 AM HAND PAINTER us Chris Fontenot MD SEND OUTS Final Result [facility] [address] [address], [facility] [address] [place] [address] * ANTI HCV (07/27/2022 4:55 PM HAND PAINTER) [facility] HEPATITIS C ANTIBODY Non-React kandice Non-React kandice 07/29/2022 6:42 AM HAND PAINTER [facility] Comment:Antibodies to HCV no t detected; does not exclude the possibility of exposure to HCV. Blood BLOOD SPECIMEN / Unknown Venipuncture / Unknown 07/27/2022 4:55 PM HAND PAINTER 07/27/2022 4:57 PM HAND PAINTER us Chris Fontenot MD SEND OUTS Final Result [facility] [address] [place] [address], [place] * ANTI HIV 1/2 (07/27/2022 4:55 PM HAND PAINTER) [facility] HIV-1/HIV-2 ANTIBODY Non-Reacti ve Non-Reacti ve 07/29/2022 11:42 AM HAND PAINTER [facility] Comment:HIV-1 p24 and HIV-1/ HIV-2 Ab not detected. Blood BLOOD SPECIMEN / Unknown Venipuncture / Unknown 07/27/2022 4:55 PM HAND PAINTER 07/27/2022 4:57 PM HAND PAINTER us Chris Fontenot MD SEND OUTS Final Result [facility] [address] [place] [address], [place] from Last 3 Months or Most Recently Relevant to Health Maintenance Insurance MEDICARE PB ONLY MEDICAID MEDICARE PART B HB ONLY MEDICARE PART A HB ONLY Advance Directives * Full Code (Latest Code Status on File) Date Activated Date Inactivated Comments 03/07/2024 2:30 PM 03/12/2024 2:05 PM Question Answer Comments Code Status Discussion: Reviewed Preferences Care Teams Principal Scientist Relationship Specialty Start Date End Date Chris Fontenot MD [address] [facility] [address] PCP - General 12/15/05
--- OUTSIDE RECORDS SUMMARY | 2024-09-13 18:40 | XMS_ITS | Encounter Summary ---
Author Organization [facility] Address [address] [place] [address]. [place] [address] Care Team Providers Care Equity Analyst Name Role Phone Chris Fontenot Primary Care Provider [phone] Jasiel Hester RN Unavailable Reason for Visit * Reason Onset Date Comments Pt. Information/instruction 03/25/2018 Info for Drs. Green and Dre Encounter Details Date Type Department Care Team (Late st Contact Info) Description 03/25/2018 [facility] Neurology [address] [facility] 3rd [place] [address] Boyd Green MD [address] [address] Pt. Information/instructio n (Info for Drs. 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 Action Taken: Message routed to: [facility] ([facility]): NEUROLOGY documented in this encounter Plan of Treatment Not on file documented as of this encounter Visit Diagnoses Not on filedocumented in this encounter Care Teams Equity Analyst Relationship Specialty Start Date End Date Chris Fontenot PCP - General 03/09/13 Jasiel Hester, RN Registered Nurse Neurology 12/23/17 08/26/18 documented as of this encounter
--- OUTSIDE RECORDS SUMMARY | 2024-09-13 18:40 | XMS_ITS | Referral Summary ---
Author Organization [facility] Address [address] [place] [address] Care Team Providers Care Inside Sales Person Name Role Phone Chris Fontenot Primary Care Provider Ramirez Oliveira MD Unavailable [phone] Allergies Active Allergy Reactions Criticality Noted Date [...] 12+ Yrs M onovalent COVID Vaccine (registered pharmacy technician) 10/09/2020,09/16/2020 Tdap 06/06/2020,04/23/2010 Social History Tobacco Use [...] - Respiratory Rate 14 07/06/2022 11:20 AM IT GENERALIST Oxygen Saturation - - Inhaled Oxygen Concentration - - Weight 54.4 kg (120 lb) 07/06/2022 11:20 AM IT GENERALIST Height 157.5 cm (5' 2) 07/06/2022 11:20 AM IT GENERALIST Body Mass Index 21.95 07/06/2022 11:20 AM IT GENERALIST Plan of Treatment Not on file Insurance MEDICARE PART A & [place] [address] [place] [phone] [place]ICA[place] Care Teams Inside Sales Person Relationship Specialty Start Date End Date Chris Fontenot [address] [place] [address] PCP - General Family Medicine 03/25/21 Ramirez Oliveira MD [address] [facility] [address] [place] [address] Neurology 05/06/22
--- OUTSIDE RECORDS SUMMARY | 2024-09-13 18:40 | XMS_ITS | Encounter Summary ---
Author Organization [facility] Address [address] [place] [address]. [place] [address] Care Team Providers Care Termite Exterminator Helper Name Role Phone Chris Fontenot Primary Care Provider [phone] Jasiel Hester RN Unavailable Reason for Visit * Reason Onset Date Comments Call Back 12/23/2017 Questions about medication and labs Encounter Details Date Type Department Care Team (Late st Contact Info) Description 12/23/[address] 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 Requested a call back. * Telephone Encounter - Carlotta Booker - 12/23/2017 10:[address] [facility] Call Center Phone Message May a [...] before the appointment. Please call back at [phone]. Action Taken: Message routed to: [facility] ([facility]): Neurology documented in this encounter Plan of Treatment Not on file documented as of this encounter Visit Diagnoses Diagnosis Generalized convulsive epilepsy with intractable epilepsy Seizure disorder (H) Unspecified epilepsy without mention of intractable epilepsy documented in this encounter Care Teams Termite Exterminator Helper Relationship Specialty Start Date End Date Chris Fontenot PCP - General 03/09/13 Jasiel Hester, RN Registered Nurse Neurology 12/23/17 08/26/18 documented as of this encounter
--- OUTSIDE RECORDS SUMMARY | 2024-09-13 18:40 | XMS_ITS | Continuity of Care Document ---
Author Organization [facility] Address [address] [address] [place] [address] Phone Care Team Providers Care Edi Developer Name Role Phone Arnav Larson MD Unavailable Unavailabl e Medications Medication Instructions Dosage Effective Dates (start - stop) Status Comments simethicone 80 mg chewable tablet take by oral route as directed per COL prep instructions received from [facility] - Active Procedure rk e: 01/07/24 [...] directed per COL prep instructions received from [facility] - Active Procedure rk e: 01/07/24 [...] Diagnoses Date Provider Providers Copied on Encounter [facility], [address] [address], [place], [place], [id number], tel:[phone] [facility] No Information Kyle José. [address] [facility], [place], [place], [id number], [place]. tel:[phone] [facility], [address] [address], [place], [place], [id number], [place] tel:[phone] [facility] No Information Kyle José. [address] [facility], [facility] [address], [place], [place], [id number], [place]. tel:[phone] [facility], [address] [address], [place], [place], [id number], tel:[phone] [facility] No Information Kyle José. [address] [facility], [facility] [address], [place], [place], [id number], [place]. tel:[phone] Family History Family Member Type Diagnosis Age [...] interface ; Source: Other Registry Influenza, Madin [place] Canin e Kidney, subunit, quadrivalent, injectable, preservative free administered Note: [facility] bi-directional interface ; Source: Other Registry Influenza, injectable, Madin [place] Canine Kidney, preservative free, quadrivalent administered Note: [facility] bi- directional interface ; Source: Other [...] ional interface ; Source: Other Registry Novel [id number], all formulations administered Note: [facility] bi-direct ional [...] Registry Payers Payer name Insurance type Covered libertarian ID Authoriza tion(s) No Information Social History [...]
--- OUTSIDE RECORDS SUMMARY | 2024-09-13 18:40 | XMS_ITS | Encounter Summary ---
Author Organization [facility] Address [address] [place] [address] Care Team Providers Care Hydraulic Bull Riveter Operator Name Role Phone Elsewhere, Pcp Primary Care Provider Unavailabl e Reason for Referral * Outpatient (Routine) - Authorized Specialty Diagnoses / Procedures Referred By Bhupendra johnson Referred To Contact Neurology Matteo Noe M.D. [address] [place] [phone] Phone: tel: fax: [facility] Referral ID Status Reason Start Date Expiration Date V isits Requested Visits Authorized [id number] Authorized 08/14/2024 02/13/2026 1 1 Scheduling Instructions Blood collection on the morning of the visit. HIN TRAINER Reason for Visit * Outpatient (Routine) - Closed Specialty Diagnoses / Procedures Referred By Bhupendra johnson Referred To Contact Neurology Matteo Noe M.D. [address] [place] [phone] Phone: tel: fax: [facility] Referral ID Status Reason Start Date Expiration Date Visits Re quested Visits Authorized [id number] Closed 05/12/2024 11/11/2025 1 1 Encounter Details Date Type Department Care Team ([facility] st Contact Info) Description 08/14/2024 10:00 AM DOLPHIN TRAINER Office Visit Department of Neurology in [place], [place] [address] [place] [phone] Matteo Noe M.D. 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 1 to 4 times per year 02/01/2022 Do you belong to any clubs o r organizations such as adventism groups, unions, fraternal or athletic groups, or [...] and heating? Not hard at all 02/01/2022 [facility] - Occupational Stress [...] your living situation today? I have a [facility] place to live 10/18/2023 Sex and Gender Information Value Date Recorded Sex Assigned at Male 02/01/2022 6:47 PM CDT Legal Sex Male 9:23 AM DOLPHIN TRAINER Gender Identity Male 02/01/2022 6:47 PM CDT Sexual Orientation Straight 02/01/2022 6: 47 PM CDT documented as of this encounter Last Filed Vital Signs Vital Sign Reading Time Taken Comments Blood Pressure - - Pulse - - Temperature - - Respiratory Rate - - Oxygen Saturation - - Inhaled Oxygen Concentration - - Weight 59 kg (130 lb) 08/14/2024 9:53 AM DOLPHIN TRAINER Iftikhar bal Height 157.5 cm (5' 2) 08/14/2024 9:53 AM DOLPHIN TRAINER V erbal Body Mass Index 23.78 08/14/2024 9:53 AM DOLPHIN TRAINER documented in this encounter Patient Instructions * Patient Instructions* Claudia Garcia R.N. - 08/14/2024 10:00 AM DOLPHIN TRAINER Images from the original note were not included. HIN TRAINER HIN TRAINER HIN TRAINER documented in this encounter Progress Notes * Matteo Noe M.D. - 08/14/2024 10:00 AM CST CHIEF COMPLAINT/REASON FOR VISIT Specially arranged visit, because of increased seizure frequency. HISTORY OF PRESENT ILLNESS Andres is here today with his sister Kirsty, and his group billing coordinator, Samira. Andres has increased seizure frequency, according [...] for a return visit in 3-4 months. HIN TRAINER documented in this encounter Plan of Treatment Upcoming Encounters Date Type Department Care Team (Latest Contact Info) Description 11/07/2024 9:30 AM CDT Appointment Department of Laboratory Medicine in [place], [place] [address] [place] [phone] Matteo Noe M.D. [address] [place] [phone] 11/24/2024 11:00 AM CDT Clinical Communication Virtual Review in [place], [place] 200 [place] [phone] 11/28/2024 11:00 AM CDT Office Visit Department of Neurology in [place], [place] [address] [place] [phone] Matteo Noe M.D. [address] [place] [phone] Scheduled Orders Name Type Priority Associated Diagnoses [...] Primary documented in this encounter Care Teams Hydraulic Bull Riveter Operator Relationship Specialty Start Date End Date Elsewhere, Pcp PCP - General Internal Medicine 11/14/21 documented as of this encounter
--- OUTSIDE RECORDS SUMMARY | 2024-09-13 18:40 | XMS_ITS | Clinical Summary ---
Author Organization [facility] Address [address] [place] [address] Care Team Providers Care Floor Covering Contractor Name Role Phone Elsewhere, Pcp Primary Care Provider Unavailabl e Source Comments Patient records contain information from all sites at [facility]. For routine questions regarding patient records, call [phone] during business hours, M-F 8:00 AM - 5:00 PM Central Time. Record requests for emergency care only can be directed to [phone] at any time.[facility] Allergies Active Allergy Reactions Criticality Noted Date Comments Gabapentin Other (see comments) 03/20/2021 Tolterodine Rash Low 05/22/2014 Medications * This document contains information received from the source organization and may not represent a complete record from that organization. atenoloL (TENORMIN) 25 mg tablet Take 25 mg by mouth daily. Active lisinopriL (PRINIVIL,ZESTRIL ) 20 mg tablet Take 1 tablet by mouth daily. 1 Active multivitamin with folic acid (ONE DAILY ESSENTIAL) 400 mcg tablet Take 1 tablet by mouth daily. 1 Active cholecalciferol, vitamin D3, (VITAMIN D3 ORAL) Take 5,000 Units by mouth daily. Active tiZANidine (ZANAFLEX) 2 mg tablet Take 0.5-1 tablets by mouth as needed. 1 Active triamcinolone (KENALOG) 0.1 % ointment Apply topically to affected area(s) 2 times daily. As needed. 1 Active sodium phosphate,mono-di basic (FLEET ENEMA RECTAL) Insert into the rectum as needed. Active bisacodyL (DULCOLAX) 10 mg suppository Insert into the rectum as needed. 6 Active docosanoL (ABREVA) 10 % cream Apply topically as needed. 6 Active ibuprofen (ADVIL,MOTRIN) 200 mg tablet Take 400 mg by mouth as needed. 9 Active nystatin (MYCOSTATIN) 100,000 unit/gram cream Apply topically as needed. 1 Active acetaminophen (TYLENOL) 500 mg tablet Take 500 mg by mouth every 6 (six) hours as needed for pain. Active clotrimazole (LOTRIMIN) 1 % cream Apply 1 application topically 2 (two) times a day. 2 Active bismuth subsalicylate (PEPTO BISMOL) 262 mg/15 mL suspension as needed. Active baclofen (LIORESAL) 5 mg tablet tablet 3 (three) times a day. 1 Active metoprolol tartrate (LOPRESSOR) 25 mg tablet Take 25 mg by mouth 2 (two) times a day. 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 Take 4 pills twice a day. 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 Then, increase by 0.5 pill every two weeks, until 2 pills twice a day, and continue. 540 tablet 3 4 Active Active Problems Problem Noted Date Diagnosed [...] 09/01/2024 Clinical Communication Department of Neurology in [place], [place] [address] [place] [phone] Matteo Noe M.D. 08/14/2024 10:00 AM CRYPTOLOGIC SUPERVISOR Office Visit Department of Neurology in [place], [place] [address] [place] [phone] Matteo Noe M.D. 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 Idiopathic Generalized Epilepsy Intractable [...] Date Smoking Tobacco: Never Smokeless Tobacco: Never [employer] Answer Date Recorded In the past 12 months has e [employer], gas, oil, or water [employer] threatened to shut off services in your [...] often do you attend chur ch or temple services? 1 to 4 times per year 02/01/2022 Do you belong to any clubs o r organizations such as latter day groups, unions, fraternal or athletic groups, or [...] and heating? Not hard at all 02/01/2022 [facility] - Occupational Stress Questionnaire Answer Date Recorded [...] your living situation today? I have a [facility] place to live 10/18/2023 Sex and Gender Information Value Date Recorded Sex Assigned at Male 02/01/2022 6:47 PM CDT Legal Sex Male 9:23 AM CRYPTOLOGIC SUPERVISOR Gender Identity Male 02/01/2022 6:47 PM CDT Sexual Orientation Straight 02/01/2022 6: 47 PM CDT Last Filed Vital Signs Vital Sign Reading Time Taken Comments Blood Pressure - - Pulse - - Temperature 36.2 C (97.2 F) 11/17/2021 2:36 PM CDT Respiratory Rate - - Oxygen Saturation - - Inhaled Oxygen Concentration - - Weight 59 kg (130 lb) 08/14/2024 9:53 AM CRYPTOLOGIC SUPERVISOR Iftikhar bal Height 157.5 cm (5' 2) 08/14/2024 9:53 AM CRYPTOLOGIC SUPERVISOR V erbal Body Mass Index 23.78 08/14/2024 9:53 AM CRYPTOLOGIC SUPERVISOR Plan of Treatment Upcoming Encounters Date Type Department Care Team (Latest Contact Info) Description 11/07/2024 9:30 AM CDT Appointment Department of Laboratory Medicine in [address] [phone] Mateto Noe M.D. [address] [place] [phone] 11/24/2024 11:00 AM CDT Clinical Communication Virtual Review in [place], [place] 200 [place] [phone] 11/28/2024 11:00 AM CDT Office Visit Department of Neurology in [place], [place] [address] [place] [phone] Matteo Noe M.D. 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 This test has not been cleared or approved by the U.S. Food and Drug Administration. Blood (Blood, Venous) 08/11/2024 8:11 AM CRYPTOLOGIC SUPERVISOR 08/12/2024 2:17 PM CRYPTOLOGIC SUPERVISOR us Matteo Noe M.D. LAB BLOOD NON ADD-ON Final Resul t [facility] [place] [address] [place] [address] [facility] [address] [place] [address] [place] [address] from Last 3 Months Insurance MEDICARE [place] MEDICAID Care Teams Floor Covering Contractor Relationship Specialty Start Date End Date Elsewhere, Pcp PCP - General Internal Medicine 11/14/21
--- OUTSIDE RECORDS SUMMARY | 2024-09-13 18:40 | XMS_ITS | Encounter Summary ---
Author Organization [facility] Address [address] [place] [address] Care Team Providers Care Overhead Distribution Engineer Name Role Phone Elsewhere, Pcp Primary Care Provider Unavailabl e Encounter Details Date Type Department Care Team ([facility] st Contact Info) Description 09/01/2024 Clinical Communication Department of Neurology in [place], [place] [address] [place] [phone] Matteo Noe M.D. [address] [place] [phone] Social History Tobacco Use Types Packs/Day Years Used Date Smoking Tobacco: Never Smokeless Tobacco: Never [facility] Utilities Answer Date Recorded In the past 12 months has [facility] electric, gas, oil, or water [employer] threatened to shut off services in your [...] and heating? Not hard at all 02/01/2022 [facility] - [...] your living situation today? [facility] 10/18/2023 Sex and Gender Information Value Date Recorded Sex Assigned at Male 02/01/2022 6:47 PM CDT Legal Sex Male 9:23 AM HAULAGE BOSS Gender Identity Male 02/01/2022 6:47 PM CDT Sexual Orientation Straight 02/01/2022 6: 47 PM CDT documented as of this encounter Plan of Treatment Upcoming Encounters Date Type Department Care Team (Latest Contact Info) Description 11/07/2024 9:30 AM CDT Appointment Department of Laboratory Medicine in [address] [phone] Matteo Noe M.D. [address] [place] [phone] 11/24/2024 11:00 AM CDT Clinical Communication Virtual Review in [place], [place] 200 [place] [phone] 11/28/2024 11:00 AM CDT Office Visit Department of Neurology in [place], [place] [address] [place] [phone] Matteo Noe M.D. [address] [place] [phone] documented as of this encounter Visit Diagnoses Not on filedocumented in this encounter Care Teams Overhead Distribution Engineer Relationship Specialty Start Date End Date Elsewhere, Pcp PCP - General Internal Medicine 11/14/21 documented as of this encounter
--- NOTE | 2024-09-13 18:52 | ED.GENADULT ---
HPI - General Adult General Date Seen: 09/13/24 Chief complaint: Fever Stated complaint: flu A Time Seen by Provider: 09/13/24 18:39 Source: patient History of Present Illness HPI narrative: Patient is a 48-year-old male with history of cerebral palsy, lives in a [facility]. Seen here on the 02/02 with a 1 day history of fever, cough, weakness and dehydration. Diagnosed with influenza a, given fluids at that time. Sent back today because of ongoing fever and concerns about dehydration. He tells me he continues to feel poorly, he has body aches, headache, continued cough but does not feel more short of breath than usual. Medics had him on 2 L of oxygen, he is not on chronic oxygen. He denies any vomiting or diarrhea. He has not had anything for fever today. He does not have any new complaints. Medical history reviewed. He is currently taking Tamiflu. Related Data Home Medications ?Medication ?Instructions ?Recorded ?Confirmed cholecalciferol (vitamin D3) 50 50 mcg PO DAILY 09/13/24 09/13/24 mcg (2,000 unit) tablet diazepam 5 mg/mL oral concentrate mg 09/13/24 (Diazepam Intensol) divalproex 250 mg tablet,delayed 1,000 mg PO BID 09/13/24 09/13/24 release ferrous sulfate 325 mg (65 mg 325 mg PO QAM 09/13/24 09/13/24 iron) tablet lacosamide 200 mg tablet 200 mg PO BID 09/13/24 09/13/24 lamotrigine 25 mg tablet 25 mg PO Q12H 09/13/24 09/13/24 lisinopril 10 mg tablet 10 mg PO DAILY 09/13/24 09/13/24 metoprolol tartrate 25 mg tablet 25 mg PO BID 09/13/24 09/13/24 polyethylene glycol 3350 17 gram 17 g PO DAILY 09/13/24 09/13/24 oral powder packet (ClearLax) sennosides 8.6 mg tablet (senna) 17.2 mg PO DAILY 09/13/24 09/13/24 tizanidine 2 mg tablet 1 - 2 mg PO 3XD PRN 09/13/24 09/13/24 Previous Rx's ?Medication ?Instructions ?Recorded oseltamivir 75 mg capsule (Tamiflu) 75 mg PO BID 5 days #10 caps 09/10/24 Allergies Allergy/AdvReac Type Severity Reaction Status Date / Time ciprofloxacin Allergy Unknown Verified 09/13/24 18:47 gabapentin Allergy Unknown Verified 09/13/24 18:47 tolterodine (From Detrol) Allergy Unknown Verified 09/13/24 18:47 Review of Systems Status of ROS: Reports: 10 or more systems reviewed and unremarkable except as noted in History and below [facility] Medical History (Updated 09/13/24 @ 20:44 by Hu Mistry RN) Cerebral palsy ?G80.9 - Cerebral palsy, unspecified (ICD-10) Social History Smoking Status: Never smoker Second hand tobacco smoke exposure: No How often do you have a drink containing alcohol: never AUDIT-C Alcohol total score: 0 Non-prescribed substance use: denies use Exam Narrative: Exam Narrative: Vital signs reviewed In general, alert, nontoxic male. Cerebral palsy. Head: Normocephalic, atraumatic. Eyes: Sclera clear. Pupils equal and reactive. ENT: Mucous membranes slightly dry. Neck: Supple without adenopathy. Heart: Tachycardic and regular, no murmur. Lungs: Clear anteriorly. Abdomen: Soft, nontender to palpation. Extremities: Well perfused, pulses intact. No significant edema. Neurologic: Alert, conversant. Speech fluent. Face symmetric. Skin: Hot, dry. Affect: Normal. Const: Vital Signs, click to edit/add: Vital Signs - 24 hr 09/13/24 18:43 09/13/24 18:49 09/13/24 18:49 Temperature 104.3 F H Pulse Rate Pulse Rate [Pulse Oximeter] 128 H Pulse Rate [Right Pulse Oximeter] Respiratory Rate 24 Blood Pressure Blood Pressure [Le ft Arm] Blood Pressure [Ri ght Upper Arm] 116/66 Pulse Oximetry 90 91 91 Oxygen Delivery Me thod Nasal Cannula Room Air 09/13/24 19:14 09/13/24 19:15 09/13/24 19:21 Temperature Pulse Rate 115 H 112 H 106 H Pulse Rate [Pulse Oximeter] Pulse Rate [Right Pulse Oximeter] Respiratory Rate Blood Pressure Blood Pressure [Le ft Arm] Blood Pressure [Ri ght Upper Arm] Pulse Oximetry 91 93 91 Oxygen Delivery Me thod 09/13/24 19:22 09/13/24 19:28 09/13/24 19:30 Temperature 102.3 F H Pulse Rate 99 98 Pulse Rate [Pulse Oximeter] Pulse Rate [Right Pulse Oximeter] Respiratory Rate Blood Pressure 96/42 L Blood Pressure [Le ft Arm] Blood Pressure [Ri ght Upper Arm] Pulse Oximetry 91 92 Oxygen Delivery Me thod 09/13/24 19:31 09/13/24 19:59 09/13/24 20:01 Temperature 100.3 F H Pulse Rate 100 105 H Pulse Rate [Pulse Oximeter] Pulse Rate [Right Pulse Oximeter] Respiratory Rate 20 Blood Pressure 91/46 L 97/49 L Blood Pressure [Le ft Arm] Blood Pressure [Ri ght Upper Arm] Pulse Oximetry 91 93 Oxygen Delivery Me thod 09/13/24 20:34 09/13/24 20:42 09/13/24 20:53 Temperature 100.3 F H 100.3 F H Pulse Rate 99 Pulse Rate [Pulse Oximeter] 128 H Pulse Rate [Right Pulse Oximeter] 95 Respiratory Rate 20 20 20 Blood Pressure 107/53 L Blood Pressure [Le ft Arm] 107/65 Blood Pressure [Ri ght Upper Arm] 116/66 Pulse Oximetry 94 94 Oxygen Delivery Me thod Room Air Documenting provider has reviewed patient's vital signs: yes Course Course ED Course: Patient presents with high fever and tachycardia in the setting of known influenza. O2 sats here about 91% on his usual 2 L, he does not note more significant shortness of breath and I do not hear anything significant on lung exam, though exam is somewhat limited by his inability to sit up. Tachycardia may be related to fever in part, will place an IV, give some fluids here as well as fever control. Labs, chest x-ray pending. He did just recover from urinary tract infection, fever and tachycardia are likely viral but will rule out concomitant bacterial infections such as UTI or pneumonia. Blood pressure since arrival have been lower, in the high 80s low 90s. Temperature did improve with fever control here, and tachycardia is improved as well. He had an EKG which by my review showed a sinus tachycardia, nonspecific ST changes, no other significant findings. Labs were notable for a depressed white blood cell count of 3, it was normal on the . Hemoglobin is stable, platelets are down to 86,000 from 140,000. These findings are likely directly related to influenza. Metabolic panel is normal. Lactate mildly elevated at 2.1 and procalcitonin is 0.81. CRP is elevated at 5.5. A chest x-ray by my review showed infiltrate on the right. Radiology report reviewed they agree with likely pneumonia on the right. He had a L of normal saline initially. Blood cultures ordered, an additional 500 mL of saline was ordered. Blood pressure 97 systolic after the 1 L. IV Rocephin and azithromycin were ordered. He will be admitted to the hospital for IV antibiotics, treatment of sepsis, pneumonia. Vital Signs Vital signs: Initial Vital Signs Temperature 104.3 F H 09/13/24 18:43 Temperature Source Temporal Artery Scan 09/13/24 18:43 Pulse Rate 128 H 09/13/24 18:43 Respiratory Rate 24 09/13/24 18:43 Blood Pressure 116/66 09/13/24 18:43 Blood Pressure Mean 82 09/13/24 18:43 Blood Pressure Position Semi-Fowlers 09/13/24 18:43 Pulse Oximetry 90 09/13/24 18:43 Oxygen Delivery Method Nasal Cannula 09/13/24 18:43 Vital Signs Temperature 104.3 F H 09/13/24 18:43 Pulse Rate 128 H 09/13/24 18:43 Respiratory Rate 24 09/13/24 18:43 Blood Pressure 116/66 09/13/24 18:43 Pulse Oximetry 90 09/13/24 18:43 Oxygen Delivery Method Nasal Cannula 09/13/24 18:43 Temperature 100.3 F H 09/13/24 20:53 Pulse Rate 128 H 09/13/24 20:53 Respiratory Rate 20 09/13/24 20:53 Blood Pressure 116/66 09/13/24 20:53 Pulse Oximetry 94 09/13/24 20:42 Oxygen Delivery Method Room Air 09/13/24 20:42 Medications Administered Medications: Generic Name Dose Route Start Last Admin Trade Name Freq PRN Reason Stop Dose Admin Ceftriaxone Sodium 1 gm/ 100 mls @ 200 mls/hr 09/13/24 20:01 09/13/24 20:20 Sodium Chloride IVPB 09/13/24 20:02 200 mls/hr ONCE ONE Administration Sodium Chloride 500 mls @ 500 mls/hr 09/13/24 20:18 09/13/24 20:21 0.9 % Sodium Chloride 500 Ml IV 09/13/24 21:17 500 mls/hr .Q1H ONE Administration Discontinued Medications Generic Name Dose Route Start Last Admin Trade Name Carole PRN Reason Stop Dose Admin Acetaminophen 1,000 mg 09/13/24 18:49 09/13/24 19:22 Acetaminophen 500 Mg Tablet PO 09/13/24 18:50 Not Given ONCE ONE Sodium Chloride 1,000 mls @ 1,000 mls/hr 09/13/24 19:00 09/13/24 19:58 0.9 % Sodium Chloride 1000 Ml IV 09/13/24 19:59 Infused .Q1H CRISTI Infusion Ibuprofen 400 mg 09/13/24 19:12 09/13/24 19:22 Ibuprofen 200 Mg Tablet PO 09/13/24 19:13 400 mg ONCE ONE Administration Medical Decision Making Lab Data Labs: Lab Results 09/13/24 Range/Units 18:56 WBC 3.06 L (4.50-11.00) K/uL RBC 4.25 L (4.30-5.90) m/uL Hgb 12.7 L (13.5-17.5) gm/dL Hct 38.6 (37.0-53.0) % MCV 91 (80-100) fL MCH 30 (26-34) pg MCHC 33 (32-36) gm/dL RDW Coeff of Jamie 13.0 (11.5-15.5) % Plt Count 86 L (140-440) K/uL Neut % (Auto) 75.5 H (42.0-72.0) % Lymph % (Auto) 12.4 L (20-44) % [place] % (Auto) 11.8 H (0.0-11.0) % Eos % (Auto) 0.0 (0.0-7.0) % Baso % (Auto) 0.0 (0.0-3.0) % Neut # (Auto) 2.30 (1.7-7.0) K/uL Lymph # (Auto) 0.40 L (0.90-2.90) K/uL [place] # (Auto) 0.40 (0.00-0.90) K/UL Eos # (Auto) 0.00 (0.00-0.50) K/uL Baso # (Auto) 0.00 (0.00-0.30) K/uL Abs Immat Gran (auto) 0.00 (0.00-0.30) K/uL Imm/Tot Granulo (auto) 0.3 % Sodium 139 (135-149) mmol/L Potassium 4.2 (3.6-5.1) mmol/L Chloride 103 (96-114) mmol/L Carbon Dioxide 26 (20-32) mmol/L Anion Gap 10 (7-15) mEq/L BUN 18 (5-24) mg/dL Creatinine 0.6 (0.5-1.5) mg/dL Estimated Creat Clear 115.01 Estimated GFR 118 ml/min Glucose 98 (60-115) mg/dL Lactate 2.1 H (0.5-1.9) mmol/L Calcium 8.9 (8.4-10.6) mg/dL Magnesium 1.7 (1.5-2.6) mg/dL C-Reactive Protein 5.5 H (0.5-1.0) mg/dL Procalcitonin 0.81 H (<0.50) ng/mL Imaging Data Chest x-ray: Attestation: I have reviewed the pertinent imaging results. Radiologist's impression: [place] [address] Diagnostic Imaging Report Patient: Andres Muniz MR#: [id number] : 1975 Acct:[id number] Loc: ED Service Date: 09/13/[address]: Ordering Physician: Alix Castellanos M.D. Date of Service: 09/13/24 Procedure(s): XR chest 1V portable Accession Number(s): [id number] cc: Alix Castellanos M.D.; Chris Fontenot M.D.~ For Patients: As a result of the Century Cures Act, medical imaging exams and procedure reports are released immediately into your electronic medical record. You may view this report before your referring provider. If you have questions, please contact your health care provider. INDICATION: Influenza. TECHNIQUE: Chest 1 views. COMPARISON: 09/10/2024. FINDINGS: Cardiovascular and mediastinum: Heart size is normal. Unremarkable mediastinum. Lungs and pleural spaces: New patchy opacities seen most prominently in the right lower lobe. No sign of pleural effusion. No pneumothorax. Bones and soft tissues: No significant findings. IMPRESSION: Compared to 09/10/2024, new patchy opacities seen most prominently in the right lower lobe favored to represent pneumonia. Dictated by Mainor Bond MD @ 09/13/2024 7:49:34 PM Discharge Plan Discharge Clinical Impression: Community acquired pneumonia, Influenza, Sepsis Patient Disposition: Admitted As Observation Condition: Stable
[2024-09-13 19:06] LABS: Lactate Sepsis w/Reflex* 2.1 mmol/L (0.5-1.9)
[2024-09-13 19:07] LABS: Hematocrit 38.6 % (37.0-53.0); Hemoglobin* 12.7 gm/dL (13.5-17.5); Immature Granulocytes Pct Auto 0.3 %; Lymphocytes Percent Auto 12.4 % (20-44); Mean Corpuscular HGB Conc 33 gm/dL (32-36); Mean Corpuscular Hemoglobin 30 pg (26-34); Mean Corpuscular Volume 91 fL (80-100); Monocytes Percent Auto 11.8 % (0.0-11.0); Neutrophils Percent Auto 75.5 % (42.0-72.0); Platelet Count* 86 K/uL (140-440); Red Blood Count 4.25 m/uL (4.30-5.90); White Blood Count* 3.06 K/uL (4.50-11.00)
[2024-09-13 19:14] LABS: Slide Review Reflex No
[2024-09-13] MEDS: 0.9 % SODIUM CHLORIDE 1000 ml 1,000 ML IV (19:16)
[2024-09-13 19:20] LABS: Chloride* 103 mmol/L (96-114)
[2024-09-13 19:21] LABS: Potassium* 4.2 mmol/L (3.6-5.1); Sodium* 139 mmol/L (135-149)
[2024-09-13] MEDS: IBUPROFEN 200 MG TABLET 400 MG PO (19:22)
[2024-09-13 19:23] LABS: Creatinine* 0.6 mg/dL (0.5-1.5); Est. Creatinine Clearance* 115.01; Estimated Glomerular Filt Rate 118 ml/min
[2024-09-13 19:24] LABS: Anion Gap 10 mEq/L (7-15); Blood Urea Nitrogen* 18 mg/dL (5-24); Calcium* 8.9 mg/dL (8.4-10.6); Carbon Dioxide* 26 mmol/L (20-32); Glucose* 98 mg/dL (60-115)
[2024-09-13 19:25] LABS: Magnesium* 1.7 mg/dL (1.5-2.6)
[2024-09-13 19:27] LABS: C Reactive Protein* 5.5 mg/dL (0.5-1.0)
[2024-09-13 19:41] LABS: Procalcitonin* 0.81 ng/mL (<0.50)
[2024-09-13] MEDS: cefTRIAXone 1 GM in 0.9 % SODIUM CHLORIDE Mini-bag 100 ML IVPB (20:20)
[2024-09-13] MEDS: 0.9 % SODIUM CHLORIDE 500 ML 500 ML IV (20:21)
[2024-09-13 21:18] LABS: Lactate Sepsis 2 Hour 1.9 mmol/L (0.5-1.9)
--- NOTE | 2024-09-13 21:30 | PM.IMHP1 ---
Hospitalist- H&P: HPI History of Present Illness Date Seen: 09/13/24 Chief complaint: flu A Narrative: Andres Muniz is a 48 year old man with cerebral palsy, cognitive impairment, primary generalized seizure disorder, chronic incomplete quadriplegia who resides in a detention presents with fever, body aches, feeling poorly, headache, cough. Assessed in the emergency department on 09/10/2024 and found to have influenza A. Treated with IV fluids and started on oseltamivir 75 mg p.o. b.i.d. for 5 days. Despite having been seen in the emergency department 3 days ago with continued treatments his condition is slowly worsening and thus he presents for further assessment. Review of Systems Status of ROS: Reports: 6 or more systems reviewed and unremarkable except as noted in History and below Narrative: Denies nausea, vomiting, diarrhea, constipation. Intermittent fever with temperature around 100? F. continues to have intermittent dry hacking cough. Complains of myalgias. Decreased oral intake. Decreased urine output. Has not had a breakthrough seizure. His sister, Kirsty Lewis, is his guardian. She visited him in the detention today and thought he looked extremely sick and thus arranged for him to come in to the emergency department for further assessment. She indicates that when he is sick like this then dehydrated he tends to get cramps in muscles. Full resuscitation in the event of cardiopulmonary demise. Contact for decision making is his sister, Kirsty, his guardian, cell phone [phone]. In reviewing his outside medical records because of known history of aspiration his food texture is either bite sized or pureed according to his preference. Also, he uses the pure wick device at night for urinary incontinence with success. Utilizes wheelchair for locomotion. 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 ?M67.00 - Short Achilles tendon (acquired), unspecified ankle (ICD-10) History of aspiration pneumonia ?Z87.01 - Personal history of pneumonia (recurrent) (ICD-10) Dependent for wheelchair mobility ?Z99.3 - Dependence on wheelchair (ICD-10) Recurrent urinary tract infection ?N39.0 - Urinary tract infection, site not specified (ICD-10) Neurogenic bladder ?N31.9 - Neuromuscular dysfunction of bladder, unspecified (ICD-10) Chronic incomplete quadriplegia ?G82.50 - Quadriplegia, unspecified (ICD-10) Essential hypertension ?I10 - Essential (primary) hypertension (ICD-10) Primary generalized seizure disorder ?G40.309 - Generalized idiopathic epilepsy and epileptic syndromes, not intractable, without status epilepticus (ICD-10) Cerebral palsy ?G80.9 - Cerebral palsy, unspecified (ICD-10) Surgical History (Updated 09/13/24 @ 21:04 by Marshal Carrion MD) Personal history of spine surgery ?Z98.890 - Other specified postprocedural states (ICD-10) Family History (Updated 09/13/24 @ 21:05 by Marshal Carrion MD) Father Lung cancer Mother Heart disease Social History What is your current living situation?: I presently have a place to live Problems where you live: no known problems Problems where you live details: N/A In the past 12 months, utilities in danger of being shut off: no In past 12 months, lack of transportation kept you from medical appts, meetings, work, or getting things needed for daily living: no In the past 12 mos, have been you worried that your food would run out before you had money to buy more?: never true In the past 12 mos, the food you bought just didn't last and you didn't have money to buy more?: never true Smoking Status: Never smoker Second hand tobacco smoke exposure: No How often do you have a drink containing alcohol: never AUDIT-C Alcohol total score: 0 Non-prescribed substance use: denies use How often does anyone, including family, friends and others, physically hurt you: never How often does anyone, including family, friends and others, insult or talk down to you: never How often does anyone, including family, friends and others, threaten you with harm: never How often does anyone, including family, friends and others, scream or curse at you: never Meds Home Medications and Allergies Home Medications ?Medication ?Instructions ?Recorded ?Confirmed ?Type cholecalciferol (vitamin D3) 50 50 mcg PO DAILY 09/13/24 09/13/24 History mcg (2,000 unit) tablet diazepam 5 mg/mL oral concentrate mg 09/13/24 History (Diazepam Intensol) divalproex 250 mg tablet,delayed 1,000 mg PO BID 09/13/24 09/13/24 History release ferrous sulfate 325 mg (65 mg 325 mg PO QAM 09/13/24 09/13/24 History iron) tablet lacosamide 200 mg tablet 200 mg PO BID 09/13/24 09/13/24 History lamotrigine 25 mg tablet 25 mg PO Q12H 09/13/24 09/13/24 History lisinopril 10 mg tablet 10 mg PO DAILY 09/13/24 09/13/24 History metoprolol tartrate 25 mg tablet 25 mg PO BID 09/13/24 09/13/24 History polyethylene glycol 3350 17 gram 17 g PO DAILY 09/13/24 09/13/24 History oral powder packet (ClearLax) sennosides 8.6 mg tablet (senna) 17.2 mg PO DAILY 09/13/24 09/13/24 History tizanidine 2 mg tablet 1 - 2 mg PO 3XD PRN 09/13/24 09/13/24 History Allergies Allergy/AdvReac Type Severity Reaction Status Date / Time ciprofloxacin Allergy Unknown Verified 09/13/24 18:47 gabapentin Allergy Unknown Verified 09/13/24 18:47 tolterodine (From Detrol) Allergy Unknown Verified 09/13/24 18:47 Exam Narrative: Exam Narrative: I examined patient in the emergency department with his brother and sister present. He appears ill. I speak with him in conversation tone and he responds appropriately. He asks appropriate questions. Alert and oriented x3. Cooperative and friendly. Tympanic membranes are normal as are is external auditory canals. Midline nasal septum. Dry buccal mucosa. Dentition in fair repair. Neck is supple. Midline trachea. No head neck lymphadenopathy. On auscultation of his lungs he has Crackles in the right base more so than in the left base. No wheezing or rhonchi. Chest wall excursions are full. No CVA tenderness to thumping. Heart tones with regular rhythm, normal S1-S2. No murmur, gallop, rub. PMI not laterally displaced. Abdomen with active bowel sounds, soft, nontender. No rebound or guarding. Skin is warm, dry, intact. No petechiae, rashes, cyanosis, jaundice, or wounds. Thin extremities with muscle wasting. Upper motor neuron posturing with flexion contractures of both wrists. This is chronic. Const: Vital Signs, click to edit/add: Vital Signs - 24 hr 09/13/24 18:43 09/13/24 18:49 09/13/24 18:49 Temperature 104.3 F H Pulse Rate Pulse Rate [Pulse Oximeter] 128 H Pulse Rate [Right Pulse Oximeter] Respiratory Rate 24 Blood Pressure Blood Pressure [Le ft Arm] Blood Pressure [Ri ght Upper Arm] 116/66 Pulse Oximetry 90 91 91 Oxygen Delivery Me thod Nasal Cannula Room Air 09/13/24 19:14 09/13/24 19:15 09/13/24 19:21 Temperature Pulse Rate 115 H 112 H 106 H Pulse Rate [Pulse Oximeter] Pulse Rate [Right Pulse Oximeter] Respiratory Rate Blood Pressure Blood Pressure [Le ft Arm] Blood Pressure [Ri ght Upper Arm] Pulse Oximetry 91 93 91 Oxygen Delivery Me thod 09/13/24 19:22 09/13/24 19:28 09/13/24 19:30 Temperature 102.3 F H Pulse Rate 99 98 Pulse Rate [Pulse Oximeter] Pulse Rate [Right Pulse Oximeter] Respiratory Rate Blood Pressure 96/42 L Blood Pressure [Le ft Arm] Blood Pressure [Ri ght Upper Arm] Pulse Oximetry 91 92 Oxygen Delivery Me thod 09/13/24 19:31 09/13/24 19:59 09/13/24 20:01 Temperature 100.3 F H Pulse Rate 100 105 H Pulse Rate [Pulse Oximeter] Pulse Rate [Right Pulse Oximeter] Respiratory Rate 20 Blood Pressure 91/46 L 97/49 L Blood Pressure [Le ft Arm] Blood Pressure [Ri ght Upper Arm] Pulse Oximetry 91 93 Oxygen Delivery Me thod 09/13/24 20:34 09/13/24 20:42 09/13/24 20:53 Temperature 100.3 F H 100.3 F H Pulse Rate 99 Pulse Rate [Pulse Oximeter] 128 H Pulse Rate [Right Pulse Oximeter] 95 Respiratory Rate 20 20 20 Blood Pressure 107/53 L Blood Pressure [Le ft Arm] 107/65 Blood Pressure [Ri ght Upper Arm] 116/66 Pulse Oximetry 94 94 Oxygen Delivery Me thod Room Air 09/13/24 20:58 09/13/24 21:18 Temperature 100.3 F H Pulse Rate Pulse Rate [Pulse Oximeter] Pulse Rate [Right Pulse Oximeter] 88 Respiratory Rate 20 16 Blood Pressure Blood Pressure [Le ft Arm] 91/42 L Blood Pressure [Ri ght Upper Arm] Pulse Oximetry 93 Oxygen Delivery Me thod Room Air Hospitalist - H&P: Result Labs Labs: Short CBC 09/13/24 Range/Units 18:56 WBC 3.06 L (4.50-11.00) K/uL Hgb 12.7 L (13.5-17.5) gm/dL Hct 38.6 (37.0-53.0) % Plt Count 86 L (140-440) K/uL BMP 09/13/24 18:56 Sodium 139 Potassium 4.2 Chloride 103 Carbon Dioxide 26 BUN 18 Creatinine 0.6 Glucose 98 Calcium 8.9 Imaging Chest x-ray: Attestation: I have reviewed the pertinent imaging results. Radiologist's impression: New right lower lobe infiltrate compared to chest x-ray obtained 09/10/2024. Assessment and Plan Assessment and plan (1) Sepsis: Problem comment: - BC x 1 - IVF - IV antibiotics - monitor lactate Status: Acute (2) Community acquired pneumonia: Problem comment: - CXR 09/13/2024 demonstrates new RLL infiltrate, D/Dx aspiration vs CAP s/p influenza - 09/13/2024 administered 1 dose of ceftriaxone IV in ED but will change because of increased risk of seizure with use of cephalosporins to piperacillin/tazobactam and continue with azithromycin - O2 as needed - continue with his food textures as bite size and soft and may have pureed food if he prefers - no need for speech pathology consultation for swallowing assessment at this time Status: Acute (3) Influenza: Problem comment: - dx influenza A 09/10/2024 and started oseltamivir 75 mg po BID x 5 days - complete full 5-day course of oseltamivir - monitor CBC given pancytopenia Status: Acute (4) Primary generalized seizure disorder: Problem comment: - continue with supportive meds - stop ceftriaxone due to increased risk for seizure with cephalosporins and change to piperacillin/tazobactam for treatment of pneumonia while in hospital Status: Acute (5) Cerebral palsy: Problem comment: - continue to work with the patient sister, family, detention staff Status: Acute (6) Neurogenic bladder: Problem comment: - PureWick device at night Status: Acute (7) Dependent for wheelchair mobility: Problem comment: - physical therapy and occupational therapy consultations Status: Acute (8) Chronic incomplete quadriplegia: Status: Acute (9) Pancytopenia: Problem comment: - monitor CBC - most likely due to influenza but may be due to underlying medications Status: Acute Plan 1. Reviewed impression and recommendations with patient, brother, sister 2. Answered their questions 3. They are agreeable with above stated plans and recommendations Total Time Spent Total Time Spent: 75 minute
[2024-09-13] MEDS: AZITHROMYCIN 500 MG in 0.9 % SODIUM CHLORIDE 250 ml 250 ML 255 MG IVPB (22:46)
[2024-09-14] VITALS (11 sets, daily range): BP systolic 83–115; BP diastolic 39–59; PULSE 79–96; RESP 16–20; TEMP 36.4–38; O2SAT 91–95
[2024-09-14] MEDS: PIPERACILLIN/TAZOBACTAM 3.375 GM in 0.9 % SODIUM CHLORIDE Mini-bag 100 ML IVPB ×4 (02:47→19:41)
[2024-09-14] MEDS: 0.9 % SODIUM CHLORIDE 1000 ml 1,000 ML 75 ML IV ×2 (04:22→18:00)
[2024-09-14] MEDS: 0.9 % SODIUM CHLORIDE 1000 ml 1,000 ML IV (04:22)
--- NOTE | 2024-09-14 04:58 | PC.NURSE ---
Shift note: Patient was brought to the floor by a nurse from ED on admission bed at 2049. He was accompanied by his brother and a sister. IV N/S was infusing at 75ml/hr, alert and oriented on admission. He reported general malaise, cough and headache which started about 9 days ago. O2 on RA was 85%. He was put on 2L of oxygen and has been on that throughout the night. Lungs sound clear bilaterally. Bp was soft (95/45). Patient denied pain and fever. At 0300, Bp was 83/39. Repeated several times both with the automatic machine and manual but continued to be low. MD notified through Thai and ordered N/S 1000ml bolus and then 75mg as maintenance fluid. Bp rechecked after the bolus was 100/60. Patient muffled voice and sister confirmed that it is his baseline. Turn and reposition PRN. Patient is nonambulatory. Bed alarm and video monitoring in room to prevent falls. Patient was up early by 0400.
[2024-09-14 06:28] LABS: HCO3 VBG 24 mmol/L (21-28); Lactate* 1.1 mmol/L (0.5-1.9); PCO2 VBG 36 mmHG (40-50); PO2 VBG 63.6 mmHG (25-47); pH VBG 7.431 (7.32-7.43)
[2024-09-14 06:34] LABS: Basophils Absolute Auto 0.01 K/uL (0.00-0.30); Basophils Percent Auto 0.1 % (0.0-3.0); Hematocrit 29.2 % (37.0-53.0); Hemoglobin* 9.7 gm/dL (13.5-17.5); Immature Granulocytes Abs Auto 0.07 K/uL (0.00-0.30); Immature Granulocytes Pct Auto 0.7 %; Lymphocytes Percent Auto 17.8 % (20-44); Mean Corpuscular HGB Conc 33 gm/dL (32-36); Mean Corpuscular Hemoglobin 31 pg (26-34); Mean Corpuscular Volume 92 fL (80-100); Monocytes Percent Auto 13.1 % (0.0-11.0); Neutrophils Absolute Auto 6.55 K/uL (1.7-7.0); Neutrophils Percent Auto 68.3 % (42.0-72.0); Platelet Count* 63 K/uL (140-440); RDW Coefficient of Variation % 13.1 % (11.5-15.5); Red Blood Count 3.16 m/uL (4.30-5.90)
[2024-09-14 06:39] LABS: Slide Review Reflex No
[2024-09-14 06:51] LABS: Chloride* 112 mmol/L (96-114); Sodium* 142 mmol/L (135-149)
[2024-09-14 06:52] LABS: Potassium* 3.5 mmol/L (3.6-5.1)
[2024-09-14 06:54] LABS: Anion Gap 8 mEq/L (7-15); Blood Urea Nitrogen* 20 mg/dL (5-24); Carbon Dioxide* 22 mmol/L (20-32); Creatinine* 0.7 mg/dL (0.5-1.5); Est. Creatinine Clearance* 98.58; Estimated Glomerular Filt Rate 113 ml/min
[2024-09-14 06:55] LABS: Calcium* 7.3 mg/dL (8.4-10.6); Glucose* 91 mg/dL (60-115); Magnesium* 1.7 mg/dL (1.5-2.6); Phosphorus* 2.8 mg/dL (2.5-4.5)
[2024-09-14] MEDS: DIVALPROEX DELAYED RELEASE 250 MG TABLET 1000 MG PO ×2 (08:15→19:39)
[2024-09-14] MEDS: SENNOSIDES 1 TAB TABLET 2 TAB PO (08:37)
[2024-09-14] MEDS: METOPROLOL TARTRATE 25 MG TABLET PO (08:37)
[2024-09-14] MEDS: polyethylene glycoL 3350 17 GM PACK PO (08:37)
[2024-09-14] MEDS: FERROUS SULFATE 325 MG TABLET PO (08:37)
[2024-09-14] MEDS: OSELTAMIVIR PHOSPHATE 75 MG CAPSULE PO (08:37)
[2024-09-14] MEDS: AZITHROMYCIN 250 MG TABLET PO (08:37)
[2024-09-14] MEDS: LACOSAMIDE 50 MG TABLET 200 MG PO ×2 (08:37→19:40)
[2024-09-14] MEDS: lamoTRIgine 25 MG TABLET 12.5 MG PO (08:41)
[2024-09-14 10:13] LABS: Appearance Urine Clear (Clear); Bilirubin Urine Negative (Negative); Blood Urine Negative (Negative); Color Urine Amber (Yellow); Glucose Urine Negative (Negative); Ketones Urine 1+ (Negative); Leukocyte Esterase Urine Negative (Negative); Nitrite Urine Negative (Negative); Protein Urine 1+ (Negative); Specific Gravity Urine >= 1.030 (1.000-1.030); Urobilinogen Urine 0.2 (0.2-1.0)
[2024-09-14 10:28] LABS: Bacteria Urine Moderate; RBC Urine 0-2 (0-2); Squamous Epithelial Cell Urine Few (None-Few)
--- NOTE | 2024-09-14 11:33 | PM.IMPN1 ---
Progress Note: A&P Assessment and plan (1) Sepsis: Problem details: - as evidenced by hypotension, tachycardia, elevated lactate, T of 104 in ED, + RLL infiltrate - BC collected and pending, lactate normalized 09/14/24 - improving 09/14/24, continue IVFs, Azithromycin and Ceftriaxone Status: Acute (2) Community acquired pneumonia: Problem details: - CXR 09/13/2024 demonstrates new RLL infiltrate, D/Dx aspiration vs CAP s/p influenza - 09/13/2024: rec'd 1 dose of ceftriaxone IV in ED, changed to Zosyn given increased risk of seizure with use of cephalosporins, continue this + Azithromycin - supplemental oxygen as needed - continue with his food textures as bite size and soft and may have pureed food if he prefers - no need for speech pathology consultation for swallowing assessment at this time Status: Acute (3) Influenza: Problem details: - dx influenza A 09/10/2024 and started oseltamivir 75 mg po BID x 5 days - complete full 5-day course of oseltamivir - monitor CBC given pancytopenia Status: Acute (4) Primary generalized seizure disorder: Problem details: - continue with supportive meds - stop ceftriaxone due to increased risk for seizure with cephalosporins and change to piperacillin/tazobactam for treatment of pneumonia while in hospital Status: Acute (5) Cerebral palsy: Problem details: - continue to work with the patient sister, family, prison staff Status: Acute (6) Neurogenic bladder: Problem details: - PureWick device at night Status: Acute (7) Dependent for wheelchair mobility: Problem details: - physical therapy and occupational therapy consultations Status: Acute (8) Chronic incomplete quadriplegia: Status: Acute (9) Pancytopenia: Problem details: - monitor CBC; platelets 60s on 09/14/24, no evidence of acute bleeding, continue to follow - most likely due to influenza but also may be iatrogenic Status: Acute Plan - per above, continue IVFs and IV antibiotics - likely back to prison on 09/14/24 if continues to improve - sister updated at bedside, questions answered Subjective Date Seen: 09/14/24 Interval history: Andres was admitted to the hospital on 09/13/24 for acute hypoxic respiratory failure, hypotension, tachycardia, fever, and new RLL infiltrate in the setting of recent Influenza A infection. He has required supplemental oxygen overnight. Clinically improving; still receiving IVFs for lower BPs (100/50) but tachycardia and fever have resolved. Has some cramping in his legs, no other complaints for hospitalist team. Sister at bedside. Exam Narrative: Exam Narrative: GEN: Awake and answering questions appropriately CV: RRR, No concerning murmurs, rubs, or gallops R: LCTA bilaterally without concerning wheezing, rales, or rhonchi Ext: thin, contractures of extremities per baseline Skin: No concerning skin lesions or rashes on exposed skin Neuro: Baseline Const: Vital Signs, click to edit/add: Vital Signs - 24 hr 09/13/24 18:43 09/13/24 18:49 09/13/24 18:49 Temperature 104.3 F H Pulse Rate Pulse Rate [Pulse Oximeter] 128 H Pulse Rate [Right Pulse Oximeter] Respiratory Rate 24 Blood Pressure Blood Pressure [Le ft Arm] Blood Pressure [Ri ght Upper Arm] 116/66 Pulse Oximetry 90 91 91 Oxygen Delivery Me thod Nasal Cannula Room Air Oxygen Flow Rate 09/13/24 19:14 09/13/24 19:15 09/13/24 19:21 Temperature Pulse Rate 115 H 112 H 106 H Pulse Rate [Pulse Oximeter] Pulse Rate [Right Pulse Oximeter] Respiratory Rate Blood Pressure Blood Pressure [Le ft Arm] Blood Pressure [Ri ght Upper Arm] Pulse Oximetry 91 93 91 Oxygen Delivery Me thod Oxygen Flow Rate 09/13/24 19:22 09/13/24 19:28 09/13/24 19:30 Temperature 102.3 F H Pulse Rate 99 98 Pulse Rate [Pulse Oximeter] Pulse Rate [Right Pulse Oximeter] Respiratory Rate Blood Pressure 96/42 L Blood Pressure [Le ft Arm] Blood Pressure [Ri ght Upper Arm] Pulse Oximetry 91 92 Oxygen Delivery Me thod Oxygen Flow Rate 09/13/24 19:31 09/13/24 19:59 09/13/24 20:01 Temperature 100.3 F H Pulse Rate 100 105 H Pulse Rate [Pulse Oximeter] Pulse Rate [Right Pulse Oximeter] Respiratory Rate 20 Blood Pressure 91/46 L 97/49 L Blood Pressure [Le ft Arm] Blood Pressure [Ri ght Upper Arm] Pulse Oximetry 91 93 Oxygen Delivery Me thod Oxygen Flow Rate 09/13/24 20:34 09/13/24 20:42 09/13/24 20:53 Temperature 100.3 F H 100.3 F H Pulse Rate 99 Pulse Rate [Pulse Oximeter] 128 H Pulse Rate [Right Pulse Oximeter] 95 Respiratory Rate 20 20 20 Blood Pressure 107/53 L Blood Pressure [Le ft Arm] 107/65 Blood Pressure [Ri ght Upper Arm] 116/66 Pulse Oximetry 94 94 Oxygen Delivery Me thod Room Air Oxygen Flow Rate 09/13/24 20:58 09/13/24 21:18 09/13/24 23:00 Temperature 100.3 F H Pulse Rate Pulse Rate [Pulse Oximeter] Pulse Rate [Right Pulse Oximeter] 88 86 Respiratory Rate 20 16 16 Blood Pressure Blood Pressure [Le ft Arm] 91/42 L Blood Pressure [Ri ght Upper Arm] Pulse Oximetry 93 Oxygen Delivery Me thod Room Air Oxygen Flow Rate 09/13/24 23:00 09/13/24 23:00 09/14/24 02:27 Temperature 99.5 F 97.6 F Pulse Rate Pulse Rate [Pulse Oximeter] Pulse Rate [Right Pulse Oximeter] 86 79 Respiratory Rate 16 16 16 Blood Pressure Blood Pressure [Le ft Arm] 95/36 L 83/43 L Blood Pressure [Ri ght Upper Arm] Pulse Oximetry 91 91 92 Oxygen Delivery Me thod Room Air Room Air Room Air Oxygen Flow Rate 09/14/24 04:23 09/14/24 07:50 09/14/24 07:52 Temperature 98.0 F Pulse Rate Pulse Rate [Pulse Oximeter] Pulse Rate [Right Pulse Oximeter] 81 Respiratory Rate 20 20 Blood Pressure Blood Pressure [Le ft Arm] 100/39 L 101/45 L Blood Pressure [Ri ght Upper Arm] Pulse Oximetry 95 94 Oxygen Delivery Me thod Nasal Cannula Nasal Cannula Oxygen Flow Rate 2 09/14/24 08:22 09/14/24 11:10 Temperature 98.9 F Pulse Rate Pulse Rate [Pulse Oximeter] Pulse Rate [Right Pulse Oximeter] 85 Respiratory Rate 20 Blood Pressure Blood Pressure [Le ft Arm] 100/52 L Blood Pressure [Ri ght Upper Arm] Pulse Oximetry 91 94 Oxygen Delivery Me thod Room Air Room Air Oxygen Flow Rate 0 Labs Labs: Laboratory Results - last 24 hr 09/13/24 09/13/24 09/14/24 18:56 21:10 06:01 WBC 3.06 L 9.60 RBC 4.25 L 3.16 L Hgb 12.7 L 9.7 L Hct 38.6 29.2 L MCV 91 92 MCH 30 31 MCHC 33 33 RDW Coeff of Jamie 13.0 13.1 Plt Count 86 L 63 L Neut % (Auto) 75.5 H 68.3 Lymph % (Auto) 12.[address] [place] % (Auto) 11.8 H 13.1 H Eos % (Auto) 0.0 0.0 Baso % (Auto) 0.0 0.1 Neut # (Auto) 2.30 6.55 Lymph # (Auto) 0.[address] # (Auto) 0.40 1.30 H Eos # (Auto) 0.00 0.00 Baso # (Auto) 0.00 0.01 Abs Immat Gran (auto) 0.00 0.07 Imm/Tot Granulo (auto) 0.3 0.7 VBG pH 7.431 H VBG pCO2 36 L VBG pO2 63.6 H VBG HCO3 24 Sodium 139 142 Potassium 4.2 3.5 L Chloride 103 112 Carbon Dioxide 26 22 Anion Gap 10 8 BUN 18 20 Creatinine 0.6 0.7 Estimated Creat Clear 115.01 98.58 Estimated GFR 118 113 Glucose 98 91 Lactate 2.1 H 1.9 1.1 Calcium 8.9 7.3 L Phosphorus 2.8 Magnesium 1.7 1.7 C-Reactive Protein 5.5 H Procalcitonin 0.81 H Urine Color Urine Appearance Urine pH Ur Specific [place] Urine Protein Urine Glucose (UA) Urine Ketones Urine Blood Urine Nitrite Urine Bilirubin Urine Urobilinogen Ur Leukocyte Esterase Urine RBC Urine WBC Ur Squamous Epith Cells Urine Bacteria 09/14/24 10:00 WBC RBC Hgb Hct MCV MCH MCHC RDW Coeff of Jamie Plt Count Neut % (Auto) Lymph % (Auto) [place] % (Auto) Eos % (Auto) Baso % (Auto) Neut # (Auto) Lymph # (Auto) [place] # (Auto) Eos # (Auto) Baso # (Auto) Abs Immat Gran (auto) Imm/Tot Granulo (auto) VBG pH VBG pCO2 VBG pO2 VBG HCO3 Sodium Potassium Chloride Carbon Dioxide Anion Gap BUN Creatinine Estimated Creat Clear Estimated GFR Glucose Lactate Calcium Phosphorus Magnesium C-Reactive Protein Procalcitonin Urine Color Claudia A Urine Appearance Clear Urine pH 6.0 Ur Specific [place] >= 1.030 Urine Protein 1+ A Urine Glucose (UA) Negative Urine Ketones 1+ A Urine Blood Negative Urine Nitrite Negative Urine Bilirubin Negative Urine Urobilinogen 0.2 Ur Leukocyte Esterase Negative Urine RBC 0-2 Urine WBC 2-5 Ur Squamous Epith Cells Few Urine Bacteria Moderate A
--- NOTE | 2024-09-14 12:10 | REH.PT ---
PT orders for Eval & treat received. requested PT perform pt's home passive ROM program with him secondary to achy joints. Pt and his sister agreeable to PROM program. Performed with good tolerance. d/c PT eval and treat orders. No Charge.
--- NOTE | 2024-09-14 18:25 | PC.NURSE ---
Pt alert. Pt had some complaints of body aches, aqua pad used. Pt?s VS WNL. Pt repositioned Q2H. Pt has external catheter in place. Pt had family at bedside shift.?Pt possible discharge home tomorrow.
[2024-09-14] MEDS: lamoTRIgine 25 MG TABLET PO (19:41)
[2024-09-14] MEDS: ACETAMINOPHEN 325 MG TABLET 650 MG PO (19:44)
[2024-09-15] MEDS: PIPERACILLIN/TAZOBACTAM 3.375 GM in 0.9 % SODIUM CHLORIDE Mini-bag 100 ML IVPB ×2 (02:26→08:14)
[2024-09-15 03:00] VITALS: BP 105/62; PULSE 80; RESP 20; TEMP 36.7; O2SAT 94
[2024-09-15] MEDS: 0.9 % SODIUM CHLORIDE 1000 ml 1,000 ML 75 ML IV (06:24)
--- NOTE | 2024-09-15 06:39 | PC.NURSE ---
Addendum entered by Elodia Salinas RN 09/15/24 07:24: Pt's sister reported last evening that pt believed a woman was sitting in his room when no one else was present. No further episodes of confusion noted. Original Note: End of shift note [id number]: Pt alert & oriented to person and birthday. He also knows he is in the hospital. Pt noted to be irritable and yelling at sister when staff were administering 2000 medications last evening. Pt?s sister and this RN had to spend length of time with pt explaining that medications prescribed are to help prevent seizures. He then refused 2100 medications of Tamiflu and Metoprolol despite encouragement. Pt requires assist of 2 with repositioning in bed and changing brief. Pt has external catheter in place though also noted to be incontinent of bladder. IV NS running per order. Pt noted to have fever of 100.4 at start of shift per temporal thermometer and was given PRN Tylenol which was effective upon followup. Bed alarm on and call light within reach. Pt compliant with wearing SCDs bilaterally. ?
[2024-09-15 07:01] LABS: Basophils Percent Auto 0.1 % (0.0-3.0); Chloride* 112 mmol/L (96-114); Eosinophils Percent Auto 0.1 % (0.0-7.0); Hematocrit 29.5 % (37.0-53.0); Hemoglobin* 9.7 gm/dL (13.5-17.5); Immature Granulocytes Pct Auto 0.2 %; Lymphocytes Percent Auto 16.7 % (20-44); Mean Corpuscular HGB Conc 33 gm/dL (32-36); Mean Corpuscular Hemoglobin 31 pg (26-34); Mean Corpuscular Volume 93 fL (80-100); Monocytes Percent Auto 9.1 % (0.0-11.0); Neutrophils Percent Auto 73.8 % (42.0-72.0); Platelet Count* 84 K/uL (140-440); RDW Coefficient of Variation % 13.5 % (11.5-15.5); Red Blood Count 3.17 m/uL (4.30-5.90); White Blood Count* 12.54 K/uL (4.50-11.00)
[2024-09-15 07:02] LABS: Sodium* 143 mmol/L (135-149)
[2024-09-15 07:04] LABS: Creatinine* 0.5 mg/dL (0.5-1.5); Est. Creatinine Clearance* 138.02; Estimated Glomerular Filt Rate 125 ml/min
[2024-09-15 07:05] LABS: Anion Gap 5 mEq/L (7-15); Blood Urea Nitrogen* 7 mg/dL (5-24); Calcium* 7.9 mg/dL (8.4-10.6); Carbon Dioxide* 26 mmol/L (20-32); Glucose* 84 mg/dL (60-115); Slide Review Reflex No
[2024-09-15 07:28] LABS: Potassium* 2.9 mmol/L (3.6-5.1)
[2024-09-15 08:00] VITALS: BP 118/54; PULSE 82; RESP 18; TEMP 36.9; O2SAT 92
[2024-09-15] MEDS: POTASSIUM BICARB 25 MEQ EFFERVESCENT TAB PO (08:14)
[2024-09-15] MEDS: lamoTRIgine 25 MG TABLET 12.5 MG PO (08:19)
[2024-09-15] MEDS: LACOSAMIDE 50 MG TABLET 200 MG PO (08:19)
[2024-09-15 09:07] VITALS: RESP 18; O2SAT 92
[2024-09-15] MEDS: DIVALPROEX DELAYED RELEASE 250 MG TABLET 1000 MG PO (09:45)
[2024-09-15] MEDS: AZITHROMYCIN 250 MG TABLET PO (09:45)
[2024-09-15] MEDS: polyethylene glycoL 3350 17 GM PACK PO (09:45)
[2024-09-15] MEDS: FERROUS SULFATE 325 MG TABLET PO (09:45)
[2024-09-15] MEDS: SENNOSIDES 1 TAB TABLET 2 TAB PO (09:45)
[2024-09-15] MEDS: OSELTAMIVIR PHOSPHATE 75 MG CAPSULE PO (09:45)
[2024-09-15] MEDS: POTASSIUM CHLORIDE 10 MEQ/100 ML PIGGYBACK 100 MEQ IVPB (09:57)
--- NOTE | 2024-09-15 14:14 | PM.DS1 ---
DS: Providers Provider Date Seen: 09/15/24 Date of admission: 09/13/24 21:46 Primary care physician: Chris Fontenot MD Admitting Clinician: Marshal Carrion MD Consults: RT, PT, OT Attending Physician on discharge: Malini Clark MD Date of Discharge: 09/15/24 DS: Diagnosis Discharge Diagnosis (1) Sepsis: Status: Acute Problem details: - as evidenced by hypotension, tachycardia, elevated lactate, T of 104 in ED, + RLL infiltrate - BC collected and pending, lactate normalized 09/14/24 - improving 09/14/24, continue IVFs, Azithromycin and Zosyn - back to baseline 09/15 and stable on RA, appropriate for d/c home (2) Community acquired pneumonia: Status: Acute Problem details: - CXR 09/13/2024 demonstrates new RLL infiltrate, D/Dx aspiration vs CAP s/p influenza - 09/13/2024: rec'd 1 dose of ceftriaxone IV in ED, changed to Zosyn given increased risk of seizure with use of cephalosporins, continue this + Azithromycin - supplemental oxygen as needed - continue with his food textures as bite size and soft and may have pureed food if he prefers - no need for speech pathology consultation for swallowing assessment at this time (3) Influenza: Status: Acute Problem details: - dx influenza A 09/10/2024 and started oseltamivir 75 mg po BID x 5 days - completed full 5-day course of oseltamivir during stay - monitor CBC given pancytopenia on admission (stable, WBC increased during stay) (4) Primary generalized seizure disorder: Status: Acute Problem details: - continued home meds - stop ceftriaxone due to increased risk for seizure with cephalosporins and change to piperacillin/tazobactam for treatment of pneumonia while in hospital (5) Cerebral palsy: Status: Acute Problem details: - continue to work with the patient sister, family, custodial staff (6) Neurogenic bladder: Status: Acute Problem details: - PureWick device at night (7) Dependent for wheelchair mobility: Status: Acute Problem details: - physical therapy and occupational therapy consultations (8) Chronic incomplete quadriplegia: Status: Acute (9) Pancytopenia: Status: Acute Problem details: - monitor CBC; platelets 60s on 09/14/24, no evidence of acute bleeding, continue to follow - most likely due to influenza but also may be iatrogenic - stable upon d/c, routine outpatient f/u DS: Summary Hospital Course Hospital Course: Andres is a 48-year-old male with the above-mentioned comorbidities who was admitted to the hospital on 09/13/2024 with a clinical picture consistent with sepsis in the setting of influenza A and right-sided pneumonia. Treated with Tamiflu, IV fluids, Zosyn, azithromycin. Improved and transitioned off of supplemental oxygen to room air on hospital day 1. Kept for an additional day given need for IV antibiotics, in addition to lower blood pressures and multiple comorbidities. Back to baseline on hospital day 2 and appropriate for discharge to custodial. Sister present during stay and in agreement. Received potassium supplementation and seen by our therapy teams, no acute needs identified. He will complete his course of azithromycin as an outpatient and see his PCP in close follow-up. We are holding his Metoprolol for 2 days upon d/c given lower BPs (restart 09/17/24); no other changes made to home medications during stay. Status at Discharge Functional status at discharge: wheelchair bound Overall status at discharge: patient is progressing back to baseline Time Spent with Patient Time attestation: Total time spent providing and/or coordinating discharge services: Time spent: Greater than 30 minutes Specific discharge activities: medication reconciliation, education to patient and sister Exam Narrative: Exam Narrative: GEN: Awake and answering questions appropriately CV: RRR, No concerning murmurs, rubs, or gallops R: LCTA bilaterally without concerning wheezing, air movement adequate Ext: thin, contractures of extremities per baseline Skin: No concerning skin lesions or rashes on exposed skin Neuro: Baseline Const: Vital Signs, click to edit/add: Vital Signs - 24 hr 09/14/24 15:07 09/14/24 15:22 09/14/24 19:44 Temperature 99.0 F 100.4 F H Pulse Rate [Right Pulse Oximeter] 94 Respiratory Rate 18 18 Blood Pressure [Le ft Arm] 105/54 L Pulse Oximetry 93 93 Oxygen Delivery Me thod Room Air Room Air Oxygen Flow Rate 0 09/14/24 19:53 09/14/24 23:00 09/14/24 23:00 Temperature 100.4 F H 99.7 F H Pulse Rate [Right Pulse Oximeter] 96 90 Respiratory Rate 18 18 18 Blood Pressure [Le ft Arm] 115/59 L 113/51 L Pulse Oximetry 92 95 95 Oxygen Delivery Me thod Room Air Room Air Room Air Oxygen Flow Rate 0 09/14/24 23:00 09/15/24 03:00 09/15/24 08:00 Temperature 98.0 F 98.5 F Pulse Rate [Right Pulse Oximeter] 90 80 82 Respiratory Rate 18 20 18 Blood Pressure [Le ft Arm] 105/62 118/54 L Pulse Oximetry 94 92 Oxygen Delivery Me thod Room Air Room Air Oxygen Flow Rate 09/15/24 09:07 Temperature Pulse Rate [Right Pulse Oximeter] Respiratory Rate 18 Blood Pressure [Le ft Arm] Pulse Oximetry 92 Oxygen Delivery Me thod Room Air Oxygen Flow Rate DS: Data Data Completed and Pending Labs on day of discharge: Labs from last 24 hours 09/15/24 06:10 WBC 12.54 H RBC 3.17 L Hgb 9.7 L Hct 29.5 L MCV 93 MCH 31 MCHC 33 RDW Coeff of Jamie 13.5 Plt Count 84 L Neut % (Auto) 73.8 H Lymph % (Auto) 16.[address] % (Auto) 9.1 Eos % (Auto) 0.1 Baso % (Auto) 0.1 Neut # (Auto) 9.30 H Lymph # (Auto) 2.10 [place] # (Auto) 1.10 H Eos # (Auto) 0.00 Baso # (Auto) 0.00 Abs Immat Gran (auto) 0.00 Imm/Tot Granulo (auto) 0.2 Sodium 143 Potassium 2.9 L* Chloride 112 Carbon Dioxide 26 Anion Gap 5 L BUN 7 Creatinine 0.5 Estimated Creat Clear 138.02 Estimated GFR 125 Glucose 84 Calcium 7.9 L Preliminary micro results at discharge 09/14/24 10:00 Urine Culture - Preliminary Urine Catheterized No growth. 09/13/24 18:56 Blood Culture - Preliminary Blood NO GROWTH AFTER 24 HOURS Discharge Plan Discharge Disposition: Home, Self-Care Date of Admission: 09/13/24 21:46 Attending Provider on Discharge: Malini Clark Primary Care Provider: Chris Fontenot Condition: Stable Anticipated Discharge Date/Time: 09/15/24 08:56 Discharge Medications: New azithromycin 250 mg Tablet 250 mg PO Q24H Qty: 2 0RF Taper: Z-VERA 500 mg Q24H for 1 Day and 0 Hour 250 mg Q24H for 4 Days and 0 Hour Rx Instructions: 2 more days to complete full course of treatment Continued divalproex 250 mg tablet,delayed release (DR/EC) 1,000 mg PO BID lamotrigine 25 mg tablet 12.5 - 25 mg PO BID Patient Comments: 12.5MG IN AM, 25MG HS ON A TAPER, INCREASING BY 12.5MG Q2 WEEKS lacosamide 200 mg tablet 200 mg PO BID lisinopril 10 mg tablet 10 mg PO DAILY polyethylene glycol 3350 [ClearLax] 17 gram powder in packet 17 g PO DAILY sennosides [senna] 8.6 mg tablet 17.2 mg PO DAILY tizanidine 2 mg tablet 1 - 2 mg PO 3XD PRN ferrous sulfate 325 mg (65 mg iron) tablet 325 mg PO QAM diazepam [Diazepam Intensol] 5 mg/mL concentrate 5 mg PO DAILY PRN Patient Comments: PLACE 1ML BETWEEN CHEEK AND GUM FOR A GENERALIZER TONIC-CLONIC SEIZURE- MAY REPEAT 1 DOSE IF A 2ND SEIZURE SHOULD OCCUR WITHIN 24HR; DO NOT cholecalciferol (vitamin D3) 50 mcg (2,000 unit) tablet 50 mcg PO DAILY bisacodyl 10 mg suppository 10 mg MA DAILY PRN cranberry 500 mg capsule 500 mg PO BID Rx Instructions: administer with meals clotrimazole 1 % cream 1 applic topical BID PRN melatonin 3 mg tablet 6 mg PO HS multivitamin Tablet 1 tab PO DAILY triamcinolone acetonide 0.1 % ointment 1 applic TOPICAL BID PRN Held metoprolol tartrate 25 mg tablet 25 mg PO BID Hold Instructions: Resume on 09/18/24. hold Metoprolol until Wednesday (lower BPs in hospital), restart Wednesday morning Discontinued oseltamivir [Tamiflu] 75 mg capsule 75 mg PO BID 5 Days Qty: 10 0RF Discharge Orders: Discharge Order (Routine); Ordered 09/15/24 Ordered By: Malini Clark Patient Education: Azithromycin (By mouth), Influenza (DC), Pneumonia (DC) Additional Instructions: Banana/day for low potassium, see Dr. Fontenot as scheduled. Hold Metoprolol until Wednesday for lower hospital blood pressures. Activity Level: Activity as Tolerated Diet Detail: per previous Follow Up Appointments: Chris Fontenot MD [Primary Care Provider] - 09/21/24 11:25 am ([facility] for follow-up.) Forms: [employer] Info Instructions
--- NOTE | 2024-09-15 14:55 | PC.NURSE ---
Discharge: VSS, afebrile. SpO2 maintained above 90% on RA. Patient denies pain this shift. Discharge instructions provided, all questions answered. IV removed with tip intact.
== END 2024-09-15 12:12 | disposition home or self-care (01) | DRG 871 ==
LOC: ED 20:52 → MEDSURG 20:54
PROVIDERS: Admitting Provider Internal Medicine; Emergency Provider Emergency Medicine; PCP Family Medicine; Visit Provider Internal Medicine
DX: A41.9 Sepsis, unspecified organism (principal); J10.00 Influenza due to other identified influenza virus with unspecified type of pneumonia; J18.9 Pneumonia, unspecified organism; D61.818 Other pancytopenia; G80.8 Other cerebral palsy; G40.309 Generalized idiopathic epilepsy and epileptic syndromes, not intractable, without status epilepticus; E86.0 Dehydration; G31.84 Mild cognitive impairment of uncertain or unknown etiology; I10 Essential (primary) hypertension; N31.9 Neuromuscular dysfunction of bladder, unspecified; N39.498 Other specified urinary incontinence; Z99.3 Dependence on wheelchair; Z87.01 Personal history of pneumonia (recurrent); M62.50 Muscle wasting and atrophy, not elsewhere classified, unspecified site; Z68.23 Body mass index [BMI] 23.0-23.9, adult
CPT/HCPCS: 36415; 71045; 80048; 81001; 82803; 83605; 83735; 84100; 84145; 85025; 86140; 87040; 87086; 87631; 93005; 94761; 96360; 97165; 99284; 99285; A9270; J0456; J0696; J2543; J3480; J7030; J7050

== ENCOUNTER 2024-11-02 12:27 | Emergency (ER) | payer MEDICARE, MEDICAID, SELFPAY ==
[2024-11-02] VITALS (30 sets, daily range): BP systolic 94–134; BP diastolic 34–94; PULSE 79–118; RESP 20–22; TEMP 36.3; O2SAT 85–98
--- NOTE | 2024-11-02 | CRLHL7_ITS ---
For Patients: As a result of the Century Cures Act, medical imaging exams and procedure reports are released immediately into your electronic medical record. You may view this report before your referring provider. If you have questions, please contact your health care provider. INDICATION: Pain COMPARISON: None prior to today TECHNIQUE: CT examination of the abdomen and pelvis was performed following the uneventful intravenous administration of 95 cc of Isovue 370. Thin section axial images were obtained from the lung bases through the pubic symphysis. Oral contrast was not administered. Please note that all CT scans at this facility use dose modulation, iterative reconstruction, and/or weight-based dosing when appropriate to reduce radiation dose to as low as reasonably achievable. FINDINGS: LUNG BASES: Dense multifocal consolidation identified at the lung bases as described in the chest CT report. This is consistent with multifocal pneumonia.The heart size is normal at the lung bases. LIVER/BILIARY SYSTEM:Normal-sized liver. There is a stone in the gallbladder neck and gallbladder wall thickening and surrounding inflammatory change likely representing acute cholecystitis.Correlate with sonography ADRENALS: Normal KIDNEYS, URETERS and BLADDER:The kidneys appear normal. No visible mass, calculus or hydronephrosis. The ureters and bladder as visualized appear normal. SPLEEN:Normal appearance. PANCREAS: Appears normal. RETROPERITONEUM and MESENTERY: There is no mass, adenopathy or aortic aneurysm. GASTROINTESTINAL SYSTEM: There is no evidence of diverticulitis, colitis, mechanical obstruction, or appendicitis. The small bowel as visualized appears normal. PELVIS: No mass, adenopathy or free fluid. OSSEOUS STRUCTURES and ABDOMINAL WALL: Abnormal configuration likely due to chronic neuromuscular disorder.No significant abdominal wall abnormality. OTHER: No free fluid or free air. IMPRESSION: 1. Redemonstration of dense multifocal consolidation in the visualized lower lungs consistent with multifocal pneumonia. Please review the separate chest CT report. 2. Findings highly suspicious for acute cholecystitis. Suggest correlation with sonography. Please note that all CT scans at this facility use dose modulation, iterative reconstruction, and/or weight-based dosing when appropriate to reduce radiation dose to as low as reasonably achievable. Dictated by Arnav Brito MD @ 11/02/2024 4:01:10 PM (Electronically Signed)
--- OUTSIDE RECORDS SUMMARY | 2024-11-02 12:27 | XMS_ITS | Encounter Summary ---
Author Organization [facility] Address [address] [place] [id number] Care Team Providers Care Magnetic Tape Typewriter Operator Name Role Phone Elsewhere, Pcp Primary Care Provider Unavailabl e Reason for Visit * Reason Comments Med Refill Encounter Details Date Type Department Care Team ([facility] st Contact Info) Description 11/02/2024 Refill Department of Neurology in [place], [place] [address] [place] [phone] Matteo Noe M.D. [address] [place] [phone] Med Refill Social History Tobacco Use Types Packs/Day Years Used Date Smoking Tobacco: Never Smokeless Tobacco: Never [facility] Utilities Answer Date Recorded In the past 12 months has e electric, gas, oil, or water company [...] often do you attend chur ch or anabaptist services? 1 to 4 times per year 02/01/2022 Do you belong to any clubs o r organizations such as christianity groups, unions, fraternal or athletic groups, or [...] and heating? Not hard at all 02/01/2022 [facility] - Occupational Stress [...] your living situation today? I have a [facility] place to live 10/18/2023 Sex and Gender Information Value Date Recorded Sex Assigned at Male 02/01/2022 6:47 PM CDT Legal Sex Male 9:23 AM OUTCOMES SPECIALIST Gender Identity Male 02/01/2022 6:47 PM CDT Sexual Orientation Straight 02/01/2022 6: 47 PM CDT documented as of this encounter Plan of Treatment Upcoming Encounters Date Type Department Care Team (Latest Contact Info) Description 11/07/2024 9:30 AM CDT Appointment Department of Laboratory Medicine in [address] [phone] Matteo Noe M.D. [address] [place] [phone] 11/24/2024 11:00 AM CDT Clinical Communication Virtual Review in [place], [place] 200 [place] [phone] 11/28/2024 11:00 AM CDT Office Visit Department of Neurology in [place], [place] [address] [place] [phone] Matteo Noe M.D. [address] [place] [phone] 12/06/2024 10:30 AM CDT Diagnostic Division of Pulmonary Medicine in [place], [place] [address] [place] [phone] Matteo Noe M.D. 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
--- OUTSIDE RECORDS SUMMARY | 2024-11-02 12:27 | XMS_ITS | Encounter Summary ---
Author Organization [facility] Address [address] [place] [address] Care Team Providers Care Gear Machinist Name Role Phone Elsewhere, Pcp Primary Care Provider Unavailabl e Reason for Visit * Reason Onset Date Comments Med Question 10/02/2024 So Encounter Details Date Type Department Care Team (Latest Contact Info) Description 10/02/2024 Clinical Communication Department of Neurology in [place], [place] [address] [place] [phone] Matteo Noe M.D. [address] [place] [phone] Med Question (So) Social History Tobacco Use Types Packs/Day Years Used Date Smoking Tobacco: Never Smokeless Tobacco: Never [employer] Utilities Answer Date Recorded In the past 12 months has [facility] electric, gas, oil, or water company threatened [...] often do you attend chur ch or zoroastrianism services? 1 to 4 times per year 02/01/2022 Do you belong to any clubs o r organizations such as synagogue groups, unions, fraternal or athletic groups, or [...] and heating? Not hard at all 02/01/2022 [facility] - Occupational Stress Questionnaire Answer Date [...] your living situation today? I have a [facility] place to live 10/18/2023 Sex and Gender Information Value Date Recorded Sex Assigned at Male 02/01/2022 6:47 PM CDT Legal Sex Male 9:23 AM OILER BANDER Gender Identity Male 02/01/2022 6:47 PM CDT Sexual Orientation Straight 02/01/2022 6: 47 PM CDT documented as of this encounter Miscellaneous Notes * Telephone Encounter - Thalia Crowley M.SRena., R.N., C.M.S.R.N. - 10/04/2024 8:36 AM CST SUBJECTIVE CHIEF COMPLAINT / REASON FOR CALL Med Question (So) Information Discussed Nurse Marilee returns our call. I have explained the rescue med instructions that 2 doses within a 24period counts as 1 treatment, and patient can have up to 2 treatment episode in 1 week. She was able to check the prescription they have on hand and confirms that it says Do not exceed 2 treatment episode within 1 week. She states there was an error on their end when transcribing into their chartand she will update that to match with the prescription. She is in agreement with the plan. Disposition/Recommendation: no further actions needed at this time Information/Education: patient/caller able to teach back Caller agreeable to plan of care: yes The following references were used: nursing clinical judgement and other patient message encounter dated 09/27/24 R BANDER * Telephone Encounter - Thalia Crowley M.S.N., Paco, JezRRena. - 10/03/2024 12:44 PM CST SUBJECTIVE CHIEF COMPLAINT / REASON FOR CALL Med Question (So) Information Discussed Patient's sister was contacted. She states she has just left the prison after visiting patient and states his symptoms are improved. She was unsure if she should have called or not. I reassured her it was fine to call if she has concerns. For now, we can continue to watch and if he should have prolonged cognitive issues or speech changes she can contact us again. She reports that his next dose increase for lamotrigine is on 10/08/24. She has also asked that we clarify with the prison the instructions on the diazepam rescue. Attempted to reach the prison to speak to the nurse Marilee, but she was not available. Left message for her to callback so we may review the rescue med instructions. Care Home Number: [phone] CLOTH SECONDS SORTER: Marilee [phone] PLAN Disposition/Recommendation: Will await call from Care Home Information/Education: patient/caller able to teach back Caller agreeable to plan of care: yes The following references were used: nursing clinical judgement and other portal message thread 09/27/24 R BANDER documented in this encounter Plan of Treatment Upcoming Encounters Date Type Department Care Team (Latest Contact Info) Description 11/07/2024 9:30 AM CDT Appointment Department of Laboratory Medicine in [place] [address] [place] [address] Matteo Noe M.D. [address] [place] [address] 11/24/2024 11:00 AM CDT Clinical Communication Virtual Review in [place], [place] 200 [place] [address] 11/28/2024 11:00 AM CDT Office Visit Department of Neurology in [place], [place] [address] [place] [phone] Matteo Noe M.D. [address] [place] [phone] 12/06/2024 10:30 AM CDT Diagnostic Division of Pulmonary Medicine in [place], [place] [address] [place] [phone] Matteo Noe M.D. [address] [place] [phone] documented as of this encounter Visit Diagnoses Not on filedocumented in this encounter Care Teams Gear Machinist Relationship Specialty Start Date End Date Elsewhere, Pcp PCP - General Internal Medicine 11/14/21 documented as of this encounter
--- OUTSIDE RECORDS SUMMARY | 2024-11-02 12:27 | XMS_ITS | Clinical Summary ---
Author Organization [facility] Address [address] [place] [address] Care Team Providers Care Seasoner Name Role Phone Chris Fontenot Primary Care Provider [phone] Ramirez Oliveira MD Unavailable [phone] Allergies Active Allergy Reactions Criticality Noted Date [...] 2 TIMES DAILY FOR 7 DAYS 04/18/20 Active nystatin (MYCOSTATIN) 100,000 unit/g Top cream [...] (Moderna) 12+ Yrs M onovalent COVID Vaccine (clam dredger) 10/09/2020,09/16/2020 Tdap 06/06/2020,04/23/2010 Family History Medical History Relation Comments Brain/TOWER LOADER OPERATOR Cancer Other Breast Cancer Other Heart Disease [...] - Respiratory Rate 14 07/06/2022 11:20 AM AFTER SCHOOL CAREGIVER Oxygen Saturation - - Inhaled Oxygen Concentration - - Weight 54.4 kg (120 lb) 07/06/2022 11:20 AM AFTER SCHOOL CAREGIVER Height 157.5 cm (5' 2) 07/06/2022 11:20 AM AFTER SCHOOL CAREGIVER Body Mass Index 21.95 07/06/2022 11:20 AM AFTER SCHOOL CAREGIVER Plan of Treatment Health Maintenance Due Date Last Done Comments Colonoscopy 1974 Hepatitis C Screening 1974 Lipid Screening 1974 Anxiety Screening (MARIANO-2) 1975 Depression Assessment (PHQ-2) 1975 Medicare Wellness Visit 07/27/2023 07/27/2022 COVID-19 Vaccine ( season) 2024 07/27/2022, 08/28/2021, 10/09/2020, Additional history exists Influenza Vaccine (#1) 2024 , 06/27/2021, 05/29/2020, Additional history exists Pneumococcal 50+ Years (2 of 2 - PCV) 2024 04/23/2010 Yearly Review of HCD 2024 Zoster Vaccine (1 of 2) 2024 Adult Tetanus Booster 06/06/2030 06/06/2020, 010 RSV Vaccines (1 - 1-dose 75+ series) 2049 Pneumococcal Vaccine Aged Out 04/23/2010 No long er eligible based on patient's age to complete this topic Insurance MEDICARE PART A & B [place]ICAID [place] Care Teams Seasoner Relationship Specialty Start Date End Date Chris Fontenot [address] [place] [address] PCP - General Family Medicine 03/25/21 Ramirez Oliveira MD [address] [place] [address] [address] [place] [address] Neurology 05/06/22
--- OUTSIDE RECORDS SUMMARY | 2024-11-02 12:27 | XMS_ITS | Encounter Summary ---
Author Organization [facility] Address [address] [place] [address]. [place] [address] Care Team Providers Care Partition Notcher Name Role Phone Chris Fontenot Primary Care Provider [phone] Jasiel Hester RN Unavailable Reason for Visit * Reason Onset Date Comments Call Back 12/23/2017 Questions about medication and labs Encounter Details Date Type Department Care Team (Late st Contact Info) Description 12/23/2017 Telephone [facility] [place] [facility] Neurology [address] [facility] 3rd [place] [address] Boyd Green MD [address] [address] Call Back (Questions about medication and labs) Social History Tobacco Use Types Packs/Day Years Used Date Smoking Tobacco: Never Sex and Gender Information Value Date Recorded Sex Assigned at Not on file Legal Sex Male 3:58 AM AUTOMOTIVE MACHINIST Gender Identity Not on file Sexual Orientation Not on file documented as of this encounter Miscellaneous Notes * Telephone Encounter - Jasiel Hester, RN - 12/23/2017 1:40 PM CDT Returned call to Patient's sister left voice message indicating refills would be sent up appointment time as rescheduled. Requested a call back. * Telephone Encounter - Carlotta Booker - 12/23/2017 10:03 AM CDT [facility] Call Center Phone Message May a detailed [...] before the appointment. Please call back at [phone]. Action Taken: Message routed to: [facility] ([facility]): Neurology documented in this encounter Plan of Treatment Not on file documented as of this encounter Visit Diagnoses Diagnosis Generalized convulsive epilepsy with intractable epilepsy Seizure disorder (H) Unspecified epilepsy without mention of intractable epilepsy documented in this encounter Care Teams Partition Notcher Relationship Specialty Start Date End Date Chris Fontenot PCP - General 03/09/13 Jasiel Hester, RN Registered Nurse Neurology 12/23/17 08/26/18 documented as of this encounter
--- OUTSIDE RECORDS SUMMARY | 2024-11-02 12:27 | XMS_ITS | Encounter Summary ---
Author Organization [facility] Address [address] [place] [address] Care Team Providers Care Nanotechnology Technician Name Role Phone Elsewhere, Pcp Primary Care Provider Unavailabl e Reason for Visit * Reason Onset Date Comments Order Request 10/16/2024 Encounter Details Date Type Department Care Team ([facility] st Contact Info) Description 10/16/2024 Clinical Communication Department of Neurology in [place], [place] [address] [place] [phone] Matteo Noe M.D. [address] [place] [phone] Order Request Social History Tobacco Use Types Packs/Day Years Used Date Smoking Tobacco: Never Smokeless Tobacco: Never [employer] Utilities Answer Date Recorded In the past 12 months has [facility] electric, gas, oil, or water company [...] often do you attend chur ch or lutheran services? 1 to 4 times per year [...] and heating? Not hard at all 02/01/2022 [facility] Health - Occupational Stress Questionnaire Answer Date [...] your living situation today? 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 [address] [place] [phone] 11/24/2024 11:00 AM CDT Clinical Communication Virtual Review in [place], [place] 200 [place] [address] 11/28/2024 11:00 AM CDT Office Visit Department of Neurology in [place], [place] [address] [place] [phone] Matteo Noe M.D. [address] [place] [phone] 12/06/2024 10:30 AM CDT Diagnostic Division of Pulmonary Medicine in [place], [place] [address] [place] [phone] Matteo Noe M.D. 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
--- OUTSIDE RECORDS SUMMARY | 2024-11-02 12:27 | XMS_ITS | Encounter Summary ---
Author Organization [facility] Address [address] [place] [address] Care Team Providers Care Professor Of German Name Role Phone Chris Fontenot Primary Care Provider [phone] Jasiel Hester RN Unavailable Reason for Visit * Reason Onset Date Comments Refill Request 06/28/2018 diazepam (DIAZEP AM INTENSOL) 5 MG/ML (HIGH CONC) solution Encounter Details Date Type Department Care Team (Late st Contact Info) Description 06/28/2018 [facility] Neurology [address] 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 Yes Name of medication being requested: diazepam (DIAZEPAM INTENSOL) 5 MG/ML (HIGH CONC) solution Provider who prescribed the medication: Dr. Green Pharmacy: [facility] Date medication is needed: Joey, Pt is out Action Taken: Message routed to: [facility] NEUROLOGY ADULT [facility] documented in this encounter Plan of Treatment Not on file documented as of this encounter Visit Diagnoses Diagnosis Seizure disorder (H) Unspecified epilepsy without mention of intractable epilepsy documented in this encounter Care Teams Professor Of German Relationship Specialty Start Date End Date Chris Fontenot PCP - General 03/09/13 Jasiel Hester, RN Registered Nurse Neurology 12/23/17 08/26/18 documented as of this encounter
--- OUTSIDE RECORDS SUMMARY | 2024-11-02 12:27 | XMS_ITS | Encounter Summary ---
Author Organization [facility] Address [address] [place] [address] Care Team Providers Care Tombstone Carver Name Role Phone Elsewhere, Pcp Primary Care Provider Unavailabl e Encounter Details Date Type Department Care Team ([facility] st Contact Info) Description 09/18/2024 Orders Only Department of Neurology in [place], [place] [address] [place] [phone] Matteo Noe M.D. [address] [place] [phone] Apnea Sleep Obstructive (Primary Dx) Social History Tobacco Use Types Packs/Day Years Used Date Smoking Tobacco: Never Smokeless Tobacco: Never [facility] Utilities Answer Date Recorded In the past 12 months has [facility] electric, gas, oil, or water company [...] often do you attend chur ch or yarsani services? 1 to 4 times per year 02/01/2022 Do you belong to any clubs o r organizations such as taoist groups, unions, fraternal or athletic groups, or [...] and heating? Not hard at all 02/01/2022 [facility] Occupat ional Health - Occupational Stress [...] your living situation today? 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 [address] [place] [phone] 11/24/2024 11:00 AM CDT Clinical Communication Virtual Review in [place], [place] 200 [place] [address] 11/28/2024 11:00 AM CDT Office Visit Department of Neurology in [place], [place] [address] [place] [phone] Matteo Noe M.D. [address] [place] [phone] 12/06/2024 10:30 AM CDT Diagnostic Division of Pulmonary Medicine in [place], [place] [address] [place] [phone] Matteo Noe M.D. [address] [place] [address] documented as of this encounter Visit Diagnoses Diagnosis Apnea Sleep Obstructive- Primary documented in this encounter Care Teams Tombstone Carver Relationship Specialty Start Date End Date Elsewhere, Pcp PCP - General Internal Medicine 11/14/21 documented as of this encounter
--- OUTSIDE RECORDS SUMMARY | 2024-11-02 12:27 | XMS_ITS | Referral Summary ---
Author Organization [facility] Address [address] [place] [address] Care Team Providers Care Lead Oxide Mill Tender Name Role Phone Chris Fontenot Primary Care Provider [phone] Ramirez Oliveira MD Unavailable [phone] Allergies Active Allergy Reactions Criticality Noted Date [...] (Moderna) 12+ Yrs M onovalent COVID Vaccine (peat shredder tender) 10/09/2020,09/16/2020 Tdap 06/06/2020,04/23/2010 Social History Tobacco Use [...] - Respiratory Rate 14 07/06/2022 11:20 AM CPA TAX Oxygen Saturation - - Inhaled Oxygen Concentration - - Weight 54.4 kg (120 lb) 07/06/2022 11:20 AM CPA TAX Height 157.5 cm (5' 2) 07/06/2022 11:20 AM CPA TAX Body Mass Index 21.95 07/06/2022 11:20 AM CPA TAX Plan of Treatment Not on file Insurance MEDICARE PART A & B MEDICAID [place] Care Teams Lead Oxide Mill Tender Relationship Specialty Start Date End Date Chris Fontenot [address] [place] [address] PCP - General Family Medicine 03/25/21 Ramirez Oliveira MD [address] [facility] [address] [place] [address] Neurology 05/06/22
--- OUTSIDE RECORDS SUMMARY | 2024-11-02 12:27 | XMS_ITS | Encounter Summary ---
Author Organization [facility] Address [address] [place] [address] Care Team Providers Care Office Administrative Assistant Name Role Phone Elsewhere, Pcp Primary Care Provider Unavailabl e Encounter Details Date Type Department Care Team ([facility] st Contact Info) Description 09/01/2024 Clinical Communication Department of Neurology in [place], [place] [address] [place] [phone] Matteo Noe M.D. [address] [place] [phone] Social History Tobacco Use Types Packs/Day Years Used Date Smoking Tobacco: Never Smokeless Tobacco: Never [facility] Utilities Answer Date Recorded In the past 12 months has [facility] electric, gas, oil, or water [employer] threatened to shut off services in your [...] often do you attend chur ch or anglican services? 1 to 4 times per year 02/01/2022 Do you belong to any clubs o r organizations such as evangelical groups, unions, fraternal [...] and heating? Not hard at all 02/01/2022 [facility] of Occupat ional Health - Occupational [...] your living situation today? 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 [address] [place] [phone] 11/24/2024 11:00 AM CDT Clinical Communication Virtual Review in [place], [place] 200 [place] [address] 11/28/2024 11:00 AM CDT Office Visit Department of Neurology in [place], [place] [address] [place] [phone] Matteo Noe M.D. [address] [place] [phone] 12/06/2024 10:30 AM CDT Diagnostic Division of Pulmonary Medicine in [place], [place] [address] [place] [phone] Matteo Noe M.D. [address] [place] [address] documented as of this encounter Visit Diagnoses Not on filedocumented in this encounter Care Teams Office Administrative Assistant Relationship Specialty Start Date End Date Elsewhere, Pcp PCP - General Internal Medicine 11/14/21 documented as of this encounter
--- OUTSIDE RECORDS SUMMARY | 2024-11-02 12:27 | XMS_ITS | Encounter Summary ---
Author Organization [facility] Address [address] [place] [address]. [place] [address] Care Team Providers Care Journeyman Pressman Name Role Phone Chris Fontenot Primary Care Provider [phone] Jasiel Hester RN Unavailable Reason for Visit * Reason Onset Date Comments Pt. Information/instruction 03/25/2018 [address] for Drs. Green and Dre Encounter Details Date Type Department Care Team (Late st Contact Info) Description 03/25/2018 [facility] Neurology [address] [facility] 3rd [place] [address] Boyd Green MD [address] [address] Pt. Information/instructio n (Info for Drs. You) Social History Tobacco Use Types Packs/Day Years Used Date Smoking Tobacco: Never Smokeless Tobacco: Never Alcohol Use Standard Drinks/Week Comments No 0 (1 standard drink = 0.6 oz pur e alcohol) Sex and Gender Information Value Date Recorded Sex Assigned at Not on file Legal Sex Male 3:58 AM PERSONAL INJURY LEGAL ASSISTANT Gender Identity Not on file Sexual Orientation [...] any questions. Action Taken: Message routed to: [facility] ([facility]): NEUROLOGY documented in this encounter Plan of Treatment Not on file documented as of this encounter Visit Diagnoses Not on filedocumented in this encounter Care Teams Journeyman Pressman Relationship Specialty Start Date End Date Chris Fontenot PCP - General 03/09/13 Jasiel Hester, RN Registered Nurse Neurology 12/23/17 08/26/18 documented as of this encounter
--- OUTSIDE RECORDS SUMMARY | 2024-11-02 12:27 | XMS_ITS | Clinical Summary ---
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
--- OUTSIDE RECORDS SUMMARY | 2024-11-02 12:27 | XMS_ITS | Clinical Summary ---
Author Organization [facility] Address [address] [place] [address] Care Team Providers Care Dental Surgeon Name Role Phone Elsewhere, Pcp Primary Care Provider Unavailabl e Source Comments Patient records contain information from all sites at [facility]. For routine questions regarding patient records, call [phone] during business hours, M-F 8:00 AM - 5:00 PM Central Time. Record requests for emergency care only can be directed to [phone] at any time.[facility] Allergies Active Allergy Reactions Criticality Noted Date [...] Encounters Date Type Department Care Team Description 11/02/2024 Refill Department of Neurology in [place], [place] [address] [place] [phone] Matteo Noe M.D. Med Refill 10/16/2024 Clinical Communication Department of Neurology in [place], [place] [address] [place] [phone] Matteo Noe M.D. Order Request 10/02/2024 Clinical Communication Department of Neurology in [place], [place] [address] [place] [phone] Matteo Noe M.D. Med Question (So) 09/18/2024 Orders Only Department of Neurology in [place], [place] [address] [place] [phone] Matteo Noe M.D. Apnea Sleep Obstructive (Primary Dx) 09/01/2024 Clinical Communication Department of Neurology in [place], [place] [address] [place] [phone] Matteo Noe M.D. 08/14/2024 10:00 AM CIGARETTE V[employer]OR Office Visit Department of Neurology in [place], [place] [address] [place] [phone] Matteo Noe M.D. 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 Idiopathic Generalized Epilepsy Intractable [...] Date Smoking Tobacco: Never Smokeless Tobacco: Never [facility] [employer] Utilities Answer Date Recorded In the past [...] How often do you attend chur or cheondoism services? 1 to 4 times per year 02/01/2022 Do you belong to any clubs o r organizations such as oriental orthodox groups, unions, fraternal or athletic groups, or [...] and heating? Not hard at all 02/01/2022 [facility] [place] of Occupat ional Health - Occupational Stress [...] your living situation today? I have a [facility] place to live 10/18/2023 Sex and Gender Information Value Date Recorded Sex Assigned at Male 02/01/2022 6:47 PM CDT Legal Sex Male 9:23 AM CIGARETTE V[employer] Gender Identity Male 02/01/2022 6:47 PM CDT Sexual Orientation Straight 02/01/2022 6: 47 PM CDT Last Filed Vital Signs Vital Sign Reading Time Taken Comments Blood Pressure - - Pulse - - Temperature 36.2 C (97.2 F) 11/17/2021 2:36 PM CDT Respiratory Rate - - Oxygen Saturation - - Inhaled Oxygen Concentration - - Weight 59 kg (130 lb) 08/14/2024 9:53 AM CIGARETTE V[employer]OR Iftikhar bal Height 157.5 cm (5' 2) 08/14/2024 9:53 AM CIGARETTE VENDOR V erbal Body Mass Index 23.78 08/14/2024 9:53 AM CIGARETTE VENDOR Plan of Treatment Upcoming Encounters Date Type Department Care Team (Latest Contact Info) Description 11/07/2024 9:30 AM CDT Appointment Department of Laboratory Medicine in [place], [place] [address] [place] [phone] Matteo Noe M.D. [address] [place] [phone] 11/24/2024 11:00 AM CDT Clinical Communication Virtual Review in [place], [place] [address] [place] [phone] 11/28/2024 11:00 AM CDT Office Visit Department of Neurology in [place], [place] [address] [place] [phone] Matteo Noe M.D. [address] [place] [phone] 12/06/2024 10:30 AM CDT Diagnostic Division of Pulmonary Medicine in [place], [place] [address] [place] [phone] Matteo Noe M.D. [address] [place] [phone] Health Maintenance Due Date Last Done Comments CT Colonography 1974 Cologuard 1974 Colonoscopy 1974 Colorectal Cancer Screening 1974 FIT 1974 HIV Screening 1974 Hepatitis C Screening 1974 Office Visit for Blood Pressure Check / Re-check 1974 Depression Screening (Annual PHQ-2) 08/16/2024 Zoster Vaccines (1 of 2) 2024 Creatinine Level (Kidney Function Test) 03/11/2025 03/11/2024, [...] 11/18/2015, 10/15/2015, Additional history exists Pneumococcal vaccine (50+ years) Completed 04/13/2024, 04/23/2010 COVID-19 Vaccine Completed 06/26/2024, , 07/27/2022, Additional history exists Influenza Vaccine Completed 07/02/2024, , 06/16/2022, Additional history exists IPV Vaccines Aged Out No longer eligi ble based on patient's age to complete this topic Procedures Procedure Name Priority Date/Time Associated Diagnosis Comments LACOSAMIDE, S Routine 08/11/2024 8:11 AM CIGARETTE VENDOR 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 This test has not been cleared or approved by the U.S. Food and Drug Administration. Blood (Blood, Venous) 08/11/2024 8:11 AM CIGARETTE VENDOR 08/12/2024 2:17 PM CIGARETTE VENDOR us Matteo Noe M.D. LAB BLOOD NON ADD-ON Final Resul t [facility] [address] [place] [address] [facility] [address] [place] [address] [place] [address] from Last 3 Months Insurance MEDICARE [place] MEDICA[place] Care Teams Dental Surgeon Relationship Specialty Start Date End Date Elsewhere, Pcp PCP - General Internal Medicine 11/14/21
--- OUTSIDE RECORDS SUMMARY | 2024-11-02 12:27 | XMS_ITS | Clinical Summary ---
Author Organization [facility] Address [address] [place] [address] Care Team Providers Care Aligner Name Role Phone Chris Fontenot MD Primary [...] Lifetime use. Diagnosis: 343.9. 1 Units 2 09/14/19 14 Active miscellaneous medical supply misc As directed. Terrasil cream to groin / gluteal rash as needed twice daily until clear. 1 Units prn 10/08/19 14 Active medication order composerIndicati ons:Cerebral palsy (HC) Wheelchair seatbelt 1 Each 0 10/17/19 14 Active Wheel ChairIndications :Cerebral palsy, unspecified type (HC) Wheelchair: customized with leg and head rests. Length of need: 99 months 1 Device 06/19/20 16 Active Shower ChairIndications :Cerebral palsy, unspecified type (HC) For home use. shower chair with legs and feet that can swing out 1 Device 01/20/20 17 Active miscellaneous medical supply miscIndications: Wheelchair bound As directed. Sling for kma 1 Units 05/28/20 Active medication order composerIndicati ons:Cerebral palsy, unspecified type (HC) Kam lift sling 1 unit 06/21/20 Active medication order composerIndicati ons:Cerebral palsy (HC) FOR HOME USE (LARGE) 400 NO_MATCH 2 10/16/19 Active Per-Fit UnderwearIndicat ions:Other urinary incontinence USE 3 TO 4 PER DAY FOR INCONTIENCE 360 Each 05/19/20 Active medication order composerIndicati ons:Cerebral palsy (HC) Large disposable gloves for as needed use at home. 600 Each 10/12/19 Active Diaper,Brief, Adult,Disposable Indications:Othe r urinary incontinence For home use. 96 Each 10/12/19 23 Active durable medical equipment (DME)Indications :Other urinary incontinence Disposable Under Pads. 30 Each 10/29/19 24 Active bisacodyL (DULCOLAX) 10 mg suppositoryIndic ations:Other constipation INSERT 1 SUPPOSITORY RECTALLY IF NO BM IN 1-2 DAYS OR AT PATIENT/FAMILY DISCRETION CAN BE INTERCHANGED WITH ENEMAS Strength: 10 mg 12 Suppository 01/23/20 24 Active triamcinolone 0.1 % ointmentIndicati ons:Rash Apply topically to affected area(s) two times daily. As needed. 45 g 01/25/20 24 Active diazePAM IntensoL 5 mg/mL solution Place [...] use. Length of need: 99 1 Each 03/12/20 24 Active oxygen-air delivery systems (HOME OXYGEN)Indicatio ns:Nocturnal hypoxia Oxygen for home use. Liters per minute: 1 per nasal cannula. Frequency of use: Nocturnal;. Length of need: 99 Months. 1 Each 03/12/20 24 Active ferrous sulfate, 65 mg elemental, tabletIndication s:Iron deficiency anemia, unspecified iron deficiency anemia type One tablet daily every morning before breakfast. 90 Tablet 3 04/14/20 24 Active Starch, Thickening, (Thick-It) powdIndications: Recurrent aspiration pneumonia (HC) Use as directed to achieve [place]-Thick liquids. 850 g 11 06/06/20 24 Active Cranberry 500 mg capIndications:R ecurrent UTI Take 1 Capsule (500 mg) by mouth two times daily. 180 Capsule 3 06/10/20 24 Active clotrimazole (LOTRIMIN) 1 % creamIndications :Rash Apply topically to affected area(s) two times daily. As needed. 45 g 3 06/10/20 24 Active tiZANidine (ZANAFLEX) 2 mg tabletIndication s:Muscle cramps 1/2 to one tab oral three times daily as needed. 30 Tablet 3 08/03/20 24 Active lamoTRIgine 25 mg tablet Take 12.5 mg by mouth once daily. Start with 0.5 pill each day. Then, increase by 0.5 pill every two weeks, until 2 pills twice a day, and continue. 08/14/20 24 Active cholecalciferol, Vitamin D3, 2,000 unit tabletIndication s:Vitamin D deficiency Take 1 Tablet (2,000 units) by mouth once daily. 90 Tablet 3 08/23/19 25 Active lisinopriL (PRINIVIL; ZESTRIL) 10 mg tabletIndication s:HTN (hypertension) Take 1 Tablet (10 mg) by mouth once daily. 90 Tablet 3 08/23/19 25 Active metoprolol tartrate (LOPRESSOR) 25 mg tabletIndication s:Essential hypertension Take 1 Tablet (25 mg) by mouth two times daily. 180 Tablet 3 08/23/19 25 Active polyethylene glycoL (MIRALAX) 17 gram/scoop powderIndication s:Chronic constipation Mix 1 scoop (17 g) in liquid then take by mouth once daily. With 8 ounces of beverage of choice. 1700 g 4 08/23/19 25 Active sennosides (SENNA) 8.6 mg tabletIndication s:Chronic constipation Take 2 Tablets (17.2 mg) by mouth once daily. 180 Tablet 3 08/23/19 25 Active multivitamin with folic acid 0.4 mg (Tab-A-Doroteo)Bell cations:Nutritio n disorder Take 1 Tablet by mouth once daily. 90 Tablet 3 09/01/19 Active melatonin 3 mg tabletIndication s:Insomnia, idiopathic Take 2 Tablets (6 mg) by mouth at bedtime. 180 Tablet 3 09/07/19 25 Active Active Problems Problem Noted Date Diagnosed Date Iron deficiency anemia 09/21/2024 Urinary incontinence 03/16/2024 Intermittent low back pain [...] Encounters Date Type Department Care Team Description 11/01/2024 9:30 AM CDT Orders Only [facility] [address] [place] [address] Lab, [place] [facility] 11/01/2024 Travel 10/31/2024 Refill [facility] [address] [place] [address] Chris Fontenot MD Refill Request (BISACODYL 10MG SUPP) 10/25/2024 Travel 09/27/2024 11:45 AM WALLPAPER INSPECTOR Orders Only [facility] [address] [place] [address] Lab, [place] [facility] 09/27/2024 Travel 09/21/2024 11:25 AM WALLPAPER INSPECTOR Office Visit [facility] [address] [place] [address] Chris Fontenot MD Hospital F/U ([facility], 09/12/2024 - 09/15/2024, pneumonia and Influenza ) 09/21/2024 Travel 09/13/2024 Orders Only [facility] Scanner 1 scan: (1-Ord) [place], XR CHEST 1V PORTABLE, 09/13/2024 09/10/2024 Orders Only [facility] Scanner 1 scan: (1-Ord) [facility], XR CHEST 1V PORTABLE, 09/10/2024 09/07/[address] [address] Chris Fontenot MD Medication Management (Melatonin ) 09/06/[address] [address] Chris Fontenot MD Refill Request (Tab-A-Doroteo/Beta Carotene) 08/30/2024 11:30 AM WALLPAPER INSPECTOR Orders Only [address] [address] Lab, [place] [facility] 08/30/[address] [address] Chris Fontenot MD Results 08/30/2024 Travel 08/29/[address] [address] Chris Fontenot MD Refill Request (Tab-a-doroteo/Beta carotene tabs) 08/23/2024 2:05 PM WALLPAPER INSPECTOR Office Visit [address] [address] Chris Fontenot MD Medicare ANNUAL (subsequent) Visit (48 year old) 08/23/2024 Travel from Last 3 Months Immunizations Immunization Administration Dates Next Due COVID-19 VACCINE SPIKEVAX (M ODERNA 50MCG/0.5ML) 12YO+ PFS 08/04/2023 COVID-19 vaccine (Moderna 100mcg/0.5mL) PF, MDV 10/09/2020,09/16/2020,09/11/2020 COVID-19 vaccine (Kirusa-Bio NTech 30mcg/0.3mL) 12YO+ BIVALENT PF, MDV 07/27/2022 COVID-19 vaccine (SingleHopBio NTech 30mcg/0.3mL) PF, MDV 08/28/2021 Hepatitis B [...] on file Legal Sex Male 5:31 AM WALLPAPER INSPECTOR Gender Identity Not on file Sexual Orientation Not on file Obstetrics History Last Filed Vital Signs Vital Sign Reading Time Taken Comments Blood Pressure 125/75 09/21/2024 11:25 AM WALLPAPER INSPECTOR Pulse 66 09/21/2024 11:25 AM WALLPAPER INSPECTOR Temperature 36.3 C (97.4 F) 04/17/2024 12:19 PM CDT Respiratory Rate 16 04/17/2024 12:19 PM CDT Oxygen Saturation 95% 09/21/2024 11:25 AM WALLPAPER INSPECTOR Inhaled Oxygen Concentration - - Weight 56.5 kg (124 lb 9 oz) 03/10/2024 8:00 AM CDT Height 157.5 cm (5' 2) 03/07/2024 11:14 AM CDT Body Mass Index 22.78 03/07/2024 11:14 AM CDT Plan of Treatment Health Maintenance Due Date Last Done Comments Colonoscopy through age 75 2019 Zoster (shingles) series for age 50+ (1 of 2) 2024 Lipids for age 45-75 08/23/2029 08/23/2024, 08/04/2023, 07/27/2022, Additional history exists Tetanus booster 06/06/2030 06/06/2020, 04/23/2010 Tdap Completed 06/06/2020, 04/23/2010 HIV for age 15-65 Completed 07/27/2022 Hepatitis C screening for ag e 18-79 Completed 07/27/2022 Pneumococcal series for age 50+ Completed 4, 04/23/2010 COVID-19 vaccine series Completed 06/26/20 24, 08/04/2023, 07/27/2022, Additional history exists Influenza Vaccine Completed 07/02/2024, , 06/16/2022, Additional history exists Procedures Procedure Name Priority Date/Time Associated Diagnosis Comments URINALYSIS MICROSCOPIC Routine 11/01/2024 12:08 PM CDT Recurrent UTI UA W/ SEDIMENT EXAM REFLEXED PER CRITERIA Routine 11/01/2024 12:08 PM CDT Recurrent UTI URINE CULTURE Routine 09/27/2024 9:00 AM WALLPAPER INSPECTOR Recurrent UTI UA W/ SEDIMENT EXAM REFLEXED PER CRITERIA Routine 09/27/2024 9:00 AM WALLPAPER INSPECTOR Recurrent UTI CBC WITH AUTO DIFFERENTIAL Routine 09/21/2024 11:57 AM WALLPAPER INSPECTOR Thrombocytopenia BASIC METABOLIC PANEL Routine 09/21/2024 11:57 AM WALLPAPER INSPECTOR Essential hypertension SCAN-RADIOLOGY REPORT 09/13/2024 12:00 AM WALLPAPER INSPECTOR SCAN-RADIOLOGY REPORT 09/10/2024 12:00 AM WALLPAPER INSPECTOR URINALYSIS MICROSCOPIC Routine 08/30/2024 8:30 AM WALLPAPER INSPECTOR Recurrent UTI URINE CULTURE Routine 08/30/2024 8:30 AM WALLPAPER INSPECTOR Recurrent UTI UA W/ SEDIMENT EXAM REFLEXED PER CRITERIA Routine 08/30/2024 8:30 AM WALLPAPER INSPECTOR Recurrent UTI VALPROIC ACID TOTAL Routine 08/23/2024 2 :51 PM WALLPAPER INSPECTOR 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) VITAMIN D 25 (DEFICIENCY) Routine 08/23/2024 2:51 PM WALLPAPER INSPECTOR Vitamin D deficiency FERRITIN Routine 08/23/2024 2:51 PM WALLPAPER INSPECTOR Iron deficiency anemia, unspecified iron deficiency anemia type IRON PLUS IRON BINDING CAP Routine 08/23/2024 2:51 PM WALLPAPER INSPECTOR Iron deficiency anemia, unspecified iron deficiency anemia type HEMOGLOBIN Routine 08/23/2024 2:51 PM WALLPAPER INSPECTOR Iron deficiency anemia, unspecified iron deficiency anemia type BASIC METABOLIC PANEL Routine 08/23/2024 2:51 PM WALLPAPER INSPECTOR Essential hypertension LIPID PANEL W REFLEX MEASURED LDL Routine 08/23/2024 2:51 PM WALLPAPER INSPECTOR Dyslipidemia ANTI HIV 1/2 Routine 07/27/2022 4:55 PM WALLPAPER INSPECTOR Encounter for screening for HIV ANTI HCV Routine 07/27/2022 4:55 PM WALLPAPER INSPECTOR Need for hepatitis C screening test from Last 3 Months or Most Recently Relevant to Health Maintenance Results * (ABNORMAL) URINALYSIS MICROSCOPIC (11/01/2024 12:08 PM CDT) Only the most recent of2 resultswithin the time period is included. RBC 0-2 0-2, None Seen /HPF 11/02/2024 12:49 AM CDT [facility] WBC 0-2 0-2, 3-5, None Seen /HPF 11/02/2024 12:49 AM CDT [facility] BACTERIA Many(A) None Seen, Rare, Few Bacteria/ HPF 11/02/2024 12:49 AM CDT [facility] EPITHELIAL CELLS Moderate(A) None Seen, Few Epi/HPF 11/02/2024 12:49 AM CDT [facility] Mucus Present 11/02/2024 12:49 AM CDT [facility] HYALINE CASTS 26-50(A) 0-2, 3-5 /LPF 11/02/2024 12:49 AM CDT [facility] Urine URINE SPECIMEN / Unknown Non-Blood / Unknown 11/01/2024 12:08 PM CDT 11/01/2024 12:08 PM CDT us Chris Fontenot MD URINE Final Result [facility] [address] [place] [address], [place] * (ABNORMAL) UA W/ SEDIMENT EXAM REFLEXED PER CRITERIA (11/01/2024 12:08 PM CDT) Only the most recent of3 resultswithin the time period is included. COLOR Yellow Yellow Color 11/02/2024 12:49 AM CDT [facility] CLARITY Turbid(A) Clear Clarity 11/02/2024 12:49 AM CDT [facility] SPECIFIC GRAVITY,URINE >=1.030(A) 1.010, 1.015, 1.020, 1.025 11/02/2024 12:49 AM CDT [facility] PH,URINE 5.5 6.0, 7.0, 8.0, 5.5, 6.5, 7.5, 8.5 11/02/2024 12:49 AM CDT [facility] UROBILINOGEN,QU ALITATIVE Normal Normal EU/dl 11/02/2024 12:49 AM CDT [facility] PROTEIN, URINE 30(A) Negative mg/dL 11/02/2024 12:49 AM CDT [facility] GLUCOSE, URINE Negative Negative mg/dL 11/02/2024 12:49 AM CDT [facility] KETONES,URINE 15(A) Negative mg/dL 11/02/2024 12:49 AM CDT [facility] BILIRUBIN,URINE Abnormal(A) Negative 11/03/19 12:49 AM CDT [facility] Comment:A variety of metabol ites and/or medications may result in a positive bilirubin result. Clinical correlation is recommended. OCCULT BLOOD,URINE Negative Negative 11/02/2024 12:49 AM CDT [facility] NITRITE Negative Negative 11/02/2024 12:49 AM CDT [facility] LEUKOCYTE ESTERASE Trace(A) Negative 11/02/2024 12:49 AM CDT [facility] Urine URINE SPECIMEN / Unknown Non-Blood / Unknown 11/01/2024 12:08 PM CDT 11/01/2024 12:08 PM CDT Chris Fontenot MD URINE Final Result Performing Organization Address City/[facility]/ZIP Co de Phone Number [facility] [address] [place] [address], [place] * URINE CULTURE (09/27/2024 9:00 AM WALLPAPER INSPECTOR) Only the most recent of2 resultswithin the time period is included. Pathologist [facility] CULTURE <10,000 CFU/mL multiple organisms 09/28/2024 2:51 PM WALLPAPER INSPECTOR [facility] Urine URINE SPECIMEN / Unknown Non-Blood / Unknown 09/27/2024 9:00 AM WALLPAPER INSPECTOR 09/27/2024 11:15 AM WALLPAPER INSPECTOR Chris Fontenot MD MICROBIOLOGY Final Result [facility] [address] [place] [address], [place] * (ABNORMAL) CBC AND DIFFERENTIAL (09/21/2024 11:57 AM WALLPAPER INSPECTOR) WHITE BLOOD CELL COUNT 9.3 3.8 - 10.8 Thousand/u L [facility] [place] RED BLOOD CELL COUNT 3.81(L) 4.20 - 5.80 Million/uL [facility] HEMOGLOBIN 11.7(L) 13.2 - 17.1 g/dL [facility] HEMATOCRIT 35.7(L) 38.5 - 50.0 % [facility] MCV 93.7 80.0 - 100.0 fL [facility] MCH 30.7 27.0 - 33.0 pg [facility] MCHC 32.8 32.0 - 36.0 g/dL [facility] Comment: For adults, a slight decrease in the calculated MCHC value (in the range of 30 to 32 g/dL) is most likely not clinically significant; however, it should be interpreted with caution in correlation with other red cell parameters and the patient's clinical condition. RDW 13.7 11.0 - 15.0 % [facility] PLATELET COUNT 290 140 - 400 Thousand/u L [facility] MPV 9.8 7.5 - 12.5 fL [facility] ABSOLUTE NEUTROPHILS 6,101 1,500 - 7,800 cells/uL [facility] ABSOLUTE LYMPHOCYTES 1,748 850 - 3,900 cells/uL [facility] ABSOLUTE MONOCYTES 1,349(H) 200 - 950 cells/uL [facility] ABSOLUTE EOSINOPHILS 28 15 - 500 cells/uL [facility] ABSOLUTE BASOPHILS 74 0 - 200 cells/uL [facility] NEUTROPHILS 65.6 % [facility] LYMPHOCYTES 18.8 % [facility] MONOCYTES 14.5 % [facility] EOSINOPHILS 0.3 % [facility] BASOPHILS 0.8 % [facility] CBC (INCLUDES DIFF/PLT) COMMENTS [facility] Comment: Review of peripheral smear confirms automated results. Blood BLOOD SPECIMEN / Unknown 09/21/2024 11:57 AM WALLPAPER INSPECTOR 09/21/2024 11:57 AM WALLPAPER INSPECTOR us Chris Fontenot MD HEMATOLOGY Final Result [facility] [address] [place] [address], [place] [phone] [facility] [address] [place] [address] * (ABNORMAL) BASIC METABOLIC PANEL (09/21/2024 11:57 AM WALLPAPER INSPECTOR) Only the most recent of2 resultswithin the time period is included. GLUCOSE 107(H) 65 - 99 mg/dL [facility] Comment: Fasting reference interval For someone without known diabetes, a glucose value between 100 and 125 mg/dL is consistent with prediabetes and should be confirmed with a follow-up test. UREA NITROGEN (BUN) 6(L) 7 - 25 mg/dL [facility] CREATININE 0.51(L) 0.60 - 1.29 mg/dL [facility] EGFR 124 > OR = 60 mL/min/1.7 3m2 [facility] BUN/CREATININE RATIO 12 6 - 22 (calc) [facility] SODIUM 142 135 - 146 mmol/L [facility] POTASSIUM 3.5 3.5 - 5.3 mmol/L [facility] CHLORIDE 105 98 - 110 mmol/L [facility] CARBON DIOXIDE 29 20 - 32 mmol/L [facility] ELECTROLYTE BALANCE 8 7 - 17 mmol/L (calc) [facility] CALCIUM 8.6 8.6 - 10.3 mg/dL [facility] Blood BLOOD SPECIMEN / Unknown 09/21/2024 11:57 AM WALLPAPER INSPECTOR 09/21/2024 11:57 AM WALLPAPER INSPECTOR Chris Fontenot MD CHEMISTRY Final Result [facility] [address] [facility] [place] [address], [place] [phone] [facility] [address] [place] [address] * SCAN-RADIOLOGY REPORT (09/13/2024 12:00 AM WALLPAPER INSPECTOR) Only the most recent of2 resultswithin the time period is included. Anatomical Region Laterality Modality Other us Scanner OTHER Final Result * LIPID PANEL W REFLEX MEASURED LDL (08/23/2024 2:51 PM WALLPAPER INSPECTOR) CHOLESTEROL, TOTAL 149 <200 mg/dL [facility] HDL CHOLESTEROL 51 > OR = 40 mg/dL [facility] TRIGLYCERIDES 101 <150 mg/dL [facility] LDL-CHOLESTEROL 80 mg/dL (calc) [facility] Comment: Reference range: <100 Desirable range <100 mg/dL for primary prevention; <70 mg/dL for patients with CHD or diabetic patients with > or = 2 CHD risk factors. LDL-C is now calculated using the Yeny calculation, which is a validated novel method providing better accuracy than the Friedewald equation in the estimation of LDL-C. Perfecto SS et al. RANULFO. 2013;310(19): 9013-1814 (http://education.Fritter/faq/JGD062) CHOL/HDLC RATIO 2.9 <5.0 (calc) [facility] NON HDL CHOLESTEROL 98 <130 mg/dL (calc) [facility] Comment: For patients with diabetes plus 1 major ASCVD risk factor, treating to a non-HDL-C goal of <100 mg/dL (LDL-C of <70 mg/dL) is considered a therapeutic option. Blood BLOOD SPECIMEN / Unknown 08/23/2024 2:51 PM WALLPAPER INSPECTOR 08/23/2024 2:51 PM WALLPAPER INSPECTOR Chris Fontenot MD CHEMISTRY Final Result [facility] [address] [place] [address], [facility] [address] [place] [address] * VITAMIN D 25 (DEFICIENCY) (08/23/2024 2:51 PM WALLPAPER INSPECTOR) VITAMIN D,25-OH,TOTAL,IA 83 30 - 100 ng/mL [facility] [place] Comment: Vitamin D Status 25-OH Vitamin D: Deficiency: <20 ng/mL Insufficiency: 20 - 29 ng/mL Optimal: > or = 30 ng/mL For 25-OH Vitamin D testing on patients on D2-supplementation and patients for whom quantitation of D2 and D3 fractions is required, the QuestAssureD(TM) 25-OH VIT D, (D2,D3), LC/MS/MS is recommended: order code 09644 (patients >2yrs). See Note 1 Note 1 For additional information, please refer to http://education.Fritter/faq/JQE139 (This link is being provided for informational/ educational purposes only.) Blood BLOOD SPECIMEN / Unknown 08/23/2024 2:51 PM WALLPAPER INSPECTOR 08/23/2024 2:51 PM WALLPAPER INSPECTOR us Chris Fontenot MD SEND OUTS Final Result [facility] [address] [place] [address], [facility] [facility] [address] [place] [address] * (ABNORMAL) IRON PLUS IRON BINDING CAP (08/23/2024 2:51 PM WALLPAPER INSPECTOR) Pathologist [facility] IRON, TOTAL 44(L) 50 - 180 mcg/dL [facility] IRON BINDING CAPACITY 328 250 - 425 mcg/dL (calc) [facility] % SATURATION 13(L) 20 - 48 % (calc) [facility] Blood BLOOD SPECIMEN / Unknown 08/23/2024 2:51 PM WALLPAPER INSPECTOR 08/23/2024 2:51 PM WALLPAPER INSPECTOR us Chris Fontenot MD CHEMISTRY Final Result [facility] [address] [place] [address], [place] [phone] [facility] [address] [place] [address] * (ABNORMAL) HEMOGLOBIN (08/23/2024 2:51 PM WALLPAPER INSPECTOR) Pathologist [facility] HEMOGLOBIN 13.0(L) 13.2 - 17.1 g/dL [facility] Blood BLOOD SPECIMEN / Unknown 08/23/2024 2:51 PM WALLPAPER INSPECTOR 08/23/2024 2:51 PM WALLPAPER INSPECTOR Chris Fontenot MD HEMATOLOGY Final Result [facility] [address] [place] [address], [facility] [address] [place] [address] * (ABNORMAL) VALPROIC ACID TOTAL (08/23/2024 2:51 PM WALLPAPER INSPECTOR) Pathologist [facility] VALPROIC ACID 118.1(H) 50.0 - 100.0 mg/L [facility] Blood BLOOD SPECIMEN / Unknown 08/23/2024 2:51 PM WALLPAPER INSPECTOR 08/23/2024 2:51 PM WALLPAPER INSPECTOR us Chris Fontenot MD CHEMISTRY Final Result [facility] [address] [place] [address], [place] [phone] [facility] [address] [place] [address] * FERRITIN (08/23/2024 2:51 PM WALLPAPER INSPECTOR) Pathologist [facility] FERRITIN 49 38 - 380 ng/mL [facility] Blood BLOOD SPECIMEN / Unknown 08/23/2024 2:51 PM WALLPAPER INSPECTOR 08/23/2024 2:51 PM WALLPAPER INSPECTOR Chris Fontenot MD CHEMISTRY Final Result [facility] [address] [place] [address], [place] [phone] [facility] [address] [place] [address] * ANTI HCV (07/27/2022 4:55 PM WALLPAPER INSPECTOR) Pathologist [facility] HEPATITIS C ANTIBODY Non-React kandice Non-React kandice 07/29/2022 6:42 AM WALLPAPER INSPECTOR [facility] Comment:Antibodies to HCV no t detected; does not exclude the possibility of exposure to HCV. Blood BLOOD SPECIMEN / Unknown Venipuncture / Unknown 07/27/2022 4:55 PM WALLPAPER INSPECTOR 07/27/2022 4:57 PM WALLPAPER INSPECTOR us Chris Fontenot MD SEND OUTS Final Result Performing Organization Address City/[facility] Co de Phone Number [facility] [address] [place] [address], * ANTI HIV 1/2 (07/27/2022 4:55 PM WALLPAPER INSPECTOR) Pathologist [facility] HIV-1/HIV-2 ANTIBODY Non-Reacti ve Non-Reacti ve 07/29/2022 11:42 AM WALLPAPER INSPECTOR [facility] Comment:HIV-1 p24 and HIV-1/ HIV-2 Ab not detected. Blood BLOOD SPECIMEN / Unknown Venipuncture / Unknown 07/27/2022 4:55 PM WALLPAPER INSPECTOR 07/27/2022 4:57 PM WALLPAPER INSPECTOR us Chris Fontenot MD SEND OUTS Final Result [facility] [address] [place] [address], from Last 3 Months or Most Recently Relevant to Health Maintenance Insurance MEDICARE PB ONLY MEDICAID MEDICARE PART B HB ONLY MEDICARE PART A HB ONLY Advance Directives * Full Code (Latest Code Status on File) Date Activated Date Inactivated Comments 03/07/2024 2:30 PM 03/12/2024 2:05 PM Question Answer Comments Code Status Discussion: Reviewed Preferences Care Teams Aligner Relationship Specialty Start Date End Date Chris Fontenot MD [address] [place] [address] PCP - General 12/15/05
[2024-11-02 13:14] LABS: PCR FLU A Negative PCR FLU A (Negative); PCR FLU B Negative PCR FLU B (Negative); PCR RSV Negative PCR RSV (Negative); SARS PCR* Negative SARS-CoV-2 (Negative)
--- NOTE | 2024-11-02 13:38 | ED_ITS ---
HPI - General Adult General Date Seen: 11/02/24 Chief complaint: Shortness of Breath/Dyspnea Stated complaint: Weakness,Constipation Time Seen by Provider: 11/02/24 13:23 History of Present Illness HPI narrative: 49-year-old male with a history of quadriplegia, neurogenic bladder, seizure disorder, pancytopenia He is not able to speak full sentences but is able to answer simple yes or no questions. History is obtained primarily from his sister, Kirsty. He is a resident of a [place] [facility] in [place]. He did give a urinalysis at the [facility]. I do have a printed copy of that test results from 11/01/2024. It was essentially normal. Negative nitrite. Trace leuks esterase. 0-2 RBC. 0-2 WBC. Moderate epithelial cells. Many bacteria. He had been seen here in the ER in August for fever, cough, weakness, dehydration due to influenza A. He does have a history of seizure disorder. His long-term pattern for seizures of been 1 or 2 per year. For the past several months he has had an increased frequency of seizures, perhaps 1 every week or 2. With that his doctors have been trying to adjust his seizure meds. He is chronically on Depakote, lamotrigine. A couple of months ago he had addition of lacosamide and they have been titrating up the dose. Despite that he still has a seizure every couple of weeks. For the past few days he has had poor appetite but no vomiting. He has also had generalized weakness and fatigue. He has been complaining of abdominal pain that got worse today. Has passes were able to figure it seems to be his lower abdomen and lower right side that is hurting. Because of his abdominal pain [place] [facility] to bring him into the ER. Oxygen sats were low on room air at 82% so EMS placed 4 L. However he has not had any definite shortness of breath, cough. Related Data Home Medications ?Medication ?Instructions ?Recorded ?Confirmed cholecalciferol (vitamin D3) 50 50 mcg PO DAILY 09/13/24 11/02/24 mcg (2,000 unit) tablet diazepam 5 mg/mL oral concentrate 5 mg PO DAILY PRN 09/13/24 11/02/24 (Diazepam Intensol) divalproex 250 mg tablet,delayed 1,000 mg PO BID 09/13/24 11/02/24 release ferrous sulfate 325 mg (65 mg 325 mg PO QAM 09/13/24 11/02/24 iron) tablet lacosamide 200 mg tablet 200 mg PO BID 09/13/24 11/02/24 lamotrigine 25 mg tablet 12.5 - 25 mg PO BID 09/13/24 11/02/24 lisinopril 10 mg tablet 10 mg PO DAILY 09/13/24 11/02/24 metoprolol tartrate 25 mg tablet 25 mg PO BID 09/13/24 11/02/24 polyethylene glycol 3350 17 gram 17 g PO DAILY 09/13/24 11/02/24 oral powder packet (ClearLax) sennosides 8.6 mg tablet (senna) 17.2 mg PO DAILY 09/13/24 11/02/24 tizanidine 2 mg tablet 1 - 2 mg PO 3XD PRN 09/13/24 11/02/24 bisacodyl 10 mg rectal suppository 10 mg LA DAILY PRN 09/14/24 11/02/24 clotrimazole 1 % topical cream 1 applic topical BID PRN 09/14/24 11/02/24 cranberry 500 mg capsule 500 mg PO BID 09/14/24 11/02/24 melatonin 3 mg tablet 6 mg PO HS 09/14/24 11/02/24 multivitamin 1 tab PO DAILY 09/14/24 11/02/24 triamcinolone acetonide 0.1 % 1 applic topical BID PRN 09/14/24 11/02/24 topical ointment Allergies Allergy/AdvReac Type Severity Reaction Status Date / Time ciprofloxacin Allergy Unknown Verified 11/02/24 12:29 gabapentin Allergy Unknown Verified 11/02/24 12:29 tolterodine (From Detrol) Allergy Unknown Verified 11/02/24 12:29 [facility] Medical History (Updated 09/18/24 @ 00:00 by Background Daemon) Pancytopenia ?D61.818 - Other pancytopenia (ICD-10) 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 ?M67.00 - Short Achilles tendon (acquired), unspecified ankle (ICD-10) History of aspiration pneumonia ?Z87.01 - Personal history of pneumonia (recurrent) (ICD-10) Dependent for wheelchair mobility ?Z99.3 - Dependence on wheelchair (ICD-10) Recurrent urinary tract infection ?N39.0 - Urinary tract infection, site not specified (ICD-10) Neurogenic bladder ?N31.9 - Neuromuscular dysfunction of bladder, unspecified (ICD-10) Chronic incomplete quadriplegia ?G82.50 - Quadriplegia, unspecified (ICD-10) Essential hypertension ?I10 - Essential (primary) hypertension (ICD-10) Primary generalized seizure disorder ?G40.309 - Generalized idiopathic epilepsy and epileptic syndromes, not intractable, without status epilepticus (ICD-10) Cerebral palsy ?G80.9 - Cerebral palsy, unspecified (ICD-10) Surgical History (Updated 09/13/24 @ 21:04 by Marshal Carrion MD) Personal history of spine surgery ?Z98.890 - Other specified postprocedural states (ICD-10) Family History (Updated 09/13/24 @ 21:05 by Marshal Carrion MD) Father Lung cancer Mother Heart disease Social History What is your current living situation?: I presently have a place to live Problems where you live: no known problems Problems where you live details: N/A In the past 12 months, utilities in danger of being shut off: no In past 12 months, lack of transportation kept you from medical appts, meetings, work, or getting things needed for daily living: no In the past 12 mos, have been you worried that your food would run out before you had money to buy more?: never true In the past 12 mos, the food you bought just didn't last and you didn't have money to buy more?: never true Smoking Status: Never smoker Second hand tobacco smoke exposure: No How often do you have a drink containing alcohol: never AUDIT-C Alcohol total score: 0 Non-prescribed substance use: denies use How often does anyone, including family, friends and others, physically hurt you : never How often does anyone, including family, friends and others, insult or talk down to you: never How often does anyone, including family, friends and others, threaten you with harm: never How often does anyone, including family, friends and others, scream or curse at you: never Exam Narrative: Exam Narrative: Constitutional: Does appear frail and chronically ill. Has baseline cerebral palsy and quadriplegia. Alert and very uncomfortable, groaning in pain and guarding the right side of his abdomen. HENT: Head: Atraumatic. Nose: Nose normal. Mouth/Throat: Oral mucosa is clear but dry. no trismus. Pharynx normal. Tonsils symmetric. No tonsillar enlargement, erythema, or exudate. Eyes: Conjunctivae normal. EOM normal. Pupils equal, round, and reactive to light. No scleral icterus. Neck: Normal range of motion. Neck supple. No tracheal deviation present. Cardiovascular: Tachycardia, rate about 105 on the monitor, regular rhythm. No gallop. No friction rub. No murmur heard. Symmetric radial artery pulses Pulmonary/Chest: Effort normal. No stridor. No respiratory distress. No wheezes. Questionable rales in both lateral lung ruiz. Not able to sit up for good posterior lung exam. No wheezes . No tenderness. Abdominal: Firm. Bowel sounds normal. No distension. No mass. Quite tender in the right abdomen and suprapubic region. Seems to be most tender in the right lower quadrant. No definite CVA tenderness. No rebound. No guarding. Musculoskeletal: RUE: Normal range of motion. No tenderness. No deformity LUE: Normal range of motion. No tenderness. No deformity RLE: Normal range of motion. No edema. No tenderness. No deformity LLE: Normal range of motion. No edema. No tenderness. No deformity Neurological: Alert and oriented to person, place, but night able to answer questions about date orientation. He does have some limited speech because it is baseline CP. His sister and brother who are with him indicate that he is at his baseline.. Normal strength. CN II-VII intact. No sensory deficit. GCS eye subscore is 4. GCS verbal subscore is 5. GCS motor subscore is 6. Normal coordination Skin: Skin is warm and dry. No rash noted. No pallor. Normal capillary refill. Psychiatric: Limited by pain. Const: Vital Signs, click to edit/add: Vital Signs - 24 hr 11/02/24 12:29 11/02/24 12:30 11/02/24 12:31 Temperature 97.4 F L Pulse Rate 81 79 Pulse Rate [Pulse Oximeter] 79 Respiratory Rate 22 Blood Pressure 100/55 L Blood Pressure [Ri ght Upper Arm] 100/55 L Pulse Oximetry 85 L 94 94 Oxygen Delivery Me thod Room Air Nasal Cannula Nasal Cannula Oxygen Flow Rate 2 2 11/02/24 12:32 11/02/24 12:32 11/02/24 12:45 Temperature Pulse Rate 81 79 Pulse Rate [Pulse Oximeter] Respiratory Rate Blood Pressure 97/37 L Blood Pressure [Ri ght Upper Arm] Pulse Oximetry 94 94 94 Oxygen Delivery Me thod Nasal Cannula Nasal Cannula Nasal Cannula Oxygen Flow Rate 2 2 2 11/02/24 13:00 11/02/24 13:02 11/02/24 13:15 Temperature Pulse Rate 80 80 87 Pulse Rate [Pulse Oximeter] Respiratory Rate Blood Pressure 94/38 L Blood Pressure [Ri ght Upper Arm] Pulse Oximetry 93 95 94 Oxygen Delivery Me thod Nasal Cannula Nasal Cannula Nasal Cannula Oxygen Flow Rate 2 2 2 11/02/24 13:30 11/02/24 13:32 11/02/24 13:45 Temperature Pulse Rate 89 83 98 Pulse Rate [Pulse Oximeter] Respiratory Rate Blood Pressure 104/39 L Blood Pressure [Ri ght Upper Arm] Pulse Oximetry 94 96 88 Oxygen Delivery Me thod Nasal Cannula Nasal Cannula Room Air Oxygen Flow Rate 2 2 11/02/24 14:00 11/02/24 14:03 11/02/24 14:15 Temperature Pulse Rate 94 102 H 104 H Pulse Rate [Pulse Oximeter] Respiratory Rate Blood Pressure 110/92 H Blood Pressure [Ri ght Upper Arm] Pulse Oximetry 89 93 92 Oxygen Delivery Me thod Room Air Room Air Room Air Oxygen Flow Rate 11/02/24 14:32 11/02/24 15:01 11/02/24 15:02 Temperature Pulse Rate 93 91 93 Pulse Rate [Pulse Oximeter] Respiratory Rate Blood Pressure 110/35 L 124/34 L Blood Pressure [Ri ght Upper Arm] Pulse Oximetry 93 93 92 Oxygen Delivery Me thod Room Air Room Air Room Air Oxygen Flow Rate 11/02/24 15:15 11/02/24 15:44 Temperature Pulse Rate 98 111 H Pulse Rate [Pulse Oximeter] Respiratory Rate Blood Pressure 126/64 Blood Pressure [Ri ght Upper Arm] Pulse Oximetry 98 88 Oxygen Delivery Me thod Room Air Room Air Oxygen Flow Rate Course Vital Signs Vital signs: Initial Vital Signs Temperature 97.4 F L 11/02/24 12:29 Temperature Source Temporal Artery Scan 11/02/24 12:29 Pulse Rate 79 11/02/24 12:29 Respiratory Rate 22 11/02/24 12:29 Blood Pressure 100/55 L 11/02/24 12:29 Blood Pressure Mean 70 11/02/24 12:29 Blood Pressure Position Semi-Fowlers 11/02/24 12:29 Pulse Oximetry 85 L 11/02/24 12:29 Oxygen Delivery Method Room Air 11/02/24 12:29 Vital Signs Temperature 97.4 F L 11/02/24 12:29 Pulse Rate 79 11/02/24 12:29 Respiratory Rate 22 11/02/24 12:29 Blood Pressure 100/55 L 11/02/24 12:29 Pulse Oximetry 85 L 11/02/24 12:29 Oxygen Delivery Method Room Air 11/02/24 12:29 Temperature 97.4 F L 11/02/24 12:29 Pulse Rate 111 H 11/02/24 15:44 Respiratory Rate 22 11/02/24 12:29 Blood Pressure 126/64 11/02/24 15:44 Pulse Oximetry 88 11/02/24 15:44 Oxygen Delivery Method Room Air 11/02/24 15:44 Oxygen Flow Rate 2 11/02/24 13:32 Medications Administered Medications: Generic Name Dose Route Start Last Admin Trade Name Freq PRN Reason Stop Dose Admin Hydromorphone HCl 0.5 mg 11/02/24 13:58 11/02/24 17:20 Hydromorphone 0.5 Mg/0.5 Ml Inj IVP 0.5 mg Q1H PRN Administration Pain Piperacillin Sod/Tazobactam 100 mls @ 200 mls/hr 11/02/24 16:15 11/02/24 17:04 Sod 4.5 gm/ Sodium Chloride IVPB 200 mls/hr Q6H CRISTI Administration Discontinued Medications Generic Name Dose Route Start Last Admin Trade Name Freq PRN Reason Stop Dose Admin Hydromorphone HCl 1 mg 11/02/24 14:06 11/02/24 14:10 Hydromorphone 0.5 Mg/0.5 Ml Inj IM 11/02/24 14:07 1 mg ONCE ONE Administration Sodium Chloride 500 mls @ 500 mls/hr 11/02/24 13:53 11/02/24 15:47 0.9 % Sodium Chloride 500 Ml IV 11/02/24 14:52 500 mls/hr .Q1H ONE Administration Ceftriaxone Sodium 1 gm/ 100 mls @ 200 mls/hr 11/02/24 16:02 11/02/24 17:08 Sodium Chloride IVPB 11/02/24 16:03 Infused ONCE ONE Infusion Ondansetron HCl 4 mg 11/02/24 13:59 11/02/24 17:13 Ondansetron 2 Mg/Ml Inj IVP 11/02/24 14:00 Not Given ONCE ONE Medical Decision Making MDM Narrative Medical decision making narrative: 49-year-old male brought to the ER today by EMS from his [place] [facility] in [place]. He had actually had a couple of days of decreased activity, decreased appetite and today was complaining of severe lower abdominal pain. History is obtained primarily from his siblings because of his baseline mental status. 1. GI/abdominal- He has never had this sort of abdominal pain before. Differential is broad including appendicitis, colitis, diverticulitis, obstruction, perforation, abscess, kidney stone, AAA, among others. After where will to establish a functional IV patient was sent for stat CT scan of his abdomen pelvis, also chest. CT scan showed evidence for acute cholecystitis with gallstone in the gallbladder neck and also pericholecystic inflammation. Bile ducts are grossly normal on the CT. LFTs and lipase are normal. No evidence for choledocholithiasis. Discussed his acute cholecystitis with our surgeon, Dr. Haney. She recommends transfer because of this point the patient is not safe for general anesthesia to have cholecystectomy and likely would need IR to place a cholecystostomy tube, a few days of antibiotic and when he is respiratory really improved could follow-up for a delayed cholecystectomy. Discussed this plan of care and recommendation with the patient's family. They would prefer transfer to [facility]. We contacted the [place] transfer line and they have no beds and no waiting list. Also contacted [facility]. They have placed the patient on the wait list for any bed is a [facility]. Unlikely to receive a bed assignment tonight. We also contacted the [facility]. 2. Pulmonary/hypoxia- He was also noted to be hypoxic with sats in the low 80s on room air when EMS picked him up but sats actually have come up to the low 90s on room air. Differential for this is broad. PE protocol chest CT is negative for PE but does show evidence for dense consolidations in the right lower lobe and less so in the left lower lobe. Suspicious for a pneumonia. Will start on antibiotics for community-acquired pneumonia after blood cultures were drawn here in the ER. Fortunately white count is normal. Venous lactic acid is normal at 1.5. COVID/flu/RSV PCR negative. No wheezing or bronchospasm. Although he was noted to be quite hypoxic by EMS with sats down to 82%, here in the ER initially sats were holding in the low 90s on room air but he did decline into the high 80s and is currently on 1 L nasal cannula to keep sats above 90. Overall respirations are unlabored. He is not showing signs of respiratory fatigue indicating that he is likely to require imminent positive-pressure ventilation or intubation. 3.. Renal. Kidney function electrolytes normal. 4. Disposition. As above, transfers indicated. Disposition was difficult. There were no beds at [facility]. He is on a waiting list [facility]. We are where able to get a bed for him in the [facility], DANIE, Maru, and hospitalist, Dr. Sagastume, accepting. I have ordered maintenance IV fluids in this patient's evening meds including his seizure meds and his metoprolol. Discussed with my oncoming partner stool oversee his care until he is assigned a [facility] and then transferred by EMS. Lab Data Labs: Lab Results 11/02/24 11/02/24 Range/Units 13:45 Unknown WBC 11.86 H (4.50-11.00) K/uL RBC 4.48 (4.30-5.90) m/uL Hgb 13.7 (13.5-17.5) gm/dL Hct 41.1 (37.0-53.0) % MCV 92 (80-100) fL MCH 31 (26-34) pg MCHC 33 (32-36) gm/dL RDW Coeff of Jamie 12.9 (11.5-15.5) % Plt Count 169 (140-440) K/uL Neut % (Auto) 78.8 H (42.0-72.0) % Lymph % (Auto) 10.4 L (20-44) % Wayne % (Auto) 10.4 (0.0-11.0) % Eos % (Auto) 0.0 (0.0-7.0) % Baso % (Auto) 0.1 (0.0-3.0) % Neut # (Auto) 9.30 H (1.7-7.0) K/uL Lymph # (Auto) 1.20 (0.90-2.90) K/uL Wayne # (Auto) 1.20 H (0.00-0.90) K/UL Eos # (Auto) 0.00 (0.00-0.50) K/uL Baso # (Auto) 0.00 (0.00-0.30) K/uL Abs Immat Gran (auto) 0.00 (0.00-0.30) K/uL Imm/Tot Granulo (auto) 0.3 % Sodium 137 (135-149) mmol/L Potassium 4.8 (3.6-5.1) mmol/L Chloride 98 (96-114) mmol/L Carbon Dioxide 30 (20-32) mmol/L Anion Gap 9 (7-15) mEq/L BUN 15 (7-30) mg/dL Creatinine 0.6 (0.5-1.5) mg/dL Estimated GFR 118 ml/min Glucose 108 (60-115) mg/dL Lactate 1.5 (0.5-1.9) mmol/L Calcium 9.5 (8.4-10.6) mg/dL Total Bilirubin 0.7 (0.1-1.5) mg/dL AST 27 (12-35) U/L ALT 13 (4-50) U/L Alkaline Phosphatase 47 (40-150) U/L Troponin I < 0.01 (0.01-0.04) ng/mL Total Protein 7.6 (6.0-8.3) g/dL Albumin 4.4 (3.3-5.0) g/dL Lipase 42 (23-300) U/L SARS-CoV-2 (PCR) Negative SARS-CoV-2 (Negative) Influenza Type A (PCR) Negative PCR FLU A (Negative) Influenza Type B (PCR) Negative PCR FLU B (Negative) RSV (PCR) Negative PCR RSV (Negative) Imaging Data CT scan - abdomen: Attestation: I have reviewed the pertinent imaging results. Radiologist's impression: FINDINGS: LUNG BASES: Dense multifocal consolidation identified at the lung bases as described in the chest CT report. This is consistent with multifocal pneumonia.The heart size is normal at the lung bases. LIVER/BILIARY SYSTEM:Normal-sized liver. There is a stone in the gallbladder neck and gallbladder wall thickening and surrounding inflammatory change likely representing acute cholecystitis.Correlate with sonography ADRENALS: Normal KIDNEYS, URETERS and BLADDER:The kidneys appear normal. No visible mass, calculus or hydronephrosis. The ureters and bladder as visualized appear normal. SPLEEN:Normal appearance. PANCREAS: Appears normal. RETROPERITONEUM and MESENTERY: There is no mass, adenopathy or aortic aneurysm. GASTROINTESTINAL SYSTEM: There is no evidence of diverticulitis, colitis, mechanical obstruction, or appendicitis. The small bowel as visualized appears normal. PELVIS: No mass, adenopathy or free fluid. OSSEOUS STRUCTURES and ABDOMINAL WALL: Abnormal configuration likely due to chronic neuromuscular disorder.No significant abdominal wall abnormality. OTHER: No free fluid or free air. IMPRESSION: 1. Redemonstration of dense multifocal consolidation in the visualized lower lungs consistent with multifocal pneumonia. Please review the separate chest CT report. 2. Findings highly suspicious for acute cholecystitis. Suggest correlation with sonography. CT scan - chest: Attestation: I have reviewed the pertinent imaging results. Radiologist's impression: IMPRESSION: 1. There is no evidence of pulmonary embolus. 2. Dense multifocal consolidation, right greater than left consistent with multifocal pneumonia. Normal pleural spaces. ECG Data Attestation: I personally reviewed and interpreted this ECG as follows: Interpretation: Sinus tachycardia Rate: 102 LA: 162 QRS axis: Normal axis. No pathologic Q-waves. ST segment/T wave: QTc: 414 Discharge Plan Discharge Prescriptions: No Action divalproex 250 mg tablet,delayed release (DR/EC) 1,000 mg PO BID lamotrigine 25 mg tablet 12.5 - 25 mg PO BID Patient Comments: 12.5MG IN AM, 25MG HS ON A TAPER, INCREASING BY 12.5MG Q2 WEEKS lacosamide 200 mg tablet 200 mg PO BID lisinopril 10 mg tablet 10 mg PO DAILY metoprolol tartrate 25 mg tablet 25 mg PO BID polyethylene glycol 3350 [ClearLax] 17 gram powder in packet 17 g PO DAILY sennosides [senna] 8.6 mg tablet 17.2 mg PO DAILY tizanidine 2 mg tablet 1 - 2 mg PO 3XD PRN ferrous sulfate 325 mg (65 mg iron) tablet 325 mg PO QAM diazepam [Diazepam Intensol] 5 mg/mL concentrate 5 mg PO DAILY PRN Patient Comments: PLACE 1ML BETWEEN CHEEK AND GUM FOR A GENERALIZER TONIC-CLONIC SEIZURE- MAY REPEAT 1 DOSE IF A 2ND SEIZURE SHOULD OCCUR WITHIN 24HR; DO NOT cholecalciferol (vitamin D3) 50 mcg (2,000 unit) tablet 50 mcg PO DAILY bisacodyl 10 mg suppository 10 mg LA DAILY PRN cranberry 500 mg capsule 500 mg PO BID Rx Instructions: administer with meals clotrimazole 1 % cream 1 applic topical BID PRN melatonin 3 mg tablet 6 mg PO HS multivitamin Tablet 1 tab PO DAILY triamcinolone acetonide 0.1 % ointment 1 applic TOPICAL BID PRN Follow Up/Referrals: Chris Fontenot MD [Primary Care Provider] -
[2024-11-02 14:01] LABS: Basophils Percent Auto 0.1 % (0.0-3.0); Hematocrit 41.1 % (37.0-53.0); Hemoglobin* 13.7 gm/dL (13.5-17.5); Immature Granulocytes Pct Auto 0.3 %; Lymphocytes Percent Auto 10.4 % (20-44); Mean Corpuscular HGB Conc 33 gm/dL (32-36); Mean Corpuscular Hemoglobin 31 pg (26-34); Mean Corpuscular Volume 92 fL (80-100); Monocytes Percent Auto 10.4 % (0.0-11.0); Neutrophils Percent Auto 78.8 % (42.0-72.0); Platelet Count* 169 K/uL (140-440); RDW Coefficient of Variation % 12.9 % (11.5-15.5); Red Blood Count 4.48 m/uL (4.30-5.90); Slide Review Reflex No; White Blood Count* 11.86 K/uL (4.50-11.00)
[2024-11-02 14:03] LABS: Lactate* 1.5 mmol/L (0.5-1.9)
[2024-11-02] MEDS: HYDROmorphone 0.5 mg/0.5 ml inj 1 MG IM (14:10)
[2024-11-02 14:19] LABS: Albumin* 4.4 g/dL (3.3-5.0); Chloride* 98 mmol/L (96-114); Potassium* 4.8 mmol/L (3.6-5.1); Sodium* 137 mmol/L (135-149)
[2024-11-02 14:21] LABS: Alanine Aminotransferase* 13 U/L (4-50); Anion Gap 9 mEq/L (7-15); Aspartate Amino Transferase* 27 U/L (12-35); Blood Urea Nitrogen* 15 mg/dL (7-30); Carbon Dioxide* 30 mmol/L (20-32); Creatinine* 0.6 mg/dL (0.5-1.5); Estimated Glomerular Filt Rate 118 ml/min
[2024-11-02 14:22] LABS: Alkaline Phosphatase* 47 U/L (40-150); Bilirubin Total* 0.7 mg/dL (0.1-1.5); Calcium* 9.5 mg/dL (8.4-10.6); Glucose* 108 mg/dL (60-115); Lipase* 42 U/L (23-300); Total Protein* 7.6 g/dL (6.0-8.3)
--- NOTE | 2024-11-02 14:31 | CRLHL7_ITS ---
For Patients: As a result of the Century Cures Act, medical imaging exams and procedure reports are released immediately into your electronic medical record. You may view this report before your referring provider. If you have questions, please contact your health care provider. INDICATION: Hypoxia, abdominal pain and vomiting. COMPARISON: None TECHNIQUE: : CT examination of the chest was performed with the uneventful intravenous administration of 95 cc of Isovue 370 while thin axial sections were obtained from above the apices of the lungs to the lung bases. The examination was timed as a pulmonary artery angiogram. Please note that all CT scans at this facility use dose modulation, iterative reconstruction, and/or weight-based dosing when appropriate to reduce radiation dose to as low as reasonably achievable. FINDINGS: : HEART and MEDIASTINUM: The heart size is normal. There is no mediastinal or hilar adenopathy or mass. There is no pericardial effusion. PULMONARY ARTERIAL CIRCULATION: There is no visible intraluminal filling defect to suggest pulmonary embolus. LUNGS and PLEURAL SPACES: Dense consolidation of the right lower lobe, somewhat sparing the superior segment. There is also consolidation the posterior basal and medial basal left lower lobe, portions of the right upper lobe and minimal involvement of the right middle lobe. Consistent with multifocal pneumonia. No significant pleural fluid. No pneumothorax. VISUALIZED UPPER ABDOMEN: Please review the separate abdomen and pelvis report. OSSEOUS STRUCTURES: Age-appropriate appearance. No acute fracture or destructive process. TUBES and LINES: None. IMPRESSION: 1. There is no evidence of pulmonary embolus. 2. Dense multifocal consolidation, right greater than left consistent with multifocal pneumonia. Normal pleural spaces. Please note that all CT scans at this facility use dose modulation, iterative reconstruction, and/or weight-based dosing when appropriate to reduce radiation dose to as low as reasonably achievable. Dictated by Arnav Brito MD @ 11/02/2024 3:57:03 PM (Electronically Signed)
--- OUTSIDE RECORDS SUMMARY | 2024-11-02 15:06 | XMS_ITS | Encounter Summary ---
Author Organization [facility] Address [address] [place] [address] Care Team Providers Care Manager Product Support Name Role Phone Elsewhere, Pcp Primary Care Provider Unavailabl e Reason for Visit * Reason Onset Date Comments Order Request 10/16/2024 Encounter Details Date Type Department Care Team ([facility] st Contact Info) Description 10/16/2024 Clinical Communication Department of Neurology in [place], [place] [address] [place] [phone] Matteo Noe M.D. [address] [place] [phone] Order Request Social History Tobacco Use Types Packs/Day Years Used Date Smoking Tobacco: Never Smokeless Tobacco: Never [employer] Utilities Answer Date Recorded In the past 12 months has [facility] electric, gas, oil, or water company [...] often do you attend chur ch or judaism services? 1 to 4 times per year 02/01/2022 Do you belong to any clubs o r organizations such as jewish groups, unions, fraternal or athletic groups, or [...] and heating? Not hard at all 02/01/2022 [facility] - Occupational Stress Questionnaire Answer Date [...] your living situation today? 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 [address] [place] [phone] 11/24/2024 11:00 AM CDT Clinical Communication Virtual Review in [place], [place] 200 [place] [address] 11/28/2024 11:00 AM CDT Office Visit Department of Neurology in [place], [place] [address] [place] [phone] Matteo Noe M.D. [address] [place] [phone] 12/06/2024 10:30 AM CDT Diagnostic Division of Pulmonary Medicine in [place], [place] [address] [place] [phone] Matteo Noe M.D. 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
--- OUTSIDE RECORDS SUMMARY | 2024-11-02 15:06 | XMS_ITS | Clinical Summary ---
Author Organization [facility] Address [address] [place] [address] Care Team Providers Care Caustic Mixer Name Role Phone Elsewhere, Pcp Primary Care Provider Unavailabl e Source Comments Patient records contain information from all sites at [facility]. For routine questions regarding patient records, call [phone] during business hours, M-F 8:00 AM - 5:00 PM Central Time. Record requests for emergency care only can be directed to [phone] at any time.[facility] [...] tablet Take 1 tablet by mouth daily. 04/03/20 21 Active multivitamin with folic acid (ONE DAILY ESSENTIAL) 400 mcg tablet Take 1 tablet by mouth daily. 12/12/19 21 Active cholecalciferol, vitamin D3, (VITAMIN D3 ORAL) Take 5,000 Units by mouth daily. Active tiZANidine (ZANAFLEX) 2 mg tablet Take 0.5-1 tablets by mouth as needed. 03/19/20 21 Active triamcinolone (KENALOG) 0.1 % ointment Apply topically to affected area(s) 2 times daily. As needed. 04/03/20 21 Active sodium phosphate,mono-d ibasic (FLEET ENEMA RECTAL) Insert into the rectum as needed. Active bisacodyL (DULCOLAX) 10 mg suppository Insert into the rectum as needed. 02/23/20 16 Active docosanoL (ABREVA) 10 % cream Apply topically as needed. 10/11/19 16 Active ibuprofen (ADVIL,MOTRIN) 200 mg tablet Take 400 mg by mouth as needed. 10/28/19 19 Active nystatin (MYCOSTATIN) 100,000 unit/gram cream Apply topically as needed. 03/18/20 21 Active acetaminophen (TYLENOL) 500 mg tablet Take 500 mg by mouth every 6 (six) hours as needed for pain. Active clotrimazole (LOTRIMIN) 1 % cream Apply 1 application topically 2 (two) times a day. 08/02/20 22 Active bismuth subsalicylate (PEPTO BISMOL) 262 mg/15 mL suspension as needed. Active baclofen (LIORESAL) 5 mg tablet tablet 3 (three) times a day. 07/01/20 21 Active metoprolol tartrate (LOPRESSOR) 25 mg tablet Take 25 mg by mouth 2 (two) times a day. 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 Then, increase by 0.5 pill every two weeks, until 2 pills twice a day, and continue. 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 Take 4 pills twice a day. 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 180 tablet 3 11/23/19 24 2024 Discontinued Active Problems Problem Noted Date Diagnosed [...] Date Type Department Care Team Description 11/02/2024 Orders Only Department of Neurology in [place], [place] [address] [place] [address] Matteo Noe M.D. Seizure (HCC) (Primary Dx) 11/02/2024 Refill Department of Neurology in [place], [place] [address] [place] [address] Matteo Noe M.D. Med Refill 10/16/2024 Clinical Communication Department of Neurology in [place], [place] [address] [place] [address] Matteo Noe M.D. Order Request 10/02/2024 Clinical Communication Department of Neurology in [place], [place] [address] [place] [address] Matteo Noe M.D. Med Question (So) 09/18/2024 Orders Only Department of Neurology in [place], [place] [address] [place] [address] Matteo Noe M.D. Apnea Sleep Obstructive (Primary Dx) 09/01/2024 Clinical Communication Department of Neurology in [place], [place] [address] [place] [address] Matteo Noe M.D. 08/14/2024 10:00 AM SPEECH LANGUAGE PATHOLOGY ASSISTANT Office Visit Department of Neurology in [place], [place] [address] [place] [address] Matteo Noe M.D. 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 Idiopathic Generalized Epilepsy Intractable [...] Date Smoking Tobacco: Never Smokeless Tobacco: Never [facility] Utilities Answer Date Recorded In the past 12 months has e [employer], [employer], oil, or water [employer] threatened to shut off services in your [...] week 02/01/2022 How often do you attend [facility] or judaism services? 1 to 4 times per year 02/01/2022 Do you belong to any clubs o r organizations such as buddhism groups, unions, fraternal [...] and heating? Not hard at all 02/01/2022 [facility] [place] of Occupat ional Health - Occupational Stress [...] your living situation today? 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 LANGUAGE PATHOLOGY ASSISTANT Gender Identity Male 02/01/2022 6:47 PM CDT Sexual Orientation Straight 02/01/2022 6: 47 PM CDT Last Filed Vital Signs Vital Sign Reading Time Taken Comments Blood Pressure - - Pulse - - Temperature 36.2 C (97.2 F) 11/17/2021 2:36 PM CDT Respiratory Rate - - Oxygen Saturation - - Inhaled Oxygen Concentration - - Weight 59 kg (130 lb) 08/14/2024 9:53 AM SPEECH LANGUAGE PATHOLOGY ASSISTANT Iftikhar bal Height 157.5 cm (5' 2) 08/14/2024 9:53 AM SPEECH LANGUAGE PATHOLOGY ASSISTANT V erbal Body Mass Index 23.78 08/14/2024 9:53 AM SPEECH LANGUAGE PATHOLOGY ASSISTANT Plan of Treatment Upcoming Encounters Date Type Department Care Team (Latest Contact Info) Description 11/07/2024 9:30 AM CDT Appointment Department of Laboratory Medicine in [place], [place] [address] [place] [address] Matteo Noe M.D. [address] [place] [phone] 11/24/2024 11:00 AM CDT Clinical Communication Virtual Review in [place], [place] 200 [place] [address] 11/28/2024 11:00 AM CDT Office Visit Department of Neurology in [place], [place] [address] [place] [phone] Matteo Noe M.D. [address] [place] [phone] 12/06/2024 10:30 AM CDT Diagnostic Division of Pulmonary Medicine in [place], [place] [address] [place] [phone] Matteo Noe M.D. 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 This test has not been cleared or approved by the U.S. Food and Drug Administration. Blood (Blood, Venous) 08/11/2024 8:11 AM SPEECH LANGUAGE PATHOLOGY ASSISTANT 08/12/2024 2:17 PM SPEECH LANGUAGE PATHOLOGY ASSISTANT Matteo Noe M.D. LAB BLOOD NON ADD-ON Final Resul t [facility] [address] [place] [phone] [facility] [address] [place] [address] [place] [phone] from Last 3 Months Insurance MEDICARE [place]ICA[place] Care Teams Caustic Mixer Relationship Specialty Start Date End Date Elsewhere, Pcp PCP - General Internal Medicine 11/14/21
--- OUTSIDE RECORDS SUMMARY | 2024-11-02 15:06 | XMS_ITS | Encounter Summary ---
Author Organization [facility] Address [address] [place] [address] Care Team Providers Care Ball Racker Name Role Phone Elsewhere, Pcp Primary Care Provider Unavailabl e Reason for Visit * Reason Comments Med Refill Encounter Details Date Type Department Care Team ([facility] st Contact Info) Description 11/02/2024 Refill Department of Neurology in [place], [place] [address] [place] [phone] Matteo Noe M.D. [address] [place] [phone] Med Refill Social History Tobacco Use Types Packs/Day Years Used Date Smoking Tobacco: Never Smokeless Tobacco: Never [facility] Utilities Answer Date Recorded In [...] often do you attend chur ch or jewish services? 1 to 4 times per year 02/01/2022 Do you belong to any clubs o r organizations such as latter-day groups, unions, fraternal or athletic groups, or [...] and heating? Not hard at all 02/01/2022 [facility] of Occupat ional Health - Occupational [...] your living situation today? 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 [address] [place] [phone] 11/24/2024 11:00 AM CDT Clinical Communication Virtual Review in [place], [place] 200 [place] [address] 11/28/2024 11:00 AM CDT Office Visit Department of Neurology in [place], [place] [address] [place] [phone] Matteo Noe M.D. [address] [place] [phone] 12/06/2024 10:30 AM CDT Diagnostic Division of Pulmonary Medicine in [place], [place] [address] [place] [phone] Matteo Noe M.D. 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
--- OUTSIDE RECORDS SUMMARY | 2024-11-02 15:07 | XMS_ITS | Encounter Summary ---
Author Organization [facility] Address [address] [place] [address] Care Team Providers Care Civil Preparedness Training Officer Name Role Phone Elsewhere, Pcp Primary Care Provider Unavailabl e Encounter Details Date Type Department Care Team ([facility] st Contact Info) Description 09/18/2024 Orders Only Department of Neurology in [place], [place] [address] [place] [phone] Matteo Noe M.D. [address] [place] [phone] Apnea Sleep Obstructive (Primary Dx) Social History Tobacco Use Types Packs/Day Years Used Date Smoking Tobacco: Never Smokeless Tobacco: Never [facility] Utilities Answer Date Recorded In the past 12 months has [facility] electric, gas, oil, or water company [...] often do you attend chur ch or evangelical services? 1 to 4 times per year [...] and heating? Not hard at all 02/01/2022 [facility] of Occupat ional Health - Occupational Stress [...] your living situation today? 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 [address] [place] [phone] 11/24/2024 11:00 AM CDT Clinical Communication Virtual Review in [place], [place] 200 [place] [address] 11/28/2024 11:00 AM CDT Office Visit Department of Neurology in [place], [place] [address] [place] [phone] Matteo Noe M.D. [address] [place] [phone] 12/06/2024 10:30 AM CDT Diagnostic Division of Pulmonary Medicine in [place], [place] [address] [place] [phone] Matteo Noe M.D. [address] [place] [address] documented as of this encounter Visit Diagnoses Diagnosis Apnea Sleep Obstructive- Primary documented in this encounter Care Teams Civil Preparedness Training Officer Relationship Specialty Start Date End Date Elsewhere, Pcp PCP - General Internal Medicine 11/14/21 documented as of this encounter
--- OUTSIDE RECORDS SUMMARY | 2024-11-02 15:07 | XMS_ITS | Encounter Summary ---
Author Organization [facility] Address [address] [place] [address]. [place] [address] Care Team Providers Care Cad Intern Name Role Phone Chris Fontenot Primary Care Provider [phone] Jasiel Hester RN Unavailable Reason for Visit * Reason Onset Date Comments Pt. Information/instruction 03/25/2018 Info for Drs. Green and Dre Encounter Details Date Type Department Care Team (Late st Contact Info) Description 03/25/2018 [facility] Neurology [address] [facility] 3rd [place] [address] Boyd Green MD [address] [address] Pt. Information/instructio n (Info for Drs. You) Social History Tobacco Use Types Packs/Day Years Used Date Smoking Tobacco: Never Smokeless Tobacco: Never Alcohol Use Standard Drinks/Week Comments No 0 (1 standard drink = 0.6 oz pur e alcohol) Sex and Gender Information Value Date Recorded Sex Assigned at Not on file Legal Sex Male 3:58 AM MUSIC EDUCATION DIRECTOR Gender Identity Not on file Sexual Orientation [...] any questions. Action Taken: Message routed to: [facility] NEUROLOGY documented in this encounter Plan of Treatment Not on file documented as of this encounter Visit Diagnoses Not on filedocumented in this encounter Care Teams Cad Intern Relationship Specialty Start Date End Date Chris Fontenot PCP - General 03/09/13 Jasiel Hester, RN Registered Nurse Neurology 12/23/17 08/26/18 documented as of this encounter
--- OUTSIDE RECORDS SUMMARY | 2024-11-02 15:07 | XMS_ITS | Clinical Summary ---
Author Organization [facility] Address [address] [place] [id number] Care Team Providers Care Senior Group Manager Name Role Phone Chris Fontenot MD Primary [...] Units prn 10/08/19 14 Active medication order composerIndicat ions:Cerebral palsy (HC) Wheelchair seatbelt 1 Each 0 10/17/19 14 Active Wheel ChairIndication s:Cerebral palsy, unspecified type (HC) Wheelchair: customized with leg and head rests. Length of need: 99 months 1 Device 06/19/20 16 Active Shower ChairIndication s:Cerebral palsy, unspecified type (HC) For home use. shower chair with legs and feet that can swing out 1 Device 01/20/20 17 Active miscellaneous medical supply miscIndications :Wheelchair bound As directed. Sling for kam 1 Units 05/28/20 Active medication order composerIndicat ions:Cerebral palsy, unspecified type (HC) Kam lift sling 1 unit 06/21/20 Active medication order composerIndicat ions:Cerebral palsy (HC) FOR HOME USE (LARGE) 400 NO_MATCH 2 10/16/19 Active Per-Fit UnderwearIndica tions:Other urinary incontinence USE 3 TO 4 PER DAY FOR INCONTIENCE 360 Each 05/19/20 Active medication order composerIndicat ions:Cerebral palsy (HC) Large disposable gloves for as needed use at home. 600 Each 10/12/19 Active Diaper,Brief, Adult,Disposabl eIndications:Ot her urinary incontinence For home use. 96 Each 10/12/19 Active durable medical equipment (DME)Indication s:Other urinary incontinence Disposable Under Pads. 30 Each 10/29/19 24 Active triamcinolone 0.1 % ointmentIndicat ions:Rash Apply topically to affected area(s) two times [...] mouth two times daily. Active nebulizer and compressorIndic ations:Aspirati on pneumonia of left lower lobe, unspecified aspiration pneumonia type (HC) For home use. Length of need: 99 1 Each 03/12/20 24 Active oxygen-air delivery systems (HOME OXYGEN)Indicati ons:Nocturnal hypoxia Oxygen for home use. Liters per minute: 1 per nasal cannula. Frequency of use: Nocturnal;. Length of need: 99 Months. 1 Each 03/12/20 24 Active ferrous sulfate, 65 mg elemental, tabletIndicatio ns:Iron deficiency anemia, unspecified iron deficiency anemia type One tablet daily every morning before breakfast. 90 Tablet 3 04/14/20 24 Active Starch, Thickening, (Thick-It) powdIndications :Recurrent aspiration pneumonia (HC) Use as directed to achieve [place]-Thick liquids. 850 g 11 06/06/20 24 Active Cranberry 500 mg capIndications: Recurrent UTI Take 1 Capsule (500 mg) by mouth two times daily. 180 Capsule 3 06/10/20 24 Active clotrimazole (LOTRIMIN) 1 % creamIndication s:Rash Apply topically to affected area(s) two times daily. As needed. 45 g 3 06/10/20 24 Active tiZANidine (ZANAFLEX) 2 mg tabletIndicatio ns:Muscle cramps 1/2 to one tab oral three times daily as needed. 30 Tablet 3 08/03/20 24 Active lamoTRIgine 25 mg tablet Take 12.5 mg by mouth once daily. Start with 0.5 pill each day. Then, increase by 0.5 pill every two weeks, until 2 pills twice a day, and continue. 08/14/20 24 Active cholecalciferol , Vitamin D3, 2,000 unit tabletIndicatio ns:Vitamin D deficiency Take 1 Tablet (2,000 units) by mouth once daily. 90 Tablet 3 08/23/19 25 Active lisinopriL (PRINIVIL; ZESTRIL) 10 mg tabletIndicatio ns:HTN (hypertension) Take 1 Tablet (10 mg) by mouth once daily. 90 Tablet 08/23/19 25 Active metoprolol tartrate (LOPRESSOR) 25 mg tabletIndicatio ns:Essential hypertension Take 1 Tablet (25 mg) by mouth two times daily. 180 Tablet 3 08/23/19 25 Active polyethylene glycoL (MIRALAX) 17 gram/scoop powderIndicatio ns:Chronic constipation Mix 1 scoop (17 g) in liquid then take by mouth once daily. With 8 ounces of beverage of choice. 1700 g 4 08/23/19 25 Active sennosides (SENNA) 8.6 mg tabletIndicatio ns:Chronic constipation Take 2 Tablets (17.2 mg) by mouth once daily. 180 Tablet 3 08/23/19 25 Active multivitamin with folic acid 0.4 mg (Tab-A-Doroteo)Ind ications:Nutrit ion disorder Take 1 Tablet by mouth once daily. 90 Tablet 09/01/19 25 Active melatonin 3 mg tabletIndicatio ns:Insomnia, idiopathic Take 2 Tablets (6 mg) by mouth at bedtime. 180 Tablet 3 09/07/19 25 Active bisacodyL 10 mg suppositoryIndi cations:Other constipation INSERT 1 SUPPOSITORY RECTALLY IF NO BM IN 1-2 DAYS OR AT PATIENT/FAMILY DISCRETION CAN BE INTERCHANGED WITH ENEMAS Strength: 10 mg 12 Suppository 11/03/19 25 Active bisacodyL (DULCOLAX) 10 mg suppositoryIndi cations:Other constipation INSERT 1 SUPPOSITORY RECTALLY IF NO BM IN 1-2 DAYS OR AT PATIENT/FAMILY DISCRETION CAN BE INTERCHANGED WITH ENEMAS Strength: 10 mg 12 Suppository 01/23/20 24 025 Discontin ued(Reord er (E-cancel not sent)) Active Problems Problem Noted Date Diagnosed Date [...] Description 11/01/2024 9:30 AM CDT Orders Only [facility] [address] [facility] [address] [facility] [place] [facility] 11/01/2024 Travel 10/31/2024 Refill [facility] [address] [facility] [place] [address] Chris Fontenot MD Refill Request (BISACODYL 10MG SUPP) 10/25/2024 Travel 09/27/2024 11:45 AM ENTERPRISE SECURITY ARCHITECT Orders Only [facility] [address] [place] [address] [place] [place] [facility] 09/27/2024 Travel 09/21/2024 11:25 AM ENTERPRISE SECURITY ARCHITECT Office Visit [facility] [address] [place] [address] Chris Fontenot MD Hospital F/U ([facility], 09/12/2024 - 09/15/2024, pneumonia and Influenza ) 09/21/2024 Travel 09/13/2024 Orders Only [facility] Scanner 1 scan: (1-Ord) [facility], XR CHEST 1V PORTABLE, 09/13/2024 09/10/2024 Orders Only [facility] Scanner 1 scan: (1-Ord) [facility], XR CHEST 1V PORTABLE, 09/10/2024 09/07/2024 Telephone [facility] [address] [place] [address] Chris Fontenot MD Medication Management (Melatonin ) 09/06/2024 Refill [facility] [address] [place] [address] Chris Fontenot MD Refill Request (Tab-A-Doroteo/Beta Carotene) 08/30/2024 11:30 AM ENTERPRISE SECURITY ARCHITECT Orders Only [facility] [address] [place] [address] Lab, [place] [facility] 08/30/2024 Telephone [facility] [address] [place] [address] Chris Fontenot MD Results 08/30/2024 Travel 08/29/2024 Refill [facility] [address] [place] [address] Chris Fontenot MD Refill Request (Tab-a-doroteo/Beta carotene tabs) 08/23/2024 2:05 PM ENTERPRISE SECURITY ARCHITECT Office Visit [facility] [address] [place] [address] Chris Fontenot MD Medicare ANNUAL (subsequent) Visit [...] on file Legal Sex Male 5:31 AM ENTERPRISE SECURITY ARCHITECT Gender Identity Not on file Sexual Orientation Not on file Obstetrics History Last Filed Vital Signs Vital Sign Reading Time Taken Comments Blood Pressure 125/75 09/21/2024 11:25 AM ENTERPRISE SECURITY ARCHITECT Pulse 66 09/21/2024 11:25 AM ENTERPRISE SECURITY ARCHITECT Temperature 36.3 C (97.4 F) 04/17/2024 12:19 PM CDT Respiratory Rate 16 04/17/2024 12:19 PM CDT Oxygen Saturation 95% 09/21/2024 11:25 AM ENTERPRISE SECURITY ARCHITECT Inhaled Oxygen Concentration - - Weight 56.5 [...] 07/27/2022 Pneumococcal series for age 50+ Completed , 04/23/2010 COVID-19 vaccine series Completed 06/26/20 24, 08/04/2023, 07/27/2022, Additional history exists Influenza Vaccine Completed 07/02/2024, , 06/16/2022, Additional history exists Procedures Procedure Name Priority Date/Time Associated Diagnosis Comments URINALYSIS MICROSCOPIC Routine 11/01/2024 12:08 PM CDT Recurrent UTI UA W/ SEDIMENT EXAM REFLEXED PER CRITERIA Routine 11/01/2024 12:08 PM CDT Recurrent UTI URINE CULTURE Routine 09/27/2024 9:00 AM ENTERPRISE SECURITY ARCHITECT Recurrent UTI UA W/ SEDIMENT EXAM REFLEXED PER CRITERIA Routine 09/27/2024 9:00 AM ENTERPRISE SECURITY ARCHITECT Recurrent UTI CBC WITH AUTO DIFFERENTIAL Routine 09/21/2024 11:57 AM ENTERPRISE SECURITY ARCHITECT Thrombocytopenia BASIC METABOLIC PANEL Routine 09/21/2024 11:57 AM ENTERPRISE SECURITY ARCHITECT Essential hypertension SCAN-RADIOLOGY REPORT 09/13/2024 12:00 AM ENTERPRISE SECURITY ARCHITECT SCAN-RADIOLOGY REPORT 09/10/2024 12:00 AM ENTERPRISE SECURITY ARCHITECT URINALYSIS MICROSCOPIC Routine 08/30/2024 8:30 AM ENTERPRISE SECURITY ARCHITECT Recurrent UTI URINE CULTURE Routine 08/30/2024 8:30 AM ENTERPRISE SECURITY ARCHITECT Recurrent UTI UA W/ SEDIMENT EXAM REFLEXED PER CRITERIA Routine 08/30/2024 8:30 AM ENTERPRISE SECURITY ARCHITECT Recurrent UTI VALPROIC ACID TOTAL Routine 08/23/2024 2 :51 PM ENTERPRISE SECURITY ARCHITECT 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) VITAMIN D 25 (DEFICIENCY) Routine 08/23/2024 2:51 PM ENTERPRISE SECURITY ARCHITECT Vitamin D deficiency FERRITIN Routine 08/23/2024 2:51 PM ENTERPRISE SECURITY ARCHITECT Iron deficiency anemia, unspecified iron deficiency anemia type IRON PLUS IRON BINDING CAP Routine 08/23/2024 2:51 PM ENTERPRISE SECURITY ARCHITECT Iron deficiency anemia, unspecified iron deficiency anemia type HEMOGLOBIN Routine 08/23/2024 2:51 PM ENTERPRISE SECURITY ARCHITECT Iron deficiency anemia, unspecified iron deficiency anemia type BASIC METABOLIC PANEL Routine 08/23/2024 2:51 PM ENTERPRISE SECURITY ARCHITECT Essential hypertension LIPID PANEL W REFLEX MEASURED LDL Routine 08/23/2024 2:51 PM ENTERPRISE SECURITY ARCHITECT Dyslipidemia ANTI HIV 1/2 Routine 07/27/2022 4:55 PM ENTERPRISE SECURITY ARCHITECT Encounter for screening for HIV ANTI HCV Routine 07/27/2022 4:55 PM ENTERPRISE SECURITY ARCHITECT Need for hepatitis C screening test from Last 3 Months or Most Recently Relevant to Health Maintenance Results * (ABNORMAL) URINALYSIS MICROSCOPIC (11/01/2024 12:08 PM CDT) Only the most recent of2 resultswithin the time period is included. RBC 0-2 0-2, None Seen /HPF 11/02/2024 12:49 AM CDT [facility] WBC 0-2 0-2, 3-5, None Seen /HPF 11/02/2024 12:49 AM CDT [facility] BACTERIA Many(A) None Seen, Rare, Few Bacteria/ HPF 11/02/2024 12:49 AM CDT [facility] EPITHELIAL CELLS Moderate(A) None Seen, Few Epi/HPF 11/02/2024 12:49 AM CDT [facility] Mucus Present 11/02/2024 12:49 AM CDT [facility] HYALINE CASTS 26-50(A) 0-2, 3-5 /LPF 11/02/2024 12:49 AM CDT [facility] Urine URINE SPECIMEN / Unknown Non-Blood / Unknown 11/01/2024 12:08 PM CDT 11/01/2024 12:08 PM CDT us Chris Fontenot MD URINE Final Result [facility] [address] [place] [address], [place] * (ABNORMAL) UA W/ SEDIMENT EXAM REFLEXED PER CRITERIA (11/01/2024 12:08 PM CDT) Only the most recent of3 resultswithin the time period is included. COLOR Yellow Yellow Color 11/02/2024 12:49 AM CDT [facility] CLARITY Turbid(A) Clear Clarity 11/02/2024 12:49 AM CDT [facility] SPECIFIC GRAVITY,URINE >=1.030(A) 1.010, 1.015, 1.020, 1.025 11/02/2024 12:49 AM CDT [facility] PH,URINE 5.5 6.0, 7.0, 8.0, 5.5, 6.5, 7.5, 8.5 11/02/2024 12:49 AM CDT [facility] UROBILINOGEN,QU ALITATIVE Normal Normal EU/dl 11/02/2024 12:49 AM CDT [facility] PROTEIN, URINE 30(A) Negative mg/dL 11/02/2024 12:49 AM CDT [facility] GLUCOSE, URINE Negative Negative mg/dL 11/02/2024 12:49 AM CDT [facility] KETONES,URINE 15(A) Negative mg/dL 11/02/2024 12:49 AM CDT [facility] BILIRUBIN,URINE Abnormal(A) Negative 11/03/19 12:49 AM CDT [facility] Comment:A variety of metabol ites and/or medications may result in a positive bilirubin result. Clinical correlation is recommended. OCCULT BLOOD,URINE Negative Negative 11/02/2024 12:49 AM CDT [facility] NITRITE Negative Negative 11/02/2024 12:49 AM CDT [facility] LEUKOCYTE ESTERASE Trace(A) Negative 11/02/2024 12:49 AM CDT [facility] Urine URINE SPECIMEN / Unknown Non-Blood / Unknown 11/01/2024 12:08 PM CDT 11/01/2024 12:08 PM CDT us Chris Fontenot MD URINE Final Result Performing Organization Address City/[facility]/ZIP Co de Phone Number [facility] [address] [place] [address], * URINE CULTURE (09/27/2024 9:00 AM ENTERPRISE SECURITY ARCHITECT) Only the most recent of2 resultswithin the time period is included. CULTURE <10,000 CFU/mL multiple organisms 09/28/2024 2:51 PM ENTERPRISE SECURITY ARCHITECT [facility] Urine URINE SPECIMEN / Unknown Non-Blood / Unknown 09/27/2024 9:00 AM ENTERPRISE SECURITY ARCHITECT 09/27/2024 11:15 AM ENTERPRISE SECURITY ARCHITECT us Chris Fontenot MD MICROBIOLOGY Final Result [facility] [address] [place] [address], * (ABNORMAL) CBC AND DIFFERENTIAL (09/21/2024 11:57 AM ENTERPRISE SECURITY ARCHITECT) WHITE BLOOD CELL COUNT 9.3 3.8 - 10.8 Thousand/u L [facility] RED BLOOD CELL COUNT 3.81(L) 4.20 - [...] [facility] CBC (INCLUDES DIFF/PLT) COMMENTS [facility] Comment: Review of peripheral smear confirms automated results. Blood BLOOD SPECIMEN / Unknown 09/21/2024 11:57 AM ENTERPRISE SECURITY ARCHITECT 09/21/2024 11:57 AM ENTERPRISE SECURITY ARCHITECT us Chris Fontenot MD HEMATOLOGY Final Result [facility] [address] [place] [address], [facility] [address] [place] [address] * (ABNORMAL) BASIC METABOLIC PANEL (09/21/2024 11:57 AM ENTERPRISE SECURITY ARCHITECT) Only the most recent of2 resultswithin the time period is included. GLUCOSE 107(H) 65 - 99 mg/dL [facility] Comment: Fasting reference interval For someone without known diabetes, a glucose value between 100 and 125 mg/dL is consistent with prediabetes and should be confirmed with a follow-up test. UREA NITROGEN (BUN) 6(L) 7 - 25 mg/dL [facility] CREATININE 0.51(L) 0.60 - 1.29 mg/dL [facility] EGFR 124 > OR = 60 mL/min/1.7 3m2 [facility] BUN/CREATININE RATIO 12 6 - 22 (calc) [facility] SODIUM 142 135 - 146 mmol/L [facility] POTASSIUM 3.5 3.5 - 5.3 mmol/L [facility] CHLORIDE 105 98 - 110 mmol/L [facility] CARBON DIOXIDE 29 20 - 32 mmol/L [facility] ELECTROLYTE BALANCE 8 7 - 17 mmol/L (calc) [facility] CALCIUM 8.6 8.6 - 10.3 mg/dL [facility] Blood BLOOD SPECIMEN / Unknown 09/21/2024 11:57 AM ENTERPRISE SECURITY ARCHITECT 09/21/2024 11:57 AM ENTERPRISE SECURITY ARCHITECT us Chris Fontenot MD CHEMISTRY Final Result [facility] [address] [facility] [place] [address], [facility] [address] [place] [address] * SCAN-RADIOLOGY REPORT (09/13/2024 12:00 AM ENTERPRISE SECURITY ARCHITECT) Only the most recent of2 resultswithin the time period is included. Anatomical Region Laterality Modality Other us Scanner OTHER Final Result * LIPID PANEL W REFLEX MEASURED LDL (08/23/2024 2:51 PM ENTERPRISE SECURITY ARCHITECT) CHOLESTEROL, TOTAL 149 <200 mg/dL [facility] HDL CHOLESTEROL 51 > OR = 40 mg/dL [facility] TRIGLYCERIDES 101 <150 mg/dL [facility] LDL-CHOLESTEROL 80 mg/dL (calc) [facility] Comment: Reference range: <100 Desirable range <100 mg/dL for primary prevention; <70 mg/dL for patients with CHD or diabetic patients with > or = 2 CHD risk factors. LDL-C is now calculated using the Perefcto-Starks calculation, which is a validated novel method providing better accuracy than the Friedewald equation in the estimation of LDL-C. Perfecto SS et al. RANULFO. 2013;310(19): 4744-4591 (http://education.[employer]/faq/NNR374) CHOL/HDLC RATIO 2.9 <5.0 (calc) [facility] NON HDL CHOLESTEROL 98 <130 mg/dL (calc) [facility] Comment: For patients with diabetes plus 1 major ASCVD risk factor, treating to a non-HDL-C goal of <100 mg/dL (LDL-C of <70 mg/dL) is considered a therapeutic option. Blood BLOOD SPECIMEN / Unknown 08/23/2024 2:51 PM ENTERPRISE SECURITY ARCHITECT 08/23/2024 2:51 PM ENTERPRISE SECURITY ARCHITECT us Chris Fontenot MD CHEMISTRY Final Result Performing Organization Address City/[facility]/ZIP Co de Phone Number [facility] [address] [place] [address], [place] [phone] [facility] [address] [place] [address] * VITAMIN D 25 (DEFICIENCY) (08/23/2024 2:51 PM ENTERPRISE SECURITY ARCHITECT) VITAMIN D,25-OH,TOTAL,IA 83 30 - 100 ng/mL [facility] Comment: Vitamin D Status 25-OH Vitamin D: Deficiency: <20 ng/mL Insufficiency: 20 - 29 ng/mL Optimal: > or = 30 ng/mL For 25-OH Vitamin D testing on patients on D2-supplementation and patients for whom quantitation of D2 and D3 fractions is required, the Quest[facility]ure[facility](TM) 25-OH VIT D, (D2,D3), LC/MS/MS is recommended: order code 34469 (patients >2yrs). See Note 1 Note 1 For additional information, please refer to http://education.[employer]/faq/ZMZ833 (This link is being provided for informational/ educational purposes only.) Blood BLOOD SPECIMEN / Unknown 08/23/2024 2:51 PM ENTERPRISE SECURITY ARCHITECT 08/23/2024 2:51 PM ENTERPRISE SECURITY ARCHITECT us Chris Fontenot MD SEND OUTS Final Result [facility] [address] [place] [address], [place] [phone] [facility] [address] [place] [address] * (ABNORMAL) IRON PLUS IRON BINDING CAP (08/23/2024 2:51 PM ENTERPRISE SECURITY ARCHITECT) IRON, TOTAL 44(L) 50 - 180 mcg/dL [facility] IRON BINDING CAPACITY 328 250 - 425 mcg/dL (calc) [facility] % SATURATION 13(L) 20 - 48 % (calc) [facility] Blood BLOOD SPECIMEN / Unknown 08/23/2024 2:51 PM ENTERPRISE SECURITY ARCHITECT 08/23/2024 2:51 PM ENTERPRISE SECURITY ARCHITECT us Chris Fontenot MD CHEMISTRY Final Result [facility] [address] [facility] [place] [address], [place] [phone] [facility] [address] [facility] [place] [address] * (ABNORMAL) HEMOGLOBIN (08/23/2024 2:51 PM ENTERPRISE SECURITY ARCHITECT) HEMOGLOBIN 13.0(L) 13.2 - 17.1 g/dL [facility] Blood BLOOD SPECIMEN / Unknown 08/23/2024 2:51 PM ENTERPRISE SECURITY ARCHITECT 08/23/2024 2:51 PM ENTERPRISE SECURITY ARCHITECT us Chris Fontenot MD HEMATOLOGY Final Result Performing Organization Address City/[facility]/ZIP Co de Phone Number [facility] [address] [place] [address], [facility] [address] [place] [address] * (ABNORMAL) VALPROIC ACID TOTAL (08/23/2024 2:51 PM ENTERPRISE SECURITY ARCHITECT) VALPROIC ACID 118.1(H) 50.0 - 100.0 mg/L [facility] Blood BLOOD SPECIMEN / Unknown 08/23/2024 2:51 PM ENTERPRISE SECURITY ARCHITECT 08/23/2024 2:51 PM ENTERPRISE SECURITY ARCHITECT us Chris Fontenot MD CHEMISTRY Final Result [facility] [address] [facility] [place] [address], [place] [phone] [facility] [address] [place] [address] * FERRITIN (08/23/2024 2:51 PM ENTERPRISE SECURITY ARCHITECT) [facility] FERRITIN 49 38 - 380 ng/mL [facility] Blood BLOOD SPECIMEN / Unknown 08/23/2024 2:51 PM ENTERPRISE SECURITY ARCHITECT 08/23/2024 2:51 PM ENTERPRISE SECURITY ARCHITECT Chris Fontenot MD CHEMISTRY Final Result [facility] [address] [place] [address], [place] [phone] [facility] [address] [place] [address] * ANTI HCV (07/27/2022 4:55 PM ENTERPRISE SECURITY ARCHITECT) [facility] HEPATITIS C ANTIBODY Non-React kandice Non-React kandice 07/29/2022 6:42 AM ENTERPRISE SECURITY ARCHITECT [facility] Comment:Antibodies to HCV no t detected; does not exclude the possibility of exposure to HCV. Blood BLOOD SPECIMEN / Unknown Venipuncture / Unknown 07/27/2022 4:55 PM ENTERPRISE SECURITY ARCHITECT 07/27/2022 4:57 PM ENTERPRISE SECURITY ARCHITECT Chris Fontenot MD SEND OUTS Final Result [facility] [address] [place] [address], [place] * ANTI HIV 1/2 (07/27/2022 4:55 PM ENTERPRISE SECURITY ARCHITECT) [facility] HIV-1/HIV-2 ANTIBODY Non-Reacti ve Non-Reacti ve 07/29/2022 11:42 AM ENTERPRISE SECURITY ARCHITECT [facility] Comment:HIV-1 p24 and HIV-1/ HIV-2 Ab not detected. Blood BLOOD SPECIMEN / Unknown Venipuncture / Unknown 07/27/2022 4:55 PM ENTERPRISE SECURITY ARCHITECT 07/27/2022 4:57 PM ENTERPRISE SECURITY ARCHITECT Chris Fontenot MD SEND OUTS Final Result [facility] [address] [place] [address], [place] from Last 3 Months or Most Recently Relevant to Health Maintenance Insurance MEDICARE [place] ONLY MEDICAID MEDICARE PART B HB ONLY MEDICARE PART A HB ONLY Advance Directives * Full Code (Latest Code Status on File) Date Activated Date Inactivated Comments 03/07/2024 2:30 PM 03/12/2024 2:05 PM Question Answer Comments Code Status Discussion: Reviewed Preferences Care Teams Senior Group Manager Relationship Specialty Start Date End Date Chris Fontenot MD [address] [place] [address] PCP - General 12/15/05
--- OUTSIDE RECORDS SUMMARY | 2024-11-02 15:07 | XMS_ITS | Encounter Summary ---
Author Organization [facility] Address [address] [place] [address] Care Team Providers Care Odd Shoe Examiner Name Role Phone Elsewhere, Pcp Primary Care Provider Unavailabl e Encounter Details Date Type Department Care Team ([facility] st Contact Info) Description 09/01/2024 Clinical Communication Department of Neurology in [place], [place] [address] [place] [phone] Matteo Noe M.D. [address] [place] [phone] Social History Tobacco Use Types Packs/Day Years Used Date Smoking Tobacco: Never Smokeless Tobacco: Never [facility] Utilities Answer Date Recorded In the past [address] [facility] electric, gas, oil, or water [facility] threatened to shut off services in your [...] often do you attend chur ch or voodoo services? 1 to 4 times per year 02/01/2022 Do you belong to any clubs o r organizations such as restorationist groups, unions, fraternal or athletic groups, or [...] and heating? Not hard at all 02/01/2022 [facility] - Occupational [...] your living situation today? I have a [facility] place to live 10/18/2023 Sex and Gender Information Value Date Recorded Sex Assigned at Male 02/01/2022 6:47 PM CDT Legal Sex Male 9:23 AM ATTORNEY GENERAL Gender Identity Male 02/01/2022 6:47 PM CDT Sexual Orientation Straight 02/01/2022 6: 47 PM CDT documented as of this encounter Plan of Treatment Upcoming Encounters Date Type Department Care Team (Latest Contact Info) Description 11/07/2024 9:30 AM CDT Appointment Department of Laboratory Medicine in [address] [phone] Matteo Noe M.D. [address] [place] [phone] 11/24/2024 11:00 AM CDT Clinical Communication Virtual Review in [place], [place] 200 [place] [address] 11/28/2024 11:00 AM CDT Office Visit Department of Neurology in [place], [place] [address] [place] [phone] Matteo Noe M.D. [address] [place] [phone] 12/06/2024 10:30 AM CDT Diagnostic Division of Pulmonary Medicine in [place], [place] [address] [place] [phone] Matteo Noe M.D. [address] [place] [address] documented as of this encounter Visit Diagnoses Not on filedocumented in this encounter Care Teams Odd Shoe Examiner Relationship Specialty Start Date End Date Elsewhere, Pcp PCP - General Internal Medicine 11/14/21 documented as of this encounter
--- OUTSIDE RECORDS SUMMARY | 2024-11-02 15:07 | XMS_ITS | Encounter Summary ---
Author Organization [place] [facility] Address [address] [place] [address] Care Team Providers Care Sewing Machine Attachment Tester Name Role Phone Chris Fontenot Primary Care Provider Jasiel Hester RN Unavailable Reason for Visit * Reason Onset Date Comments Refill Request 06/28/2018 diazepam (DIAZEP AM INTENSOL) 5 MG/ML (HIGH CONC) solution Encounter Details Date Type Department Care Team (Late st Contact Info) Description 06/28/2018 [facility] Neurology [address] [facility] 3rd [place] [address] Boyd Green MD [address] [facility] 200 [place], [place] [phone] Refill Request (diazepam (DIAZEPAM INTENSOL) 5 MG/ML (HIGH CONC) solution) Social History Tobacco Use Types Packs/Day Years Used Date Smoking Tobacco: Never Smokeless Tobacco: Never Alcohol Use Standard Drinks/Week Comments No 0 (1 standard drink = 0.6 oz pur e alcohol) Sex and Gender Information Value Date Recorded Sex Assigned at Not on file Legal Sex Male 3:58 AM ACCOUNTS PAYABLE ADMINISTRATOR Gender Identity Not on file Sexual Orientation Not on file documented as of this encounter Miscellaneous Notes * Telephone Encounter - Bashir Hodges Zeeshan - 06/28/2018 12:09 PM CST [facility] Call Center Phone Message May a detailed message be left on voicemail: no Reason for Call: Medication Refill Request Has the patient contacted the pharmacy for the refill? Yes Name of medication being requested: diazepam (DIAZEPAM INTENSOL) 5 MG/ML (HIGH CONC) solution Provider who prescribed the medication: Dr. Green Pharmacy: [facility] Date medication is needed: Joey, Pt is out Action Taken: Message routed to: [facility] NEUROLOGY ADULT [facility] PAYABLE ADMINISTRATOR documented in this encounter Plan of Treatment Not on file documented as of this encounter Visit Diagnoses Diagnosis Seizure disorder (H) Unspecified epilepsy without mention of intractable epilepsy documented in this encounter Care Teams Sewing Machine Attachment Tester Relationship Specialty Start Date End Date Chris Fontenot PCP - General 03/09/13 Jasiel Hester, RN Registered Nurse Neurology 12/23/17 08/26/18 documented as of this encounter
--- OUTSIDE RECORDS SUMMARY | 2024-11-02 15:07 | XMS_ITS | Encounter Summary ---
Author Organization [facility] Address [address] [place] [address] Care Team Providers Care Offset Plate Maker Name Role Phone Elsewhere, Pcp Primary Care Provider Unavailabl e Reason for Visit * Reason Onset Date Comments Med Question 10/02/2024 So Encounter Details Date Type Department Care Team (Latest Contact Info) Description 10/02/2024 Clinical Communication Department of Neurology in [place], [place] [address] [place] [phone] Matteo Noe M.D. [address] [place] [phone] Med Question (So) Social History Tobacco Use Types Packs/Day Years Used Date Smoking Tobacco: Never Smokeless Tobacco: Never [employer] Utilities Answer Date Recorded In the past 12 months has [facility] electric, gas, oil, or water company [...] often do you attend chur ch or islam services? 1 to 4 times per year [...] 02/01/2022 [facility] - Occupational Stress Questionnaire Answer Date [...] your living situation today? 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 - 10/03/2024 12:44 PM CST SUBJECTIVE CHIEF COMPLAINT / REASON FOR CALL Med Question (So) Information Discussed Patient's sister was contacted. She states she has just left the care home after visiting patient and states his symptoms [...] also asked that we clarify with the care home the instructions on the diazepam rescue. Attempted to reach the care home to speak to the nurse Marilee, but she was not available. Left message for her to callback so we may review the rescue med instructions. Snf Number: [phone] VITICULTURIST: Marilee [phone] PLAN Disposition/Recommendation: Will await call from Snf Information/Education: patient/caller able to teach back Caller agreeable to plan of care: yes The following references were used: nursing clinical judgement and other portal message thread 09/27/24 LOGGING CAPTAIN MUD ANALYSIS documented in this encounter Plan of Treatment Upcoming Encounters Date Type Department Care Team (Latest Contact Info) Description 11/07/2024 9:30 AM CDT Appointment Department of Laboratory Medicine in [place] [address] [place] [address] Matteo Noe M.D. [address] [place] [phone] 11/24/2024 11:00 AM CDT Clinical Communication Virtual Review in [place], [place] [address] [place] [address] 11/28/2024 11:00 AM CDT Office Visit Department of Neurology in [place], [place] [address] [place] [phone] Matteo Noe M.D. [address] [place] [phone] 12/06/2024 10:30 AM CDT Diagnostic Division of Pulmonary Medicine in [place], [place] [address] [place] [phone] Matteo Noe M.D. [address] [place] [phone] documented as of this encounter Visit Diagnoses Not on filedocumented in this encounter Care Teams Offset Plate Maker Relationship Specialty Start Date End Date Elsewhere, Pcp PCP - General Internal Medicine 11/14/21 documented as of this encounter
--- OUTSIDE RECORDS SUMMARY | 2024-11-02 15:07 | XMS_ITS | Encounter Summary ---
Author Organization [facility] Address [address] [place] [address] Care Team Providers Care Bods Developer Name Role Phone Elsewhere, Pcp Primary Care Provider Unavailabl e Reason for Referral * Outpatient (Routine) - Authorized Specialty Diagnoses / Procedures Referred By Bhupendra johnson Referred To Contact Diagnoses Seizure (HCC) Procedures EEG In-home monitoring (Adult epilepsy and Peds Neuro only) Matteo Noe M.D. [address] [place] [phone] Phone: tel: fax: [facility] Referral ID Status Reason Start Date Expiration Date V isits Requested Visits Authorized [id number] Authorized 11/02/2024 02/02/2026 1 1 Encounter Details Date Type Department Care Team ([facility] st Contact Info) Description 11/02/2024 Orders Only Department of Neurology in [place], [place] [address] [place] [phone] Matteo Noe M.D. [address] [place] [phone] Seizure (HCC) (Primary Dx) Social History Tobacco Use Types Packs/Day Years Used Date Smoking Tobacco: Never Smokeless Tobacco: Never C Utilities Answer Date Recorded In the past [...] 02/01/2022 How often do you attend [facility] or jainism services? 1 to 4 times per year 02/01/2022 Do you belong to any clubs o r organizations such as christian groups, unions, fraternal or athletic groups, or [...] and heating? Not hard at all 02/01/2022 [facility] - Occupational Stress [...] your living situation today? 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 [address] [place] [address] 11/24/2024 11:00 AM CDT Clinical Communication Virtual Review in [place], [place] 200 [place] [address] 11/28/2024 11:00 AM CDT Office Visit Department of Neurology in [place], [place] [address] [place] [phone] Matteo Noe M.D. [address] [place] [phone] 12/06/2024 10:30 AM CDT Diagnostic Division of Pulmonary Medicine in [place], [place] [address] [place] [phone] Matteo Noe M.D. [address] [place] [phone] Scheduled Orders Name Type Priority Associated Diagnoses Orde r Schedule EEG In-home monitoring (Adult epilepsy and Peds Neuro only) Neurology Routine Seizure (HCC) Expected: 11/02/2024, Expires: 02/02/2026 documented as of this encounter Visit Diagnoses Diagnosis Seizure (HCC)- Primary documented in this encounter Care Teams Bods Developer Relationship Specialty Start Date End Date Elsewhere, Pcp PCP - General Internal Medicine 11/14/21 documented as of this encounter
--- OUTSIDE RECORDS SUMMARY | 2024-11-02 15:07 | XMS_ITS | Referral Summary ---
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 professor) 10/09/2020,09/16/2020 Tdap 06/06/2020,04/23/2010 Social History Tobacco Use [...] - Respiratory Rate 14 07/06/2022 11:20 AM DOCUMENTATION BILLING CLERK Oxygen Saturation - - Inhaled Oxygen Concentration - - Weight 54.4 kg (120 lb) 07/06/2022 11:20 AM DOCUMENTATION BILLING CLERK Height 157.5 cm (5' 2) 07/06/2022 11:20 AM DOCUMENTATION BILLING CLERK Body Mass Index 21.95 07/06/2022 11:20 AM DOCUMENTATION BILLING CLERK Plan of Treatment Not on file Insurance MEDICARE PART A & B [place]ICAID [place] Care Teams Sewing Machine Maintenance Mechanic Relationship Specialty Start Date End Date Chris Fontenot [address] [place] [address] PCP - General Family Medicine 03/25/21 Ramirez Oliveira MD [address] [facility] [address] [place] [address] Neurology 05/06/22
--- OUTSIDE RECORDS SUMMARY | 2024-11-02 15:07 | XMS_ITS | Encounter Summary ---
Author Organization [place] Address [address] [place] [address]. [place] [address] Care Team Providers Care Utility System Operator Name Role Phone Chris Fontenot Primary Care Provider [phone] Jasiel Hester RN Unavailable Reason for Visit * Reason Onset Date Comments Call Back 12/23/2017 Questions about medication and labs Encounter Details Date Type Department Care Team (Late st Contact Info) Description 12/23/2017 Telephone [facility] Neurology [address] [facility] 3rd [place] [address] Boyd Green MD [address] [address] Call Back (Questions about medication and labs) Social History Tobacco Use Types Packs/Day Years Used Date Smoking Tobacco: Never Sex and Gender Information Value Date Recorded Sex Assigned at Not on file 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 Please call back at [phone]. Action Taken: Message routed to: [facility] ([facility]): Neurology documented in this encounter Plan of Treatment Not on file documented as of this encounter Visit Diagnoses Diagnosis Generalized convulsive epilepsy with intractable epilepsy Seizure disorder (H) Unspecified epilepsy without mention of intractable epilepsy documented in this encounter Care Teams Utility System Operator Relationship Specialty Start Date End Date Chris Fontenot PCP - General 03/09/13 Jasiel Hester, RN Registered Nurse Neurology 12/23/17 08/26/18 documented as of this encounter
--- OUTSIDE RECORDS SUMMARY | 2024-11-02 15:07 | XMS_ITS | Clinical Summary ---
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) 10/09/2020,09/16/2020 Tdap 06/06/2020,04/23/2010 Family History Medical History Relation Comments Brain/NEGOTIATOR Cancer Other Breast Cancer Other Heart Disease [...] - Respiratory Rate 14 07/06/2022 11:20 AM DATA ENTRY EMAIL PROCESSOR Oxygen Saturation - - Inhaled Oxygen Concentration - - Weight 54.4 kg (120 lb) 07/06/2022 11:20 AM DATA ENTRY EMAIL PROCESSOR Height 157.5 cm (5' 2) 07/06/2022 11:20 AM DATA ENTRY EMAIL PROCESSOR Body Mass Index 21.95 07/06/2022 11:20 AM DATA ENTRY EMAIL PROCESSOR Plan of Treatment Health Maintenance Due Date [...] A & B [place]ICAID [place] Care Teams Fbi Investigator Relationship Specialty Start Date End Date Chris Fontenot [address] [place] [address] PCP - General Family Medicine 03/25/21 Ramirez Oliveira MD [address] [place] [address] [address] [place] [address] Neurology 05/06/22
--- OUTSIDE RECORDS SUMMARY | 2024-11-02 15:07 | XMS_ITS | Clinical Summary ---
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
[2024-11-02 15:35] LABS: Troponin I* < 0.01 ng/mL (0.01-0.04)
[2024-11-02] MEDS: 0.9 % SODIUM CHLORIDE 500 ML 500 ML IV (15:47)
[2024-11-02] MEDS: cefTRIAXone 1 GM in 0.9 % SODIUM CHLORIDE Mini-bag 100 ML IVPB (16:35)
[2024-11-02] MEDS: PIPERACILLIN/TAZOBACTAM 4.5 GM in 0.9 % SODIUM CHLORIDE Mini-bag 100 ML IVPB (17:04)
[2024-11-02] MEDS: HYDROmorphone 0.5 mg/0.5 ml inj IVP (17:20)
[2024-11-02] MEDS: AZITHROMYCIN 500 MG in 0.9 % SODIUM CHLORIDE 250 ml 250 ML 255 MG IVPB (17:44)
[2024-11-02] MEDS: ONDANSETRON 2 MG/ML inj 4 MG IVP (17:59)
[2024-11-02] MEDS: LACTATED RINGERS 1000 ML 1,000 ML 125 ML IV (19:09)
[2024-11-02] MEDS: DIVALPROEX DELAYED RELEASE 250 MG TABLET 1000 MG PO (19:28)
[2024-11-02] MEDS: lamoTRIgine 25 MG TABLET PO (19:38)
[2024-11-02] MEDS: LACOSAMIDE 50 MG TABLET 200 MG PO (19:39)
== END 2024-11-02 19:55 | disposition short-term general hospital (02) ==
LOC: ED 15:04
PROVIDERS: Emergency Provider Emergency Medicine; PCP Family Medicine
DX: R10.9 Unspecified abdominal pain (principal); R09.02 Hypoxemia
CPT/HCPCS: 36415; 71275; 74177; 80053; 83605; 83690; 84484; 85025; 87040; 87631; 93005; 96365; 96367; 96372; 96375; 99285; A9270; J0456; J0696; J1171; J2405; J2543; J7030; J7050; J7120; Q9967

== ENCOUNTER 2024-11-02 19:25 | Outpatient (CLI) | payer MEDICARE, MEDICAID, SELFPAY | END 2024-11-02 19:26 | disposition home or self-care (01) | LOC: AMB 11-03 10:26 | PROVIDERS: PCP Family Medicine; Visit Provider Student in an Organized Health Care Education/Training Program | DX: J18.9 Pneumonia, unspecified organism (principal); G80.9 Cerebral palsy, unspecified; G82.50 Quadriplegia, unspecified; Z99.3 Dependence on wheelchair; G40.309 Generalized idiopathic epilepsy and epileptic syndromes, not intractable, without status epilepticus | CPT/HCPCS: A0425; A0434 ==